=== PATIENT | female | born 1935 | race Caucasian/White ===

== ENCOUNTER 2023-08-01 11:14 | Inpatient (IN) | payer MEDICARE, SELFPAY ==
[2023-07-31] VITALS (11 sets, daily range): BP systolic 124–164; BP diastolic 71–91; PULSE 72; O2SAT 95; BMI 21.6
--- NOTE | 2023-07-31 08:24 | ED.GENMED ---
History of Present Illness
General
Chief Complaint: Change in Mental Status
Source: ambulance crew
Time Seen by Provider: 07/31/23 08:10
Travel History
Have you had any contact with someone who has COVID-19?: No
Do you have any symptoms of coronavirus? Fever > 100 degrees, chills, cough, shortness of breath, sore throat, loss of taste or smell, muscle aches, or headache?: No
History of Present Illness
History of Present Illness:
87-year-old female with past medical history of hypertension hyperlipidemia presenting to the emergency department from home where she lives with her daughter for evaluation of change in mental status and increased confusion over the last 5 days.
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 Patient is unable to provide any history and
states 'her daughter is full of shit' and does not know why she is here in the emergency department. Patient is denying any pain presently, focal weakness or numbness, headaches, chest pain or shortness of breath, fevers or any other concerns.
Past History
Past History
ED Past Medical History: HTN and Hypercholesterolemia
ED Past Surgical History: Gynecological
Social History
Tobacco: Non-smoker
Alcohol: Occasional
Drug: None
Personal:
Living: with family
Review of Systems
Review of Systems
All Other Systems: ROS reviewed and negative except as documented in HPI and ROS
Phy Exam
Physical Exam
Physical Exam:
GENERAL: Alert , in no apparent distress, pleasant
Head: Normocephalic atraumatic
EYE: conjunctiva clear
NECK: Supple
ENT: o/p clr, mmm.
CARDIAC: Regular rate and rhythm
LUNGS: Clear breath sounds bilaterally, no acute respiratory distress, no wheezes/rales/rhonchi
NEUROLOGICAL: Alert and oriented to self only, unaware of place and stated the year was 193
SKIN: Warm and dry, skin intact.
MUSCULOSKELETAL: well perfused.
PSYCH: Normal and appropriate interaction.
Scores
Heart Failure Risk
Heart Failure Risk Score: Not Applicable
Heart Score for Chest Pain Patients
STEMI patient?: Not applicable
Withdrawal Assessment of Alcohol
Withdrawal Assessment Completed?: Not applicable
Course
Orders/Labs/Results
Orders:
Orders
07/31/23 08:23
CT Head W/o Iv Contrast Urgent
Comment:
Reason For Exam: delirium, change in mental status
Urinalysis Reflex To Culture Urgent
Date Specimen was Collected: 07/31/23
Time Specimen was Collected: 08:34
CR Chest - 2 Views Urgent
Comment:
Reason For Exam: change in mental status
07/31/23 08:54
Complete Blood Count/With Diff Urgent
Comprehensive Metabolic Panel Urgent
Lactic Acid Q4H
Comment: CANCEL 2nd LACTIC ACID IF 1st LACTIC ACID IS LESS THAN 2
Blood Culture Q30M
SHARONDA Source: Blood/Venous
Specimen Description:
Blood Culture Q30M
SHARONDA Source: Blood/Venous
Specimen Description:
07/31/23 10:03
0.9% Sodium Chloride 1000 ml [Nss] 1,000 ml IV BOLUS
07/31/23 13:08
ECG [Electrocardiogram (*1)] Urgent
Reason for Study: QTc Monitoring
07/31/23 13:09
Admit/Transfer Patient As Directed
Co-Sign Provider:
Level of Care: Observation services
Assign to:: Medical/Surgical
Physician / Group: Sheu
Diagnosis: Acute Delirium
07/31/23 13:11
Code Status As Directed
Resuscitation Status: Full Code
07/31/23 13:35
CT Abd/pel W Iv And Oral Contr Routine
Comment:
Reason For Exam: abdominal pain
Iohexol [Omnipaque] See Protocol PO NOW STA
07/31/23 13:37
Lorazepam [Ativan] 0.25 mg IV Q8HPRN PRN
Abnormal Lab Results
07/31/23
08:54
MCHC 31.9 L g/dL
(33.0-37.0)
Chloride 109 H mmol/L
(98-107)
BUN 25 H mg/dl
(7-17)
Total Protein 6.2 L g/dl
(6.3-8.2)
Albumin 3.4 L g/dl
(3.5-5.0)
07/31/23 08:54
07/31/23 08:54
Vital Signs
Initial and Last Documented VS:
Initial Vital Signs
Pulse Resp BP
68 19 124/74
07/31/23 07:53 07/31/23 07:53 07/31/23 07:53
Last Documented Vital Signs
Temp Pulse Resp BP Pulse Ox
98.3 F 72 17 134/74 97
07/31/23 08:17 07/31/23 13:30 07/31/23 13:30 07/31/23 12:00 07/31/23 08:17
MDM/Problems Addressed
Differential Diagnosis Includes:
Delirium, UTI, less likely pneumonia given lack of respiratory symptoms, CVA, TGA, dementia
MDM/Problems Addressed:
87-year-old female presenting the emergency department for reported increased confusion over the last 5 days. Family reporting malodorous urine during this time. Patient only oriented to self. No signs of hemodynamic instability. Patient does
follow commands appropriately. She is in no acute distress. Will obtain labs, urine, CT of the head. Reassessment following.
*Pulse Oximetry
Patient hypoxic: no
*Water Operator Interpretation
Rate: normal
Rhythm: sinus
*Critical Care Note
Total Time (30-74mins, 75-104mins- exclusive of procedures): Not Applicable
Comment
Comment:
10:03 AM: Patient's daughter is now at the bedside. States patient and them were not vacationing in [place] but patient had lived in [place] for 40 years and patient was brought back to [facility] to live with her daughter. Patient has been back in
the [place] for 10 days and over the last 5-6 days has been progessively unwell. Patient had c/o some nausea during this time but no vomiting or bowel changes. Discussed labs and CT with daughter. Urine pending. Plan for admit. Patient remains only
oriented to self
11:30 AM: Still awaiting urinalysis. Patient continues to be oriented to self only. Awaiting urine with anticipated admission
Patient Management
Discussion with other providers: Hospitalist
Escalation/DeEscalation of care consider admission/obs:
Multiple attempts were made to get urine. Patient refusing further catheterization. Given her presentation I do not see how patient would be able to be discharged home safely especially given she currently does not have a primary care provider.
Hospitalist team is aware and accepts for continued evaluation and treatment.
ED Attending Note
-
Portions of this chart may have been created with voice recognition software.� Occasional wrong word or��sound alike� substitutions may have occurred due to the inherent limitations of voice recognition software.
Discharge Plan
Departure
Patient Disposition: Admit
Date of Disposition: 07/31/23
Time of Disposition: 12:20
Presentation/result/management discussed w/ accepting MD/DO: Hospitalist
Discharge Problem:
Acute delirium
Prescriptions:
No Action
Ascriptin (300mg - 80mg - 70mg) tablet
1 tab PO DAILY
acetaminophen [Paracetamol] 500 mg Tablet
1,000 mg PO DAILYPRN PRN (Reason: mild pain)
pantoprazole 40 mg Tablet,Delayed Release (Dr/Ec)
40 mg PO DAILY
furosemide 20 mg Tablet
25 mg PO DAILY
ramipril 2.5 mg Tablet
2.5 mg PO DAILY
Referrals:
NONE,* [Family Provider] -
Interventions
Interventions:
*Risk Screen - Suicide Last Done: 07/31/23 08:17
*General Assessment Last Done: 07/31/23 08:17
*Neglect/Abuse Screening Last Done: 07/31/23 08:26
*ED COVID-19 Vaccine History Last Done: 07/31/23 08:17
ED- Pulmonary Assessment Last Done: 07/31/23 08:26
ED- Neurological Assessment Last Done: 07/31/23 08:26
ED- Cardiac Assessment Last Done: 07/31/23 08:26
ED Swallowing Screen Last Done: 07/31/23 08:26
Discharge Date and Time
Print Language: TURKMEN
[2023-07-31 09:03] LABS: % Basophils 0.9 % (0-2); % Eosinophils 2.6 % (0-6); % Immature Granulocytes 0.3 % (0-0.5); % Lymphocytes 27.6 % (20.5-51.1); % Monocytes 7.9 % (1.7-9.3); % Neutrophils 60.7 % (42.2-75.2); Absolute Basophils 0.1 10^3/uL (0-0.2); Absolute Eosinophils 0.2 10^3/uL (0-0.7); Absolute Lymphocytes 1.8 10^3/uL (1.2-3.4); Absolute Monocytes 0.5 10^3/uL (0.1-0.6); Hematocrit 40.7 % (37.0-47.0); Mean Corp Hgb Conc. 31.9 g/dL (33.0-37.0); Mean Corpuscular Hgb 28.6 pg (27.0-31.0); Mean Corpuscular Volume 89.5 fL (81.0-99.0); Nucleated Red Blood Cells % 0 %; Platelet Count 390 10^3/uL (130-400); Red Blood Cell Count 4.55 10^6/uL (4.20-5.40); Red Cell Dist. Width 13.9 % (11.5-14.5); White Blood Cell Count 6.6 10^3/uL (4.8-10.8)
[2023-07-31 09:16] LABS: ALT (SGPT) 11 U/L (0-35); AST (SGOT) 18 U/L (14-36); Albumin 3.4 g/dl (3.5-5.0); Alkaline Phosphatase 79 U/L (38-126); Blood Urea Nitrogen 25 mg/dl (7-17); Calcium 10.1 mg/dl (8.4-10.2); Carbon Dioxide 30 mmol/L (22-30); Chloride 109 mmol/L (98-107); Estimated Creatinine Clearance 38 ml/min; Glucose 82 mg/dl (70-99); Potassium 4.8 mmol/L (3.5-5.1); Sodium 144 mmol/L (135-145); Total Bilirubin 0.5 mg/dl (0.2-1.3); Total Protein 6.2 g/dl (6.3-8.2); eGFR 54.87
[2023-07-31 09:19] LABS: Lactic Acid 1.3 mmol/L (0.7-2.0)
[2023-07-31] MEDS: NSS 1000 IV ×2 (10:23→16:20)
--- NOTE | 2023-07-31 13:31 | HPS.HSE ---
Addendum entered and electronically signed by Toya Shen MD 07/31/23 15:02:
I saw and examined the patient.
The WEBSPH[employer] COMMERCE DEVELOPER or PA's note was reviewed and I agree with the note with additions/exceptions as follows.
Comment:
87F HTN HLD hx TIA's brought in by family/Daughter Deana due to concerns progressive confusion agitation over past 10 days since bringing patient from [place].� [place] Portuguese speaker, patient has lived in [place] for past 40 years.� Last year, per
daughter at bedside, patient was found unresponsive at home for indeterminate period of time prompting hospitalization and subsequent rehab.� Unclear what her diagnosis was then.� Patient reportedly was briefly on on antipsychotics since
discontinued.� [place]ought [place] to be closer to family.� Daughter reports progressive confusion fluctuating mental status throughout the day with associate incontinence urine intermittent coughing abd discomfort.� Patient herself AOx2 disoriented to
time, poor/unreliable historian, denies any issues, exhibits some signs paranoid ideation.� Vital signs otherwise stable on room air, labs unremarkable, straight cath in ED yielded foul smelling urine with urinalysis suggestive of UTI.
Physical Exam
General: Comfortable and Conversant
HEENT: Anicteric and Moist mucous membranes
Respiratory: Clear and Non Labored Respirations
Cardiac: S1/S2 and Regular Rhythm; No Murmur
GI: Soft and Non Tender
Musculoskeletal: No Clubbing, No Cyanosis and No Edema
Skin: Warm and Dry
Neuro: AOx2 disoriented to time
Psych: Calm but labile mood some paranoid ideation noted
#Acute Delirium possibly d/t UTI vs suspected Vascular Dementia
#Urinary Incontinence
#Hx TIA�s
# Intermittent coughing
CT head appreciated no acute abn�s, checking Brain MRI
CXR appreciated no acute abn�s
Follow urine blood cultures, start empiric Ceftriaxone
Check CT abd/pelvis
Bladder scan prn
ST/PT/OT eval
EKG appreciated QTc wnl
Start low dose Risperdal BID 0.25 mg with BIDPRN 0.25 mg for agitation, IV Ativan prn jf not accepting oral medications
Cont home Ascription Patient�s own med
Original Note:
Family Physician
-
Family Physician: * NONE
Chief Complaint
-
Confusion
History of Present Illness
This is an 87 year old female with past medical history of hypertension, hyperlipidemia and TIA/Stroke who presents to the emergency department for altered mental status. Patient resides in [place] but was brought to the [place] by her daughter
after her mother fell and was hospitalized in [place]. Patient reports her daughter noticed the patient was confused, promoting the daughter to bring the patient to the emergency department. Patient is oriented to person only. Patient denies dysuria,
polyuria, nocturia, fevers, chills, sweats, and bowel incontinence. ED staff notes very foul smelling urine. Daughter notes patient complained of some abdominal discomfort over the past few days.
Medical History
Past Medical History
Past Medical History: Reports Other
Additional Past Medical History:
Essential Hypertension
Hyperlipidemia
TIA/Stroke
GERD
Colon Cancer
Past Surgical History: Reports Other
Additional Past Surgical History:
Uterine Fibroid Removal
Colon Resection
Social History
Unable to obtain full social history at this time due to: Dementia
Family History
Family History: Unable to Obtain
Allergies / Home Medications
Allergies reflects when Allergies were last updated in [facility].
Home Medications with original date entered in [facility]
Allergy/Medication List:
Allergies
Allergy/AdvReac Type Severity Reaction Status Date / Time
No Known Drug Allergies Allergy Unknown Verified 07/31/23 08:17
Home Medications
Ascriptin (300mg - 80mg - 70mg) 1 tab PO DAILY 07/31/23
acetaminophen 500 mg tablet 1,000 mg PO DAILYPRN PRN mild pain 07/31/23
furosemide 20 mg tablet 25 mg PO DAILY 07/31/23
pantoprazole 40 mg tablet,delayed release 40 mg PO DAILY 07/31/23
ramipril 2.5 mg tablet 2.5 mg PO DAILY 07/31/23
Review of Systems
-
Unable to obtain full review of systems at this time due to: Dementia
Physical Exam
Vital Signs
Vital Signs
Temp Pulse Resp BP Pulse Ox
98.3 F 83 13 164/91 97
07/31/23 08:17 07/31/23 10:15 07/31/23 10:15 07/31/23 10:15 07/31/23 08:17
Physical Exam
General: Comfortable and Conversant
HEENT: Anicteric and Moist mucous membranes
Respiratory: Clear and Non Labored Respirations
Cardiac: S1/S2 and Regular Rhythm; No Murmur
GI: Soft and Non Tender
Rectal: Deferred by Provider
Musculoskeletal: No Clubbing, No Cyanosis and No Edema
Skin: Warm and Dry
Neuro: Awake, Alert and Oriented (Person only; States year is 1936)
Psych: Apparent Dementia
Laboratory Results
-
07/31/23 08:54
07/31/23 08:54
Laboratory Results
Lactic Acid Cancelled 07/31/23 12:30
Total Bilirubin 0.5 mg/dl (0.2-1.3) 07/31/23 08:54
AST 18 U/L (14-36) 07/31/23 08:54
ALT 11 U/L (0-35) 07/31/23 08:54
Alkaline Phosphatase 79 U/L (38-126) 07/31/23 08:54
Data Reviewed
-
CT Scan: Report Reviewed by me
Lab Data: Labs Reviewed by me
Impression/Plan
-
Acute Delirium, possible TME in setting of UTI vs Underlying Dementia
-Attempt to obtain urine sample - Start antibiotics
-Check Abd/Pelvis CT Scan
-Check ECG - If QTC is not prolonged start Risperdal
-Add Ativan prn
Hx TIA/CVA
-Continue Aspirin
Essential Hypertension
-Continue Ramipril
DVT proph: SCDs
Code Status: Full Code
[2023-07-31] MEDS: ATIVAN 0.25 MG IV (13:55)
[2023-07-31] MEDS: OMNIPAQUE 50 ML PO (13:55)
[2023-07-31 14:28] LABS: Urine Albumin Negative (Neg - Trace); Urine Bilirubin Negative (Negative); Urine Character Slightly Cloudy (Clear); Urine Color Straw; Urine Glucose Negative (Negative); Urine Ketone Negative (Negative); Urine Leukocyte 2+ (Negative); Urine Nitrite Positive (Negative); Urine Occult Blood Trace (Negative); Urine Urobilinogen Negative (Neg - 1+)
[2023-07-31 15:00] LABS: Urine Bacteria Many (Negative); Urine Squamous Cell 0-2 /LPF (Few)
[2023-07-31 15:02] LABS: Urine Red Blood Cell 0-2 /HPF (0-2)
[2023-07-31] MEDS: STERILE WATER FOR INJECTION 10 ML IV (16:20)
[2023-07-31] MEDS: ROCEPHIN 1000 MG IV (16:20)
[2023-08-01 06:00] VITALS: BMI 21.3
[2023-08-01 07:00] VITALS: BP 136/86
[2023-08-01 07:35] LABS: Hemoglobin 12.1 g/dL (12.0-16.0); Mean Corpuscular Hgb 28.2 pg (27.0-31.0); Mean Corpuscular Volume 90.9 fL (81.0-99.0); Mean Platelet Volume 9.3 fL (7.4-10.4); Platelet Count 364 10^3/uL (130-400); Red Blood Cell Count 4.29 10^6/uL (4.20-5.40); White Blood Cell Count 7.1 10^3/uL (4.8-10.8)
[2023-08-01 07:46] LABS: Blood Urea Nitrogen 17 mg/dl (7-17); Calcium 9.3 mg/dl (8.4-10.2); Carbon Dioxide 28 mmol/L (22-30); Chloride 110 mmol/L (98-107); Estimated Creatinine Clearance 47 ml/min; Glucose 67 mg/dl (70-99); Magnesium 1.7 mg/dl (1.6-2.3); Potassium 4.5 mmol/L (3.5-5.1); Sodium 140 mmol/L (135-145); eGFR > 60.00
--- NOTE | 2023-08-01 07:53 | W.PN.HOSP.TC ---
Today's Communication/Plan
-
cont abx
bowel regimen
PT/OT
discharge planning SNF rehab
Assessment / Plan
Assessment / Plan
Physical Exam
General: Comfortable and Conversant
HEENT: Anicteric and Moist mucous membranes
Respiratory: Clear and Non Labored Respirations
Cardiac: S1/S2 and Regular Rhythm; No Murmur
GI: Soft and Non Tender
Musculoskeletal: No Clubbing, No Cyanosis and No Edema
Skin: Warm and Dry
Neuro: AOx2 disoriented to time
Psych: Calm Cooperative
HPI: 87F HTN HLD hx TIA's brought in by family/Daughter Deana due to concerns progressive confusion agitation over past 10 days since bringing patient from [place].� [place] Persian speaker, patient has lived in [place] for past 40 years.� Last year,
per daughter at bedside, patient was found unresponsive at home for indeterminate period of time prompting hospitalization and subsequent rehab.� Unclear what her diagnosis was then.� Patient reportedly was briefly on on antipsychotics since
discontinued.� [place]ought [place] to be closer to family.� Daughter reports progressive confusion fluctuating mental status throughout the day with associate incontinence urine intermittent coughing abd discomfort.� Patient herself AOx2 disoriented to
time, poor/unreliable historian, denies any issues, exhibits some signs paranoid ideation.� Vital signs otherwise stable on room air, labs unremarkable, straight cath in ED yielded foul smelling urine with urinalysis suggestive of UTI
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
Constipation possible fecal impaction
-Urinalysis appreciated suggestive UTI
-Urine Cx pos for E. coli follow sensitivities, cont ceftriaxone
-Blood Cx NGTD
Abd/Pelvis CT Scan appreciated
1. Stool distention of the rectum raising concern for a fecal impaction.
2. Irregularity of the anterior bladder wall partially extending into a small midline anterior pelvic wall hernia.
3. Colonic diverticulosis.
EKG QTc wnl
cont prn risperdal, prn ativan
CT Head appreciated no acute abn's, moderate diffuse cortical atrophy with mild nonspecific white matter changes
MRI Head appreciated no acute abn's, chronic small vessel ischemic changes noted
Constipation possible fecal impaction
cont bowel regimen, once suppository administered
Hx TIA/CVA
-Continue Aspirin
Essential Hypertension
-Continue Ramipril
ST appreciated reg diet thin liquids
PT/OT appreciated SNF rehab
DVT proph: SCDs
Code Status: Full Code
Discussed with patient and patient's daughter Deana at bedside.
I spent a total of 50 minutes with the patient or on the floor. More than 50% of this time involved counseling and coordination of care.
Anticipated Discharge: 24 - 48 hours
Subjective/Interval History
-
Date of Service: August 01, 2023
Mood significantly improved since admission antibiotics. More calm cooperative cheerful. Reports feeling well. Daughter Deana present during evaluation. Remains constipated, no bowel movement since admission. Some nausea anxiousness noted during
the day. prn risperdal ativan given.
Objective Data
-
Labs:
Laboratory Results
08/01/23
06:01
WBC 7.1
Hgb 12.1
Hct 39.0
Plt Count 364
Sodium 140
Potassium 4.5
Chloride 110 H
Carbon Dioxide 28
BUN 17
Creatinine 0.8
Glucose 67 L
Calcium 9.3
Vital Signs:
Vital Signs
Temp Pulse Resp BP Pulse Ox
98.7 F 64 18 129/72 96
07/31/23 23:02 07/31/23 23:02 07/31/23 23:02 07/31/23 23:02 07/31/23 23:02
I&O
07/31/23 08/01/23 08/02/23
06:59 06:59 06:59
Intake Total 540 / 540
Balance 540 / 540
[2023-08-01 08:33] LABS: Vitamin B12 238 pg/ml (239-931)
[2023-08-01] MEDS: RISPERDAL 0.25 MG PO (08:47)
[2023-08-01] MEDS: [UNRECOGNIZED DRUG - OTHER] 325 MG PO (08:47)
[2023-08-01] MEDS: ALTACE 2.5 MG PO (08:47)
[2023-08-01] MEDS: MIRALAX 17 GRAMS PO (08:47)
[2023-08-01] MEDS: PROTONIX 40 MG PO (08:47)
[2023-08-01] MEDS: SENOKOT-S 1 TABLET PO (08:47)
--- NOTE | 2023-08-01 08:54 | PTOTSP ---
Dysphagia Evaluation
Patient presents with signs concerning for possible mild oral/pharyngeal dysphagia and coughing with thin liquids via straw concerning for possible aspiration. Patient does not have signs concerning for aspiration complications at this time (i.e.,
CXR without PNA, afebrile, WBC WNL).
Cognitive evaluation held given concern for UTI as contributing to changes to mentation. If symptoms persist after medical management, consider further assessment. Dysfluency of speech noted (i.e., word repetitions) which did not impact ability to
communicate.
Recommend:
1. Regular, Thin Liquids via CUP
2. Strategies: supervision (given admission with AMS), no straws, single sips/bites, slow rate
3. Medications - whole in puree
4. Dysphagia tx at the acute care level. Will f/u to determine if/when further objective assessment of pharyngeal stage of swallowing may be warranted.
--- NOTE | 2023-08-01 12:11 | CM ---
Patient seen bedside.
IA completed with assist from daughter Deana.
patient lives with daughter in a 3 story home (including basement)
2 steps in from the garage.
1st floor set up with powder room on 1st floor.
patient ambulates with a RW, cane and has a WC.
Patient does not drive.
Patient does not have a PCP.
Preferred pharmacy: [facility]
Await PT/OT evaluations
Per daughter PT comes to the house 2x/week- private pay.
Plan: provide PCP resource list, watch for d/c needs.
[2023-08-01 12:20] LABS: TSH Reflex To Free T4 1.38 uIU/ml (0.47-4.68)
[2023-08-01] MEDS: VITAMIN B-12 1000 MCG PO (12:44)
[2023-08-01] MEDS: ATIVAN 0.25 MG IV (13:00)
[2023-08-01] MEDS: NSS (PRESERVATIVE FREE) 0.125 ML IV (13:01)
[2023-08-01] MEDS: DULCOLAX 10 MG RECTAL (14:20)
[2023-08-01 15:00] VITALS: BP 138/81
[2023-08-01] MEDS: STERILE WATER FOR INJECTION 10 ML IV (17:30)
[2023-08-01] MEDS: ROCEPHIN 1000 MG IV (17:30)
[2023-08-01] MEDS: SENOKOT-S PO (20:52)
[2023-08-01 23:42] VITALS: BP 129/88
[2023-08-02 05:56] VITALS: BMI 19.8
[2023-08-02 07:00] VITALS: BP 120/74
[2023-08-02 07:25] LABS: Hematocrit 38.3 % (37.0-47.0); Hemoglobin 12.1 g/dL (12.0-16.0); Mean Corp Hgb Conc. 31.6 g/dL (33.0-37.0); Mean Corpuscular Hgb 28.5 pg (27.0-31.0); Mean Corpuscular Volume 90.3 fL (81.0-99.0); Mean Platelet Volume 9.2 fL (7.4-10.4); Platelet Count 370 10^3/uL (130-400); Red Blood Cell Count 4.24 10^6/uL (4.20-5.40); Red Cell Dist. Width 13.8 % (11.5-14.5)
[2023-08-02 07:39] LABS: Blood Urea Nitrogen 20 mg/dl (7-17); Calcium 10.1 mg/dl (8.4-10.2); Carbon Dioxide 25 mmol/L (22-30); Chloride 107 mmol/L (98-107); Estimated Creatinine Clearance 39 ml/min; Glucose 78 mg/dl (70-99); Magnesium 1.8 mg/dl (1.6-2.3); Phosphorus 3.5 mg/dl (2.5-4.5); Potassium 4.6 mmol/L (3.5-5.1); Sodium 138 mmol/L (135-145); eGFR > 60.00
--- NOTE | 2023-08-02 08:55 | W.PN.HOSP.TC ---
Today's Communication/Plan
-
IV abx transitioned to oral
bowel regimen with holding parameters
PT/OT
discharge planning SNF rehab
Trazodone HSPRN sleep/agitation
Assessment / Plan
Assessment / Plan
Physical Exam
General: Comfortable and Conversant
HEENT: Anicteric and Moist mucous membranes
Respiratory: Clear and Non Labored Respirations
Cardiac: S1/S2 and Regular Rhythm; No Murmur
GI: Soft and Non Tender
Musculoskeletal: No Clubbing, No Cyanosis and No Edema
Skin: Warm and Dry
Neuro: AOx2 disoriented to time
Psych: Calm Cooperative
HPI: 87F HTN HLD hx TIA's brought in by family/Daughter Deana due to concerns progressive confusion agitation over past 10 days since bringing [place] from [place].� [place] Taj[place] speaker, patient has lived in [place] for past 40 years.� Last year,
per daughter at bedside, patient was found unresponsive at home for indeterminate period of time prompting hospitalization and subsequent rehab.� Unclear what her diagnosis was then.� Patient reportedly was briefly on on antipsychotics since
discontinued.� [place]ought [place] to be closer to family.� Daughter reports progressive confusion fluctuating mental status throughout the day with associate incontinence urine intermittent coughing abd discomfort.� Patient herself AOx2 disoriented to
time, poor/unreliable historian, denies any issues, exhibits some signs paranoid ideation.� Vital signs otherwise stable on room air, labs unremarkable, straight cath in ED yielded foul smelling urine with urinalysis suggestive of UTI
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
Constipation possible fecal impaction
-Urinalysis appreciated suggestive UTI
-Urine Cx pos for E. coli pansensitive, ceftriaxone transitioned to Keflex 5 days.
-Blood Cx NGTD
Abd/Pelvis CT Scan appreciated
1. Stool distention of the rectum raising concern for a fecal impaction.
2. Irregularity of the anterior bladder wall partially extending into a small midline anterior pelvic wall hernia. (discussed with Urology outpatient follow up recommended)
3. Colonic diverticulosis.
EKG QTc wnl
cont prn risperdal, prn ativan
Trazodone HSPRN sleep/agitation
CT Head appreciated no acute abn's, moderate diffuse cortical atrophy with mild nonspecific white matter changes
MRI Head appreciated no acute abn's, chronic small vessel ischemic changes noted
Constipation possible fecal impaction
cont bowel regimen, once suppository administered
resolving
Hx TIA/CVA
-Continue Aspirin
Essential Hypertension
-Continue Ramipril
ST appreciated reg diet thin liquids via cup no straw, medications whole in puree
PT/OT appreciated SNF rehab
DVT proph: SCDs
Code Status: Full Code
Discussed with patient and patient's daughter Deana at bedside.
I spent a total of 50 minutes with the patient or on the floor. More than 50% of this time involved counseling and coordination of care.
Anticipated Discharge: 24 - 48 hours
Subjective/Interval History
-
Date of Service: August 02, 2023
Seen and examined at bedside in no acute distress sitting up comfortably in chair. Denies any new acute issues at this time. Reports feeling well constipation resolved sleeping well. Daughter Deana present during evaluation.
Noted patient refusing morning meds earlier, agreed to take later with daughter present. nurse also noted that patient reportedly didn't sleep well due to resolution of constipation.
Objective Data
-
Labs:
Laboratory Results
08/02/23
07:13
WBC 9.0
Hgb 12.1
Hct 38.3
Plt Count 370
Sodium 138
Potassium 4.6
Chloride 107
Carbon Dioxide 25
BUN 20 H
Creatinine 0.9
Glucose 78
Calcium 10.1
Vital Signs:
Vital Signs
Temp Pulse Resp BP Pulse Ox
97.4 F 76 16 120/74 100
08/02/23 07:00 08/02/23 07:00 08/02/23 07:00 08/02/23 07:00 08/02/23 07:00
I&O
08/01/23 08/02/23 08/03/23
06:59 06:59 06:59
Intake Total 540 / 540 1080 / 1080
Balance 540 / 540 1080 / 1080
[2023-08-02] MEDS: MIRALAX PO (10:22)
[2023-08-02] MEDS: SENOKOT-S PO ×2 (10:22→20:49)
[2023-08-02] MEDS: VITAMIN B-12 PO (10:23)
[2023-08-02] MEDS: ALTACE PO ×2 (10:24→11:50)
[2023-08-02] MEDS: PROTONIX PO (10:24)
[2023-08-02] MEDS: [UNRECOGNIZED DRUG - OTHER] PO (10:24)
[2023-08-02 11:31] VITALS: BP 110/74; PULSE 85; O2SAT 97
[2023-08-02] MEDS: PROTONIX 40 MG PO (11:53)
[2023-08-02] MEDS: [UNRECOGNIZED DRUG - OTHER] 325 MG PO (11:53)
[2023-08-02] MEDS: VITAMIN B-12 1000 MCG PO (11:53)
[2023-08-02] MEDS: KEFLEX 250 MG/5 ML 500 MG PO ×2 (12:58→20:53)
[2023-08-02] MEDS: TYLENOL 650 MG PO (14:47)
[2023-08-02 15:00] VITALS: BP 113/68
--- NOTE | 2023-08-02 15:18 | CM ---
Spoke with patient's daughter, Deana, via phone. Daughter reported that mother does have Medicare and spoke with [employer] about applying for Medicaid
Explained to daughter that PT/OT evaluated her mother and recommended short term skilled facility for rehab
Also explained that I left a list of facilities on the bulletin board in her mother's room with instructions to identify 3 site preferences
Daughter is agreeable with plan; will review list and identify preferences for Case Management
Plan: Discharge to SNF when medically stable; CM will follow up with patient's daughter tomorrow; obtain site preferences and submit referrals
[2023-08-02 15:51] VITALS: BP 113/68
[2023-08-02 23:21] VITALS: BP 101/56
[2023-08-03 06:00] VITALS: BMI 20.4
[2023-08-03 07:05] VITALS: BP 108/67
--- NOTE | 2023-08-03 07:18 | W.PN.HOSP.TC ---
Today's Communication/Plan
-
discontinue IV access
cont PT/OT
laxative converted prn
cont abx
check Abd X-ray
Assessment / Plan
Assessment / Plan
Physical Exam
General: Comfortable and Conversant
HEENT: Anicteric and Moist mucous membranes
Respiratory: Clear and Non Labored Respirations
Cardiac: S1/S2 and Regular Rhythm; No Murmur
GI: Soft and Non Tender
Musculoskeletal: No Clubbing, No Cyanosis and No Edema
Skin: Warm and Dry
Neuro: AOx2 disoriented to time
Psych: Calm Cooperative
HPI: 87F HTN HLD hx TIA's brought in by family/Daughter Deana due to concerns progressive confusion agitation over past 10 days since bringing [place].� [place] speaker, patient has lived in [place] for past 40 years.� Last year,
per daughter at bedside, patient was found unresponsive at home for indeterminate period of time prompting hospitalization and subsequent rehab.� Unclear what her diagnosis was then.� Patient reportedly was briefly on on antipsychotics since
discontinued.� [place].� Daughter reports progressive confusion fluctuating mental status throughout the day with associate incontinence urine intermittent coughing abd discomfort.� Patient herself AOx2 disoriented to
time, poor/unreliable historian, denies any issues, exhibits some signs paranoid ideation.� Vital signs otherwise stable on room air, labs unremarkable, straight cath in ED yielded foul smelling urine with urinalysis suggestive of UTI
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
Constipation possible fecal impaction
-Urinalysis appreciated suggestive UTI
-Urine Cx pos for E. coli pansensitive, ceftriaxone transitioned to Keflex 5 days.
-Blood Cx NGTD
Abd/Pelvis CT Scan appreciated
1. Stool distention of the rectum raising concern for a fecal impaction.
2. Irregularity of the anterior bladder wall partially extending into a small midline anterior pelvic wall hernia. (discussed with Urology outpatient follow up recommended for potential cystoscopy)
3. Colonic diverticulosis.
EKG QTc wnl
cont prn risperdal, prn ativan
Trazodone HSPRN sleep/agitation
CT Head appreciated no acute abn's, moderate diffuse cortical atrophy with mild nonspecific white matter changes
MRI Head appreciated no acute abn's, chronic small vessel ischemic changes noted
Intermittent nausea
Constipation possible fecal impaction
cont bowel regimen, once suppository administered
appears to be resolving, senna/colace switched to prn
prn PO zofran
checking abd X-ray
Hx TIA/CVA
-Continue Aspirin
Essential Hypertension
-Continue Ramipril with holding parameters
ST appreciated reg diet thin liquids via cup no straw, medications whole in puree
PT/OT appreciated SNF rehab
DVT proph: SCDs
Code Status: Full Code
Discussed with patient at bedside and patient's daughter Deana over phone.
I spent a total of 50 minutes with the patient or on the floor. More than 50% of this time involved counseling and coordination of care.
Anticipated Discharge: 24 - 48 hours
Subjective/Interval History
-
Date of Service: August 03, 2023
No acute distress. Appears comfortable at this time. Constipation seems resolved having bowel movement. Though some intermittent nausea noted, manageable with prn zofran po.
Objective Data
-
Labs:
Laboratory Results
08/03/23
06:00
WBC Pending
Hgb Pending
Hct Pending
Plt Count Pending
Sodium Pending
Potassium Pending
Chloride Pending
Carbon Dioxide Pending
BUN Pending
Creatinine Pending
Glucose Pending
Calcium Pending
Vital Signs:
Vital Signs
Temp Pulse Resp BP Pulse Ox
98.3 F 74 16 101/56 94
08/02/23 23:21 08/02/23 23:21 08/02/23 23:21 08/02/23 23:21 08/02/23 23:21
I&O
08/02/23 08/03/23 08/04/23
06:59 06:59 06:59
Intake Total 1080 / 1080 410 / 410
Balance 1080 / 1080 410 / 410
[2023-08-03 07:42] LABS: Hematocrit 35.8 % (37.0-47.0); Hemoglobin 11.8 g/dL (12.0-16.0); Mean Corpuscular Hgb 29.1 pg (27.0-31.0); Mean Corpuscular Volume 88.2 fL (81.0-99.0); Mean Platelet Volume 9.3 fL (7.4-10.4); Platelet Count 349 10^3/uL (130-400); Red Blood Cell Count 4.06 10^6/uL (4.20-5.40); Red Cell Dist. Width 14.2 % (11.5-14.5); White Blood Cell Count 5.9 10^3/uL (4.8-10.8)
[2023-08-03] MEDS: ALTACE PO (08:28)
[2023-08-03] MEDS: PROTONIX 40 MG PO (09:06)
[2023-08-03] MEDS: [UNRECOGNIZED DRUG - OTHER] 325 MG PO (11:18)
[2023-08-03] MEDS: KEFLEX 250 MG/5 ML 500 MG PO ×2 (11:18→22:05)
[2023-08-03] MEDS: VITAMIN B-12 1000 MCG PO (11:18)
--- NOTE | 2023-08-03 11:21 | CM ---
Addendum entered by Rose López 08/03/23 15:28:
Patient accepted to [facility] and patient daughter aware, pending bed availability. IMM form in room for patient daughter to review and patient will need ambulance for transportation due to confusion.
Original Note:
Patient daughter called to request referrals to [facility] and [facility]. CM sent referral via all scirpt and await response. All questions answered with daughter. CM will continue to follow for discharge planning needs.
Plan; snf
[2023-08-03 11:31] LABS: Blood Urea Nitrogen 23 mg/dl (7-17); Carbon Dioxide 26 mmol/L (22-30); Chloride 108 mmol/L (98-107); Estimated Creatinine Clearance 37 ml/min; Glucose 92 mg/dl (70-99); Magnesium 1.9 mg/dl (1.6-2.3); Phosphorus 3.1 mg/dl (2.5-4.5); Potassium 4.4 mmol/L (3.5-5.1); Sodium 138 mmol/L (135-145); eGFR 54.87
[2023-08-03] MEDS: MIRALAX PO (11:36)
[2023-08-03] MEDS: SENOKOT-S PO ×2 (11:36→22:05)
[2023-08-03 14:20] VITALS: BP 115/80; PULSE 94
--- NOTE | 2023-08-03 14:23 | PTOTSP ---
Dysphagia therapy
Patient able to drink from straw without signs of aspiration this date.
Recommend:
1. Regular, Thin Liquids via cup or straw
2. Strategies: supervision (given admission with AMS),single sips/bites, slow rate
3. Medications - whole in puree
4. No further dysphagia therapy warranted.
5. Cognitive evaluation is not appropriate while patient with an acute UTI. If confusion persists after medical treatment, please reconsult as appropriate.
[2023-08-03 15:00] VITALS: BP 108/67
[2023-08-03] MEDS: ZOFRAN ODT (ORALLY DISINTEGRATING) 4 MG PO (16:16)
[2023-08-03] MEDS: DESYREL 25 MG PO (22:05)
[2023-08-03 23:20] VITALS: BP 106/66
[2023-08-04 06:00] VITALS: BMI 20.7
[2023-08-04 06:05] VITALS: BP 107/70
[2023-08-04 06:18] LABS: Hematocrit 38.2 % (37.0-47.0); Hemoglobin 11.9 g/dL (12.0-16.0); Mean Corp Hgb Conc. 31.2 g/dL (33.0-37.0); Mean Corpuscular Hgb 28.4 pg (27.0-31.0); Mean Corpuscular Volume 91.2 fL (81.0-99.0); Mean Platelet Volume 9.8 fL (7.4-10.4); Platelet Count 325 10^3/uL (130-400); Red Blood Cell Count 4.19 10^6/uL (4.20-5.40); Red Cell Dist. Width 14.1 % (11.5-14.5); White Blood Cell Count 5.5 10^3/uL (4.8-10.8)
[2023-08-04 06:33] LABS: Blood Urea Nitrogen 28 mg/dl (7-17); Carbon Dioxide 23 mmol/L (22-30); Chloride 109 mmol/L (98-107); Estimated Creatinine Clearance 41 ml/min; Glucose 78 mg/dl (70-99); Phosphorus 3.8 mg/dl (2.5-4.5); Potassium 4.6 mmol/L (3.5-5.1); Sodium 139 mmol/L (135-145); eGFR > 60.00
--- NOTE | 2023-08-04 07:00 | W.PN.HOSP.TC ---
Today's Communication/Plan
-
cont abx
bowel regimen
fecal disimpaction attempted
once fleet enema
GI eval requested
Assessment / Plan
Assessment / Plan
Physical Exam
General: Comfortable and Conversant
HEENT: Anicteric and Moist mucous membranes
Respiratory: Clear and Non Labored Respirations
Cardiac: S1/S2 and Regular Rhythm; No Murmur
GI: Soft and Non Tender
Musculoskeletal: No Clubbing, No Cyanosis and No Edema
Skin: Warm and Dry
Neuro: AOx2 disoriented to time
Psych: Calm Cooperative
HPI: 87F HTN HLD hx TIA's brought in by family/Daughter Deana due to concerns progressive confusion agitation over past 10 days since bringing [place].� [place]ian speaker, patient has lived in [place] for past 40 years.� Last year,
per daughter at bedside, patient was found unresponsive at home for indeterminate period of time prompting hospitalization and subsequent rehab.� Unclear what her diagnosis was then.� Patient reportedly was briefly on on antipsychotics since
discontinued.� [place].� Daughter reports progressive confusion fluctuating mental status throughout the day with associate incontinence urine intermittent coughing abd discomfort.� Patient herself AOx2 disoriented to
time, poor/unreliable historian, denies any issues, exhibits some signs paranoid ideation.� Vital signs otherwise stable on room air, labs unremarkable, straight cath in ED yielded foul smelling urine with urinalysis suggestive of UTI
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
Constipation possible fecal impaction
-Urinalysis appreciated suggestive UTI
-Urine Cx pos for E. coli pansensitive, ceftriaxone transitioned to Keflex 5 days.
-Blood Cx NGTD
Abd/Pelvis CT Scan appreciated
1. Stool distention of the rectum raising concern for a fecal impaction.
2. Irregularity of the anterior bladder wall partially extending into a small midline anterior pelvic wall hernia. (discussed with Urology outpatient follow up recommended for potential cystoscopy)
3. Colonic diverticulosis.
EKG QTc wnl
cont prn risperdal, prn ativan
Trazodone HSPRN sleep/agitation
CT Head appreciated no acute abn's, moderate diffuse cortical atrophy with mild nonspecific white matter changes
MRI Head appreciated no acute abn's, chronic small vessel ischemic changes noted
Intermittent nausea
Constipation possible fecal impaction
prn PO zofran
treated with bowel regimen miralax senna/colace, once suppository
appeared to be resolving however, appetite remained poor, intermittent nausea, most likely bowel movements were due to overflow incontinence
Confirmed on follow up Abd X-ray patient remains severely constipated with fecal impaction. No obstruction noted
08/03 Fecal Disimpaction and Fleet enema were attempted without much success noted. Gi eval requested
Hx TIA/CVA
-Continue Aspirin
Essential Hypertension
-Continue Ramipril with holding parameters
ST appreciated reg diet thin liquids via cup no straw, medications whole in puree
PT/OT appreciated SNF rehab
DVT proph: SCDs
Code Status: Full Code
Discussed with patient, patient's daughter Deana, and patient's son-in-law River
I spent a total of 50 minutes with the patient or on the floor. More than 50% of this time involved counseling and coordination of care.
Anticipated Discharge: 24 - 48 hours
Subjective/Interval History
-
Date of Service: August 04, 2023
Seen and examined at bedside sitting up comfortably in chair. Continues with poor appetite intermittent nausea. Daughter Deana and Son-in-law River present during evaluation.
Objective Data
-
Labs:
Laboratory Results
08/04/23
04:54
WBC 5.5
Hgb 11.9 L
Hct 38.2
Plt Count 325
Sodium 139
Potassium 4.6
Chloride 109 H
Carbon Dioxide 23
BUN 28 H
Creatinine 0.9
Glucose 78
Calcium 10.0
Vital Signs:
Vital Signs
Temp Pulse Resp BP Pulse Ox
97.7 F 78 16 106/66 95
08/03/23 23:20 08/03/23 23:20 08/03/23 23:20 08/03/23 23:20 08/03/23 23:20
I&O
08/03/23 08/04/23 08/05/23
06:59 06:59 06:59
Intake Total 410 / 410 240 / 240
Balance 410 / 410 240 / 240
[2023-08-04 07:05] VITALS: BP 107/70
[2023-08-04] MEDS: KEFLEX 250 MG/5 ML 500 MG PO ×2 (08:57→20:16)
[2023-08-04] MEDS: VITAMIN B-12 1000 MCG PO (08:59)
[2023-08-04] MEDS: ALTACE 2.5 MG PO (08:59)
[2023-08-04] MEDS: PROTONIX 40 MG PO (08:59)
[2023-08-04] MEDS: SENOKOT-S 1 TABLET PO ×2 (08:59→20:17)
[2023-08-04] MEDS: [UNRECOGNIZED DRUG - OTHER] 325 MG PO (08:59)
[2023-08-04] MEDS: MIRALAX 17 GRAMS PO (08:59)
[2023-08-04] MEDS: ZOFRAN ODT (ORALLY DISINTEGRATING) 4 MG PO ×2 (09:25→17:13)
[2023-08-04] MEDS: FLEET MINERAL OIL ENEMA 133 ML RECTAL (10:32)
--- NOTE | 2023-08-04 12:16 | CM ---
Chart reviewed. Bed available at [facility] if patient is medically stable for discharge. Daughter updated and in agreement with plan if cleared. S transport required. Forms completed and provided to floor.
Report: [phone] ex. [id number]

PLAN: Plan for SNF today if discharged.
[2023-08-04 15:46] VITALS: BP 111/65
[2023-08-04] MEDS: RISPERDAL 0.25 MG PO (20:17)
[2023-08-04 23:22] VITALS: BP 113/59
[2023-08-05 05:38] VITALS: BMI 20.7
[2023-08-05 06:31] LABS: Hematocrit 34.8 % (37.0-47.0); Hemoglobin 11.3 g/dL (12.0-16.0); Mean Corp Hgb Conc. 32.5 g/dL (33.0-37.0); Mean Corpuscular Volume 89.2 fL (81.0-99.0); Mean Platelet Volume 9.4 fL (7.4-10.4); Platelet Count 339 10^3/uL (130-400); Red Cell Dist. Width 14.3 % (11.5-14.5); White Blood Cell Count 5.2 10^3/uL (4.8-10.8)
--- NOTE | 2023-08-05 06:59 | W.PN.HOSP.TC ---
Today's Communication/Plan
-
Bowel regimen as per GI
Follow up AM Abd XR for evaluation progress severe constipation
Last day abx for UTI
Melatonin HS as per psych
discharge planning snf rehab
Assessment / Plan
Assessment / Plan
Physical Exam
General: Comfortable and Conversant
HEENT: Anicteric and Moist mucous membranes
Respiratory: Clear and Non Labored Respirations
Cardiac: S1/S2 and Regular Rhythm; No Murmur
GI: Soft and Non Tender
Musculoskeletal: No Clubbing, No Cyanosis and No Edema
Skin: Warm and Dry
Neuro: AOx2 disoriented to time
Psych: Calm Cooperative
HPI: 87F HTN HLD hx TIA's brought in by family/Daughter Deana due to concerns progressive confusion agitation over past 10 days since bringing [place].� [place] speaker, patient has lived in [place] for past 40 years.� Last year,
per daughter at bedside, patient was found unresponsive at home for indeterminate period of time prompting hospitalization and subsequent rehab.� Unclear what her diagnosis was then.� Patient reportedly was briefly on on antipsychotics since
discontinued.� [place].� Daughter reports progressive confusion fluctuating mental status throughout the day with associate incontinence urine intermittent coughing abd discomfort.� Patient herself AOx2 disoriented to
time, poor/unreliable historian, denies any issues, exhibits some signs paranoid ideation.� Vital signs otherwise stable on room air, labs unremarkable, straight cath in ED yielded foul smelling urine with urinalysis suggestive of UTI
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
Constipation fecal impaction
-Urinalysis appreciated suggestive UTI
-Urine Cx pos for E. coli pansensitive, ceftriaxone transitioned to Keflex. Completed total 5 days of antibiotic therapy.
-Blood Cx's noted no growth
Abd/Pelvis CT Scan appreciated
1. Stool distention of the rectum raising concern for a fecal impaction.
2. Irregularity of the anterior bladder wall partially extending into a small midline anterior pelvic wall hernia. (discussed with Urology outpatient follow up recommended for potential cystoscopy)
3. Colonic diverticulosis.
EKG QTc wnl
cont prn risperdal, prn ativan
Trazodone HSPRN sleep/agitation
Psych eval appreciated Melatonin started
CT Head appreciated no acute abn's, moderate diffuse cortical atrophy with mild nonspecific white matter changes
MRI Head appreciated no acute abn's, chronic small vessel ischemic changes noted
Intermittent nausea
Constipation fecal impaction
prn PO zofran
treated with bowel regimen miralax senna/colace, once suppository
appeared to be resolving however, appetite remained poor, intermittent nausea, most likely bowel movements were due to overflow incontinence
Confirmed on follow up Abd X-ray patient remains severely constipated with fecal impaction. No obstruction noted
08/03 Fecal Disimpaction and Fleet enema were attempted without much success noted.
08/04 GI eval appreciated, showed good response to milk and molasses enema,bowel regimen increased to Miralax and Colace BID
Repeat Abd X-ray in AM 08/05 to evaluate progress
Hx TIA/CVA
-Continue Aspirin
Hx Hypertension
-Blood pressure notably well controlled without home ramipril since placed on hold, consider discontinuing on discharge.
B12 deficiency
started on B12 supplementation, repeat B12 lvl in 1 month recommended.
ST appreciated reg diet thin liquids via cup no straw, medications whole in puree
PT/OT appreciated SNF rehab
DVT proph: SCDs
Code Status: Full Code
Discussed with patient and patient's daughter Deana
I spent a total of 50 minutes with the patient or on the floor. More than 50% of this time involved counseling and coordination of care.
Anticipated Discharge: 24 - 48 hours
Subjective/Interval History
-
Date of Service: August 05, 2023
Seen and examined at bedside in no acute distress sitting up comfortably in chair. Patient recently received milk and molasses enema with good response as noted by staff. Exhibits memory issues/confusion discussed discharge planning for [facility] rehab. Patient however reported that she did not want to 'go back there.' Confirmed with daughter patient had never been there (has been in [place] for the last 40 yr, recently brought to [place] less a [place] ago). Conversations notably sometimes go
in a circular fashion, suspect delayed memory recall.
Objective Data
-
Labs:
Laboratory Results
08/05/23
05:44
WBC 5.2
Hgb 11.3 L
Hct 34.8 L
Plt Count 339
Sodium Pending
Potassium Pending
Chloride Pending
Carbon Dioxide Pending
BUN Pending
Creatinine Pending
Glucose Pending
Calcium Pending
Vital Signs:
Vital Signs
Temp Pulse Resp BP Pulse Ox
97.6 F 72 18 113/59 95
08/04/23 23:22 08/04/23 23:22 08/04/23 23:22 08/04/23 23:22 08/04/23 23:22
I&O
08/03/23 08/04/23 08/05/23
06:59 06:59 06:59
Intake Total 410 / 410 240 / 240 1190 / 1190
Balance 410 / 410 240 / 240 1190 / 1190
[2023-08-05 07:08] LABS: Blood Urea Nitrogen 24 mg/dl (7-17); Calcium 9.9 mg/dl (8.4-10.2); Carbon Dioxide 28 mmol/L (22-30); Chloride 108 mmol/L (98-107); Estimated Creatinine Clearance 37 ml/min; Glucose 78 mg/dl (70-99); Magnesium 1.9 mg/dl (1.6-2.3); Phosphorus 3.7 mg/dl (2.5-4.5); Potassium 4.7 mmol/L (3.5-5.1); Sodium 141 mmol/L (135-145); eGFR 54.87
[2023-08-05] MEDS: DULCOLAX 10 MG RECTAL (07:22)
[2023-08-05] MEDS: MIRALAX 17 GRAMS PO ×2 (07:33→19:24)
[2023-08-05] MEDS: KEFLEX 250 MG/5 ML 500 MG PO ×2 (07:34→19:24)
[2023-08-05] MEDS: VITAMIN B-12 1000 MCG PO (07:35)
[2023-08-05] MEDS: PROTONIX 40 MG PO (07:35)
[2023-08-05] MEDS: [UNRECOGNIZED DRUG - OTHER] 325 MG PO (07:35)
[2023-08-05] MEDS: SENOKOT-S 1 TABLET PO ×2 (07:35→19:23)
[2023-08-05 07:46] VITALS: BP 129/75
--- NOTE | 2023-08-05 10:58 | CON.GI ---
Consultation
-
Date/Time Consultation Requested: 08/05/2023
Date/Time Consultation Performed: 08/04/2023
Requesting Provider: Hospitalist
Performing Provider: Saulo HOBSON
Reason for Consultation: constipation/ fecal imapction
Medical History
Chief Complaint / HPI
Chief Complaint: confusion
History of Present Illness:
87-year-old female with history of hypertension, dyslipidemia, TIA/stroke admitted with altered mental status on 07/31/2023. Patient is a poor historian and most information gathered from H&P/medical charts. Patient is [place] speaker and
lived in [place] for the past 40 years. Recently [place] to be closer to the family. Brought in to the hospital by the daughter for progressive confusion/fluctuating mental status. Treated for UTI and her mental status got better. CT abdomen/pelvis
done at that time showing stool distention of the rectum raising concern for fecal impaction. Failed digital disimpaction by medical team. Fleet enema was not effective..
Today patient denies any abdominal pain/nausea/vomiting.
Unable to recall last colonoscopy
Past Medical History
Past Medical History: Other (Essential Hypertension Hyperlipidemia TIA/Stroke GERD Colon Cancer)
Past Surgical History: Other (Uterine Fibroid Removal Colon Resection)
Allergies / Home Medications
Allergy/AdvReac Type Severity Reaction Status Date / Time
No Known Drug Allergies Allergy Unknown Verified 07/31/23 08:17
�Medication �Instructions �Recorded
Ascriptin (300mg - 80mg - 70mg) 1 tab PO DAILY Pain 07/31/23
acetaminophen 500 mg tablet 1,000 mg PO DAILYPRN PRN mild pain 07/31/23
furosemide 20 mg tablet 25 mg PO DAILY Fluid 07/31/23
Retention/Swelling
pantoprazole 40 mg tablet,delayed 40 mg PO DAILY Gastrointestinal 07/31/23
release Issue
ramipril 2.5 mg tablet 2.5 mg PO DAILY Blood Pressure 07/31/23
Review of Systems
-
Unable to obtain full review of systems at this time due to: Dementia
Vital Signs
Temp Pulse Resp BP Pulse Ox
97.3 F 75 16 129/75 95
08/05/23 07:46 08/05/23 07:46 08/05/23 07:46 08/05/23 07:46 08/05/23 07:46
Physical Exam
Exam
General: Well Developed and No Apparent Distress
Respiratory: Clear
Cardiac: S1/S2
GI: Soft, Non Tender, Non Distended and Normal Bowel Sounds
Results
WBC 5.2 10^3/uL (4.8-10.8) 08/05/23 05:44
Hgb 11.3 g/dL (12.0-16.0) L 08/05/23 05:44
Hct 34.8 % (37.0-47.0) L 08/05/23 05:44
MCV 89.2 fL (81.0-99.0) 08/05/23 05:44
Plt Count 339 10^3/uL (130-400) 08/05/23 05:44
Absolute Neuts (auto) 4.0 10^3/uL (1.4-6.5) 07/31/23 08:54
Sodium 141 mmol/L (135-145) 08/05/23 05:44
Potassium 4.7 mmol/L (3.5-5.1) 08/05/23 05:44
Chloride 108 mmol/L (98-107) H 08/05/23 05:44
Carbon Dioxide 28 mmol/L (22-30) 08/05/23 05:44
BUN 24 mg/dl (7-17) H 08/05/23 05:44
Creatinine 1.0 mg/dL (0.6-1.0) 08/05/23 05:44
Calcium 9.9 mg/dl (8.4-10.2) 08/05/23 05:44
Total Bilirubin 0.5 mg/dl (0.2-1.3) 07/31/23 08:54
AST 18 U/L (14-36) 07/31/23 08:54
ALT 11 U/L (0-35) 07/31/23 08:54
Alkaline Phosphatase 79 U/L (38-126) 07/31/23 08:54
Diagnostic Image Results:
CT abd/ pel with Iv and oral cont 07/31/2023
IMPRESSION:
1. Stool distention of the rectum raising concern for a fecal impaction.
2. Irregularity of the anterior bladder wall partially extending into a small midline anterior pelvic wall hernia.
3. Colonic diverticulosis.
4. Additional chronic findings, as above.
abd x ray 07/30
IMPRESSION:
1. Stool distention of the rectum raising concern for a fecal impaction.
2. Irregularity of the anterior bladder wall partially extending into a small midline anterior pelvic wall hernia.
3. Colonic diverticulosis.
4. Additional chronic findings, as above.
Prior GI Procedures:
EGD: unable to recall
Colonoscopy: unable to recall
Assessment / Plan
-
87-year-old female with history of dementia, hypertension, TIA/stroke admitted with acute delirium possibly secondary to UTI. Noted to have large stool burden on imaging. No obstructive symptoms clinically. Abdominal examination was grossly
unremarkable today
--Constipation/fecal impaction-without obstruction
--hx of colon cancer - reported bowel resection . unable to obtain more information . CT imaging not showing any suspicious findings related to colon cancer other than stool burden
-- dementia/ delirium
plan
Will recommend milk and molasses enema today
Daily bowel regimen-MiraLAX twice daily/Metamucil/Colace
Check TSH
will get in touch with family to get more info regarding hx of colon cancer
Total Time Spent with Patient (in minutes): 55
-
-
Thank you for consultation and allowing me to participate in the patient's care. Please call the contact and service clerks supervisor GI physician during the after hours with any questions or concerns.
--- NOTE | 2023-08-05 14:00 | PTCARENOTE ---
Patient received milk of molasses enema this am with good result- large amount of soft bm in bedside commode. Patient is forgetful, needs frequent redirection . Out of bed in view of staff at present .
[2023-08-05] MEDS: ZOFRAN ODT (ORALLY DISINTEGRATING) 4 MG PO (14:20)
[2023-08-05 15:30] VITALS: BP 126/77
--- NOTE | 2023-08-05 16:12 | CON.MD ---
Consultation - Medical
-
87 y/o woman who lived in [place] for 40 years but has [place] the [place] to live near her daughter. Information is limited as pt. has dementia. I was asked to consult regarding capacity for medical decision making and for management if
paranoid. Spoke to nurse, reviewed chart. Pt. has made substantial progress with treatment of UTI. Found to have severe fecal impaction with displacement of bladder. She responded to milk and molasses enema today following GI consult. Per
nurse, will have imaging tomorrow and be discharged to [facility].
Pt. has a history fo colon cancer. She says it was 1 1/2 years ago, which is likely inaccurate. She denies any other medical problems.
She denies having any history of depression, anxiety or other psychiatric problems. She does not see herself having memory or cognitive problems.
She is managed in the daytime by bringing her to nurses station to socialize with the staff. At night she is needy of attention, does not sleep well and tries ot get out of bed, etc. Was given PRN risperidal last night at 20:17. Trazodone has
not been used which is also ordered. Is on no psychiatric medications. No medical medications she takes would be expected to have psychiatric adverse effects.
Was in [place] for 40 years. 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 Said she has 3 children. She was born in [place], attended [employer]. Unclear why she moved to [place].
MSE: Elderly woman in a reclined chair in nursing station, chatting with staff. Is very pleasant. Says she lived in [place] for 150 years and that she is 89 years old. Knew her year, but thought the year now is 1900. Believes she is in
[place] it seems. Speech is fluent in [place]. Insight limited and resents the idea that she may have cognitive problems. Mildly disinhibited. She is disoriented to place.
Diagnosis:
Dementia with exacerbation with UTI and fecal impaction.
I am prescribing melatonin 3 mg. HS to see if sleep improves without using trazodone or Risperdal which can have adverse effects, but will not discontinue them as PRN's.
Contact Psychiatry if follow-up is needed.
[2023-08-05] MEDS: COLACE 100 MG PO (19:23)
[2023-08-05] MEDS: MELATONIN 3 MG PO (21:23)
[2023-08-05] MEDS: DESYREL 25 MG PO (21:23)
[2023-08-05 23:37] VITALS: BP 115/66
[2023-08-06 05:15] VITALS: BMI 20.7
[2023-08-06 06:56] LABS: Hematocrit 36.5 % (37.0-47.0); Hemoglobin 11.5 g/dL (12.0-16.0); Mean Corp Hgb Conc. 31.5 g/dL (33.0-37.0); Mean Corpuscular Hgb 28.6 pg (27.0-31.0); Mean Corpuscular Volume 90.8 fL (81.0-99.0); Mean Platelet Volume 9.1 fL (7.4-10.4); Platelet Count 332 10^3/uL (130-400); Red Blood Cell Count 4.02 10^6/uL (4.20-5.40); Red Cell Dist. Width 14.2 % (11.5-14.5)
[2023-08-06 07:26] LABS: Blood Urea Nitrogen 22 mg/dl (7-17); Calcium 10.1 mg/dl (8.4-10.2); Carbon Dioxide 29 mmol/L (22-30); Chloride 107 mmol/L (98-107); Estimated Creatinine Clearance 37 ml/min; Glucose 75 mg/dl (70-99); Magnesium 1.9 mg/dl (1.6-2.3); Phosphorus 3.5 mg/dl (2.5-4.5); Potassium 4.6 mmol/L (3.5-5.1); Sodium 140 mmol/L (135-145); eGFR 54.87
[2023-08-06] MEDS: [UNRECOGNIZED DRUG - OTHER] 325 MG PO (07:50)
[2023-08-06] MEDS: ZOFRAN ODT (ORALLY DISINTEGRATING) 4 MG PO ×2 (07:50→16:54)
[2023-08-06] MEDS: PROTONIX 40 MG PO (07:51)
[2023-08-06] MEDS: MIRALAX 17 GRAMS PO ×2 (07:51→21:49)
[2023-08-06] MEDS: SENOKOT-S 1 TABLET PO ×2 (07:51→21:49)
[2023-08-06] MEDS: COLACE 100 MG PO ×2 (07:51→21:49)
[2023-08-06] MEDS: VITAMIN B-12 1000 MCG PO (07:51)
[2023-08-06 08:00] VITALS: BP 132/80
[2023-08-06 09:02] LABS: TSH Reflex To Free T4 1.34 uIU/ml (0.47-4.68)
--- NOTE | 2023-08-06 10:48 | CM ---
Chart reviewed and plan is for skilled placement, case sealer reached out to admissions at [facility], patient is currently on med sitter. Admissions at facility made aware.
Plan; Skilled placement at [facility] when stable. No Auth required.
[facility]
Report: [phone] ex. 114
--- NOTE | 2023-08-06 12:03 | W.PN.HOSP.TC ---
Today's Communication/Plan
-
monitor vitals
see plan
would need SNF
cw laxatives
Assessment / Plan
Assessment / Plan
Physical Exam
General: Comfortable and Conversant
HEENT: Anicteric and Moist mucous membranes
Respiratory: Clear and Non Labored Respirations
Cardiac: S1/S2 and Regular Rhythm; No Murmur
GI: Soft and Non Tender
Musculoskeletal: No Clubbing, No Cyanosis and No Edema
Skin: Warm and Dry
Neuro: AOx2 disoriented to time
Psych: Calm Cooperative
HPI: 87F HTN HLD hx TIA's brought in by family/Daughter Deana due to concerns progressive confusion agitation over past 10 days since bringing patient from [place].� [place] speaker, patient has lived in [place] for past 40 years.� Last year,
per daughter at bedside, patient was found unresponsive at home for indeterminate period of time prompting hospitalization and subsequent rehab.� Unclear what her diagnosis was then.� Patient reportedly was briefly on on antipsychotics since
discontinued.� [place] be closer to family.� Daughter reports progressive confusion fluctuating mental status throughout the day with associate incontinence urine intermittent coughing abd discomfort.� Patient herself AOx2 disoriented to
time, poor/unreliable historian, denies any issues, exhibits some signs paranoid ideation.� Vital signs otherwise stable on room air, labs unremarkable, straight cath in ED yielded foul smelling urine with urinalysis suggestive of UTI
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
Constipation fecal impaction
-Urinalysis appreciated suggestive UTI
-Urine Cx pos for E. coli pansensitive, ceftriaxone transitioned to Keflex. Completed total 5 days of antibiotic therapy.
-Blood Cx's noted no growth
Abd/Pelvis CT Scan appreciated
1. Stool distention of the rectum raising concern for a fecal impaction.
2. Irregularity of the anterior bladder wall partially extending into a small midline anterior pelvic wall hernia. (discussed with Urology outpatient follow up recommended for potential cystoscopy)
3. Colonic diverticulosis.
EKG QTc wnl
cont prn risperdal, prn ativan
Trazodone HSPRN sleep/agitation
Psych eval appreciated Melatonin started. no acute meds to be started per psych
CT Head appreciated no acute abn's, moderate diffuse cortical atrophy with mild nonspecific white matter changes
MRI Head appreciated no acute abn's, chronic small vessel ischemic changes noted
Intermittent nausea
Constipation fecal impaction
prn PO zofran
treated with bowel regimen miralax senna/colace, once suppository
appeared to be resolving however, appetite remained poor, intermittent nausea, most likely bowel movements were due to overflow incontinence
Confirmed on follow up Abd X-ray patient remains severely constipated with fecal impaction. No obstruction noted
08/03 Fecal Disimpaction and Fleet enema were attempted without much success noted.
08/04 GI eval appreciated, showed good response to milk and molasses enema,bowel regimen increased to Miralax and Colace BID
Repeat Abd X-ray in AM 08/05 looks better
Hx TIA/CVA
-Continue Aspirin
Hx Hypertension
-Blood pressure notably well controlled without home ramipril since placed on hold, consider discontinuing on discharge.
B12 deficiency
started on B12 supplementation, repeat B12 lvl in 1 month recommended.
ST appreciated reg diet thin liquids via cup no straw, medications whole in puree
PT/OT appreciated SNF rehab
DVT proph: SCDs
Code Status: Full Code
Anticipated Discharge: Within 24 hours
Subjective/Interval History
-
Date of Service: August 06, 2023
denies pain
Objective Data
-
Labs:
Laboratory Results
08/06/23
06:15
WBC 5.0
Hgb 11.5 L
Hct 36.5 L
Plt Count 332
Sodium 140
Potassium 4.6
Chloride 107
Carbon Dioxide 29
BUN 22 H
Creatinine 1.0
Glucose 75
Calcium 10.1
Vital Signs:
Vital Signs
Temp Pulse Resp BP Pulse Ox
98.3 F 79 20 132/80 96
08/06/23 08:00 08/06/23 08:00 08/06/23 08:00 08/06/23 08:00 08/06/23 08:00
I&O
08/05/23 08/06/23 08/07/23
06:59 06:59 06:59
Intake Total 1190 / 1190 600 / 600
Balance 1190 / 1190 600 / 600
[2023-08-06] MEDS: RISPERDAL 0.25 MG PO (14:04)
[2023-08-06 16:00] VITALS: BP 117/69
--- NOTE | 2023-08-06 16:32 | W.PN.GI.CBS2 ---
Today's Communication / Plan
-
continue bowel regimen
Assessment / Plan
-
87-year-old female with history of dementia, hypertension, TIA/stroke admitted with acute delirium possibly secondary to UTI. Noted to have large stool burden on imaging. No obstructive symptoms clinically. Abdominal examination was grossly
unremarkable today
--Constipation/fecal impaction-without obstruction
--hx of colon cancer 10-15 yrs back. - reported bowel resection . unable to obtain more information . CT imaging not showing any suspicious findings related to colon cancer other than stool burden
-- dementia/ delirium
plan
Had a large BM after MOM yesterday. Repeat x-ray this a.m. significant improvement in stool burden
Continue Daily bowel regimen-MiraLAX twice daily/Metamucil/Colace
TSH- normal
Discussed with patient daughter in detail. Patient' was living in [place] for a long time. She does not know much about her medical history. She thinks she had a colon cancer 10-15 years back and was resected. Claims her mom did not discuss about
colon cancer with her. Discussed about benefits and risk of colonoscopy.Patient's daughter did not want her mom to have future colonoscopy since her mom did not want to have one or want any treatment if recurrence of colon cancer.
GI will sign off. Please call us back if any question
Total Time Spent with Patient (in minutes): 35
Subjective
Subjective
Date of Service: August 06, 2023
Had a large bowel movement after MOM. denies any GI symptoms
Objective
Data Reviewed
Laboratory Data:
Laboratory Results
08/06/23 06:15
08/06/23 06:15
Laboratory Results
Phosphorus 3.5 mg/dl (2.5-4.5) 08/06/23 06:15
Magnesium 1.9 mg/dl (1.6-2.3) 08/06/23 06:15
Total Bilirubin 0.5 mg/dl (0.2-1.3) 07/31/23 08:54
AST 18 U/L (14-36) 07/31/23 08:54
ALT 11 U/L (0-35) 07/31/23 08:54
Alkaline Phosphatase 79 U/L (38-126) 07/31/23 08:54
Vital Signs and I&O:
Vital Signs
Temp Pulse Resp BP Pulse Ox
98.4 F 82 16 117/69 95
08/06/23 16:00 08/06/23 16:00 08/06/23 16:00 08/06/23 16:00 08/06/23 16:00
I&O
08/05/23 08/06/23 08/07/23
06:59 06:59 06:59
Intake Total 1190 / 1190 600 / 600
Balance 1190 / 1190 600 / 600
Physical Exam
Physical Exam
GI: Soft, Non Distended and Non Tender
[2023-08-06] MEDS: DESYREL 25 MG PO (21:49)
[2023-08-06] MEDS: MELATONIN 3 MG PO (21:49)
[2023-08-06 23:00] VITALS: BP 99/60
[2023-08-07 05:20] VITALS: BMI 20.4
[2023-08-07] MEDS: MIRALAX 17 GRAMS PO (07:28)
[2023-08-07] MEDS: [UNRECOGNIZED DRUG - OTHER] 325 MG PO (07:28)
[2023-08-07] MEDS: COLACE 100 MG PO (07:28)
[2023-08-07] MEDS: SENOKOT-S 1 TABLET PO (07:28)
[2023-08-07] MEDS: VITAMIN B-12 1000 MCG PO (07:28)
[2023-08-07] MEDS: PROTONIX 40 MG PO (07:28)
[2023-08-07 07:37] VITALS: BP 136/58
[2023-08-07 08:23] LABS: Hematocrit 37.1 % (37.0-47.0); Hemoglobin 11.8 g/dL (12.0-16.0); Mean Corp Hgb Conc. 31.8 g/dL (33.0-37.0); Mean Corpuscular Hgb 28.3 pg (27.0-31.0); Mean Platelet Volume 9.3 fL (7.4-10.4); Platelet Count 356 10^3/uL (130-400); Red Blood Cell Count 4.17 10^6/uL (4.20-5.40); Red Cell Dist. Width 14.3 % (11.5-14.5); White Blood Cell Count 5.5 10^3/uL (4.8-10.8)
[2023-08-07 09:10] LABS: Blood Urea Nitrogen 23 mg/dl (7-17); Calcium 10.5 mg/dl (8.4-10.2); Carbon Dioxide 29 mmol/L (22-30); Chloride 107 mmol/L (98-107); Estimated Creatinine Clearance 37 ml/min; Glucose 80 mg/dl (70-99); Phosphorus 3.7 mg/dl (2.5-4.5); Potassium 4.5 mmol/L (3.5-5.1); Sodium 140 mmol/L (135-145); eGFR 54.87
[2023-08-07 09:15] VITALS: BP 137/77; BP 138/77; PULSE 77; O2SAT 96
[2023-08-07] MEDS: TYLENOL 650 MG PO (09:15)
--- NOTE | 2023-08-07 09:56 | CM ---
Addendum entered by Roxy Reid 08/07/23 15:29:
manager pacu spoke with patient and she is aware of IMM but stated that she could not sign as she did not have her glasses, patient is aware of a 5:30pm picker and sorter load and unload, and patient's daughter is also aware of picker and sorter load and unload time, and states she will be at
[facility] this evening to be with patient. Patient's physician also reached out to patient's daughter and provided update on plan.
Plan; Patient to transfer to [facility] today at 5;30pm by ambulance.
Addendum entered by Roxy Reid 08/07/23 11:42:
Updated clinical faxed to [facility] waiting on final confirmation of available bed for patient.
Original Note:
Chart reviewed and plan is for skilled placement at [facility] when stable.
[facility]
Report: [phone] ex. [id number]

Plan; [facility] skilled patient will need ambulance transport.
[2023-08-07] MEDS: ZOFRAN ODT (ORALLY DISINTEGRATING) 4 MG PO (12:22)
[2023-08-07] MEDS: RISPERDAL 0.25 MG PO (12:22)
--- NOTE | 2023-08-07 12:34 | W.PN.HOSP.TC ---
Addendum entered and electronically signed by Brian Dao MD 08/07/23 15:01:
Spoke with therapeutic case manager and patient is aware on getting discharge. Called daughter, left voicemail. Patient is medically stable for discharge at this time.
Time of discharge 37 minutes
Original Note:
Today's Communication/Plan
-
Monitor vital signs
see plan
Awaiting dispo
Continue with laxatives
Assessment / Plan
Assessment / Plan
Physical Exam
General: Comfortable and Conversant
HEENT: Anicteric and Moist mucous membranes
Respiratory: Clear and Non Labored Respirations
Cardiac: S1/S2 and Regular Rhythm; No Murmur
GI: Soft and Non Tender
Musculoskeletal: No Clubbing, No Cyanosis and No Edema
Neuro: AOx2-3
Psych: Calm Cooperative
HPI: 87F HTN HLD hx TIA's brought in by family/Daughter Deana due to concerns progressive confusion agitation over past 10 days since bringing [place].� [place] speaker, patient has lived in [place] for past 40 years.� Last year,
per daughter at bedside, patient was found unresponsive at home for indeterminate period of time prompting hospitalization and subsequent rehab.� Unclear what her diagnosis was then.� Patient reportedly was briefly on on antipsychotics since
discontinued.� [place] closer to [place].� Daughter reports progressive confusion fluctuating mental status throughout the day with associate incontinence urine intermittent coughing abd discomfort.� Patient herself AOx2 disoriented to
time, poor/unreliable historian, denies any issues, exhibits some signs paranoid ideation.� Vital signs otherwise stable on room air, labs unremarkable, straight cath in ED yielded foul smelling urine with urinalysis suggestive of UTI
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
Constipation fecal impaction
-Urinalysis appreciated suggestive UTI
-Urine Cx pos for E. coli pansensitive, ceftriaxone transitioned to Keflex. Completed total 5 days of antibiotic therapy.
-Blood Cx's noted no growth
Abd/Pelvis CT Scan appreciated
1. Stool distention of the rectum raising concern for a fecal impaction.
2. Irregularity of the anterior bladder wall partially extending into a small midline anterior pelvic wall hernia. (discussed with Urology outpatient follow up recommended for potential cystoscopy)
3. Colonic diverticulosis.
EKG QTc wnl
cont prn risperdal, prn ativan
Trazodone HSPRN sleep/agitation
Psych eval appreciated Melatonin started. no acute meds to be started per psych
CT Head appreciated no acute abn's, moderate diffuse cortical atrophy with mild nonspecific white matter changes
MRI Head appreciated no acute abn's, chronic small vessel ischemic changes noted
Intermittent nausea
Constipation fecal impaction
prn PO zofran
treated with bowel regimen miralax senna/colace, once suppository
appeared to be resolving however, appetite remained poor, intermittent nausea, most likely bowel movements were due to overflow incontinence
Confirmed on follow up Abd X-ray patient remains severely constipated with fecal impaction. No obstruction noted
08/03 Fecal Disimpaction and Fleet enema were attempted without much success noted.
08/04 GI eval appreciated, showed good response to milk and molasses enema,bowel regimen increased to Miralax and Colace BID
Repeat Abd X-ray in AM 08/05 looks better
cw laxatives
Hx TIA/CVA
-Continue Aspirin
Hx Hypertension
-Blood pressure notably well controlled without home ramipril since placed on hold, consider discontinuing on discharge.
B12 deficiency
started on B12 supplementation, repeat B12 lvl in 1 month recommended.
ST appreciated reg diet thin liquids via cup no straw, medications whole in puree
PT/OT appreciated SNF rehab
DVT proph: SCDs
Code Status: Full Code
PT/OT rec SNF; however now patient refusing. Daughter doesnt think she can take her home. CM involved. working on dispo
Spoke with daughter 08/05. Patient used to live in [place] and now is living with her daughter. Per daughter she has no formal diagnosis of dementia however all her care was in [place]. She currently is trying to get him a primary care. I advised her to
be been by neurology outpatient.
Anticipated Discharge: Today
Subjective/Interval History
-
Date of Service: August 07, 2023
denies pain
Objective Data
-
Labs:
Laboratory Results
08/07/23
07:34
WBC 5.5
Hgb 11.8 L
Hct 37.1
Plt Count 356
Sodium 140
Potassium 4.5
Chloride 107
Carbon Dioxide 29
BUN 23 H
Creatinine 1.0
Glucose 80
Calcium 10.5 H
Vital Signs:
Vital Signs
Temp Pulse Resp BP Pulse Ox
97.7 F 82 18 136/58 95
08/07/23 07:37 08/07/23 07:37 08/07/23 07:37 08/07/23 07:37 08/07/23 07:37
I&O
08/06/23 08/07/23 08/08/23
06:59 06:59 06:59
Intake Total 600 / 600 420 / 420
Balance 600 / 600 420 / 420
--- NOTE | 2023-08-07 14:59 | W.DCSUMMARY ---
Discharge Summary
Discharge Data
Date of Admission: 08/01/23
Date of Discharge: 08/07/23
-
Pending Results: No
Hospital Course
87-year-old female past medical history of hypertension, hyperlipidemia, history of TIA came to the hospital with progressive confusion/agitation. Patient symptoms were likely thought was secondary to urinary tract infection. There was also
suspicion of patient having underlying dementia. Upon imaging it did show some cortical atrophy. Patient was instructed to follow-up with neurology outpatient. Patient mental status continue to improve with UTI treatment. On this hospitalization
patient also had fecal impaction along with severe constipation which over time improved with laxatives. Patient was seen by GI throughout hospitalization. Her abdominal x-ray continue to improve prior to discharge. Patient was also seen by
psychiatry for agitation however psychiatry did not recommend starting any standing medications and rather wanted to continue with as needed risperidone and trazodone. Upon imaging patient also had irregularity of the anterior bladder wall
partially extending into small midline anterior pelvic wall hernia. This was discussed with urology who recommended patient to follow-up with them outpatient for potential cystoscopy. Patient was also evaluated by physical therapy who recommended
SNF. Once patient symptoms continue to improve, she was then discharged with instructions to follow-up with all her physicians outpatient.
Discharge Plan
-
Patient Disposition: Skilled Nursing/SNF
Discharge Diagnosis/Procedures: Possible toxic metabolic encephalopathy secondary to urinary tract infection
Suspected underlying dementia
Fecal impaction with severe constipation
Vitamin B12 deficiency
Irregularity of the anterior bladder wall partially extending into a small midline anterior pelvic wall hernia
Diet: As tolerated
Activity: As tolerated
Driving Restrictions: As prior to admission
Bathing Restrictions: None
Activity Restrictions/Additional Instructions:
Follow up with primary care provider in 1 week of discharge. In 2-4 weeks of discharge, follow up with Neurology, Neuropsychiatry, and Urology.
repeat B12 lvl in 1 month recommended
Referrals:
Tomasz Raygoza PSY [Specified Professional Personl] - in two to four weeks
Stephon Molina MD [Active] - in two to four weeks
NONE,* [Family Provider] - in less than 1 week
Greg Fletcher Jr., MD [Active] - in two to four weeks
Prescriptions:
New
acetaminophen 325 mg Tablet
650 mg PO Q4HPRN PRN (Reason: mild pain/ fever>100.5F) Qty: 0 0RF
trazodone 50 mg Tablet
25 mg PO HSPRN PRN (Reason: sleep/agitation) Qty: 0 0RF
polyethylene glycol 3350 [HealthyLax] 17 gram Powder In Packet
17 g PO BID Qty: 0 0RF
sennosides-docusate sodium [Stool Softener-Stimulant Laxat] 8.6-50 mg Tablet
1 tab PO BID Qty: 0 0RF
cyanocobalamin (vitamin B-12) 1,000 mcg Tablet
1,000 mcg PO DAILY Qty: 0 0RF
risperidone 0.25 mg Tablet
0.25 mg PO [id number] PRN (Reason: agitation) Qty: 0 0RF
melatonin 3 mg Tablet
3 mg PO HS Qty: 0 0RF
docusate sodium 100 mg Capsule
100 mg PO BID Qty: 0 0RF
ondansetron 4 mg Tablet,Disintegrating
4 mg PO Q8HPRN PRN (Reason: nausea) Qty: 0 0RF
Continued
Ascriptin (300mg - 80mg - 70mg) tablet
1 tab PO DAILY
acetaminophen 500 mg Tablet
1,000 mg PO DAILYPRN PRN (Reason: mild pain)
pantoprazole 40 mg Tablet,Delayed Release (Dr/Ec)
40 mg PO DAILY
Discontinued
furosemide 20 mg Tablet
25 mg PO DAILY
ramipril 2.5 mg Tablet
2.5 mg PO DAILY
Discharge Orders:
Discharge Patient (As Directed); Ordered 08/07/23
Ordered By: Brian Dao
Discharge Date and Time
Discharge Date/Time: 08/07/23 17:15
Print Language: M[place]ENEGR[place]
[2023-08-07 15:35] VITALS: BP 118/64
== END 2023-08-07 17:15 | DRG 884 ==
LOC: 4 WEST ACU 11:14
PROVIDERS: Physician Assistant Medical; ADMITTING PHYSICIAN Internal Medicine; ATTENDING PHYSICIAN Internal Medicine; CONSULT PHYSICIAN Internal Medicine Gastroenterology; EMERGENCY PHYSICIAN Emergency Medicine; OTHER PHYSICIAN Psychiatry & Neurology Psychiatry
DX: F03.911 Unspecified dementia, unspecified severity, with agitation (principal); G92.8 Other toxic encephalopathy; N39.0 Urinary tract infection, site not specified; F05 Delirium due to known physiological condition; F03.92 Unspecified dementia, unspecified severity, with psychotic disturbance; I10 Essential (primary) hypertension; E78.00 Pure hypercholesterolemia, unspecified; K57.30 Diverticulosis of large intestine without perforation or abscess without bleeding; E53.8 Deficiency of other specified B group vitamins; K56.41 Fecal impaction; B96.20 Unspecified Escherichia coli [E. coli] as the cause of diseases classified elsewhere; K21.9 Gastro-esophageal reflux disease without esophagitis; Z85.038 Personal history of other malignant neoplasm of large intestine; Z86.73 Personal history of transient ischemic attack (TIA), and cerebral infarction without residual deficits
CPT/HCPCS: 70450; 70551; 71046; 74019; 74177; 80048; 80053; 81003; 81015; 82607; 83605; 83735; 84100; 84443; 85025; 85027; 87040; 87077; 87086; 87186; 92526; 92610; 93005; 96360; 97116; 97129; 97162; 97530; 97535; 99285; Q9967

== ENCOUNTER 2023-08-24 11:53 | Inpatient (IN) | payer MEDICARE, SELFPAY ==
[2023-08-23] VITALS (10 sets, daily range): BP systolic 90–131; BP diastolic 48–78; BMI 20.6
[2023-08-23] MEDS: NSS 1000 IV ×2 (09:52→16:27)
[2023-08-23] MEDS: ZOFRAN 4 MG IV ×2 (09:53→19:39)
[2023-08-23 09:56] LABS: % Basophils 0.5 % (0-2); % Eosinophils 1.8 % (0-6); % Immature Granulocytes 0.2 % (0-0.5); % Lymphocytes 19.4 % (20.5-51.1); % Monocytes 7.6 % (1.7-9.3); % Neutrophils 70.5 % (42.2-75.2); Absolute Eosinophils 0.2 10^3/uL (0-0.7); Absolute Lymphocytes 1.6 10^3/uL (1.2-3.4); Absolute Monocytes 0.6 10^3/uL (0.1-0.6); Hematocrit 38.4 % (37.0-47.0); Hemoglobin 12.3 g/dL (12.0-16.0); Mean Corpuscular Hgb 28.4 pg (27.0-31.0); Mean Corpuscular Volume 88.7 fL (81.0-99.0); Mean Platelet Volume 8.8 fL (7.4-10.4); Nucleated Red Blood Cells % 0 %; Platelet Count 438 10^3/uL (130-400); Red Blood Cell Count 4.33 10^6/uL (4.20-5.40); Red Cell Dist. Width 13.8 % (11.5-14.5); White Blood Cell Count 8.5 10^3/uL (4.8-10.8)
--- NOTE | 2023-08-23 09:57 | ED.GENMED ---
History of Present Illness
General
Chief Complaint: Abdominal Symptoms
Time Seen by Provider: 08/23/23 09:27
History of Present Illness
History of Present Illness:
87-year-old female with history of hypertension, hyperlipidemia, prior history of colon cancer, baseline confusion presenting from home for nausea and decreased p.o. intake. Patient lives with her daughter, reports that she has been feeling well
since this morning, has not been eating. Notes nausea without any associated vomiting. She denies any abdominal pain. She denies any issues urinating. She denies any changes in her stool. She denies chest pain or difficulty breathing. She
denies fever or sick contacts. She is unsure who called the medics or how she got here. Call placed to daughter Deana, power of quality improvement engineer who notes that patient is confused at baseline, recently came to [facility] from [place] where she had been
living for 40 years. She has been dealing with chronic nausea, recently admitted to the hospital on 07/30 for increased confusion and urinary tract infection. Daughter is concerned that she may have another UTI. Daughter is having issues with
getting patient health insurance and plug into the medical system, and notes that patient has been deteriorating, not eating and not improving at home.
Past History
Past History
ED Past Medical History: HTN and Hypercholesterolemia
ED Past Surgical History: Gynecological
Social History
Tobacco: Non-smoker
Alcohol: Occasional
Drug: None
Personal:
Living: with family
Phy Exam
Physical Exam
Physical Exam:
GENERAL: Alert , in no apparent distress
EYE: pupils equal and reactive
NECK: Supple, no significant adenopathy.
ENT: o/p clr, mmm.
CARDIAC: Regular rate and rhythm .
LUNGS: Clear breath sounds bilaterally, no acute respiratory distress, no wheezes/rales/rhonchi
ABDOMEN: Soft, without focal tenderness, no r/g, no cvat
NEUROLOGICAL: AO x 2, disoriented to time
SKIN: Warm and dry, skin intact.
MUSCULOSKELETAL: No edema, well perfused.
PSYCH: Normal and appropriate interaction.
Course
Orders/Labs/Results
Orders:
Orders
08/23/23 09:44
0.9% Sodium Chloride 1000 ml [Nss] 1,000 ml IV BOLUS
Ondansetron Injectable [Zofran] 4 mg IV NOW STA
08/23/23 09:48
Complete Blood Count/With Diff Urgent
Comprehensive Metabolic Panel Urgent
Lipase Urgent
08/23/23 12:39
Urinalysis Reflex To Culture Urgent
Date Specimen was Collected: 08/23/23
Time Specimen was Collected: 12:38
Urine Microscopic Reflex Cult Urgent
08/23/23 12:57
0.9% Sodium Chloride 500 ml [Nss] 500 ml IV BOLUS
08/23/23 12:59
PT Consult [Pt Eval And Treat] Urgent
Activity Level: As Tolerated
Abnormal Lab Results
08/23/23 08/23/23
09:48 12:39
MCHC 32.0 L g/dL
(33.0-37.0)
Plt Count 438 H 10^3/uL
(130-400)
Lymphocytes % 19.4 L %
(20.5-51.1)
BUN 22 H mg/dl
(7-17)
Total Protein 6.1 L g/dl
(6.3-8.2)
Albumin 3.3 L g/dl
(3.5-5.0)
Leukocyte Esterase Rfl Trace A
(Negative)
08/23/23 09:48
08/23/23 09:48
Vital Signs
Initial and Last Documented VS:
Initial Vital Signs
Temp Pulse Resp BP Pulse Ox
98.2 F 74 18 118/63 96
08/23/23 09:22 08/23/23 09:22 08/23/23 09:22 08/23/23 09:22 08/23/23 09:22
Last Documented Vital Signs
Temp Pulse Resp BP Pulse Ox
98.2 F 64 22 112/50 96
08/23/23 09:22 08/23/23 11:30 08/23/23 10:00 08/23/23 11:00 08/23/23 10:00
MDM/Problems Addressed
MDM/Problems Addressed:
87-year-old female with history of hypertension, hyperlipidemia, chronic effusions presenting for decreased p.o. intake and nausea. Symptoms started this morning. Vital signs on arrival significant for hypotension.
On exam, patient is in no acute distress or discomfort, however is hypotensive with dry mucous membranes. Suspect acute volume depletion and dehydration. Otherwise benign cardiac, pulmonary, abdominal exam. No tenderness to the abdomen without
patient for serious intra-abdominal process or infection. On review of EMR, patient had CT abdominal imaging on 07/30, relatively unremarkable with mention of anterior bladder wall abnormality, otherwise no acute pathology. Do not feel patient
requires repeat advanced imaging at this time. Daughter notes that patient's nausea has been an ongoing issue acute on chronic issues, failure to thrive. Patient is also had UTIs in the past, possible additional etiology. Will obtain laboratory
analysis, urinalysis and treat patient with IV fluids and Zofran.
13:15 - Patient's labs relatively unremarkable. Blood pressure has normalized after IV fluids, consistent with line depletion and dehydration. Patient continues to report nausea. Family at bedside does not feel comfortable the patient home given
persistence of symptoms, failure to thrive, has not been eating. Will consult with physical therapy. Family is interested in a short-term rehabilitation. Plan for admission for continued symptomatic therapy, potential GI consultation, eventual
placement
Acute Exacerbation and/or Progression of Chronic Illness:
,
*Critical Care Note
Total Time (30-74mins, 75-104mins- exclusive of procedures): Not Applicable
ED Attending Note
-
Portions of this chart may have been created with voice recognition software.� Occasional wrong word or��sound alike� substitutions may have occurred due to the inherent limitations of voice recognition software.
Discharge Plan
Departure
Prescriptions:
No Action
Ascriptin (300mg - 80mg - 70mg) tablet
1 tab PO DAILY
acetaminophen 500 mg Tablet
1,000 mg PO DAILYPRN PRN (Reason: mild pain)
pantoprazole 40 mg Tablet,Delayed Release (Dr/Ec)
40 mg PO DAILY
acetaminophen 325 mg Tablet
650 mg PO Q4HPRN PRN (Reason: mild pain/ fever>100.5F) Qty: 0 0RF
trazodone 50 mg Tablet
25 mg PO HSPRN PRN (Reason: sleep/agitation) Qty: 0 0RF
polyethylene glycol 3350 [HealthyLax] 17 gram Powder In Packet
17 g PO BID Qty: 0 0RF
sennosides-docusate sodium [Stool Softener-Stimulant Laxat] 8.6-50 mg Tablet
1 tab PO BID Qty: 0 0RF
cyanocobalamin (vitamin B-12) 1,000 mcg Tablet
1,000 mcg PO DAILY Qty: 0 0RF
risperidone 0.25 mg Tablet
0.25 mg PO [id number] PRN (Reason: agitation) Qty: 0 0RF
melatonin 3 mg Tablet
3 mg PO HS Qty: 0 0RF
docusate sodium 100 mg Capsule
100 mg PO BID Qty: 0 0RF
ondansetron 4 mg Tablet,Disintegrating
4 mg PO Q8HPRN PRN (Reason: nausea) Qty: 0 0RF
Referrals:
UNKNOWN - PT DOES,NOT KNOW [Family Provider] -
Interventions
Interventions:
*Risk Screen - Suicide Last Done: 08/23/23 09:58
*General Assessment Last Done: 08/23/23 10:00
*Neglect/Abuse Screening Last Done: 08/23/23 09:58
ED- Fall Risk Assessment Last Done: 08/23/23 09:58
*ED COVID-19 Vaccine History Last Done: 08/23/23 09:58
VB-Rqglmd-[id number] Assessment Last Done: 08/23/23 09:58
Discharge Date and Time
Print Language: SLOVAK
[2023-08-23 10:19] LABS: ALT (SGPT) < 10 U/L (0-35); AST (SGOT) 15 U/L (14-36); Albumin 3.3 g/dl (3.5-5.0); Alkaline Phosphatase 101 U/L (38-126); Blood Urea Nitrogen 22 mg/dl (7-17); Calcium 9.9 mg/dl (8.4-10.2); Carbon Dioxide 28 mmol/L (22-30); Chloride 107 mmol/L (98-107); Glucose 79 mg/dl (70-99); Lipase 82 U/L (23-300); Potassium 4.8 mmol/L (3.5-5.1); Sodium 139 mmol/L (135-145); Total Bilirubin 0.5 mg/dl (0.2-1.3); Total Protein 6.1 g/dl (6.3-8.2); eGFR 54.87
[2023-08-23 12:53] LABS: Urine Albumin Negative (Neg - Trace); Urine Bilirubin Negative (Negative); Urine Character Slightly Cloudy (Clear); Urine Color Yellow; Urine Glucose Negative (Negative); Urine Ketone Negative (Negative); Urine Leukocyte Trace (Negative); Urine Nitrite Negative (Negative); Urine Occult Blood Negative (Negative); Urine Urobilinogen Negative (Neg - 1+)
[2023-08-23 13:26] LABS: Urine Granular Cast 0-2 /LPF (0); Urine Hyaline Cast 0-2 /LPF (0-2)
[2023-08-23 13:27] LABS: Urine Bacteria Many (Negative); Urine White Cell 50-60 /HPF (0-5)
[2023-08-23] MEDS: NSS 500 IV (13:58)
--- NOTE | 2023-08-23 14:02 | PHANOTE ---
08/23/2023, [employer], spoke to pt.'s daughter to obtain med. history; per daughter, pt. has not been able to fill her Ascriptin (300 mg - 80 mg - 70 mg) so has been taking Aspirin 325 mg daily instead.
--- NOTE | 2023-08-23 14:27 | HPS.HSE ---
Family Physician
-
Family Physician: NOT KNOW UNKNOWN - PT DOES
Chief Complaint
-
pain and nausea
History of Present Illness
87-year-old female presenting from home with family with complaints of decreased appetite, pain and nausea. Patient was discharged from [facility] 10 days ago and since being discharged from the rehab patient had a bowel movement x 1. Also
with severely decreased appetite for the last 24 hours. Per daughter patient has not been eating much. Patient states she just does not have appetite. Has a history of chronic nausea but no vomiting. Daughter states she thinks patient has
difficulty swallowing. Patient denies abdominal pain. Per family who states patient lived in [place] speaks fluent Italian however at times unable to articulate complaints completely. Also of weakness and not able to ambulate much. Patient has
been resting in bed for prolonged period of time. Also dysuria at times. Currently patient is frustrated with being admitted to hospital. Per family patient does not like to be in medical facility. Remains confused per family.
Medical History
Past Medical History
Past Medical History: Reports Other
Additional Past Medical History:
Suspected vascular dementia
Chronic nausea
Colon cancer status post resection
Constipation
History of TIA/CVA
B12 deficiency
Past Surgical History: Reports Other
Additional Past Surgical History:
Colonic cancer status post resection
Social History
Unable to obtain full social history at this time due to: Dementia
Family History
Family History: Not pertinent
Allergies / Home Medications
Allergies reflects when Allergies were last updated in [facility] [facility] [employer] [facility].
Home Medications with original date entered in [facility] [facility]
Allergy/Medication List:
Allergies
Allergy/AdvReac Type Severity Reaction Status Date / Time
No Known Drug Allergies Allergy Unknown Verified 08/23/23 09:26
Home Medications
pantoprazole 40 mg tablet,delayed release 40 mg PO DAILY Gastrointestinal Issue 07/31/23
cyanocobalamin (vitamin B-12) 1,000 mcg tablet 1,000 mcg PO DAILY #0 tabs 08/07/23
trazodone 50 mg tablet 25 mg (1/2 x 50 mg) PO HSPRN PRN sleep/agitation #0 tabs 08/07/23
Dulcolax Chewables 1 gummy PO BID 08/23/23
Otc Eye Drops (Pf) 1 - 2 drp BOTH EYES TIDPRN PRN dry eyes 08/23/23
acetaminophen 325 mg tablet 325 mg PO BIDPRN PRN mild pain 08/23/23
aspirin 325 mg tablet 325 mg PO DAILY 08/23/23
cranberry 1 tab PO QPM 08/23/23
ondansetron 4 mg disintegrating tablet 4 mg PO Q8H PRN nausea/vomiting 08/23/23
Review of Systems
-
History Source: Family
A 12 point ROS was completed and negative except as noted: Yes
Physical Exam
Vital Signs
Vital Signs
Temp Pulse Resp BP Pulse Ox
98.2 F 81 20 123/69 96
08/23/23 09:22 08/23/23 14:15 08/23/23 14:15 08/23/23 14:00 08/23/23 10:00
Physical Exam
General: Comfortable and Conversant
HEENT: Anicteric and Moist mucous membranes
Respiratory: Clear and Non Labored Respirations
Cardiac: S1/S2 and Regular Rhythm; No Murmur
GI: Soft, Non Tender, Non Distended and Normal Bowel Sounds
Rectal: Deferred by Provider
Musculoskeletal: No Clubbing, No Cyanosis and No Edema
Skin: Warm and Dry
Neuro: Awake and Nonfocal/grossly intact
Psych: Apparent Dementia
Laboratory Results
-
08/23/23 09:48
08/23/23 09:48
Laboratory Results
Total Bilirubin 0.5 mg/dl (0.2-1.3) 08/23/23 09:48
AST 15 U/L (14-36) 08/23/23 09:48
ALT < 10 U/L (0-35) 08/23/23 09:48
Alkaline Phosphatase 101 U/L (38-126) 08/23/23 09:48
Lipase 82 U/L (23-300) 08/23/23 09:48
Impression/Plan
-
#Generalized weakness likely multifactorial secondary to decreased appetite and chronic nausea with concern for constipation
#Suspected constipation-history of fecal impaction
Check abdominal imaging
Start patient on IV fluids
May require aggressive bowel regimen
Continue with standing p.o. regimen for now
PT and OT
#Chronic intermittent nausea
#Dysphagia suspected
Will order video swallow in the morning
Speech evaluation
Antinausea meds as needed
Monitor p.o. tolerance
Continue with PPI
Suspected underlying vascular dementia -unknown if with behavioral disturbances
History of TIA
Had recent extensive workup done and will need outpatient neurology evaluation
Continue with aspirin
Continue with trazodone nightly prn
Melatonin 3mg qhs
Vitamin B12 deficiency
Continue with p.o. B12
Dysuria
Abnormal UA. Await for urine cultures
Hold off on antibiotics
Hx of colonic cancer s/p resection
DVT prophylaxis/Lovenox
Full code
Discussed with patient daughter and son-in-law at bedside in details
I spent a total of 78 minutes with the patient or on the floor. More than 50% of this time involved counseling and coordination of care.
--- NOTE | 2023-08-23 16:53 | PTCARENOTE ---
pt presented from ED via stretcher. pt is AAO*2, disoriented to time. pt is confused and forgetful. pt is on bed alarm and medsitter. pt is oriented to the room. call velazco within the reach. plan of care ongoing.
[2023-08-23] MEDS: RISPERDAL 0.25 MG PO (17:14)
[2023-08-23] MEDS: LOVENOX 40 MG SC (17:14)
--- NOTE | 2023-08-23 19:05 | PTCARENOTE ---
pt agitated, confused and anxious. pt yelling and trying to get oob. MD made aware. reported to night RN. night RN made aware to give Trazodone early if needed as per Hospitalist. pt is at the nursing station.
[2023-08-23] MEDS: SENOKOT-S 1 TABLET PO (19:24)
[2023-08-23] MEDS: MELATONIN 3 MG PO (21:46)
[2023-08-23] MEDS: DESYREL 25 MG PO (21:46)
[2023-08-24] VITALS (7 sets, daily range): BP systolic 94–136; BP diastolic 55–80; PULSE 73–74; O2SAT 97; BMI 20.6
[2023-08-24] MEDS: NSS 1000 IV (04:32)
[2023-08-24] MEDS: ZOFRAN 4 MG IV ×3 (08:12→21:55)
[2023-08-24 08:15] LABS: % Basophils 0.6 % (0-2); % Eosinophils 1.5 % (0-6); % Immature Granulocytes 0.4 % (0-0.5); % Lymphocytes 16.4 % (20.5-51.1); % Monocytes 8.3 % (1.7-9.3); % Neutrophils 72.8 % (42.2-75.2); Absolute Basophils 0.1 10^3/uL (0-0.2); Absolute Eosinophils 0.1 10^3/uL (0-0.7); Absolute Lymphocytes 1.3 10^3/uL (1.2-3.4); Absolute Monocytes 0.7 10^3/uL (0.1-0.6); Absolute Neutrophils 5.7 10^3/uL (1.4-6.5); Hematocrit 34.9 % (37.0-47.0); Hemoglobin 10.7 g/dL (12.0-16.0); Mean Corp Hgb Conc. 30.7 g/dL (33.0-37.0); Mean Corpuscular Hgb 27.9 pg (27.0-31.0); Mean Corpuscular Volume 91.1 fL (81.0-99.0); Mean Platelet Volume 9.2 fL (7.4-10.4); Nucleated Red Blood Cells % 0 %; Platelet Count 381 10^3/uL (130-400); Red Blood Cell Count 3.83 10^6/uL (4.20-5.40); Red Cell Dist. Width 13.5 % (11.5-14.5); White Blood Cell Count 7.9 10^3/uL (4.8-10.8)
[2023-08-24 08:26] LABS: Blood Urea Nitrogen 16 mg/dl (7-17); Calcium 9.3 mg/dl (8.4-10.2); Carbon Dioxide 20 mmol/L (22-30); Chloride 111 mmol/L (98-107); Estimated Creatinine Clearance 46 ml/min; Glucose 59 mg/dl (70-99); Potassium 4.4 mmol/L (3.5-5.1); Sodium 139 mmol/L (135-145); eGFR > 60.00
[2023-08-24] MEDS: ASPIRIN 325 MG PO (09:21)
[2023-08-24] MEDS: SENOKOT-S 1 TABLET PO ×2 (09:21→20:02)
[2023-08-24] MEDS: PROTONIX 40 MG PO (09:21)
[2023-08-24] MEDS: MIRALAX 17 GRAMS PO (09:23)
--- NOTE | 2023-08-24 09:45 | PTOTSP ---
SPEECH THERAPY SWALLOW EVALUATION:
Patient exhibits clinical signs of oropharyngeal dysphagia, likely chronic related to dementia. Patient remains at risk for aspiration given cognitive status/confusion. Recommend modified diet of IDDSI Level 4 Puree and thin liquids. Medications
crushed in puree. Aspiration precautions: 100% assistance/supervision with meals; Upright positioning; Small single sips/bites; Slow rate of intake; No talking while eating/drinking; Reduce distractions during meals; Monitor CXR and labs; Oral care
3x/day to reduce risk for nosocomial infection; Feed only when awake/alert; D/c oral diet if any signs or symptoms of aspiration or decline in mental or respiratory status. Videofluoroscopic Swallowing Study order acknowledged. At this point
Videofluoroscopic Swallowing Study does not appear to be indicated, given no signs of aspiration at bedside, no leukocytosis, no respiratory difficulties, no CXR at this time. Defer to MD discretion if indication to proceed with VSE at this time.
Consider nutrition consult given limited oral intake. Speech therapy to follow, assess diet tolerance and modify as appropriate, monitor CXR and labs, determine indication for VSE if warranted, and provide family education regarding aspiration
risks/precautions.
RECOMMEND:
1) IDDSI Level 4 Puree diet, thin liquids
2) Medications crushed in puree
3) Aspiration precautions includin% assistance/supervision with meals; Upright positioning; Small single sips/bites; Slow rate of intake; No talking while eating/drinking; Reduce distractions during meals; Monitor CXR and labs; Oral care
3x/day to reduce risk for nosocomial infection; Feed only when awake/alert; D/c oral diet if any signs or symptoms of aspiration or decline in mental or respiratory status.
4) Speech therapy to follow and determine indication for VSE
[2023-08-24] MEDS: VITAMIN B-12 1000 MCG PO (11:37)
[2023-08-24] MEDS: ROCEPHIN 1000 MG IV (11:37)
[2023-08-24] MEDS: STERILE WATER FOR INJECTION 10 ML IV (11:38)
--- NOTE | 2023-08-24 12:03 | W.PN.HOSP.TC ---
Today's Communication/Plan
-
IV antibiotics
GI input
PT OT
Case management
Assessment / Plan
Assessment / Plan
General: Comfortable and Conversant
HEENT: Anicteric and Moist mucous membranes
Respiratory: Clear and Non Labored Respirations
Cardiac: S1/S2 and Regular Rhythm; No Murmur
GI: Soft, Non Tender, Non Distended and Normal Bowel Sounds
Rectal: Deferred by Provider
Musculoskeletal: No Clubbing, No Cyanosis and No Edema
Skin: Warm and Dry
Neuro: Awake and Nonfocal/grossly intact
Psych: Apparent Dementia
#Generalized weakness likely multifactorial secondary to decreased appetite and chronic nausea with concern for constipation
#Suspected constipation-history of fecal impaction
AXR without severe fecal burden
Start patient on IV fluids
Continue with standing p.o. regimen for now
#Chronic intermittent nausea
#Dysphagia
Speech evaluation-IDDS4 started.
Antinausea meds as needed
Monitor p.o. tolerance-per family leading to severe decrease appetite at home.
Continue with PPI
Will ask GI for input
Toxic metabolic encephalopathy likely secondary to E. coli UTI versus worsening of underlying dementia
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
History of TIA
Had recent extensive workup done and will need outpatient neurology evaluation
Continue with aspirin
Continue with trazodone nightly prn
Melatonin 3mg qhs
Start patient on ceftriaxone
Vitamin B12 deficiency
Continue with p.o. B12
Hx of colonic cancer s/p resection
DVT prophylaxis/Lovenox
Full code
Discussed with patient son-in-law over the phone in details
PT/OT-SNF. CM aware to d/w with daughter
Anticipated Discharge: > 48 hours
Subjective/Interval History
-
Date of Service: August 24, 2023
sitting in chair
states not feeling good unable to further elaborate
Denies chest pain or shortness of breath abdominal pain
Gets frustrated/angry upon further questioning
Objective Data
-
Labs:
Laboratory Results
08/24/23
07:40
WBC 7.9
Hgb 10.7 L
Hct 34.9 L
Plt Count 381
Sodium 139
Potassium 4.4
Chloride 111 H
Carbon Dioxide 20 L
BUN 16
Creatinine 0.8
Glucose 59 L
Calcium 9.3
Vital Signs:
Vital Signs
Temp Pulse Resp BP Pulse Ox
98.6 F 67 18 110/61 98
08/24/23 07:30 08/24/23 07:30 08/24/23 07:30 08/24/23 07:30 08/24/23 07:30
I&O
08/23/23 08/24/23 08/25/23
06:59 06:59 06:59
Intake Total 980 / 980
Balance 980 / 980
Data Reviewed
-
Total Time Spent with Patient (in minutes): 56
--- NOTE | 2023-08-24 12:30 | CON.GI ---
Addendum entered and electronically signed by Angela Ferrell MD 08/24/23 18:03:
The patient was seen and examined by me independently in collaboration with the resident.
Past medical history/social history/medications/allergies/family history reviewed.
Lab data and imaging data reviewed.
Please see addendum to the history and also assessment and plan.
Original Note:
Documented by User: Mayela Arzate MD, Resident 08/24/23 15:54
Consultation
-
Date/Time Consultation Performed: 08/24/23
Reason for Consultation: nausea, decreased appetite
Medical History
Chief Complaint / HPI
Chief Complaint: nausea
History of Present Illness:
87 year old female with history of hypertension, CVA TIA and suspected vascular dementia, hyperlipidemia, colon cancer s/p resection who presented to the ER 08/23/23 for nausea and decreased PO intake. History was obtained from patient and her
daughters at bedside. Carolyn reports feeling 'not well,' though given her dementia she has difficulty explaining specific symptoms. Of note, she speaks fluent [place] and [place], and her family expressed concerns about language barriers.
Translation services were offered assist with conversation, and the patient and her family declined. Her family reports that Carolyn has been having intermittent episodes of nausea lasting 10-20 minutes and occurring about 5-10 times per day.
These episodes come on suddenly with no known trigger or prodrome, and she feels like she is going to throw up though she denies vomiting. During these episodes, she also coughs a few times, her eyes tear up, and she usually develops a headache. Her
family notes possible gastric reflux during these episodes, which the patient denies. These episodes typically pass on their own, and nothing makes it better or worse. Her family began noticing these episodes in June when they visited her in [place]
prior to helping her move to [place]. Since then, the family reports decreased PO intake, but the patient feels that she eats a typical amount. She has had 1 bowel movement in past 10 days, and denies bloody or black stool. She denies abdominal pain,
vomiting, difficulty swallowing, weight loss/weight gain, fevers/chills. She was hospitalized in July for a UTI and similar GI symptoms. Her family notes changes in her medications since discharge, including stopping hypertension medication and
adding high dose aspirin daily. She denies use of NSAIDs.
The patient has not established care in the [place] outside of the hospital due to issues with insurance coverage. Her family states her medical records prior to her move are in [place] and they are unable to translate them.
Past Medical History
Past Medical History: Cancer (colon cancer s/p resection (~2008)), CVA (CVA, TIA, suspected vascular dementia), HTN and Other (dementia, hyperlipidemia)
Past Surgical History: Bowel Resection (resection of colon cancer (~2008)) and Cholecystectomy
Social History
Tobacco: Non-Smoker
Alcohol: Other (no alcohol use since moving to ; previously consumed wine occasionally)
Living: With Family (moved from [place] to about 5 weeks ago)
Family History
Family History: Cancer (Colon cancer (uncle))
Allergies / Home Medications
Allergy/AdvReac Type Severity Reaction Status Date / Time
No Known Drug Allergies Allergy Unknown Verified 08/23/23 09:26
�Medication �Instructions �Recorded
pantoprazole 40 mg tablet,delayed 40 mg PO DAILY Gastrointestinal 07/31/23
release Issue
cyanocobalamin (vitamin B-12) 1,000 mcg PO DAILY #0 tabs 08/07/23
1,000 mcg tablet
trazodone 50 mg tablet 25 mg (1/2 x 50 mg) PO HSPRN PRN 08/07/23
sleep/agitation #0 tabs
Dulcolax Chewables 1 gummy PO BID Constipation 08/23/23
Otc Eye Drops (Pf) 1 - 2 drp BOTH EYES TIDPRN PRN dry 08/23/23
eyes
acetaminophen 325 mg tablet 325 mg PO BIDPRN PRN mild pain 08/23/23
aspirin 325 mg tablet 325 mg PO DAILY Blood Clot 08/23/23
Prevention/Tx
cranberry 1 tab PO QPM Supplement 08/23/23
ondansetron 4 mg disintegrating 4 mg PO Q8H PRN nausea/vomiting 08/23/23
tablet
Review of Systems
-
All other systems: A 12 pt ROS was Negative except as stated above in HPI
Vital Signs
Temp Pulse Resp BP Pulse Ox
98.6 F 67 18 110/61 98
08/24/23 07:30 08/24/23 07:30 08/24/23 07:30 08/24/23 07:30 08/24/23 07:30
Physical Exam
Exam
General: Sitting up in chair, resting comfortably, no acute distress. Well-appearing elderly patient. Able to converse casually, though she has difficulty with recall and explaining symptoms.
Heart: Regular rate and rhythm. No murmurs appreciated.
Lungs: Non-labored breathing. Clear and equal to auscultation bilaterally.
GI: Normal bowel sounds present. Abdomen soft, nontender, nondistended. No rebound, rigidity, or guarding.
Results
WBC 7.9 10^3/uL (4.8-10.8) 08/24/23 07:40
Hgb 10.7 g/dL (12.0-16.0) L 08/24/23 07:40
Hct 34.9 % (37.0-47.0) L 08/24/23 07:40
MCV 91.1 fL (81.0-99.0) 08/24/23 07:40
Plt Count 381 10^3/uL (130-400) 08/24/23 07:40
Absolute Neuts (auto) 5.7 10^3/uL (1.4-6.5) 08/24/23 07:40
Sodium 139 mmol/L (135-145) 08/24/23 07:40
Potassium 4.4 mmol/L (3.5-5.1) 08/24/23 07:40
Chloride 111 mmol/L (98-107) H 07/05/24 07:40
Carbon Dioxide 20 mmol/L (22-30) L 08/24/23 07:40
BUN 16 mg/dl (7-17) 08/24/23 07:40
Creatinine 0.8 mg/dL (0.6-1.0) 08/24/23 07:40
Calcium 9.3 mg/dl (8.4-10.2) 08/24/23 07:40
Total Bilirubin 0.5 mg/dl (0.2-1.3) 08/23/23 09:48
AST 15 U/L (14-36) 08/23/23 09:48
ALT < 10 U/L (0-35) 08/23/23 09:48
Alkaline Phosphatase 101 U/L (38-126) 08/23/23 09:48
Lipase 82 U/L (23-300) 08/23/23 09:48
Hgb 11.8 (08/07/23) -> 12.3 (08/23/23) -> 10.7 (08/24/23)
08/23/23 Urine culture positive for E Coli (preliminary result)
Diagnostic Image Results:
Abdominal x-ray 08/23/23:
FINDINGS:
No disproportionally dilated loops of small bowel or air-fluid levels. Only a mild colonic stool burden. No appreciable intraperitoneal free air. Vascular calcifications. Surgical clips project over the right hemiabdomen.
Chronic degenerative changes of the spine, sacroiliac joints, and hips. Mild to moderate lumbar levoscoliosis.
IMPRESSION:
Nonobstructive bowel gas pattern.
Abdomen/pelvis CT w IV and oral contrast 07/31/23:
IMPRESSION:
1. Stool distention of the rectum raising concern for a fecal impaction.
2. Irregularity of the anterior bladder wall partially extending into a small midline anterior pelvic wall hernia.
3. Colonic diverticulosis.
4. Additional chronic findings, as above.
Prior GI Procedures:
EGD:
Unknown if patient had prior EGD
Colonoscopy:
Unknown if patient had colonoscopy in past 15 years
Assessment / Plan
-
87 year old female with history of hypertension, CVA TIA and suspected vascular dementia, hyperlipidemia, colon cancer s/p resection who presented to hospital for nausea and decreased appetite, and found to have a UTI. Of note, she was recently
hospitalized in July for UTI/confusion and had similar GI complaints.
Impression: Nausea of unknown etiology. Differential diagnosis includes esophagitis, hiatal hernia, obstruction. Hiatal hernia and obstruction less likely given recent imaging which did not show either, and demonstrated improved stool burden from
previous impaction.
Plan:
- Will plan for EGD to evaluate for esophagitis, ulcerations, H Pylori.
- Continue pantoprazole daily. Continue zofran as needed for symptom management.
- PO diet per Speech Therapy. Monitor PO intake. If concern for dysphagia or aspiration develop, can consider additional swallow studies.
Constipation: Recent history of fecal impaction, which has resolved on most recent imaging. Continue PO senna/docusate and miralax.
Anemia: Hgb 11.8 (08/07/23) -> 12.3 (08/23/23) -> 08/24/23). Taking vitamin b12 daily for deficiency. Will order iron studies and celiac panel.
History of colon cancer s/p resection: No signs or symptoms of active disease. Unknown when last colonoscopy was performed. Recommend colonoscopy, which can be performed outpatient.
-
-
Thank you for consultation and allowing me to participate in the patient's care. Please call the director of application development GI physician during the after hours with any questions or concerns.

Documented by User: Angela Ferrell MD 08/24/23 18:00
Consultation
-
Date/Time Consultation Requested: 08/24/23
Requesting Provider:
Performing Provider:
Medical History
Chief Complaint / HPI
History of Present Illness:
87 year old female with history of hypertension, CVA TIA and suspected vascular dementia, hyperlipidemia, colon cancer s/p resection who presented to the ER 08/23/23 for nausea and decreased PO intake. History was obtained from patient and her
daughters at bedside. Carolyn reports feeling 'not well,' though given her dementia she has difficulty explaining specific symptoms. Of note, she speaks fluent [place] and [place], and her family expressed concerns about language barriers.
Translation services were offered assist with conversation, and the patient and her family declined. Her family reports that Carolyn has been having intermittent episodes of nausea lasting 10-20 minutes and occurring about 5-10 times per day.
These episodes come on suddenly with no known trigger or prodrome, and she feels like she is going to throw up though she denies vomiting. During these episodes, she also coughs a few times, her eyes tear up, and she usually develops a headache. Her
family notes possible gastric reflux during these episodes, which the patient denies. These episodes typically pass on their own, and nothing makes it better or worse. Her family began noticing these episodes in June when they visited her in [place]
prior to helping her move to [place]. Since then, the family reports decreased PO intake, but the patient feels that she eats a typical amount. She has had 1 bowel movement in past 10 days, and denies bloody or black stool. She denies abdominal pain,
vomiting, difficulty swallowing, weight loss/weight gain, fevers/chills. She was hospitalized in July for a UTI and similar GI symptoms. Her family notes changes in her medications since discharge, including stopping hypertension medication and
adding high dose aspirin daily. She denies use of NSAIDs.
The patient has not established care in the [place] outside of the hospital due to issues with insurance coverage. Her family states her medical records prior to her move are in [place] and they are unable to translate them.
Addendum-patient has some memory issues and possibly underlying dementia. Patient denies any abdominal pain, nausea on a regular basis without vomiting. Denies heartburn on PPI, regurgitation, sour taste, sore throat, choking, she does report
coughing on and off. No trouble swallowing solids, liquids or pills. Reports constipation, has been taking Dulcolax tablets at home with some improvement in symptoms. No blood in the stool or black stool. Appetite is poor, unclear if she lost
weight but she did lose about 3 kg since july 30 hospital visit.
History of colon cancer 15 to 20 years ago when she was in [place], left-sided resection as per patient, no chemo or radiation. Unclear if patient had any surveillance colonoscopy since. Uncle with colon cancer.
History of anemia which led to the initial colonoscopy. Reports no further history of anemia or iron supplementation.
Assessment / Plan
-
87 year old female with history of hypertension, CVA TIA and suspected vascular dementia, hyperlipidemia, colon cancer s/p resection who presented to hospital for nausea and decreased appetite, and found to have a UTI. Of note, she was recently
hospitalized in July for UTI/confusion and had similar GI complaints.
Impression: Nausea of unknown etiology. Differential diagnosis includes esophagitis, hiatal hernia, gastritis, ulcer disease imaging demonstrated improved stool burden from previous impaction.
Plan:
- Will plan for EGD to evaluate for esophagitis, ulcerations, H Pylori.
- Continue pantoprazole daily. Continue zofran as needed for symptom management.
- PO diet per Speech Therapy. Monitor PO intake. If concern for dysphagia or aspiration develop, can consider additional swallow studies.
Constipation: Recent history of fecal impaction, which has resolved on most recent imaging. Continue PO senna/docusate and miralax.
Anemia: Hgb 11.8 (08/07/23) -> 12.3 (08/23/23) -> 08/24/23). Taking vitamin b12 daily for deficiency. Will order iron studies and celiac panel.
History of colon cancer s/p resection: No signs or symptoms of active disease. Unknown when last colonoscopy was performed.
Addendum-patient initially refused endoscopy and wanted to talk to son-in-law who is a physician regarding his suggestions. Received message that patient would want to go ahead, consent will be obtained from her patient and the daughter.
N.p.o. past midnight
--- NOTE | 2023-08-24 13:05 | CM ---
Addendum entered by Mayela Reynolds 08/24/23 17:44:
Additional referrals sent to [facility], [facility], and [facility].
Addendum entered by Mayela Reynolds 08/24/23 13:12:
SNF referrals sent to [facility], [facility], and [facility]
Original Note:
CM met with Carolyn, her daughter and daughter's spouse to complete IA.
Carolyn was discharged from [facility] 10 days ago, however did not have great improvement in her functional abilities; per daughter, Carolyn only received a half hour of PT and a half hour of OT during the stay and seemed to decline
while she was there.
We discussed the possibility of discharge to a different SNF; family also asked if they would be allowed to hire private therapists to provide additional services to augment the SNF services. CM will look into this option.
Plan: Discharge to SNF; recent SNF stay and within 30 day window to return without 3 day stay.
PCP: unknown at this time
Pharmacy: [facility] in [place]
[2023-08-24] MEDS: TYLENOL 650 MG PO (14:28)
[2023-08-24] MEDS: RISPERDAL 0.25 MG PO (17:22)
[2023-08-24] MEDS: LOVENOX 40 MG SC (17:22)
--- NOTE | 2023-08-24 18:34 | PTCARENOTE ---
Received paitent this am AAOx2, Pt forgetful Pt complained of nausea. Medicated with Zofran IV with relief. Pt OOB to chair and tolerated well. Tolerated diet, patient has to be encouraged to eat. Pt started on IV rocephin for UTI. Pt's daughters
an son In law at bedside today. Made patient comfortable. Cont to assess patient status.
[2023-08-24] MEDS: MELATONIN 3 MG PO (20:03)
[2023-08-24] MEDS: DESYREL 25 MG PO (21:55)
[2023-08-25] VITALS (7 sets, daily range): BP systolic 114–146; BP diastolic 62–82
[2023-08-25] MEDS: SENOKOT-S PO ×2 (08:00→20:57)
[2023-08-25 08:29] LABS: Iron 31 ug/dl (37-170)
[2023-08-25 08:38] LABS: Percent Saturation 12 % (20-50); Total Iron Binding Capacity 249 ug/dl (265-497)
[2023-08-25] MEDS: ROCEPHIN 1000 MG IV (10:00)
[2023-08-25] MEDS: FLUSH (NSS) 1 FLUSH IV ×2 (10:01→17:35)
[2023-08-25] MEDS: STERILE WATER FOR INJECTION 10 ML IV (10:01)
--- NOTE | 2023-08-25 10:32 | W.PN.HOSP.TC ---
Today's Communication/Plan
-
EGD today
Anemia and celiac panel pending
IV abx
GI recs
Assessment / Plan
Assessment / Plan
General: Comfortable and Conversant
HEENT: Anicteric and Moist mucous membranes
Respiratory: Clear and Non Labored Respirations
Cardiac: S1/S2 and Regular Rhythm; No Murmur
GI: Soft, Non Tender, Non Distended and Normal Bowel Sounds
Rectal: Deferred by Provider
Musculoskeletal: No Clubbing, No Cyanosis and No Edema
Skin: Warm and Dry
Neuro: Awake and Nonfocal/grossly intact
Psych: Apparent Dementia
#Generalized weakness likely multifactorial secondary to decreased appetite and chronic nausea with concern for constipation
#Suspected constipation-history of fecal impaction
AXR without severe fecal burden
s/p IVF
Continue with standing p.o. regimen for now
#Chronic intermittent nausea
#Dysphagia
Speech evaluation-IDDS4 started.
Antinausea meds as needed
Monitor p.o. tolerance-per family leading to severe decrease appetite at home.
Continue with PPI
Celiac ordered and pending
Plan for EGD today
GI recs
#Normocytic anemia
Anemia panel pending
Toxic metabolic encephalopathy likely secondary to E. coli UTI versus worsening of underlying dementia
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
History of TIA
Had recent extensive workup done and will need outpatient neurology evaluation
Continue with aspirin
Continue with trazodone nightly prn
Melatonin 3mg qhs
Start patient on ceftriaxone
Vitamin B12 deficiency
Continue with p.o. B12
Hx of colonic cancer s/p resection
DVT prophylaxis/Lovenox
Full code
PT/OT-SNF. CM aware to d/w with daughter
Anticipated Discharge: > 48 hours
Subjective/Interval History
-
Date of Service: August 25, 2023
states of anxiety due to procedure
Objective Data
-
Vital Signs:
Vital Signs
Temp Pulse Resp BP Pulse Ox
97.2 F 70 16 135/81 96
08/25/23 07:34 08/25/23 07:34 08/25/23 07:34 08/25/23 07:34 08/25/23 09:22
I&O
08/24/23 08/25/23 08/26/23
06:59 06:59 06:59
Intake Total 980 / 980 880 / 880
Balance 980 / 980 880 / 880
[2023-08-25 11:59] LABS: Ferritin 64.5 ng/ml (11.1-264.0)
[2023-08-25 12:30] LABS: Folate 5.3 ng/ml (2.76-20); Vitamin B12 342 pg/ml (239-931)
[2023-08-25] MEDS: ASPIRIN 325 MG PO (13:11)
[2023-08-25] MEDS: PROTONIX 40 MG PO (13:11)
[2023-08-25] MEDS: MIRALAX 17 GRAMS PO (13:11)
[2023-08-25] MEDS: VITAMIN B-12 1000 MCG PO (13:11)
--- NOTE | 2023-08-25 13:18 | PTCARENOTE ---
Pt returned from GI lab via stretcher, accompanied by GI lab staff x2. Pt awake and alert, oriented to self/place/birthdate. Transferred to bed with assist x2/walker. VSS. On room air-pulse ox 99%, no SOB noted. Abd soft, rounded, BS (+),
loud; to start low residue diet. Incont large amts urine. Resting in bed at present, no c/o. Will continue to monitor.
--- NOTE | 2023-08-25 15:35 | PTCARENOTE ---
Pt incont large amts urine; does not notify staff of need to void. Sacral area with increasing redness/MASD; silicone foam dsg applied; Calazyme ointment to surrounding skin. Purewick catheter re-applied. Will continue to monitor.
--- NOTE | 2023-08-25 16:44 | PTCARENOTE ---
Pt resting comfortably since return from GI lab. VSS. CAMACHO well; can position self in bed; ambulates with assist x2/walker; unsteady w/OOB activity. Fall prec maintained. Zi low residue diet; denies dysphagia; aspiration prec maintained. Incont
urine; Purewick catheter in place. Sacral foam dsg currently D/I. No c/o at present. Will continue to monitor.
[2023-08-25] MEDS: ZOFRAN 4 MG IV (17:35)
[2023-08-25] MEDS: LOVENOX 40 MG SC (17:36)
[2023-08-25] MEDS: MELATONIN PO (20:57)
--- NOTE | 2023-08-26 03:07 | PTCARENOTE ---
Attempted to administer senokot- S to patient multiple times throughout shift- educated pt on POC, pt continues to refuse.
[2023-08-26 03:45] VITALS: BP 134/79
[2023-08-26 07:55] VITALS: BP 124/75
[2023-08-26] MEDS: PROTONIX 40 MG PO (09:21)
[2023-08-26] MEDS: VITAMIN B-12 1000 MCG PO (09:22)
[2023-08-26] MEDS: ASPIRIN 325 MG PO (09:22)
[2023-08-26] MEDS: MIRALAX 17 GRAMS PO (09:22)
[2023-08-26] MEDS: SENOKOT-S 1 TABLET PO ×2 (09:22→20:47)
[2023-08-26] MEDS: ROCEPHIN 1000 MG IV (10:55)
[2023-08-26] MEDS: STERILE WATER FOR INJECTION 10 ML IV ×3 (10:56→20:46)
--- NOTE | 2023-08-26 12:05 | W.PN.HOSP.TC ---
Today's Communication/Plan
-
Switched to meropenem
Monitor for diet tolerance
Ongoing disposition
Assessment / Plan
Assessment / Plan
General: Comfortable and Conversant
HEENT: Anicteric and Moist mucous membranes
Respiratory: Clear and Non Labored Respirations
Cardiac: S1/S2 and Regular Rhythm; No Murmur
GI: Soft, Non Tender, Non Distended and Normal Bowel Sounds
Rectal: Deferred by Provider
Musculoskeletal: No Clubbing, No Cyanosis and No Edema
Skin: Warm and Dry
Neuro: Awake and Nonfocal/grossly intact
Psych: Apparent Dementia
#Generalized weakness likely multifactorial secondary to decreased appetite and chronic nausea with concern for constipation
#Suspected constipation-history of fecal impaction
AXR without severe fecal burden
s/p IVF
Continue with standing p.o. regimen for now
#Chronic intermittent nausea
#Dysphagia
Speech evaluation-IDDS4 started.
Antinausea meds as needed
Monitor p.o. tolerance-per family leading to severe decrease appetite at home.
Continue with PPI
Celiac ordered and pending
EGD with no gross lesion in the entire esophagus.. No hiatal hernia. Z-line variable. Biopsied. Erosive gastropathy with no stigmata of recent bleeding. Biopsied. Normal examined duodenum.
Outpatient capsule endoscopy.
Continue with PPI
Monitor for diet tolerance
GI recs
# ESBL UTI
DC ceftriaxone
start meropenem
precautions
#Normocytic anemia
Anemia panel pending
Toxic metabolic encephalopathy likely secondary to UTI versus worsening of underlying dementia
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
History of TIA
Had recent extensive workup done and will need outpatient neurology evaluation
Continue with aspirin
Continue with trazodone nightly prn
Melatonin 3mg qhs
Vitamin B12 deficiency
Continue with p.o. B12
Hx of colonic cancer s/p resection
DVT prophylaxis/Lovenox
Full code
PT/OT-SNF. CM aware to d/w with daughter
update daughter over the phone in details
Anticipated Discharge: > 48 hours
Subjective/Interval History
-
Date of Service: August 26, 2023
eating breakfast this am
states feeling better
Objective Data
-
Vital Signs:
Vital Signs
Temp Pulse Resp BP Pulse Ox
97.6 F 71 16 124/75 95
08/26/23 07:55 08/26/23 07:55 08/26/23 07:55 08/26/23 07:55 08/26/23 09:15
I&O
08/25/23 08/26/23 08/27/23
06:59 06:59 06:59
Intake Total 880 / 880 510 / 510
Balance 880 / 880 510 / 510
Data Reviewed
-
Total Time Spent with Patient (in minutes): 55
[2023-08-26 12:30] VITALS: BP 127/81
--- NOTE | 2023-08-26 12:41 | PTCARENOTE ---
1145 Received patient this am AAOx2. Pt confused. 1:1 Maintained. Pt tolerated diet, appetite fair. Pt Urine Culture was Positive for Ecoli an now also positive for ESBL. Pt offered no complaints. Cont to assess patient status. Report given to 2
Win RN an patient transferred .
--- NOTE | 2023-08-26 14:15 | PTOTSP ---
Speech Language Pathology
Pt seen for dysphagia tx. Daughter present at bedside. Pt was upgraded to regular solids/thin liquids (low residue) by GI post endoscopy completed 08/24. She denied any difficulty with P.O. intake. Daughter brought her a sushi roll this date,
which she ate without difficulty per pt/daughter report. Seen with P.O. trials of regular solids and thin liquids. Adequate mastication, bolus formation, and A-P transit noted with no oral residue. No overt signs of aspiration. No chest imaging
completed this admission, and WBC WNL.
Recommend:
(1) Continue regular solids/thin liquids
(2) General aspiration precautions
(3) Meds as tolerated
(4) BREAKER MACHINE OPERATOR to sign off. Please reconsult as indicated.
[2023-08-26] MEDS: MERREM 500 MG IV ×2 (14:28→22:54)
[2023-08-26 15:56] VITALS: BP 113/68
[2023-08-26] MEDS: LOVENOX 40 MG SC (17:26)
[2023-08-26] MEDS: MELATONIN 3 MG PO (20:47)
[2023-08-26] MEDS: TYLENOL 650 MG PO (20:47)
[2023-08-26 23:04] LABS: Endomysial IgA Antibody Titer <1:10 (<1:10)
[2023-08-27 00:11] LABS: IgA 84 mg/dl (70-400)
[2023-08-27 01:10] VITALS: BP 112/69
[2023-08-27] MEDS: MERREM 500 MG IV ×3 (05:40→21:20)
[2023-08-27] MEDS: STERILE WATER FOR INJECTION 10 ML IV ×3 (05:44→21:20)
[2023-08-27 07:07] VITALS: BP 116/69
[2023-08-27 08:28] LABS: % Basophils 0.6 % (0-2); % Eosinophils 3.1 % (0-6); % Immature Granulocytes 0.3 % (0-0.5); % Lymphocytes 23.4 % (20.5-51.1); % Monocytes 10.7 % (1.7-9.3); % Neutrophils 61.9 % (42.2-75.2); Absolute Eosinophils 0.2 10^3/uL (0-0.7); Absolute Lymphocytes 1.7 10^3/uL (1.2-3.4); Absolute Monocytes 0.8 10^3/uL (0.1-0.6); Absolute Neutrophils 4.5 10^3/uL (1.4-6.5); Hematocrit 34.9 % (37.0-47.0); Mean Corp Hgb Conc. 31.5 g/dL (33.0-37.0); Mean Corpuscular Volume 88.8 fL (81.0-99.0); Nucleated Red Blood Cells % 0 %; Platelet Count 419 10^3/uL (130-400); Red Blood Cell Count 3.93 10^6/uL (4.20-5.40); Red Cell Dist. Width 13.6 % (11.5-14.5); White Blood Cell Count 7.2 10^3/uL (4.8-10.8)
[2023-08-27 08:47] LABS: Blood Urea Nitrogen 18 mg/dl (7-17); Calcium 9.6 mg/dl (8.4-10.2); Carbon Dioxide 26 mmol/L (22-30); Chloride 110 mmol/L (98-107); Estimated Creatinine Clearance 46 ml/min; Glucose 77 mg/dl (70-99); Potassium 4.5 mmol/L (3.5-5.1); Sodium 141 mmol/L (135-145); eGFR > 60.00
[2023-08-27] MEDS: MIRALAX 17 GRAMS PO (08:55)
[2023-08-27] MEDS: PROTONIX 40 MG PO (08:55)
[2023-08-27] MEDS: ASPIRIN 325 MG PO (08:55)
[2023-08-27] MEDS: VITAMIN B-12 1000 MCG PO (08:55)
[2023-08-27] MEDS: SENOKOT-S 1 TABLET PO ×2 (08:55→21:03)
[2023-08-27] MEDS: ZOFRAN 4 MG IV (09:12)
--- NOTE | 2023-08-27 10:01 | W.PN.HOSP.TC ---
Addendum entered and electronically signed by Cade Roe MD 08/27/23 11:40:
Updated patient daughter over the phone. Per patient daughter patient has most likely underlying depression and severe anxiety and agitation. Patient patient has never been more happy person. Daughter states patient was alone by herself in [place]
during COVID and there is a high likelihood patient with depression which initiated during that time. Discussed with patient daughter can start low-dose Ativan for acute episode of severe anxiety. Also could consider SSRIs if no interaction with
medications. Will further evaluate.
Original Note:
Today's Communication/Plan
-
IV abx
anti-nausea meds
cm for dispo
pt/ot
Assessment / Plan
Assessment / Plan
General: Comfortable and Conversant
HEENT: Anicteric and Moist mucous membranes
Respiratory: Clear and Non Labored Respirations
Cardiac: S1/S2 and Regular Rhythm; No Murmur
GI: Soft, Non Tender, Non Distended and Normal Bowel Sounds
Rectal: Deferred by Provider
Musculoskeletal: No Clubbing, No Cyanosis and No Edema
Skin: Warm and Dry
Neuro: Awake and Nonfocal/grossly intact
Psych: Apparent Dementia
#Generalized weakness likely multifactorial secondary to decreased appetite and chronic nausea with concern for constipation
#Suspected constipation-history of fecal impaction
AXR without severe fecal burden
s/p IVF
Continue with standing p.o. regimen for now
#Chronic intermittent nausea
#Dysphagia
Speech evaluation-IDDS4 started.
Antinausea meds as needed
Monitor p.o. tolerance-per family leading to severe decrease appetite at home.
Continue with PPI
Celiac ordered -Endomysial titer neg <1:10. TTG pending
EGD with no gross lesion in the entire esophagus.. No hiatal hernia. Z-line variable. Biopsied. Erosive gastropathy with no stigmata of recent bleeding. Biopsied. Normal examined duodenum.
Outpatient capsule endoscopy.
Continue with PPI
Monitor for diet tolerance
GI recs
# ESBL UTI
DC ceftriaxone
start meropenem
precautions
#Normocytic anemia
Transfuse <7
Toxic metabolic encephalopathy likely secondary to UTI versus worsening of underlying dementia
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
History of TIA
Had recent extensive workup done and will need outpatient neurology evaluation
Continue with aspirin
Continue with trazodone nightly prn
Melatonin 3mg qhs
Vitamin B12 deficiency
Continue with p.o. B12
Hx of colonic cancer s/p resection
DVT prophylaxis/Lovenox
Full code
PT/OT-SNF. CM aware to d/w with daughter
update daughter over the phone in details on 08/25
Anticipated Discharge: 24 - 48 hours
Subjective/Interval History
-
Date of Service: August 27, 2023
States of feeling mildly nauseous
Objective Data
-
Labs:
Laboratory Results
08/27/23
07:58
WBC 7.2
Hgb 11.0 L
Hct 34.9 L
Plt Count 419 H
Sodium 141
Potassium 4.5
Chloride 110 H
Carbon Dioxide 26
BUN 18 H
Creatinine 0.8
Glucose 77
Calcium 9.6
Vital Signs:
Vital Signs
Temp Pulse Resp BP Pulse Ox
98.5 F 65 17 116/69 95
08/27/23 07:07 08/27/23 07:07 08/27/23 07:07 08/27/23 07:07 08/27/23 07:07
I&O
08/26/23 08/27/23 08/28/23
06:59 06:59 06:59
Intake Total 510 / 510 900 / 900
Balance 510 / 510 900 / 900
--- NOTE | 2023-08-27 10:13 | PTCARENOTE ---
Spoke with pts daughter jean-claude . Was able to give a little update. Will reach out to Dr. Roe to make sure he calls daughter. Will give prn dose of resperdol for aggitation.
--- NOTE | 2023-08-27 10:25 | PTCARENOTE ---
Dr. Roe notified of pts daughter jean-claude wanting to speak with him for update
--- NOTE | 2023-08-27 10:59 | PTCARENOTE ---
pt refused resperdone
--- NOTE | 2023-08-27 12:57 | W.PN.GI.CBS2 ---
Today's Communication / Plan
-
- Will check abdominal ultrasound. Unclear etiology for nausea, patient denies having cholecystectomy done CT scan identifiable better.
-If abdominal ultrasound is unremarkable and nausea and poor appetite continue, could repeat abdominal imaging,? MRI abdomen-pancreatic atrophy and liver cyst noted on previous CT scan.
- If no bowel movement today, Dulcolax suppository
Assessment / Plan
-
87 year old female with history of hypertension, CVA TIA and suspected vascular dementia, hyperlipidemia, colon cancer s/p resection presenting to hospital for nausea and decreased appetite, and admitted for treatment of UTI. Of note, she was
recently hospitalized in July for UTI/confusion and had similar GI complaints.
Nausea:
Unclear etiology for the nausea, abnormal LFTs. Normal CT scan of the abdomen pelvis with IV and oral contrast 07/2023.
On the CT scan, gallbladder was not visualized but as per patient, she still has her gallbladder. Will get abdominal ultrasound to evaluate.
Patient does not want to try and take anti-nausea medicine.
Currently on low residue diet.
- EGD 08/25/23 demonstrated no gross lesions in entire esophagus, presence of 4cm hiatal hernia, Z-line variable 36cm from incisors, erosive gastropathy with no stigmata of recent bleeding, normal examined duodenum.
- Await pathology results from EGD 08/25/23. Telephone GI clinic for pathology results in 2 weeks and follow up outpatient. If biopsies are negative, may consider additional testing outpatient.
- Endomysial IgA Ab titer normal (<1:10) , tissue transglutamin IgA and IgG are still pending.
- Continue pantoprazole 40mg PO daily and antireflux regimen. Continue zofran as needed for symptom management.
- No ibuprofen, naproxen, or other NSAIDs.
Decreased appetite:
- Continue to monitor PO intake. Several documented meals where patient eats 5-15% of diet as well as 75-100% of diet, though it is unclear what quantity of food patient has been ordering.
- Consider supplementing diet with Ensure or other nutritionally-dense supplements.
Anemia:
- Most recent hgb 11.0 today. Stable from 08/24/23, no concern for acute blood loss.
- EGD did not reveal upper GI bleed. Low suspicion for anemia secondary to GI blood loss given absence of hematochezia/melena.
- Has been taking vitamin b12 for known deficiency. Vitamin b12 lab within normal limits.
- Labs consistent with iron deficiency anemia. Recommend supplementing with IV Fe. Can consider PO Fe, though it may contribute to GI complaints and not be as well-absorbed in patients on PPIs.
Constipation:
- Recent history of fecal impaction, which has resolved on most recent imaging.
- Continue PO senna/docusate and miralax.
-If no bowel movement today, could try Dulcolax suppository .
History of colon cancer s/p resection:
- No signs or symptoms of active disease. Unknown when last colonoscopy was performed.
- Can discuss outpatient colonoscopy with patient and family, and discuss if additional screening will cell changer or goals of care given age and comorbidities.
Subjective
Subjective
Date of Service: August 27, 2023
Patient reports having nausea this morning and not able to finish her meal. No abdominal pain. No vomiting, heartburn. No bowel movement yet.
Objective
Data Reviewed
Laboratory Data:
Laboratory Results
08/27/23 07:58
08/27/23 07:58
Laboratory Results
Total Bilirubin 0.5 mg/dl (0.2-1.3) 08/23/23 09:48
AST 15 U/L (14-36) 08/23/23 09:48
ALT < 10 U/L (0-35) 08/23/23 09:48
Alkaline Phosphatase 101 U/L (38-126) 08/23/23 09:48
Lipase 82 U/L (23-300) 08/23/23 09:48
Vital Signs and I&O:
Vital Signs
Temp Pulse Resp BP Pulse Ox
98.5 F 65 17 116/69 95
08/27/23 07:07 08/27/23 07:07 08/27/23 07:07 08/27/23 07:07 08/27/23 07:07
I&O
08/26/23 08/27/23 08/28/23
06:59 06:59 06:59
Intake Total 510 / 510 900 / 900
Balance 510 / 510 900 / 900
Physical Exam
Physical Exam
GI: Soft, Non Distended and Non Tender
--- NOTE | 2023-08-27 13:12 | PTCARENOTE ---
EKG obtained Sinus Rhytm with PAC's . Forwarded to Dr. Roe via tiger text. Placed in chart
[2023-08-27 15:15] VITALS: BP 129/70
--- NOTE | 2023-08-27 16:07 | CM ---
Therapy recommendation for SNF. Referrals previously forwarded. Interested facilities however must be off 1:1 and behaviors need to be better managed. Patient has been refusing any medication with sedating effect. Daughter aware.
[2023-08-27] MEDS: LOVENOX 40 MG SC (17:42)
[2023-08-27] MEDS: ATIVAN 0.5 MG PO (21:19)
[2023-08-27] MEDS: MELATONIN 3 MG PO (21:20)
[2023-08-27] MEDS: LEXAPRO 5 MG PO (21:20)
[2023-08-28] MEDS: MERREM 500 MG IV ×3 (05:40→22:05)
[2023-08-28] MEDS: STERILE WATER FOR INJECTION 10 ML IV ×3 (05:40→22:05)
[2023-08-28 07:00] VITALS: BP 127/74
[2023-08-28] MEDS: PROTONIX 40 MG PO (09:43)
[2023-08-28] MEDS: MIRALAX 17 GRAMS PO (09:43)
[2023-08-28] MEDS: VITAMIN B-12 1000 MCG PO (09:43)
[2023-08-28] MEDS: ASPIRIN 325 MG PO (09:43)
[2023-08-28] MEDS: SENOKOT-S 1 TABLET PO ×2 (09:43→22:08)
--- NOTE | 2023-08-28 10:45 | W.PN.HOSP.TC ---
Addendum entered and electronically signed by Cade Roe MD 08/28/23 14:28:
Stage 1 sacrum pressure injury, POA
Original Note:
Today's Communication/Plan
-
IV abx
monitor diet tolerance
Abd Us
Gi recs
Assessment / Plan
Assessment / Plan
General: Comfortable and Conversant
HEENT: Anicteric and Moist mucous membranes
Respiratory: Clear and Non Labored Respirations
Cardiac: S1/S2 and Regular Rhythm; No Murmur
GI: Soft, Non Tender, Non Distended and Normal Bowel Sounds
Rectal: Deferred by Provider
Musculoskeletal: No Clubbing, No Cyanosis and No Edema
Skin: Warm and Dry
Neuro: Awake and Nonfocal/grossly intact
Psych: Apparent Dementia
#Generalized weakness likely multifactorial secondary to decreased appetite and chronic nausea with concern for constipation
#Suspected constipation-history of fecal impaction
AXR without severe fecal burden
s/p IVF
Continue with standing p.o. regimen for now
#Chronic intermittent nausea
#Dysphagia
Speech evaluation-IDDS4 started.
Antinausea meds as needed
Monitor p.o. tolerance-per family leading to severe decrease appetite at home.
Continue with PPI
Celiac ordered -Endomysial titer neg <1:10. TTG pending
EGD with no gross lesion in the entire esophagus.. No hiatal hernia. Z-line variable. Biopsied. Erosive gastropathy with no stigmata of recent bleeding. Biopsied. Normal examined duodenum.
Outpatient capsule endoscopy.
Continue with PPI
Monitor for diet tolerance
ABD us pending. remains with poor appetite at times
GI recs
# ESBL UTI
DC ceftriaxone
start meropenem
precautions
#Normocytic anemia
Transfuse <7
Toxic metabolic encephalopathy likely secondary to UTI versus worsening of underlying dementia
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
History of TIA
Had recent extensive workup done and will need outpatient neurology evaluation
Continue with aspirin
Continue with trazodone nightly prn
Melatonin 3mg qhs
Suspected depression
d/w with daughter-agreed for lexapro 5mg started
Qtc wnl.
ativan prn for severe anxiety
Vitamin B12 deficiency
Continue with p.o. B12
Hx of colonic cancer s/p resection
DVT prophylaxis/Lovenox
Full code
PT/OT-SNF. CM aware to d/w with daughter
update daughter over the phone in details on 08/26
Anticipated Discharge: 24 - 48 hours
Subjective/Interval History
-
Date of Service: August 28, 2023
denies nausea
awaiting to eat breakfast
Objective Data
-
Vital Signs:
Vital Signs
Temp Pulse Resp BP Pulse Ox
98.7 F 68 18 127/74 96
08/28/23 07:00 08/28/23 07:00 08/28/23 07:00 08/28/23 07:00 08/28/23 07:00
I&O
08/27/23 08/28/23 08/29/23
06:59 06:59 06:59
Intake Total 900 / 900 390 / 390
Balance 900 / 900 390 / 390
--- NOTE | 2023-08-28 11:55 | W.PN.GI.CBS2 ---
Addendum entered and electronically signed by Michelle Hooper DO 08/28/23 17:57:
Patient seen and examined independently of resident. I agree with her note with my additions below
Carolyn is an 87-year-old female with mild dementia, CVA, previously resected colon cancer who was brought to the hospital by her daughters for nausea, decreased appetite and anorexia as well as treatment for UTI.
She underwent a significant workup for this nausea including MRI of the brain which was negative in July, CT abdomen and pelvis in July showing concern for fecal impaction, endoscopy showing no significant pathology, review of medications, abdominal
ultrasound shows suspected cholecystectomy with no evidence of ductal dilatation, abdominal x-ray from the fourth shows mild constipation patient has not had a significant bowel movement since admission.
Patient has not vomited. And denies any association with eating although she has decreased appetite. She has no signs of mechanical obstruction.
--Would consider non-GI causes of nausea as she states it is worse when she moves her head around. Consider Labyrinthine disorders and other causes of vertigo
--In patients especially older patients with nausea and decreased appetite often a small dose of mirtazapine can be very helpful starting at 7.5 mg. She already has issues with sleep, anorexia, anxiety depression and this medication may be very
beneficial. Can titrate up as she tolerates
--Careful with Zofran. This will make her constipation worse; will give a suppository to help her move
Original Note:
Today's Communication / Plan
-
- Dulcolax suppository for constipation.
- Recommend mirtazapine 7.5mg nightly for nausea/appetite.
- Consider IV Fe for anemia.
- Please see impression/plan.
Assessment / Plan
-
87 year old female with history of hypertension, CVA TIA and suspected vascular dementia, hyperlipidemia, colon cancer s/p resection presenting to hospital for nausea and decreased appetite, and admitted for treatment of UTI. Of note, she was
recently hospitalized in July for UTI/confusion and had similar GI complaints.
Impression/Plan:
Nausea:
- Unclear etiology for the nausea. Currently on low residue diet, and tolerating PO diet.
- Normal CT scan of the abdomen pelvis with IV and oral contrast 07/2023. On the CT scan, gallbladder was not visualized but as per patient, she still has her gallbladder. Abdominal ultrasound 08/28/2023 also reports status post cholecystectomy.
- EGD 08/25/23 demonstrated no gross lesions in entire esophagus, presence of 4cm hiatal hernia, Z-line variable 36cm from incisors, erosive gastropathy with no stigmata of recent bleeding, normal examined duodenum.
- Await pathology results from EGD 08/25/23. Telephone GI clinic for pathology results in 2 weeks and follow up outpatient. If biopsies are negative, may consider additional testing outpatient.
- Endomysial IgA Ab titer normal (<1:10) , tissue transglutamin IgA and IgG are still pending.
- Continue pantoprazole 40mg PO daily and antireflux regimen. Continue zofran as needed for symptom management.
- No ibuprofen, naproxen, or other NSAIDs.
- Recommend starting mirtazapine 7.5 mg nightly.
- May be beneficial to consider non-GI etiologies and/or palliative consult for symptom management while we continue our GI evaluation.
Decreased appetite:
- Continue to monitor PO intake. Several documented meals where patient eats 5-15% of diet as well as 75-100% of diet, though it is unclear what quantity of food patient has been ordering.
- Consider supplementing diet with Ensure or other nutritionally-dense supplements as needed.
- Noted plan to begin treatment with lexapro for suspected depression, which may be contributing to poor appetite.
Anemia:
- Most recent hgb 11.0 on 08/27/23. Stable from 08/24/23, no concern for acute blood loss.
- EGD did not reveal upper GI bleed. Low suspicion for anemia secondary to GI blood loss given absence of hematochezia/melena. Can discuss outpatient colonoscopy (see below).
- Has been taking vitamin b12 for known deficiency. Vitamin b12 lab within normal limits.
- Labs consistent with iron deficiency anemia. Recommend supplementing with IV Fe. Can consider PO Fe, though it may contribute to GI complaints and not be as well-absorbed in patients on PPIs.
Constipation:
- Recent history of fecal impaction, which has resolved on most recent imaging.
- Continue PO senna/docusate and miralax.
- Will order Dulcolax suppository as patient has only had 1 bowel movement in past 2 weeks.
History of colon cancer s/p resection:
- No signs or symptoms of active disease. Unknown when last colonoscopy was performed.
- Can discuss outpatient colonoscopy with patient and family, and discuss if additional screening will private [employer]r or goals of care given age and comorbidities.
Subjective
Subjective
Date of Service: August 28, 2023
At the time of evaluation, she reports her nausea has subsided; however her daughter states 20 minutes prior she said she feels sick. She ate a full lunch, and she says it did not make her feel any better or worse. Per her 1:1, she ate all of her
soup, crackers, and chocolate pudding with whipped cream. Per nursing, she has not had a bowel movement.
Objective
Data Reviewed
Laboratory Data:
Laboratory Results
08/27/23 07:58
08/27/23 07:58
Laboratory Results
Total Bilirubin 0.5 mg/dl (0.2-1.3) 08/23/23 09:48
AST 15 U/L (14-36) 08/23/23 09:48
ALT < 10 U/L (0-35) 08/23/23 09:48
Alkaline Phosphatase 101 U/L (38-126) 08/23/23 09:48
Lipase 82 U/L (23-300) 08/23/23 09:48
Abdominal ultrasound 08/28/2023:
IMPRESSION:
Status post cholecystectomy with no evidence for biliary ductal dilation.
Slightly limited visualization of the liver because of poor acoustic windows. 1.1 cm cyst within the anterior liver.
Bilateral renal cysts. No evidence for pelvicalyceal dilation.
Vital Signs and I&O:
Vital Signs
Temp Pulse Resp BP Pulse Ox
98.7 F 68 18 127/74 96
08/28/23 07:00 08/28/23 07:00 08/28/23 07:00 08/28/23 07:00 08/28/23 07:00
I&O
08/27/23 08/28/23 08/29/23
06:59 06:59 06:59
Intake Total 900 / 900 390 / 390
Balance 900 / 900 390 / 390
Physical Exam
Physical Exam
General: Sitting comfortably in chair, no acute distress. Daughter and 1:1 present in room.
Heart: Regular rate and rhythm.
Lungs: Nonlabored breathing. Clear and equal to auscultation bilaterally.
GI: Normal bowel sounds present. Abdomen soft, nondistended, nontender. No rebound, rigidity, or guarding.
--- NOTE | 2023-08-28 14:13 | PN.CDI ---
CDI
- -
CDI:
Physician Documentation Request
Admit Date: 08/24/23 11:53
Dear Doctor Jyothi,
Please review the following and provide your response in the progress notes.
Clinical Indicators:
- 08/22 RN skin assessment indicates Stage 1 sacrum pressure injury, POA
Physician documentation of the type and location of wounds is required for compliant documentation. Based on the above clinical findings and your assessment, please provide the following in your progress note:
1. Location of the ulcer/wound, including laterality.
2. Type (etiology) of ulcer/wound:
- Diabetic ulcer
- Arterial (ischemic) ulcer
- Traumatic wound
- Venous stasis ulcer
- Pressure (decubitus) ulcer
- Non-healing surgical wound
- Other
- Unable to determine
Use of terms such as suspected, likely, concern for, or probable (associated with a specific diagnosis that is being evaluated, monitored, or treated as if it exists) are acceptable and can be coded in the inpatient setting, when documented at the
time of discharge.
Thank you,
En Maradiaga RN
CDI Specialist
Please use your independent medical judgment in providing your response.
*Source: National Pressure Ulcer Advisory Panel (NPUAP)
[2023-08-28] MEDS: TYLENOL 650 MG PO (14:52)
[2023-08-28 15:05] VITALS: BP 111/68
[2023-08-28] MEDS: ZOFRAN 4 MG IV (15:19)
[2023-08-28] MEDS: ATIVAN 0.5 MG PO (15:19)
--- NOTE | 2023-08-28 15:22 | PTCARENOTE ---
Patient taken off 1 to 1 observation and transferred from room 2128 to 2122, with medsitter. Bed alarm on and daughter in room.
--- NOTE | 2023-08-28 15:30 | PTCARENOTE ---
Pt. transferred from 2128 to 2122 to be closer to the nurses station. Report received from prior RN. Patient c/o of nausea and is agitated. PRN IV zofran and PO ativan administered. Medsitter in place. 1 to 1 d/c. Daughter at the bedside. Call [employer]
within reach.
--- NOTE | 2023-08-28 16:18 | CM ---
IV/AB, monitor tolerance of diet. Discharge Plan of Care: SNF. Referrals previously forwarded. Must be off 1:1 for 24 hours.
[2023-08-28] MEDS: RISPERDAL 0.25 MG PO (16:46)
--- NOTE | 2023-08-28 17:15 | PTCARENOTE ---
Patient was resting comfortably in bed while daughter at the bedside. Immediately when daughter left for the night, patient started c/o of consistent nausea and getting increasingly more restless/ attempting to get OOB. Medsitter not able to
redirect patient. PRN risperidone administered to patient. Patient now resting comfortably.
[2023-08-28] MEDS: LOVENOX 40 MG SC (17:24)
[2023-08-28] MEDS: DULCOLAX 10 MG RECTAL (18:02)
[2023-08-28] MEDS: ATIVAN 0.5 MG IV (19:30)
[2023-08-28] MEDS: NSS (PRESERVATIVE FREE) 0.25 ML IV (19:30)
--- NOTE | 2023-08-28 19:36 | PTCARENOTE ---
Pt. increased agitation and restlessness. made aware. One time order of ativan IV given.
[2023-08-28] MEDS: MELATONIN 3 MG PO (22:05)
[2023-08-28] MEDS: LEXAPRO 5 MG PO (22:05)
[2023-08-28] MEDS: REMERON 7.5 MG PO (22:05)
[2023-08-28] MEDS: DESYREL 25 MG PO (22:08)
[2023-08-28 22:45] VITALS: BP 98/55
[2023-08-29] MEDS: ATIVAN 0.5 MG PO ×2 (01:43→15:21)
[2023-08-29] MEDS: MERREM 500 MG IV (05:46)
[2023-08-29] MEDS: STERILE WATER FOR INJECTION 10 ML IV (05:46)
[2023-08-29 07:10] VITALS: BP 123/61
[2023-08-29 07:52] LABS: % Basophils 0.7 % (0-2); % Eosinophils 3.5 % (0-6); % Immature Granulocytes 0.4 % (0-0.5); % Lymphocytes 27.8 % (20.5-51.1); % Monocytes 9.1 % (1.7-9.3); % Neutrophils 58.5 % (42.2-75.2); Absolute Basophils 0.1 10^3/uL (0-0.2); Absolute Eosinophils 0.3 10^3/uL (0-0.7); Absolute Lymphocytes 2.3 10^3/uL (1.2-3.4); Absolute Monocytes 0.7 10^3/uL (0.1-0.6); Absolute Neutrophils 4.7 10^3/uL (1.4-6.5); Hemoglobin 11.9 g/dL (12.0-16.0); Mean Corp Hgb Conc. 32.2 g/dL (33.0-37.0); Mean Corpuscular Hgb 28.3 pg (27.0-31.0); Mean Corpuscular Volume 87.9 fL (81.0-99.0); Mean Platelet Volume 9.3 fL (7.4-10.4); Nucleated Red Blood Cells % 0 %; Platelet Count 412 10^3/uL (130-400); Red Blood Cell Count 4.21 10^6/uL (4.20-5.40); Red Cell Dist. Width 13.6 % (11.5-14.5); White Blood Cell Count 8.1 10^3/uL (4.8-10.8)
[2023-08-29] MEDS: MIRALAX PO (09:30)
[2023-08-29] MEDS: ASPIRIN 325 MG PO (09:31)
[2023-08-29] MEDS: PROTONIX 40 MG PO (09:31)
[2023-08-29] MEDS: SENOKOT-S 1 TABLET PO ×2 (09:31→20:38)
[2023-08-29] MEDS: VITAMIN B-12 1000 MCG PO (09:31)
[2023-08-29 09:33] LABS: Blood Urea Nitrogen 24 mg/dl (7-17); Calcium 10.2 mg/dl (8.4-10.2); Carbon Dioxide 23 mmol/L (22-30); Chloride 107 mmol/L (98-107); Estimated Creatinine Clearance 46 ml/min; Glucose 80 mg/dl (70-99); Potassium 5.1 mmol/L (3.5-5.1); Sodium 138 mmol/L (135-145); eGFR > 60.00
[2023-08-29] MEDS: ZOFRAN 4 MG IV (12:08)
[2023-08-29] MEDS: RISPERDAL 0.25 MG PO ×2 (12:08→20:38)
--- NOTE | 2023-08-29 12:36 | W.PN.HOSP.TC ---
Today's Communication/Plan
-
dc
Assessment / Plan
Assessment / Plan
Physical exam:
General: Comfortable and Conversant
HEENT: Anicteric and Moist mucous membranes
Respiratory: Clear and Non Labored Respirations
Cardiac: S1/S2 and Regular Rhythm; No Murmur
GI: Soft, Non Tender, Non Distended and Normal Bowel Sounds
Musculoskeletal: No Clubbing, No Cyanosis and No Edema
Skin: Warm and Dry
Neuro: Awake , answered questions, followed commands.
Psych: Apparent Dementia
#Generalized weakness likely multifactorial secondary to decreased appetite and chronic nausea with concern for constipation
#Suspected constipation-history of fecal impaction
AXR without severe fecal burden
s/p IVF
Continue with standing p.o. regimen for now
#Chronic intermittent nausea
#Dysphagia
Speech evaluation-IDDS4 started.
Antinausea meds as needed
Monitor p.o. tolerance-per family leading to severe decrease appetite at home.
Continue with PPI
Celiac ordered -Endomysial titer neg <1:10. TTG pending
EGD with no gross lesion in the entire esophagus.. No hiatal hernia. Z-line variable. Biopsied. Erosive gastropathy with no stigmata of recent bleeding. Biopsied. Normal examined duodenum.
Outpatient capsule endoscopy.
Continue with PPI
Monitor for diet tolerance
ABD us pending. remains with poor appetite at times
GI recs
# ESBL UTI
No efevrs
No flank pain
NO leukocytosis
DC ceftriaxone
Finished meropenem
precautions
#Normocytic anemia
Transfuse <7
Toxic metabolic encephalopathy likely secondary to UTI versus worsening of underlying dementia
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
History of TIA
Had recent extensive workup done and will need outpatient neurology evaluation
Continue with aspirin
Continue with trazodone nightly prn
Melatonin 3mg qhs
Suspected depression
d/w with daughter-agreed for Lexapro 5mg started
Qtc wnl.
Ativan prn for severe anxiety
Vitamin B12 deficiency
Continue with p.o. B12
Hx of colonic cancer s/p resection
DVT prophylaxis/Lovenox
Full code
PT/OT-SNF. CM aware to d/w with daughter
Total time spent to see the patient, examine the patient, review data and lab results, and discuss the treatment plan with patient, nurse around 55 minutes
Anticipated Discharge: Today
Subjective/Interval History
-
Date of Service: August 29, 2023
No pain issues
No fevers
Objective Data
-
Labs:
Laboratory Results
08/29/23
07:24
WBC 8.1
Hgb 11.9 L
Hct 37.0
Plt Count 412 H
Sodium 138
Potassium 5.1
Chloride 107
Carbon Dioxide 23
BUN 24 H
Creatinine 0.8
Glucose 80
Calcium 10.2
Vital Signs:
Vital Signs
Temp Pulse Resp BP Pulse Ox
97.7 F 60 16 123/61 97
08/29/23 07:10 08/29/23 07:10 08/29/23 07:10 08/29/23 07:10 08/29/23 07:10
I&O
08/28/23 08/29/23 08/30/23
06:59 06:59 06:59
Intake Total 390 / 390 300 / 300
Balance 390 / 390 300 / 300
--- NOTE | 2023-08-29 15:04 | W.PN.GI.CBS2 ---
Today's Communication / Plan
-
GI will sign off. Patient to call office to arrange follow up.
Assessment / Plan
-
87 year old female with history of hypertension, CVA TIA and suspected vascular dementia, hyperlipidemia, colon cancer s/p resection presenting to hospital for nausea and decreased appetite, and admitted for treatment of UTI. Of note, she was
recently hospitalized in July for UTI/confusion and had similar GI complaints.
Impression/Plan:
Nausea:
- Unclear etiology for the nausea. She underwent a significant workup for this nausea including MRI of the brain which was negative in July, CT abdomen and pelvis in July showing concern for fecal impaction, endoscopy showing no significant
pathology, review of medications, abdominal ultrasound shows suspected cholecystectomy with no evidence of ductal dilatation, abdominal x-ray from the fourth shows mild constipation, no signs of mechanical observation.
- EGD 08/25/23 demonstrated no gross lesions in entire esophagus, presence of 4cm hiatal hernia, Z-line variable 36cm from incisors, erosive gastropathy with no stigmata of recent bleeding, normal examined duodenum. Biopsy results are benign, with
mild chronic gastritis and no H pylori.
- Endomysial IgA Ab titer normal (<1:10) , tissue transglutamin IgA and IgG negative.
- Can follow up with GI outpatient office as needed for nausea.
- Continue pantoprazole 40mg PO daily and antireflux regimen.
- No ibuprofen, naproxen, or other NSAIDs.
- Continue mirtazapine 7.5 mg nightly and consider titrating up as tolerated.
- Given that inpatient GI workup of nausea has been exhausted and the frequency of nausea episodes has improved, GI will sign off and remain available for consultation if needed. Recommend further evaluation of non-GI causes of nausea, including
labyrinthine disorders. As her description of nausea is vague, may also consider cardiac cause of possible epigastric pressure if appropriate.
Decreased appetite:
- Currently on low residue diet, and tolerating PO diet. She has not vomited.
-Continue encouraging PO intake and dietary supplementation as needed.
Anemia:
- Most recent hgb 11.0 on 08/27/23. Stable from 08/24/23, no concern for acute blood loss. Labs consistent with iron deficiency anemia.
- EGD did not reveal upper GI bleed. Low suspicion for anemia secondary to GI blood loss given absence of hematochezia/melena. Can discuss outpatient colonoscopy (see below).
- Has been taking vitamin b12 for known deficiency. Vitamin b12 lab within normal limits.
Constipation:
- Recent history of fecal impaction, which has resolved.
- Continue PO senna/docusate and miralax.
- Suppositories PRN to produce bowel movement.
History of colon cancer s/p resection:
- No signs or symptoms of active disease. Unknown when last colonoscopy was performed.
- Can discuss outpatient colonoscopy with patient and family, and discuss if additional screening will change agent or goals of care given age and comorbidities.
Subjective
Subjective
Date of Service: August 29, 2023
At the time of evaluation, she reports no current nausea. She had one episode of nausea this morning, which is greatly improved compared to the frequency of nausea she was experiencing at home prior to admission. She continues to tolerate regular
diet, and has no vomiting. Per nursing, she had a large bowel movement this morning.
Objective
Data Reviewed
Laboratory Data:
Laboratory Results
08/29/23 07:24
08/29/23 07:24
Laboratory Results
Total Bilirubin 0.5 mg/dl (0.2-1.3) 08/23/23 09:48
AST 15 U/L (14-36) 08/23/23 09:48
ALT < 10 U/L (0-35) 08/23/23 09:48
Alkaline Phosphatase 101 U/L (38-126) 08/23/23 09:48
Lipase 82 U/L (23-300) 08/23/23 09:48
Vital Signs and I&O:
Vital Signs
Temp Pulse Resp BP Pulse Ox
97.7 F 60 16 123/61 97
08/29/23 07:10 08/29/23 07:10 08/29/23 07:10 08/29/23 07:10 08/29/23 07:10
I&O
08/28/23 08/29/23 08/30/23
06:59 06:59 06:59
Intake Total 390 / 390 300 / 300
Balance 390 / 390 300 / 300
Physical Exam
Physical Exam
General: Sitting comfortably in bed, no acute distress. Daughter present in room.
Heart: Regular rate and rhythm.
Lungs: Nonlabored breathing. Clear and equal to auscultation bilaterally.
GI: Normal bowel sounds present. Abdomen soft, nondistended, nontender. No rebound, rigidity, or guarding.
[2023-08-29 15:10] VITALS: BP 110/60
--- NOTE | 2023-08-29 15:43 | CM ---
Discharge Plan of Care: Therapy recommendation for SNF. Referrals previously forwarded. Is now off 1:1. Does have medsitter in place. Facilities have expressed interest in accepting patient. Will need to call on day of discharge for bed
availability and to determine if they will accept patient on medsitter or does she have to be off for at least 24 hours.
[2023-08-29 16:09] LABS: tTG IgA Antibody 2.7 EU/ml (0-19); tTG IgG Antibody 10.4 EU/ml (0-19)
[2023-08-29] MEDS: LOVENOX 40 MG SC (19:29)
[2023-08-29] MEDS: DESYREL 25 MG PO (20:37)
[2023-08-29] MEDS: LEXAPRO 5 MG PO (20:38)
[2023-08-29] MEDS: REMERON 7.5 MG PO (20:38)
[2023-08-29] MEDS: MELATONIN 3 MG PO (20:38)
[2023-08-29 23:33] VITALS: BP 95/52
[2023-08-30] MEDS: RISPERDAL 0.25 MG PO ×2 (06:35→18:44)
[2023-08-30] MEDS: ATIVAN 0.5 MG PO ×2 (06:35→19:35)
[2023-08-30 07:10] VITALS: BP 132/71
--- NOTE | 2023-08-30 08:48 | W.PN.HOSP.TC ---
Today's Communication/Plan
-
Await dc planning
Assessment / Plan
Assessment / Plan
Physical exam:
General: Comfortable and Conversant
HEENT: Anicteric and Moist mucous membranes
Respiratory: Clear and Non Labored Respirations
Cardiac: S1/S2 and Regular Rhythm; No Murmur
GI: Soft, Non Tender, Non Distended and Normal Bowel Sounds
Musculoskeletal: No Clubbing, No Cyanosis and No Edema
Skin: Warm and Dry
Neuro: Awake , answered questions, followed commands.
Psych: Apparent Dementia
#Generalized weakness likely multifactorial secondary to decreased appetite and chronic nausea with concern for constipation
#Suspected constipation-history of fecal impaction
AXR without severe fecal burden
s/p IVF
Continue with standing p.o. regimen for now
#Chronic intermittent nausea
#Dysphagia
Speech evaluation-IDDS4 started.
Antinausea meds as needed
Monitor p.o. tolerance-per family leading to severe decrease appetite at home.
Continue with PPI
Celiac ordered -Endomysial titer neg <1:10. TTG pending
EGD with no gross lesion in the entire esophagus.. No hiatal hernia. Z-line variable. Biopsied. Erosive gastropathy with no stigmata of recent bleeding. Biopsied. Normal examined duodenum.
Outpatient capsule endoscopy.
Continue with PPI
Monitor for diet tolerance
ABD us pending. remains with poor appetite at times
Will hold aspirin temporarily, she is on high dose, she probably should be on low dose anyway
GI recs
# ESBL UTI
No efevrs
No flank pain
NO leukocytosis
DC ceftriaxone
Finished meropenem
precautions
#Normocytic anemia
Transfuse <7
Toxic metabolic encephalopathy likely secondary to UTI versus worsening of underlying dementia
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
History of TIA
Had recent extensive workup done and will need outpatient neurology evaluation
Continue with aspirin
Continue with trazodone nightly prn
Melatonin 3mg qhs
Suspected depression
d/w with daughter-agreed for Lexapro 5mg started
Qtc wnl.
Ativan prn for severe anxiety
Vitamin B12 deficiency
Continue with p.o. B12
Hx of colonic cancer s/p resection
DVT prophylaxis/Lovenox
Full code
PT/OT-SNF. CM aware to d/w with daughter
Total time spent to see the patient, examine the patient, review data and lab results, and discuss the treatment plan with patient, nurse around 55 minutes
Anticipated Discharge: Within 24 hours
Subjective/Interval History
-
Date of Service: August 30, 2023
Objective Data
-
Vital Signs:
Vital Signs
Temp Pulse Resp BP Pulse Ox
97.4 F 75 16 95/52 98
08/29/23 23:33 08/29/23 23:33 08/29/23 23:33 08/29/23 23:33 08/29/23 23:33
I&O
08/29/23 08/30/23 08/31/23
06:59 06:59 06:59
Intake Total 300 / 300 180 / 180
Balance 300 / 300 180 / 180
[2023-08-30] MEDS: VITAMIN B-12 1000 MCG PO (08:59)
[2023-08-30] MEDS: PROTONIX 40 MG PO (08:59)
[2023-08-30] MEDS: ASPIRIN PO (09:06)
[2023-08-30] MEDS: MIRALAX PO (09:06)
[2023-08-30] MEDS: SENOKOT-S PO (09:07)
[2023-08-30 09:29] VITALS: BP 132/71
[2023-08-30 11:47] VITALS: BP 111/62; PULSE 82
--- NOTE | 2023-08-30 12:57 | CM ---
Addendum entered by Ernie Meeks 08/30/23 13:15:
Daughter is visiting patient. We discussed discharge plan of care. Daughter wants patient to go to acute rehab. We discussed that therapy recommendation is for SNF. She expressed understanding but prefers referrals be sent to acute rehabs. [facility] is preference. Will request attending order PM&R consult. Daughter willing to be present for consult. Referral forwarded.
Original Note:
Patient with medsitter. RN will d/c. This CM left message for daughter, Deana, to discuss discharge plan of care. Explained that facilities would not accept patient when she was on 1:1 and some will not accept with medsitter also. Now off 1:1.
Medication adjustments made and patient is responding positively. Behaviors better managed. Patient recommended for SNF. Referrals previously forwarded. Need to know from daughter which facility she prefers. Await return call.
[2023-08-30 15:05] VITALS: BP 116/60
[2023-08-30] MEDS: ZOFRAN 4 MG IV (15:33)
[2023-08-30] MEDS: LOVENOX 40 MG SC (18:44)
[2023-08-30] MEDS: SENOKOT-S 1 TABLET PO (19:36)
[2023-08-30] MEDS: REMERON 7.5 MG PO (20:17)
[2023-08-30] MEDS: LEXAPRO 5 MG PO (20:17)
[2023-08-30] MEDS: MELATONIN 3 MG PO (20:17)
[2023-08-30] MEDS: DESYREL 25 MG PO (20:18)
[2023-08-30 23:35] VITALS: BP 99/59
[2023-08-31 07:10] VITALS: BP 111/64
[2023-08-31] MEDS: SENOKOT-S 1 TABLET PO ×2 (08:27→21:37)
[2023-08-31] MEDS: PROTONIX 40 MG PO (08:28)
[2023-08-31] MEDS: VITAMIN B-12 1000 MCG PO (08:28)
[2023-08-31] MEDS: MIRALAX PO (08:28)
--- NOTE | 2023-08-31 09:16 | W.PN.HOSP.TC ---
Today's Communication/Plan
-
.
Assessment / Plan
Assessment / Plan
Physical exam:
General: Comfortable and Conversant
HEENT: Anicteric and Moist mucous membranes
Respiratory: Clear and Non Labored Respirations
Cardiac: S1/S2 and Regular Rhythm; No Murmur
GI: Soft, Non Tender, Non Distended and Normal Bowel Sounds
Musculoskeletal: No Clubbing, No Cyanosis and No Edema
Skin: Warm and Dry
Neuro: Awake , answered questions, followed commands.
Psych: Apparent Dementia
#Generalized weakness likely multifactorial secondary to decreased appetite and chronic nausea with concern for constipation
#Suspected constipation-history of fecal impaction
AXR without severe fecal burden
s/p IVF
Continue with standing p.o. regimen for now
#Chronic intermittent nausea
#Dysphagia
Speech evaluation-IDDS4 started.
Antinausea meds as needed
Monitor p.o. tolerance-per family leading to severe decrease appetite at home.
Continue with PPI
Celiac ordered -Endomysial titer neg <1:10. TTG pending
EGD with no gross lesion in the entire esophagus.. No hiatal hernia. Z-line variable. Biopsied. Erosive gastropathy with no stigmata of recent bleeding. Biopsied. Normal examined duodenum.
Outpatient capsule endoscopy.
Continue with PPI
Monitor for diet tolerance
ABD us pending. remains with poor appetite at times
Will hold aspirin temporarily, she is on high dose, she probably should be on low dose anyway
GI recs
# ESBL UTI
No fevers
No flank pain
NO leukocytosis
DC ceftriaxone
Finished meropenem
precautions
#Normocytic anemia
Transfuse <7
Toxic metabolic encephalopathy likely secondary to UTI versus possible worsening of underlying senile/Alzheimer dementia?
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
History of TIA
Had recent extensive workup done and will need outpatient neurology evaluation
Continue with aspirin
Continue with trazodone nightly prn
Melatonin 3mg qhs
Pt will need to f/w neurology as OP.
Suspected depression
d/w with daughter-agreed for Lexapro 5mg started
Qtc wnl.
Ativan prn for severe anxiety
Vitamin B12 deficiency
Continue with p.o. B12
Hx of colonic cancer s/p resection
DVT prophylaxis/Lovenox
Full code
PT/OT-SNF. CM aware to d/w with daughter
Total time spent to see the patient, examine the patient, review data and lab results, and discuss the treatment plan with patient, daughters , nurse around 55 minutes
Anticipated Discharge: Within 24 hours
Subjective/Interval History
-
Date of Service: August 31, 2023
No chest pain or sob
No headache
Objective Data
-
Vital Signs:
Vital Signs
Temp Pulse Resp BP Pulse Ox
97.5 F 66 16 111/64 96
08/31/23 07:10 08/31/23 07:10 08/31/23 07:10 08/31/23 07:10 08/31/23 07:10
I&O
08/30/23 08/31/23 09/01/23
06:59 06:59 06:59
Intake Total 180 / 180 90 / 90
Balance 180 / 180 90 / 90
--- NOTE | 2023-08-31 09:47 | CON.MD ---
Documented by User: Mikki Galloway MD, Resident 08/31/23 18:13
Consultation - Medical
-
Referring Provider: Nasim Ordonez
Chief Complaint: Generalized weakness and chronic nausea
History of Present Illness:
87-year-old female with history of hypertension, hyperlipidemia, prior history of colon cancer, baseline confusion presented to ED on 08/23/23 complaining from nausea and decreased PO intake. Noted nausea without any associated vomiting. The
patient reports feeling 'sick ' though given her dementia she has difficulty explaining specific symptom. Per patient`s chart, patient`s daughter reported that the patient might have difficulty with swallowing and articulating. Also the patient
was not able to ambulate too much and has been resting in her bed for a prolonged period of time.
Past Medical History:
Suspected vascular dementia
Chronic nausea
Colon cancer status post resection(~2008)
Constipation
History of TIA/CVA
B12 deficiency
HTN
HL
Procedure History:
Colonic cancer status post resection (2008) and Cholecystectomy
Functional Level Premorbidity:Patient had a wheel chair and was ambulating with roller walker. [Bed Mobility] -If Bed Mobility not assessed, reason: IN RECLINER [Transfer] -Sit to stand- Minimal assistance -Stand to sit- Minimal assistance
-Stand/pivot/sit- Not tested -Comment ASSIST NEEDED
FOR LIFT-OFF FROM RECLINER CUES NEEDED FOR HAND PLACEMENT AND SAFE TECHNIQUE
[Ambulation/Weight Bearing/Gait]
-Ambulation 8 FEET X 2 (TO AND FROM BATHROOM) WITH ROLLING WALKER AND MIN ASSIST, THERAPIST MANAGING IV POLE
Functional Level Currently:
[Bed Mobility] -Supine to sit- Moderate assistance -Sit to supine- Minimal assistance [Transfer] -Sit to stand- Maximum. Ambulation was not able to asssess recently due safety concerns. Per PT note from 08/31/23: Comment Two attempts to stand from
EOB . Pt easily distracted and quits. Unable to get pt to stand at walker to have pad placed under her. Pt very fearful of falling and pushes backward
Social History:
Unable to obtain full social history at this time due to: Dementia
Family History
Family History: Not pertinent
Tobacco:Non-Smoker
Alcohol: No alcohol use since moving to [place]; previously consumed wine occasionally)
Drug:None
Family History: Cancer (Colon cancer (uncle))
Lives with: Daughter (moved from [place] to about 5 weeks ago),
24 hours assistance available:
Driving:No
Occupation:No
Allergies
Allergy/AdvReac Type Severity Reaction Status Date / Time
No Known Drug Allergies Allergy Unknown Verified 08/23/23 09:26
Review of Systems:
General: Comfortable, minimal converse
HEENT: Anicteric and Moist mucous membranes
Respiratory: Clear and Non Labored Respirations
Cardiac: S1/S2 and Regular Rhythm; No Murmur
GI: Soft, Non Tender, Non Distended and Normal Bowel Sounds. concern for constipation (history of fecal impaction), Chronic intermittent nausea
Rectal: Deferred by Provider
Musculoskeletal: No Clubbing, No Cyanosis and No Edema. Generalized weakness likely multifactorial secondary to decreased appetite and chronic nausea
Skin: Warm and Dry
Neuro: Awake and Nonfocal/grossly intact
Psych: Apparent Dementia
Home Medications
pantoprazole 40 mg tablet,delayed release 40 mg PO DAILY Gastrointestinal Issue 07/31/23
cyanocobalamin (vitamin B-12) 1,000 mcg tablet 1,000 mcg PO DAILY #0 tabs 08/07/23
trazodone 50 mg tablet 25 mg (1/2 x 50 mg) PO HSPRN PRN sleep/agitation #0 tabs 08/07/23
Dulcolax Chewables 1 gummy PO BID Constipation 08/23/23
Otc Eye Drops (Pf) 1 - 2 drp BOTH EYES TIDPRN PRN dry eyes 08/23/23
acetaminophen 325 mg tablet 325 mg PO BIDPRN PRN mild pain 08/23/23
aspirin 325 mg tablet 325 mg PO DAILY Blood Clot Prevention/Tx 08/23/23
cranberry 1 tab PO QPM Supplement 08/23/23
ondansetron 4 mg disintegrating tablet 4 mg PO Q8H PRN nausea/vomiting 08/23/23
Physical Exam:
General appearance/observation: lying in her bed, resting comfortably, no acute distress. Well-appearing elderly patient. minimally able to converse due dementia, she has difficulty with recall and explaining symptoms, replies with very short
sentences including likely 2-3 words. Not oriented to time, place and person.
Pain/Comfort Assessment: Denies
Mood/ Affect: Appropriate
Heart: Regular rate and rhythm. No murmurs appreciated.
Lungs: Non-labored breathing. Clear and equal to auscultation bilaterally.
GI: Normal bowel sounds present. Abdomen soft, nontender, nondistended. No rebound, rigidity, or guarding.
Genitourinary: No Swain.
Extremities:Edema:None Cyanosis: None
Trophic Changes: None
Neurology Exam:
Orientation: Not Alerted to person, time and place
Memory: Short and long memory is not intact
Higher Cortical function: Was not able to be assessed due her dementia
Muscle Strengths:
Bilateral Upper Proximal Muscle Strength: 3/5
Bilateral Upper Distal Muscle Strength:4/5
Bilateral Lower Proximal Muscle Strength: 3/5
Bilateral Lower Distal Muscle Strength: 4/5
Vitals:
Temp Pulse Resp BP Pulse Ox
98.3 F 77 16 111/65 97
08/31/23 15:10 08/31/23 15:10 08/31/23 15:10 08/31/23 15:10 08/31/23 15:10
Assessment: The patient is a 87-year-old female with history of hypertension, hyperlipidemia, prior history of colon cancer, baseline confusion presented to ED on 08/23/23 complaining from nausea and decreased PO intake. The patient was seen by me
and Dr Madera in her bed. The patient reported that she has been feeling 'sick ' though given her dementia she has difficulty explaining specific symptom. During the examination she had difficulty to follow the 2 words commands and has difficulty
with keep following the conversation. Generalized body weakness was found at the examination. No pathologic reflects was observed( Babinski and Feng Reflexes was negative).
PT/OT to improve balance, coordination, endurance, strength, mobility, community reintegration, decreased burden of care on others and family education.
Generalized weakness likely multifactorial secondary to decreased appetite and chronic nausea with concern for constipation: Suspected constipation-history of fecal impaction : Continue with standing p.o. regimen for now. Monitor p.o. tolerance-per
family leading to severe decrease appetite at home.
Dysphagia :Speech evaluation-IDDS4 started. Oral care protocol, aspiration precautions
GI prophylaxis: Continue with PPI
ESBL UTI: No fevers, No flank pain, NO leukocytosis , DC ceftriaxone, Finished meropenem, precautions
History of TIA: Had recent extensive workup done and will need outpatient neurology evaluation. Continue with aspirin
Psych: Suspected depression : d/w with daughter-agreed for Lexapro 5mg had been started by primary team. Ativan prn was ordered for severe anxiety by primary care team
Vitamin B12 deficiency: Continue with p.o. B12
DVT prophylaxis:Continue Lovenox
Discharge Destination: SNF
Summary Recommendation: Patient with cognition impairment and at current functional level would benefit from therapy at SNF

Documented by User: Pipe Madera MD 08/31/23 18:58
Consultation - Medical
-
Referring Provider: Nasim Ordonez
Chief Complaint: Generalized weakness and chronic nausea
History of Present Illness:
87-year-old female with history of hypertension, hyperlipidemia, prior history of colon cancer, baseline confusion presented to ED on 08/23/23 complaining from nausea and decreased PO intake. Noted nausea without any associated vomiting. The
patient reports feeling 'sick ' though given her dementia she has difficulty explaining specific symptom. Per patient`s chart, patient`s daughter reported that the patient might have difficulty with swallowing and articulating. Also the patient
was not able to ambulate too much and has been resting in her bed for a prolonged period of time.
Past Medical History:
Suspected vascular dementia
Chronic nausea
Colon cancer status post resection(~2008)
Constipation
History of TIA/CVA
B12 deficiency
HTN
HL
Procedure History:
Colonic cancer status post resection (2008) and Cholecystectomy
Functional Level Premorbidity:Patient had a wheel chair and was ambulating with roller walker. [Bed Mobility] -If Bed Mobility not assessed, reason: IN RECLINER [Transfer] -Sit to stand- Minimal assistance -Stand to sit- Minimal assistance
-Stand/pivot/sit- Not tested -Comment ASSIST NEEDED
FOR LIFT-OFF FROM RECLINER CUES NEEDED FOR HAND PLACEMENT AND SAFE TECHNIQUE
[Ambulation/Weight Bearing/Gait]
-Ambulation 8 FEET X 2 (TO AND FROM BATHROOM) WITH ROLLING WALKER AND MIN ASSIST, THERAPIST MANAGING IV POLE
Functional Level Currently:
[Bed Mobility] -Supine to sit- Moderate assistance -Sit to supine- Minimal assistance [Transfer] -Sit to stand- Maximum. Ambulation was not able to asssess recently due safety concerns. Per PT note from 08/31/23: Comment Two attempts to stand from
EOB . Pt easily distracted and quits. Unable to get pt to stand at walker to have pad placed under her. Pt very fearful of falling and pushes backward
Social History:
Unable to obtain full social history at this time due to: Dementia
Family History
Family History: Not pertinent
Tobacco:Non-Smoker
Alcohol: No alcohol use since moving to ; previously consumed wine occasionally)
Drug:None
Family History: Cancer (Colon cancer (uncle))
Lives with: Daughter (moved from [place] to about 5 weeks ago),
24 hours assistance available: Unable to determine with cognition
Driving:No
Occupation:No
Allergies
Allergy/AdvReac Type Severity Reaction Status Date / Time
No Known Drug Allergies Allergy Unknown Verified 08/23/23 09:26
Review of Systems:
General: Comfortable, minimal converse
HEENT: Anicteric and Moist mucous membranes
Respiratory: Clear and Non Labored Respirations
Cardiac: S1/S2 and Regular Rhythm; No Murmur
GI: Soft, Non Tender, Non Distended and Normal Bowel Sounds. concern for constipation (history of fecal impaction), Chronic intermittent nausea
Rectal: Deferred by Provider
Musculoskeletal: No Clubbing, No Cyanosis and No Edema. Generalized weakness likely multifactorial secondary to decreased appetite and chronic nausea
Skin: Warm and Dry
Neuro: Awake and Nonfocal/grossly intact
Psych: Apparent Dementia
Home Medications
pantoprazole 40 mg tablet,delayed release 40 mg PO DAILY Gastrointestinal Issue 07/31/23
cyanocobalamin (vitamin B-12) 1,000 mcg tablet 1,000 mcg PO DAILY #0 tabs 08/07/23
trazodone 50 mg tablet 25 mg (1/2 x 50 mg) PO HSPRN PRN sleep/agitation #0 tabs 08/07/23
Dulcolax Chewables 1 gummy PO BID Constipation 08/23/23
Otc Eye Drops (Pf) 1 - 2 drp BOTH EYES TIDPRN PRN dry eyes 08/23/23
acetaminophen 325 mg tablet 325 mg PO BIDPRN PRN mild pain 08/23/23
aspirin 325 mg tablet 325 mg PO DAILY Blood Clot Prevention/Tx 08/23/23
cranberry 1 tab PO QPM Supplement 08/23/23
ondansetron 4 mg disintegrating tablet 4 mg PO Q8H PRN nausea/vomiting 08/23/23
Vitals:
Temp Pulse Resp BP Pulse Ox
98.3 F 77 16 111/65 97
08/31/23 15:10 08/31/23 15:10 08/31/23 15:10 08/31/23 15:10 08/31/23 15:10
Physical Exam:
General appearance/observation: lying in her bed, resting comfortably, no acute distress. Well-appearing elderly patient. minimally able to converse due dementia, she has difficulty with recall and explaining symptoms, replies with very short
sentences including likely 2-3 words. Not oriented to time, place and person.
Pain/Comfort Assessment: Denies
Mood/ Affect: Appropriate
Integumentary/Operative Site: No lesions noted during course of exam
Eyes: Conjunctiva/Lids: normal ��� Pupils: pupils equal round and reactive to light and Accommodation
Ears/Nose/Throat: oral mucosa moist,� throat clear.������������ Lips/Teeth/Gums: normal
Heart: Regular rate and rhythm. No murmurs appreciated.
Pulses: dorsalis pedis 1+ bilaterally
Lungs: Non-labored breathing. Clear and equal to auscultation bilaterally.
GI: Normal bowel sounds present. Abdomen soft, nontender, nondistended. No rebound, rigidity, or guarding.
Genitourinary: No Swain.
Extremities:Edema:None Cyanosis: None Trophic Changes: None
Neurology Exam:
Orientation: Not Alerted to person, time and place
Memory: Short and long memory is not intact
Higher Cortical function: Was not able to be assessed due her dementia
Cranial Nerves:
�� CNII: Pupillary light reflex: Intact���
�� CN III, IV, : Extraocular muscles: Intact
�� CN V: Facial Sensation at Forehead: Intact, Maxilla: Intact, Mandible: Intact
�� CN VII: Facial movement: Symmetric
�� CN VIII: Hearing: Normal
�� CN IX/X: Speech & swallow: Normal, Position of Uvula: Midline
�� CN XI: Shoulder shrug: Symmetric
�� CN XII: Tongue protrusion: Midline
Sensory:
�� Light touch: Intact in bilateral upper and lower extremities, no extinction to double simultaneous stimulation
Reflexes:
�� Biceps: 2+ bilaterally
�� Brachioradialis: 2+ bilaterally
�� Triceps: 2+ bilaterally
�� Patellar: 0 bilaterally
�� Achilles: 0 bilaterally
�� Babinski: Down going bilaterally
�� Clonus: None
�� Mary Beth: Negative bilaterally
Cerebellar: Dysmetria/Ataxia: None
Muscle Strength:
Bilateral Upper Proximal Muscle Strength: 3/5
Bilateral Upper Distal Muscle Strength:4/5
Bilateral Lower Proximal Muscle Strength: 3/5
Bilateral Lower Distal Muscle Strength: 4/5
Tone: Normal in all extremities
Laboratory Data
08/29/23 07:24
08/29/23 07:24
Total Bilirubin 0.5 mg/dl (0.2-1.3) 08/23/23 09:48
AST 15 U/L (14-36) 08/23/23:48
ALT < 10 U/L (0-35) 08/23/23:48
Alkaline Phosphatase 101 U/L (38-126) 08/23/23:48
Total Protein 6.1 g/dl (6.3-8.2) L 08/23/23 09:48
Albumin 3.3 g/dl (3.5-5.0) L 08/23/23 09:48
Assessment: The patient is a 87-year-old female with history of hypertension, hyperlipidemia, prior history of colon cancer, baseline confusion presented to ED on 08/23/23 complaining from nausea and decreased PO intake. The patient was seen by me
and Dr Madera in her bed. The patient reported that she has been feeling 'sick ' though given her dementia she has difficulty explaining specific symptom. During the examination she had difficulty to follow the 2 words commands and has difficulty
with keep following the conversation. Generalized body weakness was found at the examination. No pathologic reflects was observed. She continues to have ADL and amatory dysfunction.
PM&R: PT/OT to improve balance, coordination, endurance, strength, mobility, community reintegration, decreased burden of care on others and family education.
Generalized debility likely multifactorial secondary to decreased appetite, UTI, and chronic nausea with concern for constipation: Suspected constipation-history of fecal impaction : Continue with standing p.o. regimen for now. Monitor p.o.
tolerance-per family leading to severe decrease appetite at home.
Dysphagia :Speech evaluation-IDDS4 started. Oral care protocol, aspiration precautions
GI prophylaxis: Continue with PPI
ESBL UTI: No fevers, No flank pain, NO leukocytosis , DC ceftriaxone, Finished meropenem, precautions
History of TIA: Had recent extensive workup done and will need outpatient neurology evaluation. Continue with aspirin
Psych: Suspected depression : Remeron 7.5 mg, started on Lexapro 5 mg by primary team. Ativan prn was ordered for severe anxiety by primary care team, suggest use of trazodone instead Ativan to limit sedation.
Vitamin B12 deficiency: Continue with p.o. B12
Bladder: Time void, PVRs, PRN straight cath.
DVT prophylaxis: Mechanical and Lovenox
Safety: Continue to reinforce assistance with all transfers.
Code Status:� Full code
Discharge Destination: SNF
Attending Statement:
I saw and examined the patient today with resident. Reviewed care plan with resident. I agree with the above subjective and physical exam, and plan as documented with adjustments made as necessary. In summary 87-year-old female presented to
[facility] with ESBL UTI. Started on antibiotics. Found on exam to have generalized weakness and dementia. Started on medications to help with suspected depression by primary care team. Also with B12 deficiency and on supplementation.
Given current functional status and inability to tolerate 3 hours of therapy suggest that she goes to a snf facility for a rehabilitation program.
A total of 60 minutes were spent with the patient preparing for the evaluation, obtaining history, performing examination and evaluation, counseling, data review, case management, care coordination, stock order lister, and EMR documentation.
Thank you for allowing us to care for your patient. Please contact me with any questions or concerns.
[2023-08-31] MEDS: ZOFRAN 4 MG IV ×2 (10:23→16:59)
--- NOTE | 2023-08-31 10:45 | PTCARENOTE ---
Pt. more cooperative and resting comfortably in bed. Medsitter discontinued. Patients room close to nurses station, bed alarm in place and call velazco within reach.
[2023-08-31 14:28] VITALS: BP 113/67; PULSE 77
[2023-08-31 15:10] VITALS: BP 111/65
--- NOTE | 2023-08-31 15:12 | CM ---
Addendum entered by Maria A Snow 08/31/23 15:29:
WILLIAN received a call from [facility]; randal no beds available at facility
Original Note:
Referral to [facility] for [facility] was not accepted
CM sent updated clinicals to SNF referral sites requesting short term skilled bed and bed availability
CM was unable to connect with patient's daughter via phone; left a voice mail explaining above; and to contact CM office @ [phone] over the weekend if she needed to speak with assigned adult protective caseworker
Plan: discharge to SNF when stable for discharge and bed is available
[2023-08-31] MEDS: ATIVAN 0.5 MG PO (16:58)
[2023-08-31] MEDS: LOVENOX 40 MG SC (16:59)
[2023-08-31] MEDS: REMERON 7.5 MG PO (21:37)
[2023-08-31] MEDS: LEXAPRO 5 MG PO (21:37)
[2023-08-31] MEDS: MELATONIN 3 MG PO (21:37)
[2023-08-31 23:42] VITALS: BP 104/56
[2023-09-01 06:00] VITALS: BMI 20.7
[2023-09-01 07:10] VITALS: BP 145/70
[2023-09-01] MEDS: MIRALAX PO (08:27)
[2023-09-01] MEDS: PROTONIX 40 MG PO (08:27)
[2023-09-01] MEDS: SENOKOT-S 1 TABLET PO ×2 (08:28→20:14)
[2023-09-01] MEDS: VITAMIN B-12 1000 MCG PO (08:28)
[2023-09-01] MEDS: ZOFRAN 4 MG IV ×2 (09:37→20:15)
[2023-09-01] MEDS: ATIVAN 0.5 MG PO ×2 (09:37→20:14)
--- NOTE | 2023-09-01 14:37 | W.PN.HOSP.TC ---
Today's Communication/Plan
-
.
Assessment / Plan
Assessment / Plan
Physical exam:
General: Comfortable and Conversant
HEENT: Anicteric and Moist mucous membranes
Respiratory: Clear and Non Labored Respirations
Cardiac: S1/S2 and Regular Rhythm; No Murmur
GI: Soft, Non Tender, Non Distended and Normal Bowel Sounds
Musculoskeletal: No Clubbing, No Cyanosis and No Edema
Skin: Warm and Dry
Neuro: Awake , answered questions, followed commands.
Psych: Apparent Dementia
#Generalized weakness likely multifactorial secondary to decreased appetite and chronic nausea with concern for constipation
#Suspected constipation-history of fecal impaction
AXR without severe fecal burden
s/p IVF
Continue with standing p.o. regimen for now
#Chronic intermittent nausea
#Dysphagia
Speech evaluation-IDDS4 started.
Antinausea meds as needed
Monitor p.o. tolerance-per family leading to severe decrease appetite at home.
Continue with PPI
Celiac ordered -Endomysial titer neg <1:10. TTG pending
EGD with no gross lesion in the entire esophagus.. No hiatal hernia. Z-line variable. Biopsied. Erosive gastropathy with no stigmata of recent bleeding. Biopsied. Normal examined duodenum.
Outpatient capsule endoscopy.
Continue with PPI
Monitor for diet tolerance
ABD us pending. remains with poor appetite at times
Will hold aspirin temporarily, she is on high dose, she probably should be on low dose anyway
GI recs
# ESBL UTI
No fevers
No flank pain
NO leukocytosis
DC ceftriaxone
Finished meropenem
precautions
#Normocytic anemia
Transfuse <7
Toxic metabolic encephalopathy likely secondary to UTI versus possible worsening of underlying senile/Alzheimer dementia?
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
History of TIA
Had recent extensive workup done and will need outpatient neurology evaluation
Continue with aspirin
Continue with trazodone nightly prn
Melatonin 3mg qhs
Pt will need to f/w neurology as OP.
Suspected depression
d/w with daughter-agreed for Lexapro 5mg started
Qtc wnl.
Ativan prn for severe anxiety
Vitamin B12 deficiency
Continue with p.o. B12
Hx of colonic cancer s/p resection
DVT prophylaxis/Lovenox
Full code
PT/OT-SNF. CM aware to d/w with daughter
Total time spent to see the patient, examine the patient, review data and lab results, and discuss the treatment plan with patient, daughters , nurse around 55 minutes
Anticipated Discharge: Within 24 hours
Subjective/Interval History
-
Date of Service: September 01, 2023
No complaints
Objective Data
-
Vital Signs:
Vital Signs
Temp Pulse Resp BP Pulse Ox
98.1 F 69 18 145/70 96
09/01/23 07:10 09/01/23 07:10 09/01/23 07:10 09/01/23 07:10 09/01/23 07:10
I&O
08/31/23 09/01/23 09/02/23
06:59 06:59 06:59
Intake Total 90 / 90 960 / 960
Balance 90 / 90 960 / 960
[2023-09-01 15:15] VITALS: BP 110/63
[2023-09-01] MEDS: LOVENOX 40 MG SC (17:55)
[2023-09-01] MEDS: TYLENOL 650 MG PO (17:56)
[2023-09-01] MEDS: RISPERDAL 0.25 MG PO (20:15)
[2023-09-01] MEDS: MELATONIN 3 MG PO (21:29)
[2023-09-01] MEDS: REMERON 7.5 MG PO (21:29)
[2023-09-01] MEDS: LEXAPRO 5 MG PO (21:29)
[2023-09-01 23:11] VITALS: BP 101/52
[2023-09-02 05:55] VITALS: BMI 20.9
[2023-09-02 06:00] VITALS: BMI 20.9
[2023-09-02 07:39] VITALS: BP 152/77
[2023-09-02] MEDS: PROTONIX 40 MG PO (09:16)
[2023-09-02] MEDS: MIRALAX 17 GRAMS PO (09:17)
[2023-09-02] MEDS: SENOKOT-S 1 TABLET PO ×2 (09:17→19:44)
[2023-09-02] MEDS: VITAMIN B-12 1000 MCG PO (09:17)
[2023-09-02] MEDS: ZOFRAN 4 MG IV ×2 (09:54→17:07)
--- NOTE | 2023-09-02 09:59 | W.PN.HOSP.TC ---
Today's Communication/Plan
-
await dc planning
Assessment / Plan
Assessment / Plan
Physical exam:
General: Comfortable and Conversant
HEENT: Anicteric and Moist mucous membranes
Respiratory: Clear and Non Labored Respirations
Cardiac: S1/S2 and Regular Rhythm; No Murmur
GI: Soft, Non Tender, Non Distended and Normal Bowel Sounds
Musculoskeletal: No Clubbing, No Cyanosis and No Edema
Skin: Warm and Dry
Neuro: Awake , answered questions, followed commands.
Psych: Apparent Dementia
#Generalized weakness likely multifactorial secondary to decreased appetite and chronic nausea with concern for constipation
#Suspected constipation-history of fecal impaction
AXR without severe fecal burden
s/p IVF
Continue with standing p.o. regimen for now
#Chronic intermittent nausea
#Dysphagia
Speech evaluation-IDDS4 started.
Antinausea meds as needed
Monitor p.o. tolerance-per family leading to severe decrease appetite at home.
Continue with PPI
Celiac ordered -Endomysial titer neg <1:10. TTG pending
EGD with no gross lesion in the entire esophagus.. No hiatal hernia. Z-line variable. Biopsied. Erosive gastropathy with no stigmata of recent bleeding. Biopsied. Normal examined duodenum.
Outpatient capsule endoscopy.
Continue with PPI
Monitor for diet tolerance
ABD us pending. remains with poor appetite at times
Will hold aspirin temporarily, she is on high dose, she probably should be on low dose anyway
GI recs
# ESBL UTI
No fevers
No flank pain
NO leukocytosis
DC ceftriaxone
Finished meropenem
precautions
#Normocytic anemia
Transfuse <7
Toxic metabolic encephalopathy likely secondary to UTI versus possible worsening of underlying senile/Alzheimer dementia?
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
History of TIA
Had recent extensive workup done and will need outpatient neurology evaluation
Continue with aspirin
Continue with trazodone nightly prn
Melatonin 3mg qhs
Pt will need to f/w neurology as OP.
Suspected depression
d/w with daughter-agreed for Lexapro 5mg started
Qtc wnl.
Ativan prn for severe anxiety
Vitamin B12 deficiency
Continue with p.o. B12
Hx of colonic cancer s/p resection
DVT prophylaxis/Lovenox
Full code
PT/OT-SNF. CM aware to d/w with daughter
Total time spent to see the patient, examine the patient, review data and lab results, and discuss the treatment plan with patient, daughters , nurse around 45 minutes
Anticipated Discharge: Today
Subjective/Interval History
-
Date of Service: September 02, 2023
No chest pain
No sob
Objective Data
-
Vital Signs:
Vital Signs
Temp Pulse Resp BP Pulse Ox
98.1 F 73 18 152/77 98
09/02/23 07:39 09/02/23 07:39 09/02/23 07:39 09/02/23 07:39 09/02/23 07:39
I&O
09/01/23 09/02/23 09/03/23
06:59 06:59 06:59
Intake Total 960 / 960 1500 / 1500
Balance 960 / 960 1500 / 1500
[2023-09-02] MEDS: ATIVAN 0.5 MG PO ×2 (10:55→19:44)
[2023-09-02 16:36] VITALS: BP 130/70
[2023-09-02] MEDS: LOVENOX 40 MG SC (17:07)
--- NOTE | 2023-09-02 18:28 | PTCARENOTE ---
Patient AAOx2 throughout shift, cooperative with care, confused and restless at times, occasionally yelling out 'help me' in bed and attempting to swing legs over bed rail but able to be redirected/reoriented. Patient c/o nausea throughout shift and
medicated with PRN zofran with positive effect - see APR.
[2023-09-02] MEDS: DESYREL 25 MG PO (19:44)
[2023-09-02] MEDS: RISPERDAL 0.25 MG PO (19:44)
[2023-09-02] MEDS: REMERON 7.5 MG PO (22:42)
[2023-09-02] MEDS: LEXAPRO 5 MG PO (22:42)
[2023-09-02] MEDS: MELATONIN 3 MG PO (22:42)
[2023-09-02 23:11] VITALS: BP 112/53
[2023-09-03 05:31] VITALS: BMI 20.7
[2023-09-03 07:10] VITALS: BP 112/66
[2023-09-03] MEDS: SENOKOT-S 1 TABLET PO ×2 (08:24→21:53)
[2023-09-03] MEDS: PROTONIX 40 MG PO (08:24)
[2023-09-03] MEDS: MIRALAX 17 GRAMS PO (08:24)
[2023-09-03] MEDS: VITAMIN B-12 1000 MCG PO (08:24)
[2023-09-03 10:13] VITALS: BP 112/70; PULSE 75; O2SAT 95
[2023-09-03 10:51] VITALS: BP 112/70; PULSE 74; O2SAT 96
--- NOTE | 2023-09-03 11:33 | W.PN.HOSP.TC ---
Today's Communication/Plan
-
monitor po intake
await placement
Assessment / Plan
Assessment / Plan
Physical exam:
General: Comfortable and Conversant
HEENT: Anicteric and Moist mucous membranes
Respiratory: Clear and Non Labored Respirations
Cardiac: S1/S2 and Regular Rhythm; No Murmur
GI: Soft, Non Tender, Non Distended and Normal Bowel Sounds
Musculoskeletal: No Clubbing, No Cyanosis and No Edema
Skin: Warm and Dry
Neuro: Awake , answered questions, followed commands.
Psych: Apparent Dementia
#Generalized weakness likely multifactorial secondary to decreased appetite and chronic nausea with concern for constipation
#Suspected constipation-history of fecal impaction
AXR without severe fecal burden
s/p IVF
Continue with standing p.o. regimen for now
#Chronic intermittent nausea
#Dysphagia
Speech evaluation-IDDS4 started.
Antinausea meds as needed
Monitor p.o. tolerance-per family leading to severe decrease appetite at home.
Continue with PPI
Celiac ordered -Endomysial titer neg <1:10. TTG negative
EGD with no gross lesion in the entire esophagus.. No hiatal hernia. Z-line variable. Biopsied. Erosive gastropathy with no stigmata of recent bleeding. Biopsied. Normal examined duodenum.
Outpatient capsule endoscopy.
Continue with PPI
Monitor for diet tolerance
ABD us status post cholecystectomy with no evidence for biliary ductal dilation.Slightly limited visualization of the liver because of poor acoustic windows. 1.1 cm cyst within the anterior liver.
DC high dose asa-unclear why on such high dose. Restart low dose 81 mg
GI recs
# ESBL UTI
No fevers
No flank pain
NO leukocytosis
DC ceftriaxone
Finished meropenem
precautions
#Normocytic anemia
Transfuse <7
Toxic metabolic encephalopathy likely secondary to UTI versus possible worsening of underlying senile/Alzheimer dementia?
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
History of TIA
Had recent extensive workup done and will need outpatient neurology evaluation
Continue with aspirin and restart at lower dose
Continue with trazodone nightly prn
Melatonin 3mg qhs
Pt will need to f/w neurology as OP.
Suspected depression
d/w with daughter-agreed for Lexapro 5mg started
Qtc wnl.
Ativan prn for severe anxiety
Vitamin B12 deficiency
Continue with p.o. B12
Hx of colonic cancer s/p resection
DVT prophylaxis/Lovenox
Full code
PT/OT-SNF. CM aware. Await placement. Medically stable
Anticipated Discharge: Today
Subjective/Interval History
-
Date of Service: September 03, 2023
sitting in chair
Objective Data
-
Vital Signs:
Vital Signs
Temp Pulse Resp BP Pulse Ox
97.3 F 63 18 112/66 97
09/03/23 07:10 09/03/23 07:10 09/03/23 07:10 09/03/23 07:10 09/03/23 11:29
I&O
09/02/23 09/03/23 09/04/23
06:59 06:59 06:59
Intake Total 1500 / 1500 720 / 720
Balance 1500 / 1500 720 / 720
[2023-09-03 15:10] VITALS: BP 137/80
--- NOTE | 2023-09-03 16:24 | CM ---
Discharge Plan of Care: SNF for STR. Spoke with daughter who added 2 additional preferences: [facility] and [facility]. Daughter also considering home with HH and personal companions. Referrals forwarded.
[2023-09-03] MEDS: LOVENOX 40 MG SC (17:51)
[2023-09-03] MEDS: ZOFRAN 4 MG IV (17:52)
--- NOTE | 2023-09-03 18:30 | PTCARENOTE ---
L FA IV hard to push while administering PRN IV zofran; IV team called to floor, IV removed per IV team, patient refusing new placement of IV per IV nurse. Patient frequently yelling out 'help me' stating increasing nausea; PRN PO ativan given - see
MAR. Patient changed and repositioned in bed.
[2023-09-03] MEDS: ATIVAN 0.5 MG PO (18:40)
[2023-09-03] MEDS: REMERON 7.5 MG PO (21:53)
[2023-09-03] MEDS: LEXAPRO 5 MG PO (21:53)
[2023-09-03] MEDS: MELATONIN 3 MG PO (21:53)
[2023-09-03 23:28] VITALS: BP 102/54
[2023-09-04 06:00] VITALS: BMI 20.2
[2023-09-04 07:10] VITALS: BP 107/66
[2023-09-04] MEDS: ASPIR LOW (ENTERIC COATED) 81 MG PO (08:07)
[2023-09-04] MEDS: PROTONIX 40 MG PO (08:07)
[2023-09-04] MEDS: VITAMIN B-12 1000 MCG PO (08:07)
[2023-09-04] MEDS: SENOKOT-S 1 TABLET PO ×2 (08:07→21:09)
[2023-09-04] MEDS: MIRALAX 17 GRAMS PO (08:07)
--- NOTE | 2023-09-04 08:19 | PTCARENOTE ---
pt oob to chair with one assist this morning with RW. pt reports no dizziness with standing or ambulation
--- NOTE | 2023-09-04 11:45 | W.PN.HOSP.TC ---
Today's Communication/Plan
-
Await placement
CM aware
monitor po intake
Assessment / Plan
Assessment / Plan
Physical exam:
General: Comfortable and Conversant
HEENT: Anicteric and Moist mucous membranes
Respiratory: Clear and Non Labored Respirations
Cardiac: S1/S2 and Regular Rhythm; No Murmur
GI: Soft, Non Tender, Non Distended and Normal Bowel Sounds
Musculoskeletal: No Clubbing, No Cyanosis and No Edema
Skin: Warm and Dry
Neuro: Awake , answered questions, followed commands.
Psych: Apparent Dementia
#Generalized weakness likely multifactorial secondary to decreased appetite and chronic nausea with concern for constipation
#Suspected constipation-history of fecal impaction
AXR without severe fecal burden
s/p IVF
Continue with standing p.o. regimen for now
#Chronic intermittent nausea
#Dysphagia
Speech evaluation-IDDS4 started.
Antinausea meds as needed
Monitor p.o. tolerance-per family leading to severe decrease appetite at home.
Continue with PPI
Celiac ordered -Endomysial titer neg <1:10. TTG negative
EGD with no gross lesion in the entire esophagus.. No hiatal hernia. Z-line variable. Biopsied. Erosive gastropathy with no stigmata of recent bleeding. Biopsied. Normal examined duodenum.
Outpatient capsule endoscopy.
Continue with PPI
Monitor for diet tolerance
ABD us status post cholecystectomy with no evidence for biliary ductal dilation.Slightly limited visualization of the liver because of poor acoustic windows. 1.1 cm cyst within the anterior liver.
DC high dose asa-unclear why on such high dose. Restart low dose 81 mg
GI recs
# ESBL UTI
No fevers
No flank pain
NO leukocytosis
DC ceftriaxone
Finished meropenem
precautions
#Normocytic anemia
Transfuse <7
Toxic metabolic encephalopathy likely secondary to UTI versus possible worsening of underlying senile/Alzheimer dementia?
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
History of TIA
Had recent extensive workup done and will need outpatient neurology evaluation
Continue with aspirin and restart at lower dose
Continue with trazodone nightly prn
Melatonin 3mg qhs
Pt will need to f/w neurology as OP.
Suspected depression
d/w with daughter-agreed for Lexapro 5mg started
Qtc wnl.
Ativan prn for severe anxiety
Vitamin B12 deficiency
Continue with p.o. B12
Hx of colonic cancer s/p resection
DVT prophylaxis/Lovenox
Full code
PT/OT-SNF. CM aware. Await placement. Medically stable
Anticipated Discharge: Today
Subjective/Interval History
-
Date of Service: September 04, 2023
eating breakfast
in good spirits
Objective Data
-
Vital Signs:
Vital Signs
Temp Pulse Resp BP Pulse Ox
98.3 F 71 16 107/66 91
09/04/23 07:10 09/04/23 07:10 09/04/23 07:10 09/04/23 07:10 09/04/23 11:08
I&O
09/03/23 09/04/23 09/05/23
06:59 06:59 06:59
Intake Total 720 / 720 860 / 860
Balance 720 / 720 860 / 860
--- NOTE | 2023-09-04 14:57 | CM ---
Attempting to find available bed for SNF. [facility] only accepts their patients; [facility] does not have any beds and does not anticipate available bed in the near future; [facility] with no beds. Sent updated referrals to [facility]. Also left messages. Daughter, Deana, notified.
[2023-09-04 15:10] VITALS: BP 112/65
[2023-09-04] MEDS: LOVENOX 40 MG SC (17:39)
[2023-09-04] MEDS: REMERON 7.5 MG PO (21:09)
[2023-09-04] MEDS: MELATONIN 3 MG PO (21:09)
[2023-09-04] MEDS: LEXAPRO 5 MG PO (21:09)
[2023-09-04 23:13] VITALS: BP 103/55
--- NOTE | 2023-09-05 03:05 | DOWNTIME ---
There was a [employer] Downtime on 09/05/2023 from 0100 to 09/05/2023 at 0255. Downtime documentation of patient's care, including medication administrations, has been reconciled in the electronic record per guidelines. Refer to the
patient's paper chart under the miscellaneous tab to see printed paper medication records and downtime forms.
[2023-09-05 06:00] VITALS: BMI 20.5
[2023-09-05 07:10] VITALS: BP 136/73
[2023-09-05 07:16] LABS: Blood Urea Nitrogen 28 mg/dl (7-17); Calcium 9.7 mg/dl (8.4-10.2); Carbon Dioxide 26 mmol/L (22-30); Chloride 108 mmol/L (98-107); Estimated Creatinine Clearance 41 ml/min; Glucose 79 mg/dl (70-99); Potassium 4.4 mmol/L (3.5-5.1); Sodium 139 mmol/L (135-145); eGFR > 60.00
[2023-09-05] MEDS: SENOKOT-S 1 TABLET PO (09:22)
[2023-09-05] MEDS: VITAMIN B-12 1000 MCG PO (09:22)
[2023-09-05] MEDS: ASPIR LOW (ENTERIC COATED) 81 MG PO (09:22)
[2023-09-05] MEDS: MIRALAX 17 GRAMS PO (09:22)
[2023-09-05] MEDS: PROTONIX 40 MG PO (09:22)
[2023-09-05] MEDS: TYLENOL 650 MG PO (10:45)
--- NOTE | 2023-09-05 11:27 | W.PN.HOSP.TC ---
Today's Communication/Plan
-
Discharge to SNF
Assessment / Plan
Assessment / Plan
Physical exam:
General: Comfortable and Conversant
HEENT: Anicteric and Moist mucous membranes
Respiratory: Clear and Non Labored Respirations
Cardiac: S1/S2 and Regular Rhythm; No Murmur
GI: Soft, Non Tender, Non Distended and Normal Bowel Sounds
Musculoskeletal: No Clubbing, No Cyanosis and No Edema
Skin: Warm and Dry
Neuro: Awake , answered questions, followed commands.
Psych: Apparent Dementia
#Generalized weakness likely multifactorial secondary to decreased appetite and chronic nausea with concern for constipation
#Suspected constipation-history of fecal impaction
AXR without severe fecal burden
s/p IVF
Continue with standing p.o. regimen for now
#Chronic intermittent nausea
#Dysphagia
Speech evaluation-IDDS4 started.
Antinausea meds as needed
Monitor p.o. tolerance-per family leading to severe decrease appetite at home.
Continue with PPI
Celiac ordered -Endomysial titer neg <1:10. TTG negative
EGD with no gross lesion in the entire esophagus.. No hiatal hernia. Z-line variable. Biopsied. Erosive gastropathy with no stigmata of recent bleeding. Biopsied. Normal examined duodenum.
Outpatient capsule endoscopy.
Continue with PPI
Monitor for diet tolerance
ABD us status post cholecystectomy with no evidence for biliary ductal dilation.Slightly limited visualization of the liver because of poor acoustic windows. 1.1 cm cyst within the anterior liver.
DC high dose asa-unclear why on such high dose. Restart low dose 81 mg
GI recs
# ESBL UTI
No fevers
No flank pain
NO leukocytosis
DC ceftriaxone
Finished meropenem
precautions
#Normocytic anemia
Transfuse <7
Toxic metabolic encephalopathy likely secondary to UTI versus possible worsening of underlying senile/Alzheimer dementia?
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
History of TIA
Had recent extensive workup done and will need outpatient neurology evaluation
Continue with aspirin and restart at lower dose
Continue with trazodone nightly prn
Melatonin 3mg qhs
Pt will need to f/w neurology as OP.
Suspected depression
d/w with daughter-agreed for Lexapro 5mg started
Qtc wnl.
Ativan prn for severe anxiety
Vitamin B12 deficiency
Continue with p.o. B12
Hx of colonic cancer s/p resection
DVT prophylaxis/Lovenox
Full code
PT/OT-SNF. CM aware. Await placement. Medically stable
Anticipated Discharge: Today
Subjective/Interval History
-
Date of Service: September 05, 2023
Patient seen and examined at bedside, denies any chest pain or shortness of breath, no abdominal pain, no nausea, no vomiting, no diarrhea or constipation.
Objective Data
-
Labs:
Laboratory Results
09/05/23
05:39
Sodium 139
Potassium 4.4
Chloride 108 H
Carbon Dioxide 26
BUN 28 H
Creatinine 0.9
Glucose 79
Calcium 9.7
Vital Signs:
Vital Signs
Temp Pulse Resp BP Pulse Ox
97.8 F 68 16 136/73 98
09/05/23 07:10 09/05/23 07:10 09/05/23 07:10 09/05/23 07:10 09/05/23 11:17
I&O
09/04/23 09/05/23 09/06/23
06:59 06:59 06:59
Intake Total 860 / 860 1370 / 1370
Output Total 300 / 300
Balance 860 / 860 1070 / 1070
Physical Exam
-
General: Well Developed and No Apparent Distress
HEENT: Normocephalic, Atraumatic and Moist Mucous Membranes
Respiratory: Clear to Auscultation
Cardiac: Regular Rhythm and S1/S2; Negative Murmur, Rub or Gallop
GI: Soft, Nontender, Nondistended and Normal Bowel Sounds; Negative Organomegaly
Rectal: Deferred by Provider
Musculoskeletal: No Clubbing, No Cyanosis and No Edema
Skin: Negative Rash
Neuro: Nonfocal/Grossly Intact
--- NOTE | 2023-09-05 11:29 | W.DCSUMMARY ---
Discharge Summary
Discharge Data
Date of Admission: 08/24/23
Date of Discharge: 09/05/23
-
Pending Results: No
Hospital Course
#Generalized weakness likely multifactorial secondary to decreased appetite and chronic nausea with concern for constipation
#Suspected constipation-history of fecal impaction
AXR without severe fecal burden
s/p IVF
Continue with standing p.o. regimen for now
#Chronic intermittent nausea
#Dysphagia
Speech evaluation-IDDS4 started.
Antinausea meds as needed
Monitor p.o. tolerance-per family leading to severe decrease appetite at home.
Continue with PPI
Celiac ordered -Endomysial titer neg <1:10. TTG negative
EGD with no gross lesion in the entire esophagus.. No hiatal hernia. Z-line variable. Biopsied. Erosive gastropathy with no stigmata of recent bleeding. Biopsied. Normal examined duodenum.
Outpatient capsule endoscopy.
Continue with PPI
Monitor for diet tolerance
ABD us status post cholecystectomy with no evidence for biliary ductal dilation.Slightly limited visualization of the liver because of poor acoustic windows. 1.1 cm cyst within the anterior liver.
DC high dose asa-unclear why on such high dose. Restart low dose 81 mg
GI recs
# ESBL UTI
No fevers
No flank pain
NO leukocytosis
DC ceftriaxone
Finished meropenem
precautions
#Normocytic anemia
Transfuse <7
Toxic metabolic encephalopathy likely secondary to UTI versus possible worsening of underlying senile/Alzheimer dementia?
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
History of TIA
Had recent extensive workup done and will need outpatient neurology evaluation
Continue with aspirin and restart at lower dose
Continue with trazodone nightly prn
Melatonin 3mg qhs
Pt will need to f/w neurology as OP.
Suspected depression
d/w with daughter-agreed for Lexapro 5mg started
Qtc wnl.
Ativan prn for severe anxiety
Vitamin B12 deficiency
Continue with p.o. B12
Hx of colonic cancer s/p resection
DVT prophylaxis/Lovenox
Full code
PT/OT-SNF. CM aware. Await placement. Medically stable
Anticipated Discharge: Today
Discharge Plan
-
Patient Disposition: [facility]/SNF
Discharge Diagnosis/Procedures: Generalized weakness
ESBL UTI
Normocytic anemia
Diet: No restrictions
Activity: No restrictions
Driving Restrictions: As prior to admission
Bathing Restrictions: None
Referrals:
Angela Ferrell MD [Active] - (Call to arrange follow up with GI for nausea)
UNKNOWN - PT DOES,NOT KNOW [Family Provider] -
Prescriptions:
New
polyethylene glycol 3350 [HealthyLax] 17 gram Powder In Packet
17 g PO DAILY Qty: 0 0RF
sennosides-docusate sodium [Stool Softener-Laxative] 8.6-50 mg Tablet
1 tab PO BID Qty: 0 0RF
melatonin 3 mg Tablet
3 mg PO HS Qty: 0 0RF
aspirin 81 mg Tablet,Delayed Release (Dr/Ec)
81 mg PO DAILY Qty: 0 0RF
bismuth subsalicylate [Gilby Bismuth] 262 mg Tablet,Chewable
1 tab PO DAILYPRN PRN (Reason: bloating/abd pain) Qty: 0 0RF
escitalopram oxalate 5 mg Tablet
5 mg PO HS Qty: 0 0RF
mirtazapine 7.5 mg Tablet
7.5 mg PO HS Qty: 0 0RF
Continued
pantoprazole 40 mg Tablet,Delayed Release (Dr/Ec)
40 mg PO DAILY
trazodone 50 mg Tablet
25 mg PO HSPRN PRN (Reason: sleep/agitation) Qty: 0 0RF
cyanocobalamin (vitamin B-12) 1,000 mcg Tablet
1,000 mcg PO DAILY Qty: 0 0RF
Dulcolax Chewables
1 gummy PO BID
Otc Eye Drops (Pf)
1 - 2 drp BOTH EYES TIDPRN PRN (Reason: dry eyes)
cranberry
1 tab PO QPM
Patient Comments:
08/23/2023, just started taking last night per daughter.
acetaminophen 325 mg tablet
325 mg PO BIDPRN PRN (Reason: mild pain)
ondansetron 4 mg Tablet,Disintegrating
4 mg PO Q8H PRN (Reason: nausea/vomiting)
Discontinued
aspirin 325 mg Tablet
325 mg PO DAILY
Patient Comments:
08/23/2023, has not been able to fill Ascriptin (300 mg - 80 mg - 70 mg) so has been taking this med. instead.
Discharge Orders:
Discharge Patient (As Directed); Ordered 09/05/23
Ordered By: Mckenna Barger
Discharge Date and Time
Print Language: CENTRAL AFRICAN
--- NOTE | 2023-09-05 11:39 | CM ---
Addendum entered by Alexis Briscoe 09/05/23 13:13:
Per Acute care ambulance coordinator, pt cannot be transferred by w/c due to safety issue and it must be a stretcher. Pt's daughter is aware and she stated she will pay the bill.
to arrange ambulance BLS with acute care ambulance. PMNC completed and left with .
[facility] nursing report: [phone]
Please fax Discharge instructions with COVID test result to: [phone].
D/C plan: [facility].
Original Note:
CM following re: discharge planning.
Reviewed pt's chart, met with pt and has a long conversation with pt's daughter Deana.
Discharge order noted. Both pt and her daughter Deana are aware, expressed their agreement. IMM reviewed, placed on chart, pt has a copy.
CM spoke to [facility] director state pharmacy Kelle and she confirmed that pt is accepted for admission today. Requested copy of pt's insurance card obtained from pt's daughter and forwarded to [facility] director state pharmacy. Covid test
requested. MD is aware.
Both pt and her daughter are aware that [facility] accepted the pt for a short term rehab and they expressed their agreement. Pt's daughter is aware that pt will have $204.00 co-pay on day 21 of skilled services including skilled time pt used
at [facility].
Pt's daughter is aware that pt has Medicare part A only and pt has no ambulance benefits that covers by Medicare part B and daughter is requested w/c van to transport pt to [facility] and she will pay the cost.
Pt's daughter stated that pt will have caregiver Anya at [facility] for a smooth transition to a SNF environment and to increase pt's well being.
to arrange w/c transport with Acute care ambulance.
[facility] nursing report: [phone]
Please fax Discharge instructions with COVID test result to: [phone].
D/C plan: [facility].
[2023-09-05 12:26] LABS: COVID-19 Antigen Negative (Negative)
[2023-09-05 15:17] VITALS: BP 102/66
== END 2023-09-05 16:10 | DRG 391 ==
LOC: 2 NORTH 11:53
PROVIDERS: ADMITTING PHYSICIAN Hospitalist; ATTENDING PHYSICIAN General Practice; CONSULT PHYSICIAN Internal Medicine Gastroenterology; CONSULT PHYSICIAN Physical Medicine & Rehabilitation; EMERGENCY PHYSICIAN Student in an Organized Health Care Education/Training Program
DX: K59.09 Other constipation (principal); G92.8 Other toxic encephalopathy; N39.0 Urinary tract infection, site not specified; Z16.12 Extended spectrum beta lactamase (ESBL) resistance; R13.10 Dysphagia, unspecified; B96.29 Other Escherichia coli [E. coli] as the cause of diseases classified elsewhere; G30.9 Alzheimer's disease, unspecified; F02.80 Dementia in other diseases classified elsewhere, unspecified severity, without behavioral disturbance, psychotic disturbance, mood disturbance, and anxiety; Z86.73 Personal history of transient ischemic attack (TIA), and cerebral infarction without residual deficits; Z85.038 Personal history of other malignant neoplasm of large intestine
CPT/HCPCS: 88305; 74019; 76700; 80048; 80053; 81003; 81015; 82607; 82728; 82746; 82784; 83516; 83540; 83550; 83690; 85025; 86231; 87086; 87088; 87186; 87811; 88342; 92610; 93005; 96361; 96374; 97163; 97167; 97530; 97535; 99285

== ENCOUNTER 2023-11-26 16:20 | Inpatient (IN) | payer MEDICARE, SELFPAY ==
[2023-11-26] VITALS (8 sets, daily range): BP systolic 124–150; BP diastolic 74–99; BMI 22.6
[2023-11-26 10:13] LABS: % Eosinophils 4.9 % (0-6); % Immature Granulocytes 0.3 % (0-0.5); % Lymphocytes 30.9 % (20.5-51.1); % Monocytes 8.9 % (1.7-9.3); Absolute Basophils 0.1 10^3/uL (0-0.2); Absolute Eosinophils 0.3 10^3/uL (0-0.7); Absolute Lymphocytes 1.9 10^3/uL (1.2-3.4); Absolute Monocytes 0.6 10^3/uL (0.1-0.6); Absolute Neutrophils 3.3 10^3/uL (1.4-6.5); Hematocrit 37.5 % (37.0-47.0); Hemoglobin 11.9 g/dL (12.0-16.0); Mean Corp Hgb Conc. 31.7 g/dL (33.0-37.0); Mean Corpuscular Hgb 27.4 pg (27.0-31.0); Mean Corpuscular Volume 86.2 fL (81.0-99.0); Mean Platelet Volume 9.1 fL (7.4-10.4); Nucleated Red Blood Cells % 0 %; Platelet Count 325 10^3/uL (130-400); Red Blood Cell Count 4.35 10^6/uL (4.20-5.40); White Blood Cell Count 6.2 10^3/uL (4.8-10.8)
[2023-11-26] MEDS: NSS 500 IV ×2 (10:42→14:24)
--- NOTE | 2023-11-26 10:56 | ED.GENMED ---
History of Present Illness
General
Chief Complaint: Weakness
Source: patient
Exam Limitations: none
Time Seen by Provider: 11/26/23 09:19
Nursing documentation reviewed up to this point in time: agreed with
History of Present Illness
History of Present Illness:
Patient discharged from [facility] 1 week ago after being evaluated for syncopal episodes, during which time seizure disorder was identified and started on Keppra, presents to ED secondary to increased generalized weakness upon discharge,
along with confusion noted by her daughter. Denies headache. Denies coughing. Denies nausea, vomiting, or diarrhea. Denies blurred vision. Denies dizziness. Denies loss of sensation. Denies fever or chills. Denies loss of appetite. However,
patient does admit to not drinking any water at home, as she has hard time swallowing liquid. Per daughter, patient has been diagnosed with potential early Alzheimer's disease, and as such, does experience intermittent confusion at baseline.
Past History
Past History
ED Past Medical History: HTN and Hypercholesterolemia
ED Past Surgical History: Gynecological
Social History
Tobacco: Non-smoker
Alcohol: Occasional
Drug: None
Personal:
Living: with family
Review of Systems
Review of Systems
Allergies reviewed?: Yes
All Other Systems: ROS reviewed and negative except as documented in HPI and ROS
Constitutional: Reports no symptoms; Denies fever
EENT: Reports no symptoms
Respiratory: Reports no symptoms; Denies trouble breathing
Cardiac: Reports no symptoms; Denies chest pain
ABD/GI: Reports no symptoms
Musculoskeletal: Reports no symptoms
Skin: Reports no symptoms
Neurological: Reports weakness; Denies dizzy or headache
Phy Exam
Physical Exam
Physical Exam:
Physical Exam
General: no apparent distress, not acutely ill. afebrile
Head: nc/at. eomi
Neck: supple. no meningeal signs.
Heart: s1/s2 regular rate and rhythm, no murmur. equal radial pulses.
Lungs: no acute respiratory distress. clear bilaterally
Abdomen: normal bowel sounds. not tender.
Neuro: alert and oriented. LE motor weakness, 4/5, noted b/l. sensation intact.
Skin: no rash. dry oral mucosa noted. resolving periorbital ecchymosis noted.
Psychiatric: well kept. interactive and cooperative
Extremities: no edema. no calf tenderness.
Course
Orders/Labs/Results
Orders:
Orders
11/26/23 09:18
EKG [Electrocardiogram (*1)] Urgent
Reason for Study: Chest Pain
EKG- Treatment ONCE
11/26/23 09:30
EKG [Electrocardiogram (*1)] Urgent
Reason for Study: Chest Pain
EKG- Treatment ONCE
11/26/23 Lunch
NPO
Allow oral meds: Yes
Allow clear liquids: No
Comment: keep NPO pending Speech eval.
11/26/23 10:05
CBC/With Diff [Complete Blood Count/With Diff] Urgent
11/26/23 10:16
Straight cath- Treatment ONCE
11/26/23 10:19
CT Head W/o Iv Contrast Urgent
Comment:
Reason For Exam: LLL weakness with confusion
11/26/23 10:20
0.9% Sodium Chloride 500 ml [Nss] 500 ml IV BOLUS
11/26/23 10:30
Comprehensive Metabolic Panel Urgent
Ferritin Urgent
Comment: ADD ON
Folate Urgent
Comment: ADD ON
Iron Urgent
Comment: ADD ON
TSH Urgent
Comment: ADD ON
Total Iron Binding Urgent
Comment: ADD ON
Troponin I Urgent
Vitamin B12 Urgent
Comment: ADD ON
11/26/23 12:02
Urinalysis Reflex To Culture Urgent
Date Specimen was Collected: 11/26/23
Time Specimen was Collected: 12:00
11/26/23 14:00
0.9% Sodium Chloride 500 ml [Nss] 500 ml IV 100 mls/hr
11/26/23 14:56
Admit/Transfer Patient As Directed
Co-Sign Provider:
Level of Care: Inpatient admission
Assign to:: Telemetry
Physician / Group: Carmencita Kwong
Diagnosis: Bilateral Lower extremity weakness
Reason for Telemetry: Other
Other Reason for Telemetry: New T wave abnormality
Date to Stop Telemetry: 11/28/23
Time to Stop Telemetry: 11:00
Reason for Hospitalization: as above
Expected length of stay greater than two midnights?: Yes
ELOS- Estimated Length of Stay in days: 3
I certify the patient meets the requirements for IP care: Yes
PRN Pain Medication Management As Directed
May give lesser potent ordered pain med per pt: Yes
preference::
Protocol:: Medication orders for pain may be administered in a
manner that supports deferring to patient preference
when the pt is:
- Requesting an ordered lesser potent pain medication.
Least to most potent pain medications are defined
as: acetaminophen < NSAID < tramadol < opioids
(morphine, oxycodone, hydromorphone).
- Requesting a lesser dose of the same medication IF
ORDERED.
- Requesting a less intrusive route of administration
if both routes are prescribed by the provider (PO <
IV).
11/26/23 14:59
Code Status As Directed
Resuscitation Status: Do not resuscitate
Reached after discussion with pt or family/Healthcare POA: Yes
11/26/23 15:32
DNR Bracelet Application ONCE
11/26/23 15:38
CR Knee - Right 1 Or 2 Views Routine
Comment:
Reason For Exam: right knee bruise s/p fall
11/26/23 17:12
Add On- LAB Routine
Tests Added?: tsh, vit B12, folate, iron, tibc, feritin, iron saturation
11/26/23 17:14
Speech Therapy Eval & Treat Routine
11/26/23 18:31
Acetaminophen [Tylenol] 650 mg PO BIDPRN PRN
Acetaminophen [Tylenol] 650 mg PO Q4HPRN PRN
Bisacodyl [Dulcolax] 10 mg RECTAL [id number] PRN
Docusate W/Senna [Senokot-S] 1 tablet PO BIDPRN PRN
Docusate W/Senna [Senokot-S] 1 tablet PO BIDPRN PRN
Polyethylene Glycol Powder [Miralax] 17 grams PO DAILYPRN PRN
11/26/23 18:31
NEUROLOGY CONSULT Routine
Consulting Provider: Daria Bowles
Was physician already notified: Yes
Activity As Directed
Activity Level: As Tolerated
Obtain Records As Directed
Dates of Information to be Released: 11/16/2023 - 11/20/2023
Type of Information Requested: Other
Obtain Records from: [facility]
Comment: Obtain hospital records from recent admission incl EEG, EKG, CT scan
Vital Signs As Directed
Frequency: Per unit guidelines
Ot Eval And Treat Routine
Pt Eval And Treat Routine
Activity Level: Ambulate
DX Deep Vein Thrombosis Video Routine
11/26/23 19:00
Artificial Tears (Pf) [Refresh Eye Drops (Pf)] 1 drops BOTH EYES BIDPRN PRN
Atorvastatin [Lipitor] 40 mg PO QPM
11/26/23 20:00
Enoxaparin Sodium [Lovenox] 40 mg SC QPM
Levetiracetam [Keppra] 500 mg PO BID
11/26/23 21:08
Troponin I Q6H
11/26/23 22:00
Mirtazapine [Remeron] 7.5 mg PO HS
11/27/23 08:00
Aspirin Low Dose EC [Aspir Low (Enteric Coated)] 81 mg PO DAILY
Cyanocobalamin [Vitamin B-12] 1,000 mcg PO DAILY
Escitalopram Oxalate [Lexapro] 5 mg PO DAILY
Metoprolol Xl [Toprol Xl] 25 mg PO DAILY
Ondansetron Orally Disint [Zofran Odt (Orally Disintegrating)] 4 mg PO DAILY
Pantoprazole [Protonix] 40 mg PO DAILY
Polyethylene Glycol Powder [Miralax] 17 grams PO DAILY
cranberry extract 250 mg PO DAILY
magnesium hydroxide 1,200 mg PO DAILY
11/27/23 08:45
Basic Metabolic Panel IN AM
Complete Blood Count/No Diff IN AM
Troponin I Q6H
11/27/23 11:12
Troponin I Q6H
11/27/23 17:12
Troponin I Q6H
11/28/23 11:00
DC Protocol for Telemetry ONCE
Abnormal Lab Results
11/26/23 11/26/23 11/26/23
10:05 10:30 12:02
Hgb 11.9 L g/dL
(12.0-16.0)
MCHC 31.7 L g/dL
(33.0-37.0)
RDW 15.0 H %
(11.5-14.5)
Chloride 111 H mmol/L
(98-107)
BUN 27 H mg/dl
(7-17)
Total Protein 5.7 L g/dl
(6.3-8.2)
Albumin 2.2 L g/dl
(3.5-5.0)
Vitamin B12 > 1000 H pg/ml
(709-931)
Folate > 20.0 H ng/ml
(2.76-20)
Urine Bilirubin 1+ A
(Negative)
11/26/23 10:05
11/26/23 10:30
Vital Signs
Initial and Last Documented VS:
Initial Vital Signs
Temp Pulse Resp BP Pulse Ox
98.6 F 65 20 141/78 96
11/26/23 09:19 11/26/23 09:19 11/26/23 09:19 11/26/23 09:19 11/26/23 09:19
Last Documented Vital Signs
Temp Pulse Resp BP Pulse Ox
97.8 F 97 18 165/72 95
11/27/23 07:00 11/27/23 07:00 11/27/23 07:00 11/27/23 07:00 11/27/23 07:00
MDM/Problems Addressed
MDM/Problems Addressed:
Despite patient denying any chest pain at time of presentation, abnormal EKG noted along with minimally elevated troponin. As such, with nonspecific generalized weakness, although lower extremity weakness appears to be more profound, patient will
be admitted for further eval and treatment. Patient may benefit from PT OT evaluation, as well as neurology evaluation. After inpatient evaluation, patient will likely benefit from short-term rehab due to deconditioning.
*EKG
Interpreted by ED Provider?: Yes
EKG Intrepretation Date: 11/26/23
Heart Rate: 66
Rate: normal
Rhythm: sinus
Galvin: normal axis
Interval: normal interval
Ischemia: T-wave inversion
*Critical Care Note
Total Time (30-74mins, 75-104mins- exclusive of procedures): Not Applicable
ED Attending Note
-
Portions of this chart may have been created with voice recognition software.� Occasional wrong word or��sound alike� substitutions may have occurred due to the inherent limitations of voice recognition software.
Discharge Plan
Departure
Patient Disposition: Admit
Date of Disposition: 11/26/23
Time of Disposition: 13:07
Admit to: Telemetry
Presentation/result/management discussed w/ accepting MD/DO: Hospitalist
Discharge Problem:
Weakness, Abnormal EKG
Interventions
Interventions:
*Risk Screen - Suicide Last Done: 11/26/23 09:19
*General Assessment Last Done: 11/26/23 09:19
*Neglect/Abuse Screening Last Done: 11/26/23 09:19
*ED COVID-19 Vaccine History Last Done: 11/26/23 09:57
*Nursing Disposition Last Done: 11/26/23 18:33
ED- Cardiac Assessment Last Done: 11/26/23 09:57
ED- Neurological Assessment Last Done: 11/26/23 09:57
ED- Pulmonary Assessment Last Done: 11/26/23 09:57
Discharge Date and Time
Discharge Date/Time: 11/26/23 18:34
[2023-11-26 10:59] LABS: ALT (SGPT) 19 U/L (0-35); AST (SGOT) 25 U/L (14-36); Albumin 2.2 g/dl (3.5-5.0); Alkaline Phosphatase 92 U/L (38-126); Blood Urea Nitrogen 27 mg/dl (7-17); Calcium 9.6 mg/dl (8.4-10.2); Carbon Dioxide 25 mmol/L (22-30); Chloride 111 mmol/L (98-107); Glucose 74 mg/dl (70-99); Potassium 4.5 mmol/L (3.5-5.1); Sodium 145 mmol/L (135-145); Total Bilirubin 0.3 mg/dl (0.2-1.3); Total Protein 5.7 g/dl (6.3-8.2); eGFR 54.53
[2023-11-26 11:09] LABS: Troponin I 0.028 ng/ml
[2023-11-26 12:12] LABS: Urine Albumin Negative (Neg - Trace); Urine Bilirubin 1+ (Negative); Urine Character Clear (Clear); Urine Color Yellow; Urine Glucose Negative (Negative); Urine Ketone Negative (Negative); Urine Leukocyte Negative (Negative); Urine Nitrite Negative (Negative); Urine Occult Blood Negative (Negative); Urine Specific Gravity 1.015 (<1.030); Urine Urobilinogen Negative (Neg - 1+)
--- NOTE | 2023-11-26 15:46 | CON.NEURO ---
Consultation
Order
Date of Consultation: 11/26/23
Requesting Provider: Kenny Oliver M.D.
Reason for Consult: worsening of ambulatory dysfunction
CC: none
HPI: This is a 88-year-old woman who presented to [facility] on November 26, 2023 with worsening of baseline ambulatory dysfunction. According to the patient
she had a fall with head trauma two weeks ago. She does not recall the events leading up to the fall and reports waking up in [facility]. She has been experiencing difficulties with walking since the fall. She also reports feeling dizzy
after being discharged from the hospital, with a sensation of being on the verge of passing out.
She lives with her daughter, who helps her with medication administration and is described as being 'obsessed with accuracy.' She reports occasional urinary incontinence, requiring the use of pads. Miss Deras has assistance with dressing and
showering, provided by a rotating team of caregivers. She has no known family history of dementia.
ER VS: 141/78, 55, afebrile
PDMP: none
Labs: Glucose 74, normal WBCs, hemoglobin, creatinine, sodium; Albumin�2.2; ua-positive for bili
CT head-no acute intracranial abnormality.
I have contacted patient's daughter and my call was disconnected twice.
PMH: dementia, history of a stroke 50 years ago, history of colon cancer, dysphagia, GERD, MDD, DLP, ambulatory dysfunction, BPPV, Diaphragmatic hernia, vitamin B12 deficiency
PSH: partial colectomy
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
FH: Not contributory to current presentation.
All: NKDA
ROS:Constitutional: Negative. Negative for chills, fever and unexpected weight change.
HENT: Positive for dizziness
Eyes: Negative. Negative for photophobia, pain and visual disturbance.
Respiratory: Negative for cough, choking and shortness of breath.
Cardiovascular: Negative for chest pain, palpitations and leg swelling.
Gastrointestinal: Negative for abdominal pain and vomiting.
Endocrine: Negative. Negative for cold intolerance.
Genitourinary: Negative for dysuria, flank pain and urgency.
Musculoskeletal: Negative for back pain, gait problem, neck pain and neck stiffness.
Skin: Positive for intermittent chemo-induced
Allergic/Immunologic: Negative. Negative for immunocompromised state.
Neurological: positive for forgetfulness
Psychiatric/Behavioral: Negative for behavioral problems, confusion and hallucinations.
General: Well developed. In no acute distress.
Skin: extenssive periorbital in the right frontal ecchymoses
Cardio: Regular rate and rhythm without murmur. Extremities are without cyanosis or edema.
Neuro:
Mental Status: Alert, oriented to self, ' October', '', ' 'winter'. Poor attention and recall. Good fund of knowledge. Follows simple requests. Comprehension is preserved.
Cranial Nerves: Pupils are equally round and reactive to light. EOMs full. Visual verduzco full to confrontation. No ptosis. No nystagmus. V1-V3 intact to light touch and pinprick bilaterally, symmetric. Face symmetric. Normal hearing AU. The
palate elevated well. SCMs and traps 5/5. Tongue midline. No dysarthria.
Motor: Normal bulk and tone. No pronator or arm drift. Strength 5/5 throughout. No clonus.
Reflexes: positive for grasp BL
Sensory: limited due to poor attention
Coordination: No dysmetria or tremor.
Gait: deferred
Assessment and Plan:
I.Postconcussion syndrome
II. Ambulatory dysfunction
III. Chronic encephalopathy
-Fall precautions
-Please obtain medical records from [facility]
-PT
-Start thiamine 100 mg once a day
-Meclizine 25 mg every 8 hours as needed
-Routine EEG
-Will follow
I personally reviewed all radiology and labs along with past medical records pertinent to current medical problems. Total time spent in patient care is 55 minutes.
Thank you for allowing us to participate in the care of this patient. We will continue to follow. Please do not hesitate to contact us with any questions or concerns.
Subjective/Objective
Subjective Data
Date of Service: November 26, 2023
Objective Data
Vital Signs
Temp Pulse Resp BP Pulse Ox
37.0 C 74 14 150/95 96
11/26/23 09:19 11/26/23 15:00 11/26/23 15:00 11/26/23 15:00 11/26/23 09:19
Lab Results
11/26/23 10:05
11/26/23 10:30
Sodium 145 mmol/L (135-145) 11/26/23 10:30
Potassium 4.5 mmol/L (3.5-5.1) 11/26/23 10:30
BUN 27 mg/dl (7-17) H 11/26/23 10:30
Glucose 74 mg/dl (70-99) 11/26/23 10:30
Calcium 9.6 mg/dl (8.4-10.2) 11/26/23 10:30
Patient Allergies
No Known Drug Allergies Allergy (Verified 11/26/23 09:15)
Unknown
Medications
-
Active Medications
Generic Name Dose Route Start Last Admin
Trade Name Freq PRN Reason Stop Dose Admin
Sodium Chloride 500 mls @ 100 mls/hr 11/26/23 14:00 11/26/23 14:24
Nss IV 500 mls
.Q5H AVA Administration
Home Medications
�Medication �Instructions �Recorded
pantoprazole 40 mg tablet,delayed 40 mg PO DAILY Gastrointestinal 07/31/23
release Issue
cyanocobalamin (vitamin B-12) 1,000 mcg PO DAILY #0 tabs 08/07/23
1,000 mcg tablet
acetaminophen 325 mg tablet 650 mg PO BIDPRN PRN mild pain 08/23/23
carboxymethylcellulose 0.5 1 drp BOTH EYES BIDPRN PRN dryness 08/23/23
%-glycerin 0.9 % eye drops ##0
(Refresh Optive)
cranberry extract 250 mg tablet 250 mg PO DAILY Supplement ##0 08/23/23
ondansetron 4 mg disintegrating 4 mg PO DAILY 08/23/23
tablet
aspirin 81 mg tablet,delayed 81 mg PO DAILY #0 tabs 09/05/23
release
mirtazapine 7.5 mg tablet 7.5 mg PO HS #0 tabs 09/05/23
polyethylene glycol 3350 17 gram 17 g PO DAILY #0 ea 09/05/23
oral powder packet (HealthyLax)
atorvastatin 40 mg tablet (Lipitor) 40 mg PO QPM 11/26/23
escitalopram oxalate 5 mg tablet 5 mg PO DAILY 11/26/23
levetiracetam 500 mg tablet 500 mg PO BID 11/26/23
(Keppra)
magnesium hydroxide 1,200 mg 1,200 mg PO DAILY 11/26/23
chewable tablet
metoprolol succinate 25 mg 25 mg PO DAILY 11/26/23
tablet,extended release 24 hr
(Toprol XL)
sennosides 8.6 mg-docusate sodium 1 tab PO BIDPRN PRN constipation 11/26/23
50 mg tablet (Stool
Softener-Laxative)
Vital Signs and Labs
-
Vital Signs and Labs:
Vital Signs
Temp Pulse Resp BP Pulse Ox
37.0 C 74 14 150/95 96
11/26/23 09:19 11/26/23 15:00 11/26/23 15:00 11/26/23 15:00 11/26/23 09:19
Lab Results
11/26/23 10:05
11/26/23 10:30
Sodium 145 mmol/L (135-145) 11/26/23 10:30
Potassium 4.5 mmol/L (3.5-5.1) 11/26/23 10:30
BUN 27 mg/dl (7-17) H 11/26/23 10:30
Glucose 74 mg/dl (70-99) 11/26/23 10:30
Calcium 9.6 mg/dl (8.4-10.2) 11/26/23 10:30
Medications
-
Medications:
Generic Name Dose Route Start Last Admin
Trade Name Freq PRN Reason Stop Dose Admin
Sodium Chloride 500 mls @ 100 mls/hr 11/26/23 14:00 11/26/23 14:24
Nss IV 500 mls
.Q5H AVA Administration
Home Medications
-
Home Medications
pantoprazole 40 mg tablet,delayed release 40 mg PO DAILY Gastrointestinal Issue 07/31/23
cyanocobalamin (vitamin B-12) 1,000 mcg tablet 1,000 mcg PO DAILY #0 tabs 08/07/23
acetaminophen 325 mg tablet 650 mg PO BIDPRN PRN mild pain 08/23/23
carboxymethylcellulose 0.5 %-glycerin 0.9 % eye drops (Refresh Optive) 1 drp BOTH EYES BIDPRN PRN dryness ##0 08/23/23
cranberry extract 250 mg tablet 250 mg PO DAILY Supplement ##0 08/23/23
ondansetron 4 mg disintegrating tablet 4 mg PO DAILY 08/23/23
aspirin 81 mg tablet,delayed release 81 mg PO DAILY #0 tabs 09/05/23
mirtazapine 7.5 mg tablet 7.5 mg PO HS #0 tabs 09/05/23
polyethylene glycol 3350 17 gram oral powder packet (HealthyLax) 17 g PO DAILY #0 ea 09/05/23
atorvastatin 40 mg tablet (Lipitor) 40 mg PO QPM 11/26/23
escitalopram oxalate 5 mg tablet 5 mg PO DAILY 11/26/23
levetiracetam 500 mg tablet (Keppra) 500 mg PO BID 11/26/23
magnesium hydroxide 1,200 mg chewable tablet 1,200 mg PO DAILY 11/26/23
metoprolol succinate 25 mg tablet,extended release 24 hr (Toprol XL) 25 mg PO DAILY 11/26/23
sennosides 8.6 mg-docusate sodium 50 mg tablet (Stool Softener-Laxative) 1 tab PO BIDPRN PRN constipation 11/26/23
--- NOTE | 2023-11-26 15:59 | HPS.HSE ---
Addendum entered and electronically signed by Carmencita Kwong MD 11/26/23 18:06:
I personally performed a history and physical exam of the patient and discussed management with the resident. I reviewed the resident's note and agree with the documented findings and plan of care HPI/CC.
GENERAL: well developed, well nourished, female in no apparent distress
HEENT: NC--bruising (ecchymosis) with varying shades of color (healing) on right forehead, eye, face
HEART: regular rate and rhythm, +S1, +S2
LUNGS : clear to auscultation bilaterally
ABDOM: soft, nontender, nondistended, + bowel sounds
EXT: no cyanosis, clubbing, or edema--bruising on right knee cap
NEUROLOGIC: grossly intact--able to lift both legs off the stretcher independently--perhaps mild cognitive issues
global weakness with possible failure to thrive--daughter noticed after pt started on new medication (Keppra) from [place]--does not seem depressed, no recent vaccinations, no signs of infection, no signs of stroke (head CT neg), could be from
Keppra--consult PT/OT/speech--check TSH, iron studies, B12, folate--consult neuro--need records from [place]--cont IVF
fall at home--unclear if syncope, seizure, cardiac etc--was worked up at [place] --daughter reports ECHO, no cath--troponins trended down--was started on Keppra for presumed seizures but don't know if something was found on EEG...obtain records
Recent NSTEMI?--New T wave inversion in anterior leads on EKG compared to last one here BUT did have workup at [place] (EKG, ECHO)--obtain records--trend troponin--hold on cardiology eval at this time
Anemia of chronic disease--HGB baseline (11)-- No concern for acute blood loss--Check iron, TIBC, ferritin, B12, folate level
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
Depression--Continue escitalopram, mirtazapine at bedtime--pt denies being depressed
Chronic nausea--Continue pantoprazole--Continue ondansetron as needed
Hx of colonic cancer s/p resection
DVT prophylaxis; Lovenox
CODE STATUS--DNR
Original Note:
Family Physician
-
Family Physician: COREY Avila
Chief Complaint
-
Failure to thrive
History of Present Illness
This is an 88-year-old female presenting to ER with her daughter for complaints of generalized weakness and confusion as noted by her daughter. Much of the history was gotten from her daughter at bedside. Per daughter, patient recently had a
fall on November 15 and went to [facility] for evaluation. At [facility] it was noted that she had elevated troponin, and new diagnosis of pneumonia. Per daughter, ECG, EEG, CT scan of head were done, and she was diagnosed with a
new onset seizure disorder started on Keppra 500 mg. She was also initiated on antibiotics with completion of abx treatment last Sunday. Per daughter, troponin down trended and no cardiology intervention was done. Today patient presents to
ER with generalized weakness and failure to thrive. Per patient's daughter, baseline is ambulating with a walker, with little help with home activities. Of note, patient has had loss of appetite and increased intermittent confusion which daughter
thinks might be early onset Alzheimer's disease. Patient also reports intermittent chest pain that waxes and wanes, ongoing for the past 3 weeks, reproducible on palpitation.
At bedside today, patient denies ongoing acute chest pain. Denies headache, denies nausea, denies vomiting, denies diarrhea, denies constipation. She denies blurred vision, denies dizziness. Reports mild cough after swallowing liquids especially
water.
On presentation to the ER, patient was afebrile with vital signs stable. Evaluation with a head CT scan showed no acute intracranial abnormalities. EKG showed sinus rhythm with premature supraventricular complexes and a new T wave inversion
evident in anterior leads. Troponin on presentation was 0.028.
Medical History
Past Medical History
Past Medical History: Reports Other (Chronic nausea, colon cancer s/p resection 2008, constipation, history of TIA/CVA, new diagnosis seizure disorder, )
Past Surgical History: Reports Cholecystectomy and Other (Colon cancer s/p resection 2008)
Social History
Tobacco: Non-smoker
Alcohol: None
Drug: None
Living: With Family
Family History
Family History: Not pertinent
Allergies / Home Medications
Allergies reflects when Allergies were last updated in [employer].
Home Medications with original date entered in [employer]
Allergy/Medication List:
Allergies
Allergy/AdvReac Type Severity Reaction Status Date / Time
No Known Drug Allergies Allergy Unknown Verified 11/26/23 09:15
Home Medications
pantoprazole 40 mg tablet,delayed release 40 mg PO DAILY Gastrointestinal Issue 07/31/23
cyanocobalamin (vitamin B-12) 1,000 mcg tablet 1,000 mcg PO DAILY #0 tabs 08/07/23
acetaminophen 325 mg tablet 650 mg PO BIDPRN PRN mild pain 08/23/23
carboxymethylcellulose 0.5 %-glycerin 0.9 % eye drops (Refresh Optive) 1 drp BOTH EYES BIDPRN PRN dryness ##0 08/23/23
cranberry extract 250 mg tablet 250 mg PO DAILY Supplement ##0 08/23/23
ondansetron 4 mg disintegrating tablet 4 mg PO DAILY 08/23/23
aspirin 81 mg tablet,delayed release 81 mg PO DAILY #0 tabs 09/05/23
mirtazapine 7.5 mg tablet 7.5 mg PO HS #0 tabs 09/05/23
polyethylene glycol 3350 17 gram oral powder packet (HealthyLax) 17 g PO DAILY #0 ea 09/05/23
atorvastatin 40 mg tablet (Lipitor) 40 mg PO QPM 11/26/23
escitalopram oxalate 5 mg tablet 5 mg PO DAILY 11/26/23
levetiracetam 500 mg tablet (Keppra) 500 mg PO BID 11/26/23
magnesium hydroxide 1,200 mg chewable tablet 1,200 mg PO DAILY 11/26/23
metoprolol succinate 25 mg tablet,extended release 24 hr (Toprol XL) 25 mg PO DAILY 11/26/23
sennosides 8.6 mg-docusate sodium 50 mg tablet (Stool Softener-Laxative) 1 tab PO BIDPRN PRN constipation 11/26/23
Review of Systems
-
A 12 point ROS was completed and negative except as noted: Yes
Respiratory: Reports Cough (Mild cough)
Cardiac: Denies Chest Pain, Diaphoresis or Palpitations
Abdomen/GI: Denies Abdominal Pain, Nausea, Vomiting, Diarrhea or Constipated
: Denies Dysuria, Frequency or Incontinence
Musculoskeletal: Reports Joint Pain (Right lower extremity)
Physical Exam
Vital Signs
Vital Signs
Temp Pulse Resp BP Pulse Ox
98.6 F 74 14 150/95 96
11/26/23 09:19 11/26/23 15:00 11/26/23 15:00 11/26/23 15:00 11/26/23 09:19
Physical Exam
General: No Apparent Distress and Comfortable
HEENT: Moist mucous membranes
Respiratory: Clear; No Rales, Rhonchi or Crackles
Cardiac: S1/S2 and Regular Rhythm
GI: Soft, Non Tender, Non Distended and Normal Bowel Sounds
Musculoskeletal: Other
Skin: Other (petechia on face more prominent on right side, right lower extremity knee bruising)
Neuro: Awake, Alert, Oriented and AO x 3
Psych: Calm
Laboratory Results
-
11/26/23 10:05
11/26/23 10:30
Laboratory Results
Total Bilirubin 0.3 mg/dl (0.2-1.3) 11/26/23 10:30
AST 25 U/L (14-36) 11/26/23 10:30
ALT 19 U/L (0-35) 11/26/23 10:30
Alkaline Phosphatase 92 U/L (38-126) 11/26/23 10:30
Troponin I 0.028 ng/ml 11/26/23 10:30
Data Reviewed
-
Lab Data: Labs Reviewed by me and Discussed with Physician
Impression/Plan
-
IMPRESSION/PLAN
#New T wave inversion in anterior leads on EKG
#Troponin 0.028 on presentation
-Recently admitted at [facility] for fall and chest pain
-Workup including EKG, echo done at [facility]
-Trend troponin
-Will request medical records from [facility]
-Would hold off on cardiology consult at this time, pending records request, in addition patient denies chest pain at bedside.
#failure to thrive
#Global weakness
-S/p fall 11/15. Workup at [facility] including EEG indicative of new onset seizure
-Started on Keppra 500 mg at [facility], MIGHT possibly be contributing to weakness, fatigue
-CT scan head 11/26/2023 withOUT acute intracranial abnormalities
-IV fluids
-Consult neurology
-Speech eval
-PT/OT
-Bruising and pain on right knee s/p fall 11/15, evaluate with x-ray of right knee today
-Check TSH, iron panel, B12, folate as they MAY be contributing??
-Request recent admission records from [facility]
# Anemia
-Hgb 11.9, baseline in this range. No concern for acute blood loss
-Check iron, TIBC, ferritin, B12, folate level
# History of TIA/CVA
-Continue aspirin, statin
# Depression
-Continue escitalopram, mirtazapine at bedtime
# Chronic nausea
-Continue pantoprazole
-Continue ondansetron as needed
#Hx of colonic cancer s/p resection
DVT prophylaxis; Lovenox
CODE STATUS; DNR
[2023-11-26 17:43] LABS: Iron 60 ug/dl (37-170)
[2023-11-26 17:52] LABS: Percent Saturation 20 % (20-50); Total Iron Binding Capacity 289 ug/dl (265-497)
[2023-11-26 18:26] LABS: Ferritin 24.2 ng/ml (11.1-264.0)
[2023-11-26 18:58] LABS: Folate > 20.0 ng/ml (2.76-20); Vitamin B12 > 1000 pg/ml (239-931)
[2023-11-26 21:43] LABS: Troponin I 0.038 ng/ml
[2023-11-26] MEDS: LIPITOR 40 MG PO (22:27)
[2023-11-26] MEDS: KEPPRA 500 MG PO (22:27)
[2023-11-26] MEDS: REMERON 7.5 MG PO (22:27)
[2023-11-26] MEDS: LOVENOX 40 MG SC (22:27)
[2023-11-26] MEDS: NSS IV (23:48)
[2023-11-27] VITALS (8 sets, daily range): BP systolic 109–165; BP diastolic 65–104; PULSE 68–82; O2SAT 97
[2023-11-27] MEDS: NSS 1000 IV ×3 (01:14→23:09)
--- NOTE | 2023-11-27 07:43 | CM ---
Late note; Patient seen in ED with physician and resident afternoon of 11/26/23. Patient daughter Anya was present. Patient lives with sweta and her in a 3 story home. [place] in [place] after being found down by family.
Patient has had [facility] in the recent past but it was recently ended. Patient has a walker at home. Patient does not have PCP at this time. Patient uses the [facility] in [place] for pharmacy needs. Patient plan is for return to home with
family support and possible VN from [facility]. CM will continue to follow for discharge planning needs.
Plan; home with family; referral to [facility] if needed.
--- NOTE | 2023-11-27 08:20 | PTOTSP ---
Speech Language Pathology
Pt seen for cognitive-linguistic evaluation. Pt reported increased confusion since recent fall, and neurology suspecting postconcussive syndrome. Evaluated via the Short Blessed Test (SBT). Pt with a score of 18, indicative of moderate
impairment.
Pt also seen for clinical bedside swallow evaluation. P.O. trials of puree, regular solids, and thin liquids provided. Adequate mastication, bolus formation, and A-P transit noted with no oral residue. No overt signs of aspiration.
Recommend:
(1) Regular solids/thin liquids
(2) General aspiration precautions
(3) Meds as tolerated
(4) [facility] to follow for cognitive-linguistic tx. Further dysphagia services not indicated.
--- NOTE | 2023-11-27 08:30 | W.PN.HOSP.TC ---
Addendum entered and electronically signed by Carmencita Kwong MD 11/27/23 17:03:
I saw and evaluated the patient independently. I reviewed the resident�s note and agree with findings and plan as documented by Dr. Oliver.
GENERAL: well developed, well nourished, female in no apparent distress
HEENT: NC--bruising (ecchymosis) with varying shades of color (healing) on right forehead, eye, face
HEART: regular rate and rhythm, +S1, +S2
LUNGS : clear to auscultation bilaterally
ABDOM: soft, nontender, nondistended, + bowel sounds
EXT: no cyanosis, clubbing, or edema--bruising on right knee cap
NEUROLOGIC: grossly intact--able to lift both legs off the stretcher independently--perhaps mild cognitive issues
global weakness with possible failure to thrive--daughter noticed after pt started on new medication (Keppra) from [place]--does not seem depressed, no recent vaccinations, no signs of infection, no signs of stroke (head CT neg), could be from
Keppra?--apprec PT/OT/speech, recommending SNF--TSH, iron studies, B12, folate all WNL--apprec neuro, EEG pending--need records from [place]--stop IVF
fall at home--unclear if syncope, seizure, cardiac etc--was worked up at [facility] --daughter reports ECHO, no cath?--troponins trended down, now trending up, consult cards--was started on Keppra for presumed seizures but don't know if something
was found on EEG...obtain records
Recent NSTEMI?--New T wave inversion in anterior leads on EKG compared to last one here BUT did have workup at [place] (EKG, ECHO)--obtain records--trend troponin--cards consult
Anemia of chronic disease--HGB baseline (11)-- No concern for acute blood loss-- iron, TIBC, ferritin, B12, folate level all WNL
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
Depression--Continue escitalopram, mirtazapine at bedtime--pt denies being depressed
Chronic nausea--Continue pantoprazole--Continue ondansetron as needed
Hx of colonic cancer s/p resection
DVT prophylaxis; Lovenox
CODE STATUS--DNR
Original Note:
Today's Communication/Plan
-
Regular diet
Records requested, pending
Assessment / Plan
Assessment / Plan
#New T wave inversion in anterior leads on EKG
#Troponin 0.028 on presentation
-Recently admitted at [facility] for fall and chest pain
-Workup including EKG, echo done at [facility]
-Trend troponin 0.028>>0.038>>0.035
-Medical records requested from [facility]
-Would hold off on cardiology consult at this time, pending records request, in addition patient denies chest pain at bedside.
#failure to thrive
#Global weakness
-S/p fall 11/15. Workup at [facility] including EEG indicative of new onset seizure
-Started on Keppra 500 mg at [facility], MIGHT possibly be contributing to weakness, fatigue
-CT scan head 11/26/2023 withOUT acute intracranial abnormalities
-IV fluids
-Neurology consulted, input appreciated.Will need routine EEG
-Speech evaluated. Regular solids/thin liquids recommended. General aspiration precautions
-PT evaluated-will require short-term rehab on DC
-Bruising and pain on right knee s/p fall 11/15, evaluate with x-ray of right knee 11/26/2023 with no evidence of fracture or dislocation
-admission records requested from [facility]
# Anemia
-Hgb 11.9, baseline in this range. No concern for acute blood loss
-Normal iron, TIBC, ferritin levels
-On B12 supplementation
# History of TIA/CVA while she lived [place]
-Continue aspirin, statin
# Depression
-Continue escitalopram, mirtazapine at bedtime
# Chronic nausea
-Continue pantoprazole
-Continue ondansetron as needed
#Hx of colonic cancer s/p resection
DVT prophylaxis; Lovenox
CODE STATUS; DNR
Anticipated Discharge: 24 - 48 hours
Subjective/Interval History
-
Patient seen and examined at bedside. Patient without acute complaints. She denies chest pain, denies shortness of breath, denies palpitation
Objective Data
-
Labs:
Laboratory Results
11/27/23
06:00
WBC Pending
Hgb Pending
Hct Pending
Plt Count Pending
Sodium Pending
Potassium Pending
Chloride Pending
Carbon Dioxide Pending
BUN Pending
Creatinine Pending
Glucose Pending
Calcium Pending
Vital Signs:
Vital Signs
Temp Pulse Resp BP Pulse Ox
97.8 F 69 18 109/75 95
11/27/23 03:00 11/27/23 03:00 11/27/23 03:00 11/27/23 03:00 11/27/23 03:00
I&O
11/26/23 11/27/23 11/28/23
06:59 06:59 06:59
Intake Total 1000 / 1000
Balance 1000 / 1000
Review of Systems
-
All other systems: Reviewed and negative (Except as documented)
Physical Exam
-
General: No Apparent Distress
Respiratory: Clear to Auscultation
Cardiac: S1/S2
GI: Soft, Nontender, Nondistended and Normal Bowel Sounds
Musculoskeletal: No Edema
Neuro: Awake, Alert, Oriented and AO x 3
Psych: Calm
[2023-11-27] MEDS: TOPROL XL 25 MG PO (08:43)
[2023-11-27] MEDS: VITAMIN B-12 1000 MCG PO (08:43)
[2023-11-27] MEDS: LEXAPRO 5 MG PO (08:43)
[2023-11-27] MEDS: ZOFRAN ODT (ORALLY DISINTEGRATING) 4 MG PO (08:44)
[2023-11-27] MEDS: ASPIR LOW (ENTERIC COATED) 81 MG PO (08:44)
[2023-11-27] MEDS: KEPPRA 500 MG PO ×2 (08:44→20:04)
[2023-11-27] MEDS: PROTONIX 40 MG PO (08:44)
[2023-11-27] MEDS: MIRALAX 17 GRAMS PO (08:44)
[2023-11-27 09:08] LABS: Hematocrit 39.1 % (37.0-47.0); Hemoglobin 12.5 g/dL (12.0-16.0); Mean Corpuscular Hgb 28.6 pg (27.0-31.0); Mean Corpuscular Volume 89.5 fL (81.0-99.0); Mean Platelet Volume 9.3 fL (7.4-10.4); Platelet Count 297 10^3/uL (130-400); Red Blood Cell Count 4.37 10^6/uL (4.20-5.40); Red Cell Dist. Width 14.6 % (11.5-14.5); White Blood Cell Count 7.9 10^3/uL (4.8-10.8)
[2023-11-27 09:33] LABS: Troponin I 0.036 ng/ml
--- NOTE | 2023-11-27 09:51 | W.PN.NEURO.1 ---
Today's Communication / Plan
-
.
Subjective/Objective
Subjective Data
Date of Service: November 27, 2023
24 h events: hypertensive to 165/75 in AM, afebrile. Ms. Barragan reports no complaints.
PMH: dementia, history of a stroke 50 years ago, history of colon cancer, dysphagia, GERD, MDD, DLP, ambulatory dysfunction, BPPV, Diaphragmatic hernia, vitamin B12 deficiency
PSH: partial colectomy
All: NKDA
ROS:Constitutional: Negative. Negative for chills, fever and unexpected weight change.
HENT: Positive for dizziness
Eyes: Negative. Negative for photophobia, pain and visual disturbance.
Respiratory: Negative for cough, choking and shortness of breath.
Cardiovascular: Negative for chest pain, palpitations and leg swelling.
Gastrointestinal: Negative for abdominal pain and vomiting.
Endocrine: Negative. Negative for cold intolerance.
Genitourinary: Negative for dysuria, flank pain and urgency.
Musculoskeletal: Negative for back pain, gait problem, neck pain and neck stiffness.
Skin: Positive for intermittent chemo-induced
Allergic/Immunologic: Negative. Negative for immunocompromised state.
Neurological: positive for forgetfulness
Psychiatric/Behavioral: Negative for behavioral problems, confusion and hallucinations.
General: Well developed. In no acute distress.
Skin: extenssive periorbital in the right frontal ecchymoses
Cardio: Regular rate and rhythm without murmur. Extremities are without cyanosis or edema.
Neuro:
Mental Status: Alert, oriented to self, '[place]' Follows simple requests. Comprehension is preserved.
Cranial Nerves: Pupils are equally round and reactive to light. EOMs full. Visual verduzco full to confrontation. No ptosis. No nystagmus. V1-V3 intact to light touch and pinprick bilaterally, symmetric. Face symmetric. Normal hearing AU. The
palate elevated well. SCMs and traps 5/5. Tongue midline. No dysarthria.
Motor: Normal bulk and tone. No pronator or arm drift. Strength 5/5 throughout. No clonus.
Coordination: No dysmetria or tremor.
Gait: deferred
Assessment and Plan:
I.Postconcussion syndrome
II. Ambulatory dysfunction
III. Chronic encephalopathy
-Fall precautions
-Please obtain medical records from [facility]
-PT
-Continue thiamine 100 mg once a day
-Meclizine 25 mg every 8 hours as needed
-Routine EEG
-Will follow
I personally reviewed all radiology and labs along with past medical records pertinent to current medical problems. Total time spent in patient care is 36 minutes.
Thank you for allowing us to participate in the care of this patient. We will continue to follow. Please do not hesitate to contact us with any questions or concerns.
Objective Data
Vital Signs
Temp Pulse Resp BP Pulse Ox
36.6 C 97 18 165/72 95
11/27/23 07:00 11/27/23 07:00 11/27/23 07:00 11/27/23 07:00 11/27/23 07:00
Lab Results
11/27/23 08:45
Sodium 145 mmol/L (135-145) 11/26/23 10:30
Potassium 4.5 mmol/L (3.5-5.1) 11/26/23 10:30
BUN 27 mg/dl (7-17) H 11/26/23 10:30
Glucose 74 mg/dl (70-99) 11/26/23 10:30
Calcium 9.6 mg/dl (8.4-10.2) 11/26/23 10:30
Vitamin B12 > 1000 pg/ml (239-931) H 11/26/23 10:30
Patient Allergies
No Known Drug Allergies Allergy (Verified 11/26/23 09:15)
Unknown
Vital Signs and Labs
-
Vital Signs and Labs:
Vital Signs
Temp Pulse Resp BP Pulse Ox
36.6 C 97 18 165/72 95
11/27/23 07:00 11/27/23 07:00 11/27/23 07:00 11/27/23 07:00 11/27/23 07:00
Lab Results
11/27/23 08:45
Sodium 145 mmol/L (135-145) 11/26/23 10:30
Potassium 4.5 mmol/L (3.5-5.1) 11/26/23 10:30
BUN 27 mg/dl (7-17) H 11/26/23 10:30
Glucose 74 mg/dl (70-99) 11/26/23 10:30
Calcium 9.6 mg/dl (8.4-10.2) 11/26/23 10:30
Vitamin B12 > 1000 pg/ml (239-931) H 11/26/23 10:30
Medications
-
Medications:
Generic Name Dose Route Start Last Admin
Trade Name Freq PRN Reason Stop Dose Admin
Acetaminophen 650 mg 11/26/23 18:31
Acetaminophen 325 Mg Tablet PO 12/24/23 18:30
Q4HPRN PRN
mild pain/COLE/temp> 100.4F
Artificial Tears 1 drops 11/26/23 19:00
Artificial Tears Pf (Refresh) 10 Drop [place] BOTH EYES 12/24/23 18:59
BIDPRN PRN
dryness
Aspirin 81 mg 11/27/23 08:00 11/27/23 08:44
Aspirin 81 Mg (Enteric Coated) Tablet PO 12/25/23 07:59 81 mg
DAILY AVA Administration
Atorvastatin Calcium 40 mg 11/26/23 19:00 11/26/23 22:27
Atorvastatin (Lipitor) 40 Mg Tablet PO 12/24/23 18:59 40 mg
QPM AVA Administration
Bisacodyl 10 mg 11/26/23 18:31
Bisacodyl 10 Mg Rectal Suppository RECTAL 12/24/23 18:30
[id number] PRN
constipation
Cyanocobalamin 1,000 mcg 11/27/23 08:00 11/27/23 08:43
Cyanocobalamin 1,000 Mcg Tablet PO 12/25/23 07:59 1,000 mcg
DAILY AVA Administration
Enoxaparin Sodium 40 mg 11/26/23 20:00 11/26/23 22:27
Enoxaparin Sodium 40 Mg/0.4 Ml Syringe SC 12/24/23 19:59 40 mg
QPM AVA Administration
Escitalopram Oxalate 5 mg 11/27/23 08:00 11/27/23 08:43
Escitalopram 5 Mg Tablet PO 12/25/23 07:59 5 mg
DAILY AVA Administration
Sodium Chloride 1,000 mls @ 100 mls/hr 11/26/23 23:45 11/27/23 08:46
Nss IV 1,000 mls
.Q10H AVA Administration
Levetiracetam 500 mg 11/26/23 20:00 11/27/23 08:44
Levetiracetam 500 Mg Regular Release Tablet PO 12/24/23 19:59 500 mg
BID AVA Administration
Metoprolol Succinate 25 mg 11/27/23 08:00 11/27/23 08:43
Metoprolol 25 Mg Extended Release Tablet PO 12/25/23 07:59 25 mg
DAILY AVA Administration
Mirtazapine 7.5 mg 11/26/23 22:00 11/26/23 22:27
Mirtazapine 7.5 Mg Regular Release Tablet PO 12/24/23 21:59 7.5 mg
HS AVA Administration
Magnesium Hydroxide 1,200 mg 11/27/23 08:00
1,200 Mg Tablet, PO 12/25/23 07:59
Chewable DAILY AVA
Ondansetron HCl 4 mg 11/27/23 08:00 11/27/23 08:44
Ondansetron 4 Mg (Orally-Disintegrating) Tablet PO 12/25/23 07:59 4 mg
DAILY AVA Administration
Pantoprazole Sodium 40 mg 11/27/23 08:00 11/27/23 08:44
Pantoprazole 40 Mg Delayed Release Tablet PO 12/25/23 07:59 40 mg
DAILY AVA Administration
Polyethylene Glycol 17 grams 11/27/23 08:00 11/27/23 08:44
Polyethylene Glycol Powder 17 Grams Packet PO 12/25/23 07:59 17 grams
DAILY AVA Administration
Senna/Docusate Sodium 1 tablet 11/26/23 18:31
Docusate W/Senna (Paulina-Colace) Tablet PO 12/24/23 18:30
BIDPRN PRN
constipation
Home Medications
-
Home Medications
pantoprazole 40 mg tablet,delayed release 40 mg PO DAILY Gastrointestinal Issue 07/31/23
cyanocobalamin (vitamin B-12) 1,000 mcg tablet 1,000 mcg PO DAILY #0 tabs 08/07/23
acetaminophen 325 mg tablet 650 mg PO BIDPRN PRN mild pain 08/23/23
carboxymethylcellulose 0.5 %-glycerin 0.9 % eye drops (Refresh Optive) 1 drp BOTH EYES BIDPRN PRN dryness ##0 08/23/23
cranberry extract 250 mg tablet 250 mg PO DAILY Supplement ##0 08/23/23
ondansetron 4 mg disintegrating tablet 4 mg PO DAILY 08/23/23
aspirin 81 mg tablet,delayed release 81 mg PO DAILY #0 tabs 09/05/23
mirtazapine 7.5 mg tablet 7.5 mg PO HS #0 tabs 09/05/23
polyethylene glycol 3350 17 gram oral powder packet (HealthyLax) 17 g PO DAILY #0 ea 09/05/23
atorvastatin 40 mg tablet (Lipitor) 40 mg PO QPM 11/26/23
escitalopram oxalate 5 mg tablet 5 mg PO DAILY 11/26/23
levetiracetam 500 mg tablet (Keppra) 500 mg PO BID 11/26/23
magnesium hydroxide 1,200 mg chewable tablet 1,200 mg PO DAILY 11/26/23
metoprolol succinate 25 mg tablet,extended release 24 hr (Toprol XL) 25 mg PO DAILY 11/26/23
sennosides 8.6 mg-docusate sodium 50 mg tablet (Stool Softener-Laxative) 1 tab PO BIDPRN PRN constipation 11/26/23
[2023-11-27 10:34] LABS: Blood Urea Nitrogen 21 mg/dl (7-17); Calcium 9.1 mg/dl (8.4-10.2); Carbon Dioxide 18 mmol/L (22-30); Chloride 111 mmol/L (98-107); Estimated Creatinine Clearance 41 ml/min; Glucose 53 mg/dl (70-99); Potassium 4.3 mmol/L (3.5-5.1); Sodium 144 mmol/L (135-145); eGFR > 60.00
[2023-11-27 10:40] LABS: Glucose - Point of Care 64 mg/dl (70-99)
[2023-11-27 11:56] LABS: Troponin I 0.047 ng/ml
[2023-11-27 12:42] LABS: Glucose - Point of Care 131 mg/dl (70-99)
--- NOTE | 2023-11-27 13:39 | CM ---
Patient seen at bedside with physician, resident and patient daughter. Plan is for medical records to be requested from [facility] and PT/OT assessment. Patient asked for [facility] for home care, Liaison made aware of request. CM will continue to follow
for discharge planning needs.
Plan; home with family and [facility] pending assessment
--- NOTE | 2023-11-27 14:05 | VNURNOTE ---
Called daughter Deana to explain VN services. Daughter stated she cannot take care of pt at home and plans on her being DC'ed to a rehab. Daughter had to end phone call abruptly d/t work. WILLIAN Rose notified.
[2023-11-27] MEDS: LOVENOX 40 MG SC (16:32)
[2023-11-27] MEDS: LIPITOR 40 MG PO (16:33)
[2023-11-27 22:05] LABS: Troponin I 0.044 ng/ml
[2023-11-27] MEDS: REMERON PO (22:18)
[2023-11-28 00:30] VITALS: BP 140/84
[2023-11-28 03:40] LABS: Troponin I 0.039 ng/ml
[2023-11-28 07:35] VITALS: BP 140/80
--- NOTE | 2023-11-28 08:28 | W.PN.HOSP.TC ---
Addendum entered and electronically signed by Carmencita Kwong MD 11/28/23 20:22:
I saw and evaluated the patient independently. I reviewed the resident�s note and agree with findings and plan as documented by Dr. Oliver.
GENERAL: well developed, well nourished, female in no apparent distress
HEENT: NC--bruising (ecchymosis) with varying shades of color (healing) on right forehead, eye, face
HEART: regular rate and rhythm, +S1, +S2
LUNGS : clear to auscultation bilaterally
ABDOM: soft, nontender, nondistended, + bowel sounds
EXT: no cyanosis, clubbing, or edema--bruising on right knee cap
NEUROLOGIC: grossly intact--able to lift both legs off the stretcher independently--perhaps mild cognitive issues
global weakness with possible failure to thrive--daughter noticed after pt started on new medication (Keppra) from [facility]--does not seem depressed, no recent vaccinations, no signs of infection, no signs of stroke (head CT neg), could be from
Keppra?--apprec PT/OT/speech, recommending SNF--TSH, iron studies, B12, folate all WNL--apprec neuro, EEG without seizure activity--obtained records from [facility] will review
fall at home--unclear if syncope, seizure, cardiac etc--was worked up at [facility] --daughter reports ECHO, no cath?--troponins trended down, now trending up, apprec cards, ECHO with preserved EF and moderate to severe tricuspid regurg--was started
on Keppra for presumed seizures but don't know if something was found on EEG...will review records
Recent NSTEMI?--New T wave inversion in anterior leads on EKG compared to last one here BUT did have workup at [facility] (EKG, ECHO)--apprec cards, no need for further checks of troponin
Anemia of chronic disease--HGB baseline (11)-- No concern for acute blood loss-- iron, TIBC, ferritin, B12, folate level all WNL
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
Depression--Continue escitalopram, mirtazapine at bedtime--pt denies being depressed
Chronic nausea--Continue pantoprazole--Continue ondansetron as needed
Hx of colonic cancer s/p resection
DVT prophylaxis; Lovenox
CODE STATUS--DNR
Original Note:
Today's Communication/Plan
-
.
Assessment / Plan
Assessment / Plan
#Abnormal Troponin
-Recently admitted at [facility] for fall and chest pain
-Workup including EKG, echo done at [facility].
-Trend troponin 0.028>>0.038>>0.035, peaked at 0.047, now trending down
-Cardiology input appreciated. Will continue on aspirin, statin, beta-blockers
-Echocardiogram 11/28/2023 with LVEF 55 to 60%. Moderate to severe tricuspid regurgitation
On review of medical records, she did have NSTEMI at [facility] 2 weeks ago. Her troponin levels were elevated before they began to trend down. cardiology opted for medical management of NSTEMI
#failure to thrive
#Global weakness
-S/p fall 11/15. Workup at [facility] including EEG indicative of new onset seizure
-Started on Keppra 500 mg at [facility], MIGHT possibly be contributing to weakness, fatigue
-CT scan head 11/26/2023 withOUT acute intracranial abnormalities
-Neurology consulted, input appreciated.continue Keppra
-EEG 11/28/2023 No epileptiform features were demonstrated.
-Speech evaluated. Regular solids/thin liquids recommended. General aspiration precautions
-PT evaluated-will require short-term rehab on DC
-Bruising and pain on right knee s/p fall 11/15, evaluate with x-ray of right knee 11/26/2023 with no evidence of fracture or dislocation
# Anemia
-Hgb 11.9, baseline in this range. No concern for acute blood loss
-Normal iron, TIBC, ferritin levels
-On B12 supplementation
# History of TIA/CVA [place] she lived [place]
-Continue aspirin, statin
# Depression
-Continue escitalopram, mirtazapine at bedtime
# Chronic nausea
-Continue pantoprazole
-Continue ondansetron as needed
#Stage 1 buttock pressure injury, POA.
Continue Barrier ointment
#Hx of colonic cancer s/p resection
DVT prophylaxis; Lovenox
CODE STATUS; DNR
Medical records received from [facility]
Anticipated Discharge: Within 24 hours
Subjective/Interval History
-
Patient seen and examined at bedside. Patient without complaints. She denies shortness of breath, she denies chest pain
Objective Data
-
Labs:
Laboratory Results
11/28/23
06:00
WBC Pending
Hgb Pending
Hct Pending
Plt Count Pending
Sodium Pending
Potassium Pending
Chloride Pending
Carbon Dioxide Pending
BUN Pending
Creatinine Pending
Glucose Pending
Calcium Pending
Vital Signs:
Vital Signs
Temp Pulse Resp BP Pulse Ox
97.7 F 63 14 140/80 95
11/28/23 07:35 11/28/23 07:35 11/28/23 07:35 11/28/23 07:35 11/28/23 07:35
I&O
11/27/23 11/28/23 11/29/23
06:59 06:59 06:59
Intake Total 1000 / 1000 1919
Balance 1000 / 1000 1919
Review of Systems
-
All other systems: Reviewed and negative (Except as documented)
Physical Exam
-
General: No Apparent Distress
Respiratory: Clear to Auscultation
Cardiac: S1/S2
--- NOTE | 2023-11-28 09:13 | PN.CDI ---
CDI
- -
CDI:
Physician Documentation Request
Admit Date: 11/26/23 16:20
Dear Doctor Benito,
Patient admitted with global weakness.
11/26 Nursing skin assessment, 'Stage 1 buttock pressure injury, POA.'
Physician documentation of the type and location of wounds is required for compliant documentation. Based on the above clinical findings and your assessment, please provide the following in your progress note:
Type (etiology) of ulcer/wound:
- Pressure (decubitus) ulcer
- Other
- Unable to determine
For a pressure ulcer, please also include the stage* of the ulcer:
- Stage 1 - Skin intact, non-blanchable redness
- Stage 2 - Partial thickness loss of dermis, includes intact or open blister
- Stage 3 - Full thickness tissue not including bone, tendon or muscle
- Stage 4 - Full thickness tissue loss, including exposed bone, tendon or muscle
- Unstageable - Full thickness loss in which the base of the ulcer is covered by slough (yellow, hurtado, cox, green or brown) and/or eschar (hurtado, brown or black) in the wound bed.
- Unable to determine
Use of terms such as suspected, likely, concern for, or probable (associated with a specific diagnosis that is being evaluated, monitored, or treated as if it exists) are acceptable and can be coded in the inpatient setting, when documented at the
time of discharge.
Thank you,
Kellee STEPHENS,RN,CCDS
CDI Specialist
Available via [place] text
Please use your independent medical judgment in providing your response.
*Source: National Pressure Ulcer Advisory Panel (NPUAP)
--- NOTE | 2023-11-28 09:17 | CM ---
Patient daughter requested referrals to [facility], [facility] and [facility]. Patient first choice is [facility] per daughter Deana. CM will continue to follow for discharge planning needs.
Plan; SNF
--- NOTE | 2023-11-28 09:24 | CON.CAR ---
Addendum entered and electronically signed by Sean Olmos MD (Ellie) 11/28/23 12:37:
I saw and examined the patient.
The CONTRIBUTION SOLICITOR's note was reviewed and I agree with the note.
Comment: 88 y/o female with history of TIA/CVA, hypertension, depression, GERD, dyslipidemia, colon cancer with hx surgery who presented here with global weakness. Cardiology is consulted for abnormal troponin. Patient had a recent hospitalization
at [facility] after being found down in her home. She suffered facial trauma and was found to have a subdural hematoma. During that admission, she was also diagnosed with pneumonia and NSTEMI which was medically managed. Echocardiogram revealed
a moderately reduced ejection fraction (35 to 40%) with hypokinesis of the anterior and anteroseptal baltazar, moderate tricuspid regurgitation, and mild mitral regurgitation. She was discharged home from that hospitalization but continued to feel
unwell so presented to us. She tells me that she does not have any memory of the episode prior to [facility] admission. She has never had an episode like that before. 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 She denies chest pain, shortness of
breath, lightheadedness, dizziness, palpitations, leg swelling, presyncope, or syncope. On exam she is a pleasant woman who appears her stated age. Cardiovascular exam reveals regular rate and rhythm, 3/6 systolic murmur, no lower extremity edema,
and clear lungs. JVP is unable to be visualized due to body habitus. Labs are notable for troponin 0.036 -> 0.047 -> 0.039. ECG from 11/25 shows normal sinus rhythm with PACs and T wave inversions across the precordium. Echocardiogram here shows
normal LV systolic function with mildly thickened baltazar and indeterminate diastolic function, moderate biatrial enlargement, mild to moderate aortic regurgitation, moderate mitral regurgitation, moderate to severe tricuspid regurgitation, and mildly
elevated PASP (43 mmHg).
In summary this is an 88-year-old female with a history of stroke, hypertension, and unclear cardiovascular history (no vending technician) who presents with failure to thrive. The cause of her mildly abnormal troponin is not clear. Her presentation is
not consistent with ACS, heart failure exacerbation, or myocarditis. She does not have an KHAI. She did reportedly have an NSTEMI at [facility] 2 weeks ago, so we may be seeing persistently elevated troponin from that event. Her troponins are
very low level and have been stable on multiple checks, so we can stop trending. Please repeat troponins and ECG if patient develops chest pain or acute shortness of breath. She should be continued on aspirin, statin, and beta-jeni for her
recent NSTEMI and should have an ischemic evaluation as an outpatient. Echocardiogram here is consistent with heart failure with preserved ejection fraction. It is much improved from the reported at [facility] which notes moderately reduced
ejection fraction and wall motion abnormalities. She examines euvolemic so does not need diuresis at this time. We should consider starting an SGLT2 inhibitor on discharge or as an outpatient. Lastly, for her likely syncopal event with facial
trauma prior to admission to [facility], she should have a 2-week monitor on discharge to ensure no arrhythmias and should be monitored on telemetry during hospitalization. We will arrange follow-up for her on discharge.
Original Note:
Consultation
Consultation Request
Date/Time Consultation Requested: 11/27/231843
Date/Time Consultation Performed: 11/28/23919
Requesting Provider: Dr. Olvier
Performing Provider: Chiara NICOLE for Dr. Olmos
Reason for Consultation: abnormal troponin
Medical History
-
Chief Complaint: weakness, confusion
History of Present Illness:
88 y/o female with history of TIA/CVA, hypertension, depression, GERD, dyslipidemia, colon cancer with hx surgery. There are also reports of dementia. She was recently hospitalized at [facility] after she was found down. She had facial trauma. She
was also noted to be hypoxic and was diagnosed with pneumonia, which was treated with antibiotics. MRI showed small subdural hematoma. EEG was positive and she was started on Keppra. During that hospitalization she was seen by cardiology due to
abnormal troponins and echo with reduced EF (details of this are not known and will be requested). On d/c summary from [facility], this was labels as NSTEMI. Medical management was recommended per chart. She has upcoming new patient appointment with
Dr. Franks. She recently relocated from [place]. I have limited records from [facility] as summarized, but will place them in chart. She is here for weakness. We are consulted for abnormal troponin. She denies any CP, but per family and chart she did
report some chest pain, which per hospitalist note was reproducible for past 3 weeks. She denies this. She is oriented, but forgetful. She denies SOB or dizziness. She reportedly has had cough. I see that hypoglycemia was noted on arrival.
Past Medical History
Past Medical History: Cancer, CVA, GERD, HTN, Hypercholesterolemia and Psychiatric (depression)
Social History
Tobacco: Non-Smoker
Living: With Family
Family History
Family History: Reviewed & Not Pertinent
Allergies / Home Medications
Allergy/AdvReac Type Severity Reaction Status Date / Time
No Known Drug Allergies Allergy Unknown Verified 11/26/23 09:15
�Medication �Instructions �Recorded �Confirmed �Type
pantoprazole 40 mg tablet,delayed 40 mg PO DAILY Gastrointestinal 07/31/23 11/26/23 History
release Issue
cyanocobalamin (vitamin B-12) 1,000 mcg PO DAILY #0 tabs 08/07/23 11/26/23 Rx
1,000 mcg tablet
acetaminophen 325 mg tablet 650 mg PO BIDPRN PRN mild pain 08/23/23 11/26/23 History
carboxymethylcellulose 0.5 1 drp BOTH EYES BIDPRN PRN dryness 08/23/23 11/26/23 History
%-glycerin 0.9 % eye drops ##0
(Refresh Optive)
cranberry extract 250 mg tablet 250 mg PO DAILY Supplement ##0 08/23/23 11/26/23 History
ondansetron 4 mg disintegrating 4 mg PO DAILY 08/23/23 11/26/23 History
tablet
aspirin 81 mg tablet,delayed 81 mg PO DAILY #0 tabs 09/05/23 11/26/23 Rx
release
mirtazapine 7.5 mg tablet 7.5 mg PO HS #0 tabs 09/05/23 11/26/23 Rx
polyethylene glycol 3350 17 gram 17 g PO DAILY #0 ea 09/05/23 11/26/23 Rx
oral powder packet (HealthyLax)
atorvastatin 40 mg tablet (Lipitor) 40 mg PO QPM 11/26/23 11/26/23 History
escitalopram oxalate 5 mg tablet 5 mg PO DAILY 11/26/23 11/26/23 History
levetiracetam 500 mg tablet 500 mg PO BID 11/26/23 11/26/23 History
(Keppra)
magnesium hydroxide 1,200 mg 1,200 mg PO DAILY 11/26/23 11/26/23 History
chewable tablet
metoprolol succinate 25 mg 25 mg PO DAILY 11/26/23 11/26/23 History
tablet,extended release 24 hr
(Toprol XL)
sennosides 8.6 mg-docusate sodium 1 tab PO BIDPRN PRN constipation 11/26/23 11/26/23 History
50 mg tablet (Stool
Softener-Laxative)
Review of Systems
-
Unable to obtain full review of systems at this time due to: Dementia
History Source: Patient, Family and Other (and chart)
Constitutional: Other (weakness and confusion)
Respiratory: Cough
Cardiac: Chest Pain (details as noted, but patiet denies)
Physical Exam
Vital Signs
Temp Pulse Resp BP Pulse Ox
97.7 F 63 14 140/80 95
11/28/23 07:35 11/28/23 07:35 11/28/23 07:35 11/28/23 07:35 11/28/23 07:35
Lab Results
Troponin I 0.039 ng/ml H* 11/28/23 02:37
Physical Exam
General: Well Developed, Well Nourished and No Apparent Distress
HEENT: Normocephalic and Anicteric
Respiratory: Clear and Non Labored Respirations
Cardiac: Regular Rhythm
Skin: Other (ecchymosis to face)
Neuro: Awake, Alert and Oriented (but forgertful)
Psych: Calm
Impression / Plan
-
Confusion, weakness:
-concern for failure to thrive per hospitalists. Also on new medications including Keppra.
-PT/OT seeing patient- rehab recommended
-neuro following and reporting post-concussion syndrome. Also some reports of baseline dementia.
-she also recently was hospitalized with multiple issues as noted in detail
-head CT with no acute abnormalities
-on tele in [place]
Abnormal troponin:
-peaked at 0.047
-denies CP
-EKG with anterior T wave abnormalities, but no recent EKG present from [facility] to compare- records requested.
-reasoning for abnormal troponin unknown, but does not appear to be ACS
-of note, the recent minimal records I have from [facility] suggest she had an NSTEMI, which is being medically managed- on ASA, statin, and BB- continue
-echo ordered here and previous requested
HTN:
-stable
-continue metoprolol and monitor
Hx CVA:
-on ASA, statin, and BB
-head CT negative
Data Reviewed
-
EKG: Tracing Personally Visualized and interpreted (SR at 66 BPM, PAC's, anterior T wave abnormality)
CT Scan: Report Reviewed by me (head CT: No acute intracranial abnormality.)
Labs: Labs Reviewed by me
Old Records: Reviewed (d/c summary from [facility] 11/19/23- summarized above)
--- NOTE | 2023-11-28 10:12 | EEG.RPT ---
Electroencephalogram Report
Recording
Date of EE11/28/23
Type of EEG: Routine
Length of EEG recordin minutes
Done with Video Recording: Yes
Patient Status: Inpatient
Recording Conditions: Awake and Drowsy
Hyperventilation Performed: No
Photic Stimulation Performed: Yes
Report
LESS THAN 1 HOUR EEG REPORT
LESS THAN 1 HOUR EEG INTERPRETATION:
Minimally-mildly abnormal study for age based on generalized slowing demonstrated bihemispherically equally
CLINICAL CORRELATION:
Although normative values not been established for a person of this advanced age the patient�s symmetry of the background suggests that this study was suggestive of mild bihemispheric cortical dysfunction. No epileptiform features were demonstrated.
If concerns remain regarding epilepsy, prolonged monitoring may be of assistance.
Clinical correlation is advised.
METHODS:
A 21-channel digital electroencephalogram (EEG) was performed in the [facility]. The 10/20 international system of electrode placement was used with ECG and lateral/vertical eye movements recorded. [employer] system
quantitative analysis was performed.
IMPRESSION(S):
Quality of study
Fair, with muscle artifact frequently
Background
Expected amplitude
Anterior-posterior voltage gradient differentiation: Fair
Alpha frequency maximal background demonstrated, typically theta
Sleep
Drowsiness present
Hyperventilation
Not performed
Photic Stimulation
Failed to activate the record
ECG
Normal rhythm
--- NOTE | 2023-11-28 10:57 | W.PN.NEURO.1 ---
Today's Communication / Plan
-
.
Subjective/Objective
Subjective Data
Date of Service: November 28, 2023.
Neurology Progress Note
Ms. Barragan reports no complaints. Her daughter is at the bed side.
The patient was able to ambulate with PT. Retropulsion was noted.
Routine EEG(11/28/2023)-mild bihemispheric cortical dysfunction. No epileptiform discharges.
PMH: ambulatory dysfunction, dementia, history of a stroke 50 years ago, history of colon cancer, dysphagia, GERD, MDD, DLP, BPPV, Diaphragmatic hernia, vitamin B12 deficiency
PSH: partial colectomy
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
All: NKDA
ROS:Constitutional: Negative. Negative for chills, fever and unexpected weight change.
HENT: Positive for dizziness
Eyes: Negative. Negative for photophobia, pain and visual disturbance.
Respiratory: Negative for cough, choking and shortness of breath.
Cardiovascular: Negative for chest pain, palpitations and leg swelling.
Gastrointestinal: Negative for abdominal pain and vomiting.
Endocrine: Negative. Negative for cold intolerance.
Genitourinary: Negative for dysuria, flank pain and urgency.
Musculoskeletal: Negative for back pain, gait problem, neck pain and neck stiffness.
Skin: Positive for intermittent chemo-induced
Allergic/Immunologic: Negative. Negative for immunocompromised state.
Neurological: positive for forgetfulness, imbalance
Psychiatric/Behavioral: positive for anxiety
General: Well developed. In no acute distress.
Skin: extensive periorbital in the right frontal ecchymoses
Cardio: Regular rate and rhythm without murmur. Extremities are without cyanosis or edema.
Neuro:
Mental Status: Alert, oriented to self, 'Mobile' Follows simple requests. Comprehension is preserved.
Cranial Nerves: Pupils are equally round and reactive to light. EOMs full. Visual verduzco full to confrontation. No ptosis. No nystagmus. V1-V3 intact to light touch and pinprick bilaterally, symmetric. Face symmetric. Normal hearing AU. The
palate elevated well. SCMs and traps 5/5. Tongue midline. No dysarthria.
Motor: Normal bulk and tone. No pronator or arm drift. Strength 5/5 throughout. No clonus.
Coordination: No dysmetria or tremor.
Gait: deferred
Assessment and Plan:
I.Postconcussion syndrome
II. 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
III. Chronic encephalopathy
-Fall precautions
-Please obtain medical records from [facility]
-Continue thiamine 100 mg once a day
-Meclizine 25 mg every 8 hours as needed
-Continue Keppra 500 mg BID
-OP neurology follow up in 2-3 weeks.
I personally reviewed all radiology and labs along with past medical records pertinent to current medical problems. Total time spent in patient care is 36 minutes.
Thank you for allowing us to participate in the care of this patient. Please do not hesitate to contact us with any questions or concerns.
Objective Data
Vital Signs
Temp Pulse Resp BP Pulse Ox
36.5 C 63 14 140/80 95
11/28/23 07:35 11/28/23 07:35 11/28/23 07:35 11/28/23 07:35 11/28/23 07:35
Sodium 144 mmol/L (135-145) 11/27/23 08:45
Potassium 4.3 mmol/L (3.5-5.1) 11/27/23 08:45
BUN 21 mg/dl (7-17) H 11/27/23 08:45
Glucose 53 mg/dl (70-99) L* 11/27/23 08:45
Calcium 9.1 mg/dl (8.4-10.2) 11/27/23 08:45
Vitamin B12 > 1000 pg/ml (239-931) H 11/26/23 10:30
Patient Allergies
No Known Drug Allergies Allergy (Verified 11/26/23 09:15)
Unknown
Vital Signs and Labs
-
Vital Signs and Labs:
Vital Signs
Temp Pulse Resp BP Pulse Ox
36.7 C 74 20 156/91 94
11/28/23 11:41 11/28/23 11:41 11/28/23 11:41 11/28/23 11:41 11/28/23 11:41
Sodium 144 mmol/L (135-145) 11/27/23 08:45
Potassium 4.3 mmol/L (3.5-5.1) 11/27/23 08:45
BUN 21 mg/dl (7-17) H 11/27/23 08:45
Glucose 53 mg/dl (70-99) L* 11/27/23 08:45
Calcium 9.1 mg/dl (8.4-10.2) 11/27/23 08:45
Vitamin B12 > 1000 pg/ml (498-982) H 11/26/23 10:30
Medications
-
Medications:
Generic Name Dose Route Start Last Admin
Trade Name Freq PRN Reason Stop Dose Admin
Acetaminophen 650 mg 11/26/23 18:31
Acetaminophen 325 Mg Tablet PO 12/24/23 18:30
Q4HPRN PRN
mild pain/COLE/temp> 100.4F
Artificial Tears 1 drops 11/26/23 19:00
Artificial Tears Pf (Refresh) 10 Drop Droperette BOTH EYES 12/24/23 18:59
BIDPRN PRN
dryness
Aspirin 81 mg 11/27/23 08:00 11/28/23 11:07
Aspirin 81 Mg (Enteric Coated) Tablet PO 12/25/23 07:59 81 mg
DAILY AVA Administration
Atorvastatin Calcium 40 mg 11/26/23 19:00 11/27/23 16:33
Atorvastatin (Lipitor) 40 Mg Tablet PO 12/24/23 18:59 40 mg
QPM AVA Administration
Bisacodyl 10 mg 11/26/23 18:31
Bisacodyl 10 Mg Rectal Suppository RECTAL 12/24/23 18:30
[id number] PRN
constipation
Cyanocobalamin 1,000 mcg 11/27/23 08:00 11/28/23 11:07
Cyanocobalamin 1,000 Mcg Tablet PO 12/25/23 07:59 1,000 mcg
DAILY AVA Administration
Enoxaparin Sodium 40 mg 11/26/23 20:00 11/27/23 16:32
Enoxaparin Sodium 40 Mg/0.4 Ml Syringe SC 12/24/23 19:59 40 mg
QPM AVA Administration
Escitalopram Oxalate 5 mg 11/27/23 08:00 11/28/23 11:07
Escitalopram 5 Mg Tablet PO 12/25/23 07:59 5 mg
DAILY AVA Administration
Levetiracetam 500 mg 11/26/23 20:00 11/28/23 11:07
Levetiracetam 500 Mg Regular Release Tablet PO 12/24/23 19:59 500 mg
BID AVA Administration
Metoprolol Succinate 25 mg 11/27/23 08:00 11/28/23 11:07
Metoprolol 25 Mg Extended Release Tablet PO 12/25/23 07:59 25 mg
DAILY AVA Administration
Mirtazapine 7.5 mg 11/26/23 22:00 11/27/23 22:18
Mirtazapine 7.5 Mg Regular Release Tablet PO 12/24/23 21:59 Not Given
HS AVA
Magnesium Hydroxide 1,200 mg 11/27/23 08:00
1,200 Mg Tablet, PO 12/25/23 07:59
Chewable DAILY AVA
Ondansetron HCl 4 mg 11/27/23 08:00 11/28/23 11:07
Ondansetron 4 Mg (Orally-Disintegrating) Tablet PO 12/25/23 07:59 4 mg
DAILY AVA Administration
Pantoprazole Sodium 40 mg 11/27/23 08:00 11/28/23 11:07
Pantoprazole 40 Mg Delayed Release Tablet PO 12/25/23 07:59 40 mg
DAILY AVA Administration
Polyethylene Glycol 17 grams 11/27/23 08:00 11/28/23 11:08
Polyethylene Glycol Powder 17 Grams Packet PO 12/25/23 07:59 17 grams
DAILY AVA Administration
Senna/Docusate Sodium 1 tablet 11/26/23 18:31
Docusate W/Senna (Paulina-Colace) Tablet PO 12/24/23 18:30
BIDPRN PRN
constipation
Home Medications
-
Home Medications
pantoprazole 40 mg tablet,delayed release 40 mg PO DAILY Gastrointestinal Issue 07/31/23
cyanocobalamin (vitamin B-12) 1,000 mcg tablet 1,000 mcg PO DAILY #0 tabs 08/07/23
acetaminophen 325 mg tablet 650 mg PO BIDPRN PRN mild pain 08/23/23
carboxymethylcellulose 0.5 %-glycerin 0.9 % eye drops (Refresh Optive) 1 drp BOTH EYES BIDPRN PRN dryness ##0 08/23/23
cranberry extract 250 mg tablet 250 mg PO DAILY Supplement ##0 08/23/23
ondansetron 4 mg disintegrating tablet 4 mg PO DAILY 08/23/23
aspirin 81 mg tablet,delayed release 81 mg PO DAILY #0 tabs 09/05/23
mirtazapine 7.5 mg tablet 7.5 mg PO HS #0 tabs 09/05/23
polyethylene glycol 3350 17 gram oral powder packet (HealthyLax) 17 g PO DAILY #0 ea 09/05/23
atorvastatin 40 mg tablet (Lipitor) 40 mg PO QPM 11/26/23
escitalopram oxalate 5 mg tablet 5 mg PO DAILY 11/26/23
levetiracetam 500 mg tablet (Keppra) 500 mg PO BID 11/26/23
magnesium hydroxide 1,200 mg chewable tablet 1,200 mg PO DAILY 11/26/23
metoprolol succinate 25 mg tablet,extended release 24 hr (Toprol XL) 25 mg PO DAILY 11/26/23
sennosides 8.6 mg-docusate sodium 50 mg tablet (Stool Softener-Laxative) 1 tab PO BIDPRN PRN constipation 11/26/23
[2023-11-28] MEDS: VITAMIN B-12 1000 MCG PO (11:07)
[2023-11-28] MEDS: TOPROL XL 25 MG PO (11:07)
[2023-11-28] MEDS: ZOFRAN ODT (ORALLY DISINTEGRATING) 4 MG PO (11:07)
[2023-11-28] MEDS: KEPPRA 500 MG PO ×2 (11:07→19:57)
[2023-11-28] MEDS: LEXAPRO 5 MG PO (11:07)
[2023-11-28] MEDS: PROTONIX 40 MG PO (11:07)
[2023-11-28] MEDS: ASPIR LOW (ENTERIC COATED) 81 MG PO (11:07)
[2023-11-28] MEDS: MIRALAX 17 GRAMS PO (11:08)
[2023-11-28 11:41] VITALS: BP 156/91
--- NOTE | 2023-11-28 12:58 | CM ---
Addendum entered by Rose López 11/28/23 16:27:
Please call report to [phone]/fax [phone] for call and report number to [facility] for transfer tomorrow via either ambulance or family pending functional status. CM will continue to follow for discharge planning needs.
Plan; transfer to [facility] tomorrow
Addendum entered by Rose López 11/28/23 14:26:
cost of Farxiga is 11.20$ and cost of Jardiance is 1.20$ per [facility] ID number is [id number].
Original Note:
Patient accepted by [facility] for transfer tomorrow pending physician assessment.Family and patient in aggreement. CM will continue to follow for discharge planning needs.
[2023-11-28 15:17] VITALS: BP 126/70
[2023-11-28] MEDS: SENOKOT-S 1 TABLET PO (16:38)
[2023-11-28] MEDS: LIPITOR 40 MG PO (16:38)
[2023-11-28] MEDS: LOVENOX 40 MG SC (16:38)
[2023-11-28] MEDS: NSS 1000 IV (16:40)
[2023-11-28 19:54] VITALS: BP 155/84
[2023-11-28] MEDS: REMERON 7.5 MG PO (19:57)
[2023-11-28 21:39] LABS: Hematocrit 34.9 % (37.0-47.0); Hemoglobin 11.3 g/dL (12.0-16.0); Mean Corp Hgb Conc. 32.4 g/dL (33.0-37.0); Mean Corpuscular Hgb 28.7 pg (27.0-31.0); Mean Corpuscular Volume 88.6 fL (81.0-99.0); Mean Platelet Volume 9.4 fL (7.4-10.4); Platelet Count 257 10^3/uL (130-400); Red Blood Cell Count 3.94 10^6/uL (4.20-5.40); Red Cell Dist. Width 14.7 % (11.5-14.5); White Blood Cell Count 5.9 10^3/uL (4.8-10.8)
[2023-11-28 22:01] LABS: Blood Urea Nitrogen 14 mg/dl (7-17); Calcium 9.1 mg/dl (8.4-10.2); Carbon Dioxide 20 mmol/L (22-30); Chloride 111 mmol/L (98-107); Estimated Creatinine Clearance 46 ml/min; Glucose 113 mg/dl (70-99); Magnesium 1.4 mg/dl (1.6-2.3); Potassium 4.1 mmol/L (3.5-5.1); Sodium 143 mmol/L (135-145); eGFR > 60.00
[2023-11-28 23:06] VITALS: BP 117/59
--- NOTE | 2023-11-29 06:51 | W.DCSUMMARY ---
Addendum entered and electronically signed by Carmencita Kwong MD 11/29/23 18:54:
Read, reviewed, and agree. See same day progress note for additional details. Time spent coordinating care, DC planning, review of DC plan of care with resident, transition of care, review of records in EMR, med rec, consults, notes, d/w
consultants, nursing, family, and CM < 30 minutes
Original Note:
Discharge Summary
Discharge Data
Date of Admission: 11/26/23
Date of Discharge: 11/29/23
-
Pending Results: No
Hospital Course
Principal Discharge diagnosis : Global weakness status post fall at home, recent non-ST elevation myocardial infarction,
Chronic Discharge diagnosis : anemia of chronic disease, history of transient ischemic attack/stroke years ago in [place], depression, chronic nausea, history of colon cancer s/p resection
Brief Hospital Course : This is an 88-year-old female who presented to the ER with her daughter for complaints of generalized weakness and confusion as noted by her daughter. She recently had a fall, and was admitted to [facility] for evaluation. At [facility] he was noted that she had an elevated troponin and diagnosis of NSTEMI per medical records. In addition she was diagnosed with new onset seizure by EEG started on Keppra 500 mg. Since this
event, she has been experiencing global weakness with possible failure to thrive. Evaluation with CT scan showed no acute intracranial abnormalities. On presentation to ER, blood pressure was 141/78, afebrile with O2 sats 96% on room air.
Troponin was elevated at 0.028 and peaked at 0.047 eventually trending down to 0.039. Cardiology was consulted and it was noted that presentation was not consistent with ACS, heart failure exacerbation or myocarditis. On review of medical records
from [facility] she did reportedly have an NSTEMI and was treated with medical therapy aspirin, statin and beta-jeni. She will be continued on this regimen on discharge. Neurology was consulted to evaluate her global weakness. On review of
records it was actually noted that she had a subdural hematoma and a new onset seizure, initiated on Keppra 500 mg twice daily.. It was then decided that she gets an EEG done during this admission at [facility]. EEG 11/28/2023 showing mild
hemispheric cortical dysfunction,without any seizure activity. During course of hospital stay, patient had no new episodes of falls. She was back to baseline. She denied any acute events including chest pain, shortness of breath, palpitations.
She will be discharged home today to continue Keppra 500 mg twice daily, and follow-up with neurology as an outpatient in 2 to 3 weeks. In addition, it is required she follows up with cardiology in 2 weeks for an outpatient potline monitor.
Important imaging findings : Head CT 11/26/2023-no acute intracranial abnormality
Procedure findings : EEG 11/28/2023; Although normative values not been established for a person of this advanced age the patient�s symmetry of the background suggests that this study was suggestive of mild bihemispheric cortical dysfunction. No
epileptiform features were demonstrated.
Discharge Plan
-
Patient Disposition: Correction/SNF
Discharge Diagnosis/Procedures: Global weakness, fall at home, recent non-ST elevation myocardial infarction, anemia of chronic disease, history of transient ischemic attack/stroke years ago in [place], depression, chronic nausea, history of colon
cancer s/p resection
Condition: Good
Diet: As tolerated
Activity: As tolerated
Driving Restrictions: As prior to admission
Bathing Restrictions: None
Others Tests: 2 week heart monitor- cardiology office will call you to arrange
Referrals:
Thien Franks MD [Active] - 01/08/24 1:20 pm
()
Adelaide Garcia CRNP [Family Provider] - in less than 1 week
Prescriptions:
Continued
pantoprazole 40 mg Tablet,Delayed Release (Dr/Ec)
40 mg PO DAILY
cranberry extract 250 mg Tablet
250 mg PO DAILY Qty: 0
Refresh Optive 0.5-0.9 % Drops
1 drp BOTH EYES BIDPRN PRN (Reason: dryness) Qty: 0
acetaminophen 325 mg tablet
650 mg PO BIDPRN PRN (Reason: mild pain)
ondansetron 4 mg Tablet,Disintegrating
4 mg PO DAILY
aspirin 81 mg Tablet,Delayed Release (Dr/Ec)
81 mg PO DAILY Qty: 0 0RF
metoprolol succinate [Toprol XL] 25 mg Tablet Extended Release 24 Hr
25 mg PO DAILY
sennosides-docusate sodium [Stool Softener-Laxative] 8.6-50 mg tablet
1 tab PO BIDPRN PRN (Reason: constipation)
atorvastatin [Lipitor] 40 mg Tablet
40 mg PO QPM Qty: 0 0RF
polyethylene glycol 3350 [HealthyLax] 17 gram Powder In Packet
17 g PO DAILY Qty: 0 0RF
levetiracetam [Keppra] 500 mg Tablet
500 mg PO BID Qty: 0 0RF
cyanocobalamin (vitamin B-12) 1,000 mcg Tablet
1,000 mcg PO DAILY Qty: 0 0RF
mirtazapine 7.5 mg Tablet
7.5 mg PO HS Qty: 0 0RF
magnesium hydroxide 1,200 mg Tablet,Chewable
1,200 mg PO DAILY Qty: 0 0RF
Changed
escitalopram oxalate 5 mg tablet
5 mg PO DAILY Qty: 0 0RF
Discharge Orders:
Discharge Patient (As Directed); Ordered 11/29/23
Ordered By: Kenny Oliver
Discharge Date and Time
Print Language: TURKMEN
[2023-11-29 07:45] VITALS: BP 146/91
[2023-11-29] MEDS: ASPIR LOW (ENTERIC COATED) 81 MG PO (07:55)
[2023-11-29] MEDS: MIRALAX 17 GRAMS PO (07:55)
[2023-11-29] MEDS: LEXAPRO 5 MG PO (07:55)
[2023-11-29] MEDS: MAGNESIUM OXIDE 500 MG PO (07:55)
[2023-11-29] MEDS: KEPPRA 500 MG PO (07:55)
[2023-11-29] MEDS: PROTONIX 40 MG PO (07:55)
[2023-11-29] MEDS: ZOFRAN ODT (ORALLY DISINTEGRATING) 4 MG PO (07:55)
--- NOTE | 2023-11-29 07:56 | W.PN.HOSP.TC ---
Addendum entered and electronically signed by Carmencita Kwong MD 11/29/23 19:01:
additionally: stage 1 buttock pressure injury POA
Addendum entered and electronically signed by Carmencita Kwong MD 11/29/23 18:39:
I saw and evaluated the patient independently. I reviewed the resident�s note and agree with findings and plan as documented by Dr. Oliver.
GENERAL: well developed, well nourished, female in no apparent distress
HEENT: NC--bruising (ecchymosis) with varying shades of color (healing) on right forehead, eye, face improving
HEART: regular rate and rhythm, +S1, +S2
LUNGS : clear to auscultation bilaterally
ABDOM: soft, nontender, nondistended, + bowel sounds
EXT: no cyanosis, clubbing, or edema--bruising on right knee cap
NEUROLOGIC: grossly intact--able to lift both legs off the stretcher independently--perhaps mild cognitive issues
global weakness with possible failure to thrive--daughter noticed after pt started on new medication (Keppra) from [place]--does not seem depressed, no recent vaccinations, no signs of infection, no signs of stroke (head CT neg)--apprec
PT/OT/speech, recommending SNF--TSH, iron studies, B12, folate all WNL--apprec neuro, EEG without seizure activity here-- records from [place] reviewed seizure + by EEG and NSTEMI there--cont Keppra (pt also found to have SDH by reports
fall at home--unclear if syncope, seizure, cardiac etc--was worked up at [place] --daughter reports ECHO, no cath?--troponins trended down, now trending up, apprec cards, ECHO with preserved EF and moderate to severe tricuspid regurg--was started
on Keppra for seizures by EEG--cont Keppra
Recent NSTEMI--New T wave inversion in anterior leads on EKG compared to last one here BUT did have workup at [place] (EKG, ECHO)--apprec cards, no need for further checks of troponin--medical management--f/u with cards as outpt
Anemia of chronic disease--HGB baseline (11)-- No concern for acute blood loss-- iron, TIBC, ferritin, B12, folate level all WNL
History of TIA/CVA while she lived in [place]--Continue aspirin, statin
Depression--Continue escitalopram, mirtazapine at bedtime--pt denies being depressed
Chronic nausea--Continue pantoprazole--Continue ondansetron as needed
Hx of colonic cancer s/p resection
DVT prophylaxis; Lovenox
CODE STATUS--DNR
ok for d/c
Original Note:
Today's Communication/Plan
-
d/c home today
Assessment / Plan
Assessment / Plan
#Abnormal Troponin
# Recent NSTEMI
-Recently admitted at [facility] for fall and chest pain
-Workup including EKG, echo done at [facility].
-Trend troponin 0.028>>0.038>>0.035, peaked at 0.047, now trending down
-Cardiology input appreciated. Will continue on aspirin, statin, beta-blockers
-Echocardiogram 11/28/2023 with LVEF 55 to 60%. Moderate to severe tricuspid regurgitation
#failure to thrive
#Global weakness
-S/p fall 11/15. Workup at [facility] including EEG indicative of new onset seizure
-Started on Keppra 500 mg at [facility], MIGHT possibly be contributing to weakness, fatigue
-CT scan head 11/26/2023 withOUT acute intracranial abnormalities
-Neurology consulted, input appreciated.continue Keppra
-EEG 11/28/2023 No epileptiform features were demonstrated.
-Speech evaluated. Regular solids/thin liquids recommended. General aspiration precautions
-PT evaluated-will require short-term rehab on D/C
-Bruising and pain on right knee s/p fall 11/15, evaluate with x-ray of right knee 11/26/2023 with no evidence of fracture or dislocation
# Anemia
-Hgb 11.9, baseline in this range. No concern for acute blood loss
-Normal iron, TIBC, ferritin levels
-On B12 supplementation
# History of TIA/CVA [place] she lived [place]
-Continue aspirin, statin
# Depression
-Continue escitalopram, mirtazapine at bedtime
# Chronic nausea
-Continue pantoprazole
-Continue ondansetron as needed
#Stage 1 buttock pressure injury, POA.
Continue Barrier ointment
#Hx of colonic cancer s/p resection
DVT prophylaxis; Lovenox
CODE STATUS; DNR
Medical records received from [facility]
On review of medical records, she did have NSTEMI at [facility] 2 weeks ago. Her troponin levels were elevated before they began to trend down. cardiology opted for medical management of NSTEMI. In addition subdural hematoma s/p fall 11/15.
Anticipated Discharge: Today
Subjective/Interval History
-
Date of Service: November 29, 2023
Objective Data
-
Labs:
Laboratory Results
11/28/23 11/29/23
21:32 06:00
WBC 5.9 Pending
Hgb 11.3 L Pending
Hct 34.9 L Pending
Plt Count 257 Pending
Sodium 143 Pending
Potassium 4.1 Pending
Chloride 111 H Pending
Carbon Dioxide 20 L Pending
BUN 14 Pending
Creatinine 0.8 Pending
Glucose 113 H Pending
Calcium 9.1 Pending
Vital Signs:
Vital Signs
Temp Pulse Resp BP Pulse Ox
98.4 F 64 16 117/59 96
11/28/23 23:06 11/28/23 23:06 11/28/23 23:06 11/28/23 23:06 11/28/23 23:06
I&O
11/28/23 11/29/23 11/30/23
06:59 06:59 06:59
Intake Total 1919 780 / 780
Balance 1919 780 / 780
Review of Systems
-
All other systems: Reviewed and negative (Except as documented)
Physical Exam
-
General: No Apparent Distress
Respiratory: Clear to Auscultation
Cardiac: S1/S2
GI: Soft, Nontender and Nondistended
Neuro: AO x 3
[2023-11-29] MEDS: VITAMIN B-12 1000 MCG PO (07:59)
[2023-11-29] MEDS: TOPROL XL 25 MG PO (08:07)
[2023-11-29 08:36] LABS: Hematocrit 40.7 % (37.0-47.0); Hemoglobin 12.6 g/dL (12.0-16.0); Mean Corpuscular Hgb 27.1 pg (27.0-31.0); Mean Corpuscular Volume 87.5 fL (81.0-99.0); Mean Platelet Volume 9.6 fL (7.4-10.4); Platelet Count 307 10^3/uL (130-400); Red Blood Cell Count 4.65 10^6/uL (4.20-5.40); Red Cell Dist. Width 15.1 % (11.5-14.5); White Blood Cell Count 7.1 10^3/uL (4.8-10.8)
--- NOTE | 2023-11-29 08:52 | W.PN.CD ---
Today's Communication / Plan
-
-Minimal records from [place] suggest she had an NSTEMI, which is being medically managed- on ASA, statin, and BB; continue.
-No Plavix secondary to subdural hematoma.
-Patient states that she absolutely does not want to undergo any procedures (cardiac catheterization, etc.); continue conservative cardiac management.
-Echocardiogram yesterday revealed an LVEF of 55-60%, moderate MR, mild /mild to moderate aortic regurgitation, moderate to severe tricuspid regurgitation (PAP 43 mmHg).
-Patient is compensated on examination and denies any dyspnea; diuretic does not appear to be indicated at this time--will monitor as outpatient.
-No further cardiac recommendations at this time; outpatient follow-up with Cardiology as scheduled.
-Conservative cardiac management overall.
Impression / Plan
-
Confusion, weakness:
-concern for failure to thrive per hospitalists. Also on new medications including Keppra.
-PT/OT seeing patient- rehab recommended
-neuro following and reporting post-concussion syndrome. Also some reports of baseline dementia.
-she also recently was hospitalized with multiple issues as noted in detail
-head CT with no acute abnormalities
Abnormal troponin/NSTEMI:
-peaked at 0.047
-denies CP
-EKG with anterior T wave abnormalities, but no recent EKG present from [place] to compare- records requested.
-Minimal records from [place] suggest she had an NSTEMI, which is being medically managed- on ASA, statin, and BB; continue.
-No Plavix secondary to subdural hematoma.
-Patient states that she absolutely does not want to undergo any procedures (cardiac catheterization, etc.); continue conservative cardiac management.
-Echocardiogram yesterday revealed an LVEF of 55-60%, moderate MR, mild /mild to moderate aortic regurgitation, moderate to severe tricuspid regurgitation (PAP 43 mmHg).
-Patient is compensated on examination and denies any dyspnea; diuretic does not appear to be indicated at this time--will monitor as outpatient.
-No further cardiac recommendations at this time; outpatient follow-up with Cardiology as scheduled.
HTN:
-stable on current medication regimen.
Hx CVA:
-on ASA, statin, and BB
-head CT negative
Physical Exam
Vital Signs/Labs
Vital Signs
Temp Pulse Resp BP Pulse Ox
98.6 F 74 17 146/91 92
11/29/23 07:45 11/29/23 07:45 11/29/23 07:45 11/29/23 08:07 11/29/23 07:45
11/29/23 08:14
Magnesium 1.4 mg/dl (1.6-2.3) L 11/28/23 21:32
TSH 0.80 uIU/ml (0.47-4.68) 11/26/23 10:30
LAB Results
11/26/23 11/26/23 11/26/23
10:05 10:30 17:12
Troponin I Cancelled 0.028 Cancelled
11/26/23 11/27/23 11/27/23
21:08 08:45 11:21
Troponin I 0.038 H* 0.036 H* 0.047 H* D
11/27/23 11/27/23 11/28/23
17:12 21:20 02:37
Troponin I Cancelled 0.044 H* 0.039 H*
11/28/23
09:00
Troponin I Cancelled
Physical Exam
Constitutional: No acute distress and Comfortable
EENT: Anicteric
Cardiovascular: Rhythm & rate is regular, Pedal edema is absent, Systolic murmur present (soft 2/6) and S1S2 is normal
Respiratory: Respiratory effort normal and Lungs clear to auscul.
GI: Soft
Neuro/Psych: AO x 3
Other: Skin (Warm, dry, intact)
Data Reviewed
-
Date of Service: November 29, 2023
Echo: Tracing Personally Visualized and interpreted (EF 55-60%, moderate to severe TR, moderate MR, mild , mild to moderate AR)
Labs: Labs Reviewed by me
[2023-11-29 09:03] LABS: Blood Urea Nitrogen 14 mg/dl (7-17); Calcium 9.7 mg/dl (8.4-10.2); Carbon Dioxide 22 mmol/L (22-30); Chloride 114 mmol/L (98-107); Estimated Creatinine Clearance 46 ml/min; Glucose 84 mg/dl (70-99); Magnesium 1.5 mg/dl (1.6-2.3); Potassium 4.4 mmol/L (3.5-5.1); Sodium 145 mmol/L (135-145); eGFR > 60.00
[2023-11-29 11:43] VITALS: BP 144/86; BP 151/82; PULSE 67; PULSE 72
[2023-11-29] MEDS: FLUAD (65 yr+) 2024-2025 FORMULA 0.5 ML IM (12:36)
--- NOTE | 2023-11-29 13:07 | CM ---
Patient seen at bedside with daughters. Patient for discharge today with children transporting patient. Please call report to [phone]/fax [phone] for call and report number to [facility]. CM will continue to follow for discharge planning needs.
Plan; [facility] today
== END 2023-11-29 13:21 | DRG 640 ==
LOC: 4 WEST ACU 16:20
PROVIDERS: Student in an Organized Health Care Education/Training Program; ADMITTING PHYSICIAN Internal Medicine; CONSULT PHYSICIAN Psychiatry & Neurology Neurology; EMERGENCY PHYSICIAN Emergency Medicine; FAMILY PHYSICIAN Nurse Practitioner Family; OTHER PHYSICIAN Student in an Organized Health Care Education/Training Program
PROC: 3E02340 Introduction of Influenza Vaccine into Muscle, Percutaneous Approach (ICD-10-PCS; 2023-11-29)
DX: R62.7 Adult failure to thrive (principal); I21.4 Non-ST elevation (NSTEMI) myocardial infarction; F03.93 Unspecified dementia, unspecified severity, with mood disturbance; G93.40 Encephalopathy, unspecified; I50.32 Chronic diastolic (congestive) heart failure; R56.9 Unspecified convulsions; F07.81 Postconcussional syndrome; R53.1 Weakness; E78.00 Pure hypercholesterolemia, unspecified; I11.0 Hypertensive heart disease with heart failure; S80.01XA Contusion of right knee, initial encounter; D63.8 Anemia in other chronic diseases classified elsewhere; R26.2 Difficulty in walking, not elsewhere classified; S09.90XA Unspecified injury of head, initial encounter; R32 Unspecified urinary incontinence; K21.9 Gastro-esophageal reflux disease without esophagitis; K44.9 Diaphragmatic hernia without obstruction or gangrene; R13.10 Dysphagia, unspecified; E53.8 Deficiency of other specified B group vitamins; R11.0 Nausea; G21.4 Vascular parkinsonism; L89.301 Pressure ulcer of unspecified buttock, stage 1; I77.810 Thoracic aortic ectasia; I08.3 Combined rheumatic disorders of mitral, aortic and tricuspid valves; H81.10 Benign paroxysmal vertigo, unspecified ear; F32.9 Major depressive disorder, single episode, unspecified; Z66 Do not resuscitate; W19.XXXA Unspecified fall, initial encounter; Y93.9 Activity, unspecified; Y92.009 Unspecified place in unspecified non-institutional (private) residence as the place of occurrence of the external cause; Y99.9 Unspecified external cause status; Z87.891 Personal history of nicotine dependence; Z85.038 Personal history of other malignant neoplasm of large intestine; Z90.49 Acquired absence of other specified parts of digestive tract; Z86.73 Personal history of transient ischemic attack (TIA), and cerebral infarction without residual deficits; Z23 Encounter for immunization; Z79.82 Long term (current) use of aspirin
CPT/HCPCS: 51701; 70450; 73560; 80048; 80053; 81003; 82607; 82728; 82746; 82962; 83540; 83550; 83735; 84443; 84484; 85025; 85027; 87070; 90662; 92523; 92610; 93005; 93306; 95816; 97163; 97167; 99285; G0008

== ENCOUNTER → 2023-12-04 11:58 | Outpatient (REF) | payer MEDICARE, SELFPAY ==
[2023-12-04 12:32] LABS: Hematocrit 32.7 % (37.0-47.0); Hemoglobin 10.9 g/dL (12.0-16.0); Mean Corp Hgb Conc. 33.3 g/dL (33.0-37.0); Mean Corpuscular Hgb 29.1 pg (27.0-31.0); Mean Corpuscular Volume 87.4 fL (81.0-99.0); Mean Platelet Volume 12.1 fL (7.4-10.4); Platelet Count 241 10^3/uL (130-400); Red Blood Cell Count 3.74 10^6/uL (4.20-5.40); Red Cell Dist. Width 15.1 % (11.5-14.5)
[2023-12-04 12:48] LABS: Blood Urea Nitrogen 18 mg/dl (7-17); Calcium 9.2 mg/dl (8.4-10.2); Carbon Dioxide 27 mmol/L (22-30); Chloride 108 mmol/L (98-107); Glucose 73 mg/dl (70-99); Potassium 4.7 mmol/L (3.5-5.1); Sodium 142 mmol/L (135-145); eGFR > 60.00
== END ==
LOC: OLABP 11:58
PROVIDERS: ATTENDING PHYSICIAN Family Medicine
DX: M62.59 Muscle wasting and atrophy, not elsewhere classified, multiple sites (principal); M62.81 Muscle weakness (generalized); R55 Syncope and collapse; R62.7 Adult failure to thrive; L89.152 Pressure ulcer of sacral region, stage 2; D64.9 Anemia, unspecified; I10 Essential (primary) hypertension; E78.00 Pure hypercholesterolemia, unspecified; F32.9 Major depressive disorder, single episode, unspecified; R11.0 Nausea; Z86.73 Personal history of transient ischemic attack (TIA), and cerebral infarction without residual deficits; Z85.038 Personal history of other malignant neoplasm of large intestine; R07.81 Pleurodynia
CPT/HCPCS: 36415; 80048; 85027

== ENCOUNTER → 2023-12-05 10:18 | Outpatient (REF) | payer OTHER, MEDICARE, SELFPAY ==
[2023-12-05 11:22] LABS: Urine Albumin Trace (Neg - Trace); Urine Bilirubin Negative (Negative); Urine Character Clear (Clear); Urine Color Yellow; Urine Glucose Negative (Negative); Urine Ketone Negative (Negative); Urine Leukocyte Negative (Negative); Urine Nitrite Negative (Negative); Urine Occult Blood Negative (Negative); Urine Specific Gravity 1.005 (<1.030); Urine Urobilinogen Negative (Neg - 1+)
== END ==
LOC: OLABP 10:18
PROVIDERS: ATTENDING PHYSICIAN Family Medicine
DX: M62.59 Muscle wasting and atrophy, not elsewhere classified, multiple sites (principal); M62.81 Muscle weakness (generalized); R55 Syncope and collapse; R62.7 Adult failure to thrive; D64.9 Anemia, unspecified; Z86.73 Personal history of transient ischemic attack (TIA), and cerebral infarction without residual deficits; I10 Essential (primary) hypertension; Z85.038 Personal history of other malignant neoplasm of large intestine; N39.0 Urinary tract infection, site not specified
CPT/HCPCS: 81003; 87086

== ENCOUNTER 2023-12-22 16:15 | Inpatient (IN) | payer MEDICARE, SELFPAY ==
[2023-12-22 12:22] VITALS: BP 117/83
--- NOTE | 2023-12-22 12:49 | ED.GENMED ---
History of Present Illness
General
Chief Complaint: Change in Mental Status
Source: patient, records and family
Exam Limitations: other (Confused)
Time Seen by Provider: 12/22/23 12:39
Nursing documentation reviewed up to this point in time: agreed with
History of Present Illness
History of Present Illness:
88-year-old female with history as documented presents to the ER accompanied by daughter and son-in-law for evaluation of confusion. Patient has notable recent history�6 weeks ago had a mechanical fall out of bed and unfortunately suffered subdural
hemorrhage had subsequent seizure activity, she was admitted at [facility], started on Keppra. During that hospitalization she also apparently had an NSTEMI, treated medically for this. She returned home and then 3 weeks ago she presented to
[place] ER for generalized weakness and confusion and was admitted. Symptoms were thought potentially to be related to recent initiation of Keppra versus deconditioning apparently she received some treatment for UTI transiently as well. She was
discharged to [facility] for rehab after this hospitalization and stayed there for 2 weeks and just returned home to live with daughter and son-in-law last week. Family reports that her mental status was very good while she was in rehab and then when
she returned home they have noticed gradual decline and she is once again significantly confused, wandering around the house, constantly getting out of bed at night. Brought back to the emergency room for assessment. No falls witnessed in the past
week since returning home. They have not noticed any respiratory issues, coughing, vomiting, diarrhea. Patient is disoriented but alert and answers questions appropriately. She says that she feels well denies any specific complaints on review of
systems.
Past History
Past History
ED Past Medical History: HTN and Hypercholesterolemia
ED Past Surgical History: Gynecological
Social History
Tobacco: Non-smoker
Alcohol: Occasional
Drug: None
Personal:
Living: with family
Review of Systems
Review of Systems
All Other Systems: ROS reviewed and negative except as documented in HPI and ROS
Respiratory: Denies trouble breathing
Cardiac: Denies chest pain
ABD/GI: Denies abdominal pain or nausea
: Denies flank pain
Musculoskeletal: Denies joint pain, neck pain or back pain
Neurological: Denies dizzy or headache
Phy Exam
Physical Exam
Physical Exam:
General: Awake, alert, oriented x2; no acute distress
Head: Normocephalic, atraumatic
Eyes: Conjunctiva normal, pupils equal round and reactive to light bilaterally, extraocular movements intact
Throat: Airway intact, dry mucous membranes
Neck: Trachea midline, supple without meningismus
Lungs: Clear to auscultation bilaterally, no wheezing, rales, rhonchi
Heart: Regular rate and rhythm, systolic murmur
Abd: Soft, non distended, nontender
Neuro: Cranial nerves grossly intact, speech fluid, no gross motor or sensory deficit
Extremities: Trace edema around the ankles, extremities warm and well-perfused with good pulses
Scores
Heart Failure Risk
Heart Failure Risk Score: Not Applicable
Heart Score for Chest Pain Patients
STEMI patient?: Not applicable
Withdrawal Assessment of Alcohol
Withdrawal Assessment Completed?: Not applicable
Course
Orders/Labs/Results
Orders:
Orders
12/22/23 12:40
CT Head W/o Iv Contrast Urgent
Comment:
Reason For Exam: worsening confusion
Urinalysis Reflex To Culture Urgent
Date Specimen was Collected: 12/22/23
Time Specimen was Collected: 13:55
12/22/23 12:41
Electrocardiogram (*1) Urgent
Reason for Study: Fatigue / Weakness
EKG- Treatment ONCE
CR Chest Portable - 1 View Urgent
Comment:
Reason For Exam: weak, confused
Reason Study Needs to be Portable: Unable to Transport
12/22/23 12:55
COVID-19 Antigen Urgent
Source: Nasal Swab
Complete Blood Count/With Diff Urgent
Comprehensive Metabolic Panel Urgent
TSH Reflex To Free T4 Urgent
Influenza A+B Rapid Molecular Urgent
SHARONDA Source: Nasal Swab
Specimen Description:
Abnormal Lab Results
12/22/23
12:55
MCHC 31.9 L g/dL
(33.0-37.0)
Absolute Neuts (auto) 7.3 H 10^3/uL
(1.4-6.5)
Absolute Monos (auto) 0.7 H 10^3/uL
(0.1-0.6)
Neutrophils % 75.4 H %
(42.2-75.2)
Lymphocytes % 16.1 L %
(20.5-51.1)
Potassium 5.3 H mmol/L
(3.5-5.1)
BUN 55 H mg/dl
(7-17)
Creatinine 1.2 H mg/dL
(0.6-1.0)
12/22/23 12:55
12/22/23 12:55
Vital Signs
Initial and Last Documented VS:
Initial Vital Signs
Temp Pulse Resp BP Pulse Ox
36.8 C 70 18 117/83 96
12/22/23 12:22 12/22/23 12:22 12/22/23 12:22 12/22/23 12:22 12/22/23 12:22
Last Documented Vital Signs
Temp Pulse Resp BP Pulse Ox
36.8 C 68 30 128/74 96
12/22/23 12:22 12/22/23 13:36 12/22/23 13:36 12/22/23 13:02 12/22/23 12:22
MDM/Problems Addressed
Differential Diagnosis Includes:
Confusion and generalized weakness: Differential wide and includes but not limited to anemia, electrolyte derangement, polypharmacy, seizures, thyroid dysfunction, infection including UTI or pneumonia, subdural hemorrhage, stroke
MDM/Problems Addressed:
88-year-old female returns to the ER for confusion�admitted for similar a few weeks ago and spent time in rehab and since returning home has become more confused once again. Vitals and exam as above. Will check labs including a CBC and a CMP,
urinalysis, chest x-ray, COVID swab, flu swab. Check EKG. Check CT head. Monitor closely reassess after the above.
Labs reviewed: CBC unremarkable, CMP shows KHAI with a creatinine of 1.2, baseline of 0.[address] head negative for any acute pathology, chest x-ray no acute disease. COVID swab negative. Significant dehydration and renal
insufficiency could contribute to some confusion, will treat with IV fluids. Continue to monitor�urinalysis pending. Family feels that she is unsafe with her current degree of confusion to come home with them. Will plan likely for admission for
fluids, trending of labs and case management consultation to consider placement in rehab/longterm.
Patient agitated and confused on reassessment and continually trying to get out of bed. Will dose with some Haldol for delirium.
*Radiology
Radiology exam reviewed: radiology read reviewed
*Pulse Oximetry
Patient hypoxic: no
*EKG
Interpreted by ED Provider?: Yes
Heart Rate: 67
Rate: normal
Rhythm: sinus
[place]: normal axis
Interval: normal interval
QRS Pattern: normal QRS
Ischemia: no ischemia
*Critical Care Note
Total Time (30-74mins, 75-104mins- exclusive of procedures): Not Applicable
Data Reviewed
Source: patient, records and family
Patient Management
Discussion with other providers: Hospitalist (Discussed with hospitalist)
Escalation/DeEscalation of care consider admission/obs:
Admission indicated
ED Attending Note
-
Portions of this chart may have been created with voice recognition software.� Occasional wrong word or��sound alike� substitutions may have occurred due to the inherent limitations of voice recognition software.
Discharge Plan
Departure
Patient with high blood pressure during this ER visit?: No
Discharge Problem:
Acute dehydration, Encephalopathy
Prescriptions:
No Action
pantoprazole 40 mg Tablet,Delayed Release (Dr/Ec)
40 mg PO DAILY
Refresh Optive 0.5-0.9 % Drops
1 drp BOTH EYES BIDPRN PRN (Reason: dryness) Qty: 0
acetaminophen 325 mg tablet
650 mg PO BIDPRN PRN (Reason: mild pain)
ondansetron 4 mg Tablet,Disintegrating
4 mg PO DAILY
aspirin 81 mg Tablet,Delayed Release (Dr/Ec)
81 mg PO DAILY Qty: 0 0RF
metoprolol succinate [Toprol XL] 25 mg Tablet Extended Release 24 Hr
50 mg PO DAILY
sennosides-docusate sodium [Stool Softener-Laxative] 8.6-50 mg tablet
1 tab PO BIDPRN PRN (Reason: constipation)
atorvastatin [Lipitor] 40 mg Tablet
40 mg PO QPM Qty: 0 0RF
polyethylene glycol 3350 [HealthyLax] 17 gram Powder In Packet
17 g PO DAILY Qty: 0 0RF
cyanocobalamin (vitamin B-12) 1,000 mcg Tablet
1,000 mcg PO DAILY Qty: 0 0RF
mirtazapine 7.5 mg Tablet
7.5 mg PO HS Qty: 0 0RF
magnesium hydroxide 1,200 mg Tablet,Chewable
1,200 mg PO DAILY Qty: 0 0RF
escitalopram oxalate 5 mg tablet
5 mg PO DAILY Qty: 0 0RF
lorazepam 0.5 mg Tablet
0.25 mg PO HS
naproxen sodium [Aleve] 220 mg Tablet
220 mg PO BIDPRN PRN (Reason: mild pain)
furosemide [Lasix] 20 mg Tablet
20 mg PO DAILY
cranberry 450 mg Tablet
450 mg PO DAILY
Referrals:
UNKNOWN - PT DOES,NOT KNOW [Family Provider] -
Interventions
Interventions:
*Risk Screen - Suicide Last Done: 12/22/23 12:22
*General Assessment Last Done: 12/22/23 12:22
*Neglect/Abuse Screening Last Done: 12/22/23 12:22
ED- Fall Risk Assessment Last Done: 12/22/23 13:14
ED- Neurological Assessment Last Done: 12/22/23 13:14
Discharge Date and Time
Print Language: MONTSERRATIAN
[2023-12-22 13:02] VITALS: BP 128/74
[2023-12-22 13:08] LABS: % Basophils 0.2 % (0-2); % Eosinophils 1.2 % (0-6); % Immature Granulocytes 0.4 % (0-0.5); % Lymphocytes 16.1 % (20.5-51.1); % Monocytes 6.7 % (1.7-9.3); % Neutrophils 75.4 % (42.2-75.2); Absolute Eosinophils 0.1 10^3/uL (0-0.7); Absolute Lymphocytes 1.6 10^3/uL (1.2-3.4); Absolute Monocytes 0.7 10^3/uL (0.1-0.6); Absolute Neutrophils 7.3 10^3/uL (1.4-6.5); Hematocrit 37.9 % (37.0-47.0); Hemoglobin 12.1 g/dL (12.0-16.0); Mean Corp Hgb Conc. 31.9 g/dL (33.0-37.0); Mean Corpuscular Hgb 27.9 pg (27.0-31.0); Mean Corpuscular Volume 87.3 fL (81.0-99.0); Mean Platelet Volume 9.4 fL (7.4-10.4); Nucleated Red Blood Cells % 0 %; Platelet Count 339 10^3/uL (130-400); Red Blood Cell Count 4.34 10^6/uL (4.20-5.40); Red Cell Dist. Width 14.2 % (11.5-14.5); White Blood Cell Count 9.6 10^3/uL (4.8-10.8)
[2023-12-22 13:23] LABS: COVID-19 Antigen Negative (Negative)
[2023-12-22 13:24] LABS: ALT (SGPT) 21 U/L (0-35); AST (SGOT) 29 U/L (14-36); Albumin 4.1 g/dl (3.5-5.0); Alkaline Phosphatase 53 U/L (38-126); Blood Urea Nitrogen 55 mg/dl (7-17); Calcium 9.8 mg/dl (8.4-10.2); Carbon Dioxide 25 mmol/L (22-30); Chloride 106 mmol/L (98-107); Glucose 84 mg/dl (70-99); Potassium 5.3 mmol/L (3.5-5.1); Sodium 143 mmol/L (135-145); Total Bilirubin 0.5 mg/dl (0.2-1.3); Total Protein 6.8 g/dl (6.3-8.2); eGFR 43.81
[2023-12-22 13:51] LABS: TSH Reflex To Free T4 0.72 uIU/ml (0.47-4.68)
[2023-12-22] MEDS: HALDOL 2.5 MG IV ×2 (14:04→14:35)
[2023-12-22] MEDS: NSS 1000 IV ×2 (14:05→18:10)
[2023-12-22 14:07] LABS: Urine Albumin Negative (Neg - Trace); Urine Bilirubin Negative (Negative); Urine Character Clear (Clear); Urine Color Yellow; Urine Glucose Negative (Negative); Urine Ketone Negative (Negative); Urine Leukocyte Negative (Negative); Urine Nitrite Negative (Negative); Urine Occult Blood Negative (Negative); Urine Urobilinogen Negative (Neg - 1+)
--- NOTE | 2023-12-22 14:31 | CM ---
CM was consulted to discuss SNF placement. CM spoke with daughter Deana. Deana stated that patient was recently discharged from [facility]. Daughter felt that patient was not ready for discharge, but brought patient home. Patient lives with daughter and
her son in law. Patient's daughter stated that she would prefer not to return to [facility]. Patient's daughter expressed interest in [facility].
CM sent preliminary referral to [facility].
PLAN: SNF
--- NOTE | 2023-12-22 15:00 | HPS.HSE ---
Family Physician
-
Family Physician: NOT KNOW UNKNOWN - PT DOES
Chief Complaint
-
Confusion
History of Present Illness
88-year-old woman comes in for evaluation of confusion. Patient has notable recent history:
6 weeks ago had a mechanical fall out of bed and suffered a subdural hemorrhage with subsequent seizure activity, admitted at [facility], started on Keppra.
A NSTEMI at above hospitalization, treated medically for this.
She Returned home, then 3 weeks ago came to [place] ER for generalized weakness and confusion and was admitted.
She was discharged to [facility] for rehab after this hospitalization and stayed there for 2 weeks and just returned home last week.
Her family reports that her mental status was very good while she was in rehab and after she returned home, they have noticed gradual decline and today she is once again significantly confused, wandering around the house, constantly getting out of
bed at night. Today, she was brought back to the emergency room for assessment. No falls were witnessed, no respiratory issues, coughing, vomiting, diarrhea. Patient is disoriented but alert and answers questions appropriately. She says that she
feels well denies any specific complaints on review of systems. She can remained focused for about 5 minutes, then becomes very confused.
Medical History
Past Medical History
Past Medical History: Reports Other
Additional Past Medical History:
Essential HTN
Hypercholesterolemia
Gynecological surgery
Dementia with mood disturbance, unspecified dementia severity, unspecified dementia type
Heart murmur, systolic
Major depressive disorder, remission status unspecified, unspecified whether recurrent
Gastro-esophageal reflux disease without esophagitis
Dysphagia, oral phase
History of colon cancer
Benign paroxysmal positional vertigo due to bilateral vestibular disorder
Depression, unspecified depression type
Hyperlipidemia, unspecified hyperlipidemia type
Recurrent UTI
History of TIA (transient ischemic attack)
Mixed hyperlipidemia
Intermittent constipation
Anemia of chronic disease
Failure to thrive in adult
NSTEMI (non-ST elevated myocardial infarction)
Past Surgical History: Reports Other
Additional Past Surgical History:
See above
Social History
Tobacco: Non-smoker
Alcohol: None
Drug: None
Living: With Family
Employment: Not Employed
Family History
Family History: Not pertinent
Allergies / Home Medications
Allergies reflects when Allergies were last updated in [facility].
Home Medications with original date entered in [facility]
Allergy/Medication List:
Allergies
Allergy/AdvReac Type Severity Reaction Status Date / Time
No Known Drug Allergies Allergy Unknown Verified 12/22/23 12:22
Home Medications
pantoprazole 40 mg tablet,delayed release 40 mg PO DAILY Gastrointestinal Issue 07/31/23
acetaminophen 325 mg tablet 650 mg PO BIDPRN PRN mild pain 08/23/23
carboxymethylcellulose 0.5 %-glycerin 0.9 % eye drops (Refresh Optive) 1 drp BOTH EYES BIDPRN PRN dryness ##0 08/23/23
ondansetron 4 mg disintegrating tablet 4 mg PO DAILY 08/23/23
aspirin 81 mg tablet,delayed release 81 mg PO DAILY #0 tabs 09/05/23
metoprolol succinate 25 mg tablet,extended release 24 hr (Toprol XL) 50 mg PO DAILY 11/26/23
sennosides 8.6 mg-docusate sodium 50 mg tablet (Stool Softener-Laxative) 1 tab PO BIDPRN PRN constipation 11/26/23
atorvastatin 40 mg tablet (Lipitor) 40 mg PO QPM High cholesterol #0 tabs 11/29/23
cyanocobalamin (vitamin B-12) 1,000 mcg tablet 1,000 mcg PO DAILY Supplement #0 tabs 11/29/23
escitalopram oxalate 5 mg tablet 5 mg PO DAILY Depression #0 tabs 11/29/23
magnesium hydroxide 1,200 mg chewable tablet 1,200 mg PO DAILY Supplement #0 tabs 11/29/23
mirtazapine 7.5 mg tablet 7.5 mg PO HS dementia #0 tabs 11/29/23
polyethylene glycol 3350 17 gram oral powder packet (HealthyLax) 17 g PO DAILY Constipation #0 ea 11/29/23
cranberry fruit 450 mg tablet (cranberry) 450 mg PO DAILY 12/22/23
furosemide 20 mg tablet (Lasix) 20 mg PO DAILY 12/22/23
lorazepam 0.5 mg tablet 0.25 mg PO HS 12/22/23
naproxen sodium 220 mg tablet (Aleve) 220 mg PO BIDPRN PRN mild pain 12/22/23
Review of Systems
-
Unable to obtain full review of systems at this time due to: Acuity
History Source: Patient
A 12 point ROS was completed and negative except as noted: Yes
Physical Exam
Vital Signs
Vital Signs
Temp Pulse Resp BP Pulse Ox
98.3 F 68 30 128/74 96
12/22/23 12:22 12/22/23 13:36 12/22/23 13:36 12/22/23 13:02 12/22/23 12:22
Physical Exam
General: Well Developed, Well Nourished and No Apparent Distress
HEENT: NormoCephalic, Nose Appears Normal and Ears Appear Normal
Respiratory: Clear
Cardiac: S1/S2 and Regular Rhythm
GI: Soft, Non Tender and Non Distended
Musculoskeletal: No Clubbing, No Cyanosis and No Edema
Skin: Warm and Dry; No Rash or Jaundice
Neuro: Awake and Alert
Psych: Calm and Confused
Laboratory Results
-
12/22/23 12:55
12/22/23 12:55
Laboratory Results
Total Bilirubin 0.5 mg/dl (0.2-1.3) 12/22/23 12:55
AST 29 U/L (14-36) 12/22/23 12:55
ALT 21 U/L (0-35) 12/22/23 12:55
Alkaline Phosphatase 53 U/L (38-126) 12/22/23 12:55
Data Reviewed
-
Lab Data: Labs Reviewed by me
Impression/Plan
-
IMPRESSION:
88 woman with confusion. Significant findings:
CXR: No acute osseous abnormality.
Head CT: No acute intracranial abnormality noted. Stable chronic findings as detailed.
ECG: NORMAL SINUS RHYTHM, NORMAL ECG
UA: Normal
K: 5.3
BUN/Creat 55/1.2 (normal ~18/0.8)
PLAN:
1. Confusion, likely from dehydration and probable dementia
IVF
1:1 obs as needed
May need skilled nursing placement
Hold meds that may contribute to confusion such as lorazepam
2. K of 5.3 - likely from renal failure/ARF,
IVF
Recheck in am
Code: DNR (confirmed by family at bedside)
VCD for DVTp
[2023-12-22 17:18] VITALS: BP 130/74
[2023-12-22 17:56] VITALS: BP 129/67
[2023-12-22] MEDS: LIPITOR 40 MG PO (21:05)
[2023-12-22] MEDS: REMERON 7.5 MG PO (21:05)
--- NOTE | 2023-12-22 21:40 | PTCARENOTE ---
Pt received from previous shift in bed w/1:[address] AAOx3, pleasant/forgetful. Admission and assessment completed (refer to worklist). Pt is very poor historian, answers all orientation questions appropriately. R buttocks
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 Incont of bowel and bladder. Pt demonstrating no violence/suicidal behaviors. MAMMOGRAPHY SUPERVISOR covering house contacted, electronic orders received to change 1:1 order to nursing for general safety. Pt cooperative
when providing care. Took meds whole w/water. Call velazco within reach. Bed alarm active for safety.
[2023-12-22 22:17] VITALS: BP 130/68
[2023-12-23] MEDS: NSS 1000 IV ×3 (01:59→18:23)
--- NOTE | 2023-12-23 03:07 | PTCARENOTE ---
Pt remains cooperative and redirectable. SOLE CONDITIONER covering house made aware. Now with Medsitter in place. Bed alarm remains active.
--- NOTE | 2023-12-23 04:15 | PTCARENOTE ---
Pt constantly calling out 'please help me'. Unsure of what she wants when asked. Offers vague c/o of feeling sick or needing to go to the bathroom despite just using bedpan. PVR bladder scan 33 mL. Multiple small BMs t/o the night. Has not been
observed sleeping yet this shift. WAITER/WAITRESS ROOM SERVICE covering house contacted, electronic orders received for 1x dose of risperdal. Awaiting verificatoin from pharmacy.
[2023-12-23] MEDS: RISPERDAL M-TAB (ORALLY DISINTEGRATING) 0.5 MG PO (04:26)
[2023-12-23 07:00] VITALS: BP 117/84
[2023-12-23 07:00] LABS: Hematocrit 37.2 % (37.0-47.0); Mean Corp Hgb Conc. 32.3 g/dL (33.0-37.0); Mean Corpuscular Hgb 27.9 pg (27.0-31.0); Mean Corpuscular Volume 86.5 fL (81.0-99.0); Mean Platelet Volume 9.4 fL (7.4-10.4); Platelet Count 323 10^3/uL (130-400); Red Cell Dist. Width 14.1 % (11.5-14.5); White Blood Cell Count 11.5 10^3/uL (4.8-10.8)
[2023-12-23 07:22] LABS: Blood Urea Nitrogen 32 mg/dl (7-17); Calcium 9.5 mg/dl (8.4-10.2); Carbon Dioxide 20 mmol/L (22-30); Chloride 110 mmol/L (98-107); Glucose 76 mg/dl (70-99); Potassium 4.7 mmol/L (3.5-5.1); Sodium 142 mmol/L (135-145); eGFR 48.63
[2023-12-23] MEDS: TOPROL XL 50 MG PO (08:27)
[2023-12-23] MEDS: ASPIR LOW (ENTERIC COATED) 81 MG PO (08:27)
[2023-12-23] MEDS: PROTONIX 40 MG PO (08:27)
[2023-12-23] MEDS: MILK OF MAGNESIA 15 ML PO (08:28)
[2023-12-23] MEDS: MIRALAX 17 GRAMS PO (08:28)
[2023-12-23] MEDS: LEXAPRO 5 MG PO (08:33)
[2023-12-23] MEDS: VITAMIN B-12 1000 MCG PO (08:35)
[2023-12-23] MEDS: ZOFRAN ODT (ORALLY DISINTEGRATING) 4 MG PO (10:11)
--- NOTE | 2023-12-23 11:00 | W.PN.HOSP.TC ---
Addendum entered and electronically signed by Nestor Alfred DO 12/23/23 12:38:
Extensive discussion with daughter Deana on the phone regarding her mother.
Apparently mother was living in [place] for 40 years and recently moved back to [facility] in June of this year. Has been staying with her daughter.
Daughter states that her cognitive function has progressively declined and she questions the diagnosis of dementia. Not formally diagnosed, however.
She was admitted last night for another bout of worsening confusion. Daughter found her wandering in the middle of the night and going into the garage and sitting in her car. She normally ambulates with a walker.
Daughter feels that it is not safe for her to come home with her on discharge. I suggested looking into a memory care unit. Needs formal assessment as an outpatient for dementia.
Daughter also mentioned that the Keppra was discontinued recently while she was in [place] due to possible side effects although she is not able to give me great detail on this.
I will ask neurology to evaluate, daughter is asking whether or not she needs to maintain antiepileptic therapy with Keppra.
Await PT/OT input.
Original Note:
Today's Communication/Plan
-
Resume Keppra
PT/OT
Assessment / Plan
Assessment / Plan
Gen-awake, alert, NAD
HEENT-NC, AT, anicteric, clear oral mm
Neck-supple
CV-reg, no M, +S1/S2
Lungs-clear B/L
Abd-soft, NT, ND
Ext-no edema
Musculoskeletal-no cyanosis, clubbing
Skin-warm and dry
Neuro-grossly non-focal
Psych-calm, cooperative
Acute TME -unknown trigger. Differential diagnosis includes volume depletion versus medication side effect versus other. Does have underlying chronic cognitive impairment, dementia.
CT head on admission without acute disease. Does show chronic small vessel ischemic disease.
Need to clarify with family home medications. Hold lorazepam for now, not sure when or why this was recently initiated as an outpatient. I do not see lorazepam or any benzodiazepines on her recent discharge medication list from November 28.
Volume depletion -prerenal azotemia, improving with IV fluids. Hold NSAIDs, furosemide.
Hyperkalemia -improved.
Recent NSTEMI -treated at [facility] medically. Continue medical therapy.
Seizure disorder -recent diagnosis at [facility]. Started on Keppra, will resume.
Recent subdural hematoma - in [facility].
Essential hypertension -stable.
Hyperlipidemia -on atorvastatin.
History of stroke
History of colon cancer -s/p resection.
Depression
DNR
PT/OT
I left a voicemail for daughter Deana to call me back.
Anticipated Discharge: Within 24 hours
Subjective/Interval History
-
Date of Service: December 23, 2023
Patient seen and examined. No complaints. Oriented to hospital.
Objective Data
-
Labs:
Laboratory Results
12/23/23
06:14
WBC 11.5 H
Hgb 12.0
Hct 37.2
Plt Count 323
Sodium 142
Potassium 4.7
Chloride 110 H
Carbon Dioxide 20 L
BUN 32 H
Creatinine 1.1 H
Glucose 76
Calcium 9.5
Vital Signs:
Vital Signs
Temp Pulse Resp BP Pulse Ox
98.3 F 72 16 117/84 94
12/23/23 07:00 12/23/23 07:00 12/23/23 07:00 12/23/23 07:00 12/23/23 08:00
I&O
12/22/23 12/23/23 12/24/23
07:59 06:59 06:59
Intake Total
Balance
Review of Systems
-
History Source: Patient
All other systems: Reviewed and negative
[2023-12-23] MEDS: KEPPRA 500 MG PO ×2 (11:13→20:22)
[2023-12-23 15:00] VITALS: BP 132/82
[2023-12-23] MEDS: LIPITOR 40 MG PO (16:48)
--- NOTE | 2023-12-23 18:34 | CON.NEURO ---
Consultation
Order
Date of Consultation: 12/23/23
Requesting Provider: Nestor Alfred DO
Reason for Consult: AED
HPI: This is a 88-year-old woman who presented to [facility] on with wondering.
Neurology consultation was requested to comment on the need of antiepileptic therapy.
The patient reports no complaints. She states that she has fallen before she came to the hospital.
Ms. Barargan has reportedly had witnessed seizure following head trauma in November 2023. She was started on Keppra at [facility]. Keppra was reportedly discontinued in [facility] due to 'side effects '.
Routine EEG(11/28/23)-generalized slowing with no epileptiform abnormalities.
Ms. Barragan has been getting assistance with medications administration well as dressing and showering, provided by a rotating team of caregivers for many months
MAR-reviewed
PMH: dementia, history of a stroke 50 years ago, history of colon cancer, dysphagia, GERD, MDD, DLP, ambulatory dysfunction, BPPV, Diaphragmatic hernia, vitamin B12 deficiency
PSH: partial colectomy
All: NKDA
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
ROS:Constitutional: Negative. Negative for chills, fever and unexpected weight change.
HENT: Positive for intermittent dizziness
Eyes: Negative. Negative for photophobia, pain and visual disturbance.
Respiratory: Negative for cough, choking and shortness of breath.
Cardiovascular: Negative for chest pain, palpitations and leg swelling.
Gastrointestinal: Negative for abdominal pain and vomiting.
Endocrine: Negative. Negative for cold intolerance.
Genitourinary: Negative for dysuria, flank pain and urgency.
Musculoskeletal: Negative for back pain, gait problem, neck pain and neck stiffness.
Allergic/Immunologic: Negative. Negative for immunocompromised state.
Neurological: positive for forgetfulness, wandering episode
Psychiatric/Behavioral: Negative for behavioral problems, confusion and hallucinations.
General: Well developed. In no acute distress.
Cardio: Regular rate and rhythm without murmur. Extremities are without cyanosis or edema.
Neuro:
Mental Status: Alert, oriented to name, not to age, month, year. Follows simple requests. Comprehension is preserved.
Cranial Nerves: Pupils are equally round and reactive to light. EOMs full. Visual verduzco full to confrontation. No ptosis. No nystagmus. V1-V3 intact to light touch and pinprick bilaterally, symmetric. Face symmetric. Normal hearing AU. The
palate elevated well. SCMs and traps 5/5. Tongue midline. Mild dysarthria.
Motor: Normal bulk and tone. No pronator or arm drift. Strength 5/5 throughout. No clonus.
Coordination: No dysmetria or tremor.
Gait: deferred
Assessment and Plan:
I. Mild dysarthria
II. 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
III. 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
IV. History of symptomatic seizure
-Fall and seizure precautions
-Continue Keppra 500 mg twice daily. Please obtain medical records from [facility]
-Please obtain medical records from [facility]
-Continue thiamine 100 mg once a day
-Meclizine 25 mg every 8 hours as needed
-brain MRI without chantale given dysarthria.
I personally reviewed all radiology and labs along with past medical records pertinent to current medical problems. Total time spent in patient care is 55 minutes.
Thank you for allowing us to participate in the care of this patient. Please do not hesitate to contact us with any questions or concerns.
I personally reviewed all radiology and labs along with past medical records pertinent to current medical problems. Total time spent in patient care is 60 minutes.
Thank you for allowing us to participate in the care of this patient. We will continue to follow. Please do not hesitate to contact us with any questions or concerns.
Subjective/Objective
Subjective Data
Date of Service: December 23, 2023
Objective Data
Vital Signs
Temp Pulse Resp BP Pulse Ox
37.1 C 70 14 132/82 97
12/23/23 15:00 12/23/23 15:00 12/23/23 15:00 12/23/23 15:00 12/23/23 15:00
Lab Results
12/23/23 06:14
12/23/23 06:14
Sodium 142 mmol/L (135-145) 12/23/23 06:14
Potassium 4.7 mmol/L (3.5-5.1) 12/23/23 06:14
BUN 32 mg/dl (7-17) H 12/23/23 06:14
Glucose 76 mg/dl (70-99) 12/23/23 06:14
Calcium 9.5 mg/dl (8.4-10.2) 12/23/23 06:14
Patient Allergies
No Known Drug Allergies Allergy (Verified 12/22/23 12:22)
Unknown
Medications
-
Active Medications
Generic Name Dose Route Start Last Admin
Trade Name Freq PRN Reason Stop Dose Admin
Acetaminophen 650 mg 12/22/23 17:26
Acetaminophen 325 Mg Tablet PO 01/19/24 17:25
Q4HPRN PRN
mild pain/COLE/temp> 100.4F
Artificial Tears 1 drops 12/22/23 18:08
Artificial Tears Pf (Refresh) 10 Drop Droperette BOTH EYES 01/19/24 18:07
BIDPRN PRN
DRY EYES
Aspirin 81 mg 12/23/23 08:00 12/23/23 08:27
Aspirin 81 Mg (Enteric Coated) Tablet PO 01/20/24 07:59 81 mg
DAILY AVA Administration
Atorvastatin Calcium 40 mg 12/22/23 18:00 12/23/23 16:48
Atorvastatin (Lipitor) 40 Mg Tablet PO 01/19/24 17:59 40 mg
QPM AVA Administration
Bisacodyl 10 mg 12/22/23 17:26
Bisacodyl 10 Mg Rectal Suppository RECTAL 01/19/24 17:25
[id number] PRN
constipation
Cyanocobalamin 1,000 mcg 12/23/23 08:00 12/23/23 08:35
Cyanocobalamin 1,000 Mcg Tablet PO 01/20/24 07:59 1,000 mcg
DAILY AVA Administration
Escitalopram Oxalate 5 mg 12/23/23 08:00 12/23/23 08:33
Escitalopram 5 Mg Tablet PO 01/20/24 07:59 5 mg
DAILY AVA Administration
Sodium Chloride 1,000 mls @ 125 mls/hr 12/22/23 17:26 12/23/23 10:15
Nss IV 1,000 mls
.Q8H AVA Administration
Levetiracetam 500 mg 12/23/23 20:00
Levetiracetam 500 Mg Regular Release Tablet PO 01/20/24 19:59
BID AVA
Magnesium Hydroxide 15 ml 12/23/23 08:00 12/23/23 08:28
Milk Of Magnesia 30 Ml Cup PO 01/20/24 07:59 15 ml
DAILY AVA Administration
Metoprolol Succinate 50 mg 12/23/23 08:00 12/23/23 08:27
Metoprolol 50 Mg Extended Release Tablet PO 01/20/24 07:59 50 mg
DAILY AVA Administration
Mirtazapine 7.5 mg 12/22/23 22:00 12/22/23 21:05
Mirtazapine 7.5 Mg Regular Release Tablet PO 01/19/24 21:59 7.5 mg
HS AVA Administration
Ondansetron HCl 4 mg 12/23/23 08:00 12/23/23 10:11
Ondansetron 4 Mg (Orally-Disintegrating) Tablet PO 01/20/24 07:59 4 mg
DAILY AVA Administration
Pantoprazole Sodium 40 mg 12/23/23 08:00 12/23/23 08:27
Pantoprazole 40 Mg Delayed Release Tablet PO 01/20/24 07:59 40 mg
DAILY AVA Administration
Polyethylene Glycol 17 grams 12/23/23 08:00 12/23/23 08:28
Polyethylene Glycol Powder 17 Grams Packet PO 01/20/24 07:59 17 grams
DAILY AVA Administration
Polyethylene Glycol 17 grams 12/22/23 17:26
Polyethylene Glycol Powder 17 Grams Packet PO 01/19/24 17:25
DAILYPRN PRN
constipation
Senna/Docusate Sodium 1 tablet 12/22/23 17:26
Docusate W/Senna (Paulina-Colace) Tablet PO 01/19/24 17:25
BIDPRN PRN
constipation
Sodium Chloride 0 flush 12/23/23 12:00
Sodium Chloride 0.9% (Flush) Syringe IV 01/20/24 11:59
PER PROTOCOL AVA
Home Medications
�Medication �Instructions �Recorded
pantoprazole 40 mg tablet,delayed 40 mg PO DAILY Gastrointestinal 07/31/23
release Issue
acetaminophen 325 mg tablet 650 mg PO BIDPRN PRN mild pain 08/23/23
carboxymethylcellulose 0.5 1 drp BOTH EYES BIDPRN PRN dryness 08/23/23
%-glycerin 0.9 % eye drops ##0
(Refresh Optive)
ondansetron 4 mg disintegrating 4 mg PO DAILY NAUSSEA/VOMITING 08/23/23
tablet
aspirin 81 mg tablet,delayed 81 mg PO DAILY #0 tabs 09/05/23
release
metoprolol succinate 25 mg 50 mg PO DAILY Blood Pressure 11/26/23
tablet,extended release 24 hr
(Toprol XL)
sennosides 8.6 mg-docusate sodium 1 tab PO BIDPRN PRN constipation 11/26/23
50 mg tablet (Stool
Softener-Laxative)
atorvastatin 40 mg tablet (Lipitor) 40 mg PO QPM High cholesterol #0 11/29/23
tabs
cyanocobalamin (vitamin B-12) 1,000 mcg PO DAILY Supplement #0 11/29/23
1,000 mcg tablet tabs
escitalopram oxalate 5 mg tablet 5 mg PO DAILY Depression #0 tabs 11/29/23
magnesium hydroxide 1,200 mg 1,200 mg PO DAILY Supplement #0 11/29/23
chewable tablet tabs
mirtazapine 7.5 mg tablet 7.5 mg PO HS dementia #0 tabs 11/29/23
polyethylene glycol 3350 17 gram 17 g PO DAILY Constipation #0 ea 11/29/23
oral powder packet (HealthyLax)
cranberry fruit 450 mg tablet 450 mg PO DAILY Supplement 12/22/23
(cranberry)
furosemide 20 mg tablet (Lasix) 20 mg PO DAILY Fluid 12/22/23
Retention/Swelling
lorazepam 0.5 mg tablet 0.25 mg PO HS Mental Health/Anxiety 12/22/23
naproxen sodium 220 mg tablet 220 mg PO BIDPRN PRN mild pain 12/22/23
(Aleve)
Vital Signs and Labs
-
Vital Signs and Labs:
Vital Signs
Temp Pulse Resp BP Pulse Ox
37.1 C 70 14 132/82 97
12/23/23 15:00 12/23/23 15:00 12/23/23 15:00 12/23/23 15:00 12/23/23 15:00
Lab Results
12/23/23 06:14
12/23/23 06:14
Sodium 142 mmol/L (135-145) 12/23/23 06:14
Potassium 4.7 mmol/L (3.5-5.1) 12/23/23 06:14
BUN 32 mg/dl (7-17) H 12/23/23 06:14
Glucose 76 mg/dl (70-99) 12/23/23 06:14
Calcium 9.5 mg/dl (8.4-10.2) 12/23/23 06:14
Medications
-
Medications:
Generic Name Dose Route Start Last Admin
Trade Name Freq PRN Reason Stop Dose Admin
Acetaminophen 650 mg 12/22/23 17:26
Acetaminophen 325 Mg Tablet PO 01/19/24 17:25
Q4HPRN PRN
mild pain/COLE/temp> 100.4F
Artificial Tears 1 drops 12/22/23 18:08
Artificial Tears Pf (Refresh) 10 Drop Droperette BOTH EYES 01/19/24 18:07
BIDPRN PRN
DRY EYES
Aspirin 81 mg 12/23/23 08:00 12/23/23 08:27
Aspirin 81 Mg (Enteric Coated) Tablet PO 01/20/24 07:59 81 mg
DAILY AVA Administration
Atorvastatin Calcium 40 mg 12/22/23 18:00 12/23/23 16:48
Atorvastatin (Lipitor) 40 Mg Tablet PO 01/19/24 17:59 40 mg
QPM AVA Administration
Bisacodyl 10 mg 12/22/23 17:26
Bisacodyl 10 Mg Rectal Suppository RECTAL 01/19/24 17:25
[id number] PRN
constipation
Cyanocobalamin 1,000 mcg 12/23/23 08:00 12/23/23 08:35
Cyanocobalamin 1,000 Mcg Tablet PO 01/20/24 07:59 1,000 mcg
DAILY AVA Administration
Escitalopram Oxalate 5 mg 12/23/23 08:00 12/23/23 08:33
Escitalopram 5 Mg Tablet PO 01/20/24 07:59 5 mg
DAILY AVA Administration
Sodium Chloride 1,000 mls @ 125 mls/hr 12/22/23 17:26 12/23/23 18:23
Nss IV 1,000 mls
.Q8H AVA Administration
Levetiracetam 500 mg 12/23/23 20:00
Levetiracetam 500 Mg Regular Release Tablet PO 01/20/24 19:59
BID AVA
Magnesium Hydroxide 15 ml 12/23/23 08:00 12/23/23 08:28
Milk Of Magnesia 30 Ml Cup PO 01/20/24 07:59 15 ml
DAILY AVA Administration
Metoprolol Succinate 50 mg 12/23/23 08:00 12/23/23 08:27
Metoprolol 50 Mg Extended Release Tablet PO 01/20/24 07:59 50 mg
DAILY AVA Administration
Mirtazapine 7.5 mg 12/22/23 22:00 12/22/23 21:05
Mirtazapine 7.5 Mg Regular Release Tablet PO 01/19/24 21:59 7.5 mg
HS AVA Administration
Ondansetron HCl 4 mg 12/23/23 08:00 12/23/23 10:11
Ondansetron 4 Mg (Orally-Disintegrating) Tablet PO 01/20/24 07:59 4 mg
DAILY AVA Administration
Pantoprazole Sodium 40 mg 12/23/23 08:00 12/23/23 08:27
Pantoprazole 40 Mg Delayed Release Tablet PO 01/20/24 07:59 40 mg
DAILY AVA Administration
Polyethylene Glycol 17 grams 12/23/23 08:00 12/23/23 08:28
Polyethylene Glycol Powder 17 Grams Packet PO 01/20/24 07:59 17 grams
DAILY AVA Administration
Polyethylene Glycol 17 grams 12/22/23 17:26
Polyethylene Glycol Powder 17 Grams Packet PO 01/19/24 17:25
DAILYPRN PRN
constipation
Senna/Docusate Sodium 1 tablet 12/22/23 17:26
Docusate W/Senna (Paulina-Colace) Tablet PO 01/19/24 17:25
BIDPRN PRN
constipation
Sodium Chloride 0 flush 12/23/23 12:00
Sodium Chloride 0.9% (Flush) Syringe IV 01/20/24 11:59
PER PROTOCOL AVA
Home Medications
-
Home Medications
pantoprazole 40 mg tablet,delayed release 40 mg PO DAILY Gastrointestinal Issue 07/31/23
acetaminophen 325 mg tablet 650 mg PO BIDPRN PRN mild pain 08/23/23
carboxymethylcellulose 0.5 %-glycerin 0.9 % eye drops (Refresh Optive) 1 drp BOTH EYES BIDPRN PRN dryness ##0 08/23/23
ondansetron 4 mg disintegrating tablet 4 mg PO DAILY NAUSSEA/VOMITING 08/23/23
aspirin 81 mg tablet,delayed release 81 mg PO DAILY #0 tabs 09/05/23
metoprolol succinate 25 mg tablet,extended release 24 hr (Toprol XL) 50 mg PO DAILY Blood Pressure 11/26/23
sennosides 8.6 mg-docusate sodium 50 mg tablet (Stool Softener-Laxative) 1 tab PO BIDPRN PRN constipation 11/26/23
atorvastatin 40 mg tablet (Lipitor) 40 mg PO QPM High cholesterol #0 tabs 11/29/23
cyanocobalamin (vitamin B-12) 1,000 mcg tablet 1,000 mcg PO DAILY Supplement #0 tabs 11/29/23
escitalopram oxalate 5 mg tablet 5 mg PO DAILY Depression #0 tabs 11/29/23
magnesium hydroxide 1,200 mg chewable tablet 1,200 mg PO DAILY Supplement #0 tabs 11/29/23
mirtazapine 7.5 mg tablet 7.5 mg PO HS dementia #0 tabs 11/29/23
polyethylene glycol 3350 17 gram oral powder packet (HealthyLax) 17 g PO DAILY Constipation #0 ea 11/29/23
cranberry fruit 450 mg tablet (cranberry) 450 mg PO DAILY Supplement 12/22/23
furosemide 20 mg tablet (Lasix) 20 mg PO DAILY Fluid Retention/Swelling 12/22/23
lorazepam 0.5 mg tablet 0.25 mg PO HS Mental Health/Anxiety 12/22/23
naproxen sodium 220 mg tablet (Aleve) 220 mg PO BIDPRN PRN mild pain 12/22/23
[2023-12-23] MEDS: REMERON 7.5 MG PO (22:25)
[2023-12-23 23:25] VITALS: BP 124/70
--- NOTE | 2023-12-24 07:20 | W.PN.HOSP.TC ---
Addendum entered and electronically signed by Carmencita Kwong MD 12/24/23 13:04:
I saw and evaluated the patient independently. I reviewed the resident�s note and agree with findings and plan as documented by Dr. Oliver. Known to both of us from her last admission.
GENERAL: well developed, well nourished, female in no apparent distress
HEENT: NC/AT
HEART: regular rate and rhythm, +S1, +S2
LUNGS : clear to auscultation bilaterally
ABDOM: soft, nontender, nondistended, + bowel sounds
EXT: no cyanosis, clubbing, or edema
NEUROLOGIC: grossly intact
Change in Mental status likely secondary to medication side effect (although we don't know what it was) vs Volume depletion--no formal dementia diagnosis but likely does have underlying chronic cognitive impairment--perhaps mentation waxes and wanes
from vascular dementia and needs higher BP to perfuse brain-CT head on admission without acute intracranial hemorrhage, large vessel territory infarction or mass. There is mild subcortical, deep, and periventricular white matter low-attenuation,
compatible with changes of chronic small vessel ischemic disease--At the last admission at 11/25, medical records were received from [facility]. It was noted, patient had a new onset Seizure disorder by EEG and Started on Keppra-- She had NSTEMI with
elevated troponin treated with Medical therapy. Records in chart. --neurology restarted Keppra (agree)--check MRI brain--apprec neuro
KHAI --Likely preRenal etiology-- (Baseline Creat 1.0)--Improving with IV fluids.
Recent NSTEMI at [facility]-Continue medical therapy.
Seizure disorder -Continue on Keppra.
Essential hypertension-Continue Metoprolol
Hyperlipidemia-Continue atorvastatin.
History of stroke
History of colon cancer -s/p resection
Depression
DVT Ppx- SCD
code status- DNR
pt told me she wants therapy but not at [place] also that her daughters are not on the same page as her (wouldn't elaborate further)
Original Note:
Today's Communication/Plan
-
.
Assessment / Plan
Assessment / Plan
Assessment/Plan
#Change in Mental status likely secondary to medication side effect vs Volume depletion.
-Patient with underlying chronic cognitive impairment.
-CT head on admission-There is no acute intracranial hemorrhage, large vessel territory infarction or mass.There is mild subcortical, deep, and periventricular white matter low-attenuation, compatible with changes of chronic small vessel ischemic
disease.
-Patient previously on Keppra for seizure disorder diagnosed at [facility]. Stopped at shelter due to 'side effects', but now continued this admission.
-Neurology input appreciated, Continue on Keppra. [facility]
-MRI pending.
#KHAI
-Likely preRenal etiology. Now at Baseline. (Baseline Cre 1.0)
-Improving with IV fluids.
#Recent NSTEMI at [facility]
-Continue medical therapy.
#Seizure disorder
-Continue on Keppra.
#Essential hypertension
-Continue Metoprolol
#Hyperlipidemia
-Continue atorvastatin.
#History of stroke
#History of colon cancer -s/p resection.
#Depression
DVT Ppx- SCD
code status- DNR
At the last admission at 11/25, medical records were received from [facility]. It was noted, patient had a new onset Seizure disorder, Started on Keppra. She had NSTEMI with elevated troponin, Started on Medical therapy. Records in chart.
Anticipated Discharge: 24 - 48 hours
Subjective/Interval History
-
Patient seen and examined at bedside. Patient states she hasn't been eating and drinking the past few days. She reports having episodeS of confusion on returning home from SNF. In addition, she states she 'HAD A FALL' 3 DAYS ago. She denies hitting
her head. Patient denies any acute complaints. She denies chest pain, sob, headache. She denies episode of seizure since one time episode at [facility].
Objective Data
-
Vital Signs:
Vital Signs
Temp Pulse Resp BP Pulse Ox
98.1 F 64 16 124/70 98
12/23/23 23:25 12/23/23 23:25 12/23/23 23:25 12/23/23 23:25 12/24/23 00:55
I&O
12/23/23 12/24/23 12/25/23
06:59 06:59 06:59
Intake Total 3520 / 3520
Balance 3520 / 3520
Review of Systems
-
All other systems: Reviewed and negative (except as documented. )
Physical Exam
-
General: No Apparent Distress
Respiratory: Clear to Auscultation
Cardiac: S1/S2
GI: Soft, Nontender and Nondistended
Musculoskeletal: No Edema
Neuro: Nonfocal/Grossly Intact
Psych: Calm
[2023-12-24 07:35] VITALS: BP 150/80
[2023-12-24] MEDS: KEPPRA 500 MG PO ×2 (08:43→20:37)
[2023-12-24] MEDS: MILK OF MAGNESIA 15 ML PO (08:44)
[2023-12-24] MEDS: ASPIR LOW (ENTERIC COATED) 81 MG PO (08:44)
[2023-12-24] MEDS: PROTONIX 40 MG PO (08:44)
[2023-12-24] MEDS: ZOFRAN ODT (ORALLY DISINTEGRATING) 4 MG PO (08:44)
[2023-12-24] MEDS: MIRALAX 17 GRAMS PO (08:44)
[2023-12-24] MEDS: VITAMIN B-12 1000 MCG PO (08:44)
[2023-12-24] MEDS: TOPROL XL 50 MG PO (08:44)
[2023-12-24] MEDS: LEXAPRO 5 MG PO (08:44)
[2023-12-24 08:58] LABS: Hematocrit 37.1 % (37.0-47.0); Mean Corp Hgb Conc. 32.3 g/dL (33.0-37.0); Mean Corpuscular Hgb 28.5 pg (27.0-31.0); Mean Corpuscular Volume 88.1 fL (81.0-99.0); Red Blood Cell Count 4.21 10^6/uL (4.20-5.40); Red Cell Dist. Width 14.2 % (11.5-14.5); White Blood Cell Count 6.9 10^3/uL (4.8-10.8)
[2023-12-24 09:16] LABS: Mean Platelet Volume 10.2 fL (7.4-10.4); Platelet Count 184 10^3/uL (130-400)
[2023-12-24 10:46] LABS: Blood Urea Nitrogen 24 mg/dl (7-17); Calcium 9.6 mg/dl (8.4-10.2); Carbon Dioxide 22 mmol/L (22-30); Chloride 111 mmol/L (98-107); Glucose 120 mg/dl (70-99); Potassium 4.8 mmol/L (3.5-5.1); Sodium 142 mmol/L (135-145); eGFR 54.53
[2023-12-24] MEDS: NSS 1000 IV (12:57)
--- NOTE | 2023-12-24 13:34 | CM ---
Addendum entered by Rose López 12/24/23 16:59:
[facility] not open for admissions tomorrow. CM spoke with admissions awaiting call back to clarify options.
Original Note:
Patient seen at bedside with physicians. Patient for SNF pending bed availability. CM will send referral at patient request to [facility]. CM will continue to follow for discharge planning needs.
plan; SNF
[2023-12-24 14:50] VITALS: BP 133/68; PULSE 67; O2SAT 97
[2023-12-24 15:38] VITALS: BP 133/88; PULSE 62; O2SAT 97
[2023-12-24 15:40] VITALS: BP 115/65
--- NOTE | 2023-12-24 16:30 | PTCARENOTE ---
Patient getting agitated and restless. Patient OOB in chair. Patient keeps setting off alarm and getting OOB. Patient states she has to use bathroom. Patient assisted to commode 4 times. Patient had no BM. 5th time patient OOB to get on commode
patient had large BM. One time dose of PO Ativan was not given. Patient calm and cooperative sitting in chair. Family at bedside.
[2023-12-24] MEDS: LIPITOR 40 MG PO (17:15)
[2023-12-24] MEDS: REMERON 7.5 MG PO (21:54)
[2023-12-25] MEDS: NSS 1000 IV (00:20)
[2023-12-25 00:45] VITALS: BP 105/57
[2023-12-25 07:30] VITALS: BP 138/76
[2023-12-25] MEDS: ASPIR LOW (ENTERIC COATED) 81 MG PO (07:41)
[2023-12-25] MEDS: TOPROL XL 50 MG PO (07:41)
[2023-12-25] MEDS: MILK OF MAGNESIA PO (07:41)
[2023-12-25] MEDS: LEXAPRO 5 MG PO (07:41)
[2023-12-25] MEDS: ZOFRAN ODT (ORALLY DISINTEGRATING) 4 MG PO (07:41)
[2023-12-25] MEDS: KEPPRA 500 MG PO ×2 (07:41→20:32)
[2023-12-25] MEDS: VITAMIN B-12 1000 MCG PO (07:41)
[2023-12-25] MEDS: PROTONIX 40 MG PO (07:41)
[2023-12-25] MEDS: MIRALAX PO (07:42)
--- NOTE | 2023-12-25 07:55 | W.PN.HOSP.TC ---
Addendum entered and electronically signed by Carmencita Kwong MD 12/25/23 12:15:
I saw and evaluated the patient independently. I reviewed the resident�s note and agree with findings and plan as documented by Dr. Oliver. Known to both of us from her last admission.
GENERAL: well developed, well nourished, female in no apparent distress
HEENT: NC/AT
HEART: regular rate and rhythm, +S1, +S2
LUNGS : clear to auscultation bilaterally
ABDOM: soft, nontender, nondistended, + bowel sounds
EXT: no cyanosis, clubbing, or edema
NEUROLOGIC: grossly intact
Change in Mental status likely secondary to medication side effect (although we don't know what it was) vs Volume depletion--no formal dementia diagnosis but likely does have underlying chronic cognitive impairment--perhaps mentation waxes and wanes
from vascular dementia and needs higher BP to perfuse brain?--CT head on admission without acute intracranial hemorrhage, large vessel territory infarction or mass. There is mild subcortical, deep, and periventricular white matter low-attenuation,
compatible with changes of chronic small vessel ischemic disease--MRI brain without any change and no acute abnormality noted--At the last admission at 11/25, medical records were received from [facility]. It was noted, patient had a new onset Seizure
disorder by EEG and Started on Keppra-- She had NSTEMI with elevated troponin treated with Medical therapy. Records in chart. --neurology restarted Keppra (agree)--apprec neuro
KHAI --Likely preRenal etiology-- (Baseline Creat 1.0)--Improved with IV fluids
metabolic acidosis with hyperkalemia--repeat, Lokelma
Recent NSTEMI at [facility]--Continue medical therapy.
Seizure disorder--Continue on Keppra.
Essential hypertension--Continue Metoprolol
Hyperlipidemia-Continue atorvastatin.
History of stroke
History of colon cancer -s/p resection
Depression
DVT Ppx- SCD
code status- DNR
pt told me she wants therapy but not at [facility] also that her daughters are not on the same page as her (wouldn't elaborate further)
Original Note:
Today's Communication/Plan
-
Psych consult.
Lokelma
Assessment / Plan
Assessment / Plan
Assessment/Plan
#Change in Mental status likely secondary to medication side effect vs Volume depletion.
-Patient with underlying chronic cognitive impairment.
-CT head on admission-There is no acute intracranial hemorrhage, large vessel territory infarction or mass.There is mild subcortical, deep, and periventricular white matter low-attenuation, compatible with changes of chronic small vessel ischemic
disease.
-Patient previously on Keppra for seizure disorder diagnosed at [facility]. Stopped at care home due to 'side effects', but now continued this admission.
-Neurology input appreciated, Continue on Keppra. Request Medical records from [facility] rehab.
-MRI 12/23- No acute intracranial abnormality noted. Moderate parenchymal volume loss with sequelae of mild/moderate small vessel ischemic disease, unchanged from prior.
-Will consult Psych for evaluation.
#Hyperkalemia
- Will give Lokelma.
-Repeat BMP
#KHAI
-Likely preRenal etiology secondary to dehydration. Now at Baseline. (Baseline Cre 1.0)
-Improving with IV fluids.
#Recent NSTEMI at [facility]
-Continue medical therapy.
#Seizure disorder
-Continue on Keppra.
#Essential hypertension
-Continue Metoprolol
#Hyperlipidemia
-Continue atorvastatin.
#History of stroke
#History of colon cancer -s/p resection.
#Depression
DVT Ppx- SCD
code status- DNR
At the last admission at 11/25, medical records were received from [facility]. It was noted, patient had a new onset Seizure disorder, Started on Keppra. She had NSTEMI with elevated troponin, Started on Medical therapy. Records in chart.
Anticipated Discharge: > 48 hours
Subjective/Interval History
-
Patient seen at bedside today. Reports daughter not on the 'same page with her' . She denies any acute complaint. She's [id number].
Objective Data
-
Labs:
Laboratory Results
12/25/23
06:00
WBC Pending
Hgb Pending
Hct Pending
Plt Count Pending
Sodium Pending
Potassium Pending
Chloride Pending
Carbon Dioxide Pending
BUN Pending
Creatinine Pending
Glucose Pending
Calcium Pending
Vital Signs:
Vital Signs
Temp Pulse Resp BP Pulse Ox
98.0 F 57 16 105/57 99
12/25/23 00:45 12/25/23 00:45 12/25/23 00:45 12/25/23 00:45 12/25/23 00:45
I&O
12/24/23 12/25/23 12/26/23
06:59 06:59 06:59
Intake Total 0 / 3520 1879
Balance 3520 / 3520 1879
Review of Systems
-
All other systems: Reviewed and negative (except as documented. )
Physical Exam
-
General: No Apparent Distress and Comfortable
Respiratory: Clear to Auscultation
Cardiac: Regular Rhythm and S1/S2
GI: Soft, Nontender, Nondistended and Normal Bowel Sounds
Musculoskeletal: No Edema
Neuro: Awake, Alert, Oriented and AO x 3
Psych: Calm
[2023-12-25 09:03] LABS: Hematocrit 35.5 % (37.0-47.0); Hemoglobin 11.5 g/dL (12.0-16.0); Mean Corp Hgb Conc. 32.4 g/dL (33.0-37.0); Mean Corpuscular Hgb 28.2 pg (27.0-31.0); Mean Platelet Volume 10.7 fL (7.4-10.4); Platelet Count 187 10^3/uL (130-400); Red Blood Cell Count 4.08 10^6/uL (4.20-5.40); Red Cell Dist. Width 14.5 % (11.5-14.5); White Blood Cell Count 7.4 10^3/uL (4.8-10.8)
[2023-12-25 09:26] LABS: Blood Urea Nitrogen 24 mg/dl (7-17); Calcium 9.2 mg/dl (8.4-10.2); Carbon Dioxide 16 mmol/L (22-30); Chloride 115 mmol/L (98-107); Glucose 63 mg/dl (70-99); Magnesium 2.3 mg/dl (1.6-2.3); Potassium 5.4 mmol/L (3.5-5.1); Sodium 143 mmol/L (135-145); eGFR > 60.00
[2023-12-25] MEDS: LOKELMA 5 GRAM PO (11:16)
--- NOTE | 2023-12-25 12:37 | CON.MD ---
Consultation - Medical
-
patient seen chart reviewed. discussed with dr diamond and with nursing. 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 [facility] she has been hospitalized here at several times since july. during that month she was admitted for confusion and agitation. she was found to hav
ea uti and severe constipation as well as decreased b12. her cat scn revealed cortical atrophy and white matter disease mri no acute changes and small vessel ischemia. risperdal was suggested as a prn not a scheduled dose. she was dc to snf and
went to her 's home subsequently. in august she was back in the ER w c.o pain and nausea. at that time she was again noted to have uti. she was described as 'FTT'. noted in the chart was a hx of tia, dysphagia (no gross abnormalities on egd). in
november of 2023 she was admitted again with worsening ambulation and dizziness. there had been falls. she was thought to have post concussion syndrome. she had been placed on keppra at [facility]. at some point she was also placed on lexapro 5 mg
and remeron 7.5 mg q hs the latter presumably for sleep as prior she had taken melatonin. the patient adamantly denies that she is depressed and was not aware she was taking antidepressants. constipation has also been an issue is these hospital
stays. patient had a stay at [facility] after the november stay and had returned home to her 's home and did not do well hence brought her to w c/o confusion. she was very pleasant when i spoke to her for over 45 minutes. she denied
depression. she denied issues with memory although clearly there is some memory impairment although she was able to engage in conversation that was appropriate. she was able to tell me that she had htn hld 'doesn't everyone' and colon cancer. she
was also able to tell me about her time in [place] and conversed very knowledgeably bout the country which i have some knowledge of as well. sleep is fair. her appetite is plus minus. she enjoys talking to people. she is disappointed to be in [place]
and would rather live out the rest of her days in [place]. dr diamond tells me the patient is agreeable to snf to get stronger physically. it was my impression that she feared family wanted to put her in a nh and that was not okay with her. she
not infrequently referred to her d as a 'pain in the ass' dr diamond tells me patient has had some episodes of sundowning
past psych hx see above patient has been on antidepressants but she denies ever being depressed. it is noted in the record that she was thought by others to be depressed but that was not her impression.
medical hx very mild anemia w hgb11.5 high K 5.4 glucose 63 urine looks ok this go around vital signs okay pulse on the low side at 60 bun 24 at admit today pending ecg read as normal hx of dizziness. there is note re nstemi in the past hx
gerd hx colon ca htn hld uti recurrent tia constipation anemia dysphagia/gerd nl egd patient has been seen by neuro and she has been on and off keppra for abnormalities in eeg and around the time of dx of subdural ? sz
substance abuse none
fh denied
social patient resided in [place] for 40 years recently come back to [facility]. there kids two d in [place] and [place] [facility]. 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
mse alert and oriented to person place and 2023 re month she thought it was march she did know there was an election and would not have voted for trump! thought process generally goal oriented no psychosis affect ok patient did NOT appear
depressed to me. intelligence above average but cognition likely impaired mildly to perhaps low moderate insight and judgment fair
dx mild cognitive impairment vs low moderate impairment
recommendations when she is NOT in hospital formal cognitive testing to assess level of cognitive impairment might be considered. at this point it is my impression and that of dr diamond that patient still has the cognitive capacity to make
medical decisions on her own behalf. i would agree w snf to get her stronger physically and hopefully then a discussion could be had as to disposition. re taj suggest risperdal o.25 mg po up to bid to start prn agitation. would dc remeron
and lexapro. remeron could be predisposing the rto urinary issues and constipation given its anticholinergic properties and lexapro to hyponatremia. she does not seem depressed to me or to dr diamond and she denies depression. psych will look in
on her tomorrow.
[2023-12-25 15:50] VITALS: BP 119/60
[2023-12-25] MEDS: LIPITOR 40 MG PO (17:13)
[2023-12-25] MEDS: RISPERDAL 0.25 MG PO (20:35)
[2023-12-25 23:29] VITALS: BP 111/55
--- NOTE | 2023-12-26 07:10 | W.PN.UPDATE ---
Update Note
Progress Note Update
On 12/25/23, had long conversation (approximately 50 minutes or so) with patient, daughter Deana, and also present Dr. Oliver. Patient tells me that she does not feel heard. She feels that she is not included in any of the decisions regarding
her moving forward. Daughter Deana concerned about patient's confusion in the evenings and feels unable to take care of her mom the way that she feels she should be taking care of. Patient very aggressive and demeaning toward daughter. Both patient
and daughter agreed that the summer was conrad and wonderful but that things changed after the patient fell.
Patient fell out of bed and went to [facility] and was diagnosed with seizures by documented EEG findings as well as subdural hematoma and NSTEMI that was medically managed. Patient then came to our hospital shortly thereafter for
drowsiness, sleepiness, change in mental status. Records from [facility] were reviewed that admission and confirmed the above findings. Patient was continued on Keppra given the documented EEG findings (daughter felt that perhaps her sleepiness
and drowsiness were related to that new medication).
I explained to the patient and her daughter that she likely is still suffering from postconcussive issues stemming from the original fall. In fact, I used a football analogy to try to describe what she is experiencing. Stating that the concussed
football player does not feel that anything is wrong and wants to go back into the game, the motorcoach driver wants him to go back in the game, and a third person neutral observer clears the football player to go back in the game. I explained that while she
likely states that nothing is wrong with her, clearly she has some issues with sundowning and some confusion in the evenings that she likely cannot see happening to her or is in denial.
We spoke about discharge planning. Patient is agreeable to go to rehab but does not wish to go to [facility]. We also talked about the possibility of assisted living, personal care, aides at home, or staying long-term at the intermediate should she
wish to do so but patient is undecided about any of what she wants to do. She does say that she wishes to return to [place]; however, she realizes that that will never happen. She does tell me, in no uncertain terms, that she will not go back to
live with her daughter Deana. Her daughter is interested in a 'community' that has multiple levels of care; so that when she comes out of short term rehab that she has an alternative place to go to possibly maintain her independence.
Psychiatry has seen the patient and states that she does have capacity to make her own medical decisions. I have reiterated that to both the patient and her daughter and explained that regardless of what her family wants, she has the ability to
make her own decisions and I am obligated to listen to her. We spoke about meeting with Chey Russell from '[facility] Perhaps she can offer suggestions as to what might be in the patient's best interest as well as satisfactory for her
family.
Patient states that she does not know the nursing homes/senior living facilities in the area and feels that her daughter Deana is pushing her into the facility of the daughter's choice. I did explain to the patient that unfortunately, she is in the
hospital and cannot tour these facilities on her own and that her daughter is not in the hospital and can tour the facilities; in order to make the best decision for what she believes would be acceptable to her Mom. It does not appear that the
patient is accepting of that explanation. I did offer for our case aide, Rose López, to meet with them on December 26, 2023 to go over possibilities for discharge. Patient and daughter were amenable to that.
We ended the conversation at that time but patient still feels that no one is taking her wishes into consideration and that everyone is siding against her and 'stabbing her in the back'.
[2023-12-26 07:40] VITALS: BP 139/76
--- NOTE | 2023-12-26 07:43 | W.PN.HOSP.TC ---
Addendum entered and electronically signed by Carmencita Kwong MD 12/26/23 13:41:
I saw and evaluated the patient independently. I reviewed the resident�s note and agree with findings and plan as documented by Dr. Oliver. Known to both of us from her last admission.
GENERAL: well developed, well nourished, female in no apparent distress
HEENT: NC/AT
HEART: regular rate and rhythm, +S1, +S2
LUNGS : clear to auscultation bilaterally
ABDOM: soft, nontender, nondistended, + bowel sounds
EXT: no cyanosis, clubbing, or edema
NEUROLOGIC: grossly intact
Change in Mental status likely secondary to medication side effect (daughter relays nastiness and leg pain)) vs Volume depletion--no formal dementia diagnosis but likely does have underlying chronic cognitive impairment--perhaps mentation waxes and
wanes from vascular dementia and needs higher BP to perfuse brain?--CT head on admission without acute intracranial hemorrhage, large vessel territory infarction or mass. There is mild subcortical, deep, and periventricular white matter
low-attenuation, compatible with changes of chronic small vessel ischemic disease--MRI brain without any change and no acute abnormality noted--At the last admission at 11/25, medical records were received from [facility]. It was noted, patient had a
new onset Seizure disorder by EEG and Started on Keppra-- She had NSTEMI with elevated troponin treated with Medical therapy. Records in chart. --neurology restarted Keppra (agree)--apprec neuro
KHAI --Likely preRenal etiology-- (Baseline Creat 1.0)--Improved with IV fluids
metabolic acidosis with hyperkalemia--repeat, kelwv --start 1 L of D5W with bicarb--unclear cause of acidosis
Recent NSTEMI at [facility]--Continue medical therapy.
Seizure disorder--Continue on Keppra.
Essential hypertension--Continue Metoprolol
Hyperlipidemia-Continue atorvastatin.
History of stroke
History of colon cancer -s/p resection
Depression
DVT Ppx- SCD
code status- DNR
dispo--please see my update note in re: to meeting on 12/25/23--going to have another meeting with patient 12/26/23
Original Note:
Today's Communication/Plan
-
.
Assessment / Plan
Assessment / Plan
Assessment/Plan
#Change in Mental status likely secondary to medication side effect vs Volume depletion.
-Patient with underlying chronic cognitive impairment.
-CT head on admission-There is no acute intracranial hemorrhage, large vessel territory infarction or mass.There is mild subcortical, deep, and periventricular white matter low-attenuation, compatible with changes of chronic small vessel ischemic
disease.
-Patient previously on Keppra for seizure disorder diagnosed at [facility]. Stopped at [facility] due to 'side effects', but now continued this admission.
-Neurology input appreciated, Continue on Keppra
-MRI 12/23- No acute intracranial abnormality noted. Moderate parenchymal volume loss with sequelae of mild/moderate small vessel ischemic disease, unchanged from prior.
-Psych consulted. Input appreciated.
-Risperdal 0.25 mg po bid PRN for agitation. Discontinue remeron and lexapro.
#Acidosis
-D5W with Bicarb today
#Hyperkalemia
-Resolved with Lokelma.
#KHAI
-Resolved with IV fluids .
#Recent NSTEMI at [facility]
-Continue medical therapy.
#Seizure disorder
-Continue on Keppra.
#Essential hypertension
-Continue Metoprolol
#Hyperlipidemia
-Continue atorvastatin.
#History of stroke
#History of colon cancer -s/p resection.
#Depression
DVT Ppx- SCD
code status- DNR
See Attending physician Dr Kwong's update note.
Anticipated Discharge: 24 - 48 hours
Subjective/Interval History
-
Date of Service: December 26, 2023
Objective Data
-
Labs:
Laboratory Results
12/26/23
07:07
WBC Pending
Hgb Pending
Hct Pending
Plt Count Pending
Sodium Pending
Potassium Pending
Chloride Pending
Carbon Dioxide Pending
BUN Pending
Creatinine Pending
Glucose Pending
Calcium Pending
Vital Signs:
Vital Signs
Temp Pulse Resp BP Pulse Ox
97.9 F 68 19 111/55 97
12/25/23 23:29 12/25/23 23:29 12/25/23 23:29 12/25/23 23:29 12/25/23 23:29
I&O
12/25/23 12/26/23 12/27/23
06:59 06:59 06:59
Intake Total 1879 1360 / 1360
Balance 1879 1360 / 1360
Review of Systems
-
All other systems: Reviewed and negative (except as documented)
Physical Exam
-
General: No Apparent Distress
Respiratory: Clear to Auscultation; Negative Wheezes
Cardiac: Regular Rhythm and S1/S2
GI: Soft, Nontender, Nondistended and Normal Bowel Sounds
Musculoskeletal: No Edema
Neuro: Awake and Alert
Psych: Calm
[2023-12-26 07:51] LABS: Hematocrit 35.7 % (37.0-47.0); Hemoglobin 11.5 g/dL (12.0-16.0); Mean Corp Hgb Conc. 32.2 g/dL (33.0-37.0); Mean Corpuscular Hgb 28.5 pg (27.0-31.0); Mean Corpuscular Volume 88.4 fL (81.0-99.0); Mean Platelet Volume 9.3 fL (7.4-10.4); Platelet Count 262 10^3/uL (130-400); Red Blood Cell Count 4.04 10^6/uL (4.20-5.40); Red Cell Dist. Width 14.2 % (11.5-14.5); White Blood Cell Count 6.8 10^3/uL (4.8-10.8)
[2023-12-26] MEDS: MIRALAX PO (08:01)
[2023-12-26] MEDS: ASPIR LOW (ENTERIC COATED) 81 MG PO (08:01)
[2023-12-26] MEDS: TOPROL XL 50 MG PO (08:01)
[2023-12-26] MEDS: ZOFRAN ODT (ORALLY DISINTEGRATING) 4 MG PO (08:01)
[2023-12-26] MEDS: VITAMIN B-12 1000 MCG PO (08:01)
[2023-12-26] MEDS: MILK OF MAGNESIA PO (08:01)
[2023-12-26] MEDS: KEPPRA 500 MG PO ×2 (08:01→19:41)
[2023-12-26] MEDS: PROTONIX 40 MG PO (08:01)
[2023-12-26] MEDS: RISPERDAL 0.25 MG PO ×2 (08:56→18:25)
[2023-12-26 09:38] LABS: Blood Urea Nitrogen 21 mg/dl (7-17); Calcium 9.7 mg/dl (8.4-10.2); Carbon Dioxide 18 mmol/L (22-30); Chloride 114 mmol/L (98-107); Glucose 75 mg/dl (70-99); Potassium 4.9 mmol/L (3.5-5.1); Sodium 141 mmol/L (135-145); eGFR > 60.00
[2023-12-26] MEDS: SODIUM BICARBONATE 1150 MEQ IV (11:20)
[2023-12-26 15:15] VITALS: BP 114/61
--- NOTE | 2023-12-26 15:43 | CM ---
extensive family meetings with patient and daughters. Chey from [facility] present and will continue to follow for supports. CM to send referrals to [facility], [facility]. CM will continue to follow for discharge planning needs.
Plan; SNF
[2023-12-26] MEDS: LIPITOR 40 MG PO (16:56)
[2023-12-26] MEDS: TYLENOL 650 MG PO (19:42)
[2023-12-26 23:36] VITALS: BP 109/56
[2023-12-27] MEDS: TYLENOL 650 MG PO ×3 (04:26→18:13)
[2023-12-27] MEDS: RISPERDAL 0.25 MG PO ×2 (04:26→13:17)
[2023-12-27 06:34] LABS: Hematocrit 34.4 % (37.0-47.0); Mean Corpuscular Volume 90.8 fL (81.0-99.0); Mean Platelet Volume 9.4 fL (7.4-10.4); Platelet Count 248 10^3/uL (130-400); Red Blood Cell Count 3.79 10^6/uL (4.20-5.40); Red Cell Dist. Width 14.1 % (11.5-14.5); White Blood Cell Count 6.7 10^3/uL (4.8-10.8)
[2023-12-27 07:06] LABS: Blood Urea Nitrogen 21 mg/dl (7-17); Carbon Dioxide 29 mmol/L (22-30); Chloride 109 mmol/L (98-107); Glucose 78 mg/dl (70-99); Potassium 4.5 mmol/L (3.5-5.1); Sodium 142 mmol/L (135-145); eGFR > 60.00
[2023-12-27 07:35] VITALS: BP 134/82
--- NOTE | 2023-12-27 07:44 | W.PN.HOSP.TC ---
Addendum entered and electronically signed by Carmencita Kwong MD 12/27/23 15:34:
I saw and evaluated the patient independently. I reviewed the resident�s note and agree with findings and plan as documented by Dr. Oliver. Known to both of us from her last admission.
GENERAL: well developed, well nourished, female in no apparent distress
HEENT: NC/AT
HEART: regular rate and rhythm, +S1, +S2
LUNGS : clear to auscultation bilaterally
ABDOM: soft, nontender, nondistended, + bowel sounds
EXT: no cyanosis, clubbing, or edema
NEUROLOGIC: grossly intact
Change in Mental status likely secondary to medication side effect (daughter relays nastiness and leg pain) vs Volume depletion--no formal dementia diagnosis but likely does have underlying chronic cognitive impairment--perhaps mentation waxes and
wanes from vascular dementia--CT head on admission without acute intracranial hemorrhage, large vessel territory infarction or mass. There is mild subcortical, deep, and periventricular white matter low-attenuation, compatible with changes of
chronic small vessel ischemic disease--MRI brain without any change and no acute abnormality noted--At the last admission at 11/25, medical records were received from [facility]. It was noted, patient had a new onset Seizure disorder by EEG and Started
on Keppra-- She had NSTEMI with elevated troponin treated with Medical therapy. Records in chart. --neurology restarted Keppra (agree)--apprec neuro/psych
KHAI --Likely preRenal etiology-- (Baseline Creat 1.0)--Improved with IV fluids
metabolic acidosis with hyperkalemia--repeat, Lokelva --s/p 1 L of D5W with bicarb--unclear cause of acidosis--received
Recent NSTEMI at [facility]--Continue medical therapy.
Seizure disorder--Continue on Keppra.
Essential hypertension--Continue Metoprolol
Hyperlipidemia-Continue atorvastatin.
History of stroke
History of colon cancer -s/p resection
Depression--seen by psych, has capacity to make decisions--stopped lexapro and mirtazapine--started Risperdal instead--pt very tearful this AM--will restart lexapro
DVT Ppx- SCD
code status- DNR
dispo--please see my update note in re: to meeting on 12/25/23--going to have another meeting with patient 12/26/23
Original Note:
Today's Communication/Plan
-
Awaiting SNF placement.
Assessment / Plan
Assessment / Plan
Assessment/Plan
#Change in Mental status likely secondary to medication side effect vs Volume depletion.
-Patient with underlying chronic cognitive impairment.
-CT head on admission-There is no acute intracranial hemorrhage, large vessel territory infarction or mass.There is mild subcortical, deep, and periventricular white matter low-attenuation, compatible with changes of chronic small vessel ischemic
disease.
-Patient previously on Keppra for seizure disorder diagnosed at [facility]. Stopped at [facility] due to 'side effects', but now continued this admission.
-Neurology input appreciated, Continue on Keppra
-MRI 12/23- No acute intracranial abnormality noted. Moderate parenchymal volume loss with sequelae of mild/moderate small vessel ischemic disease, unchanged from prior.
-Psych consulted. Input appreciated.
-Risperdal 0.25 mg po bid PRN for agitation. Will resume Lexapro.
#Acidosis
-resolved with D5W+Bicarb.
#Hyperkalemia
-Resolved with Lokelma.
#KHAI
-Resolved with IV fluids .
#Recent NSTEMI at [facility]
-Continue medical therapy.
#Seizure disorder
-Continue on Keppra.
#Essential hypertension
-Continue Metoprolol
#Hyperlipidemia
-Continue atorvastatin.
#History of stroke
#History of colon cancer -s/p resection.
#Depression
DVT Ppx- SCD
code status- DNR
Anticipated Discharge: Within 24 hours
Subjective/Interval History
-
Date of Service: December 27, 2023
Objective Data
-
Labs:
Laboratory Results
12/27/23
06:11
WBC 6.7
Hgb 11.0 L
Hct 34.4 L
Plt Count 248
Sodium 142
Potassium 4.5
Chloride 109 H
Carbon Dioxide 29
BUN 21 H
Creatinine 0.9
Glucose 78
Calcium 9.0
Vital Signs:
Vital Signs
Temp Pulse Resp BP Pulse Ox
98.0 F 71 17 109/56 96
12/26/23 23:36 12/26/23 23:36 12/26/23 23:36 12/26/23 23:36 12/26/23 23:36
I&O
12/26/23 12/27/23 12/28/23
06:59 06:59 06:59
Intake Total 1360 / 1360 1270 / 1270
Balance 1360 / 1360 1270 / 1270
Review of Systems
-
All other systems: Reviewed and negative (except as documented. )
Physical Exam
-
General: Well Developed and No Apparent Distress
Respiratory: Clear to Auscultation
Cardiac: Regular Rhythm and S1/S2
GI: Soft, Nontender, Nondistended and Normal Bowel Sounds
Musculoskeletal: No Edema
Neuro: Awake, Alert, Oriented and AO x 3
Psych: Calm
[2023-12-27] MEDS: MILK OF MAGNESIA 15 ML PO (08:56)
[2023-12-27] MEDS: MIRALAX 17 GRAMS PO (08:57)
[2023-12-27 08:58] VITALS: BP 134/82
[2023-12-27] MEDS: ASPIR LOW (ENTERIC COATED) 81 MG PO (08:58)
[2023-12-27] MEDS: PROTONIX 40 MG PO (08:58)
[2023-12-27] MEDS: VITAMIN B-12 1000 MCG PO (08:59)
[2023-12-27] MEDS: ZOFRAN ODT (ORALLY DISINTEGRATING) 4 MG PO (08:59)
[2023-12-27] MEDS: TOPROL XL 50 MG PO (08:59)
[2023-12-27] MEDS: KEPPRA 500 MG PO ×2 (08:59→20:17)
[2023-12-27] MEDS: LEXAPRO 5 MG PO (10:51)
[2023-12-27] MEDS: TYLENOL PO (12:33)
--- NOTE | 2023-12-27 14:46 | CM ---
Addendum entered by Rose López 12/27/23 15:39:
[facility] has accepted patient and CM updated patient daughter Deana. Patient daughter asked for physician to call her and review options. CM updated physician. CM will continue to follow for discharge planning needs.
Plan; SNF
Original Note:
family meeting again today with patient and daughter in room with physician. No beds at [facility], [facility], [facility] . Patient continues to refuse [facility] . CM updated daughter Deana and she will continue to review options. CM will continue to
follow for discharge planning needs.
Plan; continue to search for SNF
[2023-12-27 15:35] VITALS: BP 145/78
[2023-12-27] MEDS: LIPITOR 40 MG PO (18:13)
[2023-12-27 23:51] VITALS: BP 93/47
[2023-12-28 07:02] LABS: Blood Urea Nitrogen 21 mg/dl (7-17); Calcium 9.3 mg/dl (8.4-10.2); Carbon Dioxide 26 mmol/L (22-30); Chloride 109 mmol/L (98-107); Glucose 87 mg/dl (70-99); Potassium 4.4 mmol/L (3.5-5.1); Sodium 141 mmol/L (135-145); eGFR 54.53
--- NOTE | 2023-12-28 07:08 | W.PN.HOSP.TC ---
Addendum entered and electronically signed by Carmencita Kwong MD 12/28/23 16:52:
Toxic metabolic encephalopathy was present on admission and is now resolved
Addendum entered and electronically signed by Carmencita Kwong MD 12/28/23 13:05:
I saw and evaluated the patient independently. I reviewed the resident�s note and agree with findings and plan as documented by Dr. Oliver. Known to both of us from her last admission.
GENERAL: well developed, well nourished, female in no apparent distress
HEENT: NC/AT
HEART: regular rate and rhythm, +S1, +S2
LUNGS : clear to auscultation bilaterally
ABDOM: soft, nontender, nondistended, + bowel sounds
EXT: no cyanosis, clubbing, or edema
NEUROLOGIC: grossly intact
Change in Mental status likely secondary to medication side effect (daughter relays nastiness and leg pain) vs Volume depletion--no formal dementia diagnosis but likely does have underlying chronic cognitive impairment--perhaps mentation waxes and
wanes from vascular dementia--CT head on admission without acute intracranial hemorrhage, large vessel territory infarction or mass. There is mild subcortical, deep, and periventricular white matter low-attenuation, compatible with changes of
chronic small vessel ischemic disease--MRI brain without any change and no acute abnormality noted--At the last admission at 11/25, medical records were received from [facility]. It was noted, patient had a new onset Seizure disorder by EEG and Started
on Keppra-- She had NSTEMI with elevated troponin treated with Medical therapy. Records in chart. --neurology restarted Keppra --apprec neuro/psych
KHAI --Likely preRenal etiology-- (Baseline Creat 1.0)--Improved with IV fluids
metabolic acidosis with hyperkalemia--repeat, Lokelma --s/p 1 L of D5W with bicarb--unclear cause of acidosis--resolved
Recent NSTEMI at [facility]--Continue medical therapy.
Seizure disorder--Continue on Keppra--I suspect that patient fell out of bed, sustained subdural hematoma, and had seizure afterwards which prompted visit to [facility] and EEG diagnosis of seizure which required Keppra. Although
neurology has continued to recommend continuing the Keppra, I would not be opposed to stopping the medication and observing as repeat CAT scans of her head and MRI of the brain do not show any residual blood.
Essential hypertension--Continue Metoprolol
Hyperlipidemia-Continue atorvastatin.
History of stroke
History of colon cancer -s/p resection
Depression--seen by psych, has capacity to make decisions--stopped lexapro and mirtazapine--started Risperdal instead--pt very tearful this AM--will restart lexapro
DVT Ppx- SCD
code status- DNR
dispo--please see my update note in re: to meeting on 12/25/23
Original Note:
Today's Communication/Plan
-
.
Assessment / Plan
Assessment / Plan
Assessment/Plan
#Change in Mental status likely secondary to medication side effect vs Volume depletion.
-Patient with underlying chronic cognitive impairment.
-CT head on admission-There is no acute intracranial hemorrhage, large vessel territory infarction or mass.There is mild subcortical, deep, and periventricular white matter low-attenuation, compatible with changes of chronic small vessel ischemic
disease.
-Patient previously on Keppra for seizure disorder diagnosed at [facility]. Stopped at [facility] due to 'side effects', but now continued this admission.
-Neurology input appreciated, Continue on Keppra
-MRI 12/23- No acute intracranial abnormality noted. Moderate parenchymal volume loss with sequelae of mild/moderate small vessel ischemic disease, unchanged from prior.
-Psych consulted. Input appreciated.
-Risperdal 0.25 mg po bid PRN for agitation. Resumed Lexapro yesterday due to tearful episodes.
#Acidosis
-resolved with D5W+Bicarb.
#Hyperkalemia
-Resolved with Lokelma.
#KHAI
-Resolved with IV fluids .
#Recent NSTEMI at [facility]
-Continue medical therapy.
#Seizure disorder
-Continue on Keppra.
#Essential hypertension
-Continue Metoprolol.
#Hyperlipidemia
-Continue atorvastatin.
#History of stroke
#History of colon cancer -s/p resection.
#Depression
DVT Ppx- SCD
code status- DNR
Anticipated Discharge: Within 24 hours
Subjective/Interval History
-
Date of Service: December 28, 2023
Objective Data
-
Labs:
Laboratory Results
12/28/23
05:46
Sodium 141
Potassium 4.4
Chloride 109 H
Carbon Dioxide 26
BUN 21 H
Creatinine 1.0
Glucose 87
Calcium 9.3
Vital Signs:
Vital Signs
Temp Pulse Resp BP Pulse Ox
97.4 F 65 19 93/47 98
12/27/23 23:51 12/27/23 23:51 12/27/23 23:51 12/27/23 23:51 12/27/23 23:51
I&O
12/27/23 12/28/23 12/29/23
06:59 06:59 06:59
Intake Total 1270 / 1270 540 / 540
Balance 1270 / 1270 540 / 540
Review of Systems
-
All other systems: Reviewed and negative (except as documented)
Physical Exam
-
General: Well Developed, Well Nourished and No Apparent Distress
Respiratory: Clear to Auscultation
Cardiac: Regular Rhythm and S1/S2
GI: Soft, Nontender, Nondistended and Normal Bowel Sounds
Musculoskeletal: No Edema
Neuro: Awake and Alert
Psych: Calm
[2023-12-28 07:23] VITALS: BP 135/77
[2023-12-28] MEDS: MILK OF MAGNESIA 15 ML PO (07:56)
[2023-12-28] MEDS: MIRALAX 17 GRAMS PO (07:57)
[2023-12-28] MEDS: LEXAPRO 5 MG PO (07:57)
[2023-12-28] MEDS: TOPROL XL 50 MG PO (07:57)
[2023-12-28] MEDS: VITAMIN B-12 1000 MCG PO (07:58)
[2023-12-28] MEDS: PROTONIX 40 MG PO (07:58)
[2023-12-28] MEDS: KEPPRA 500 MG PO ×2 (07:58→20:51)
[2023-12-28] MEDS: ASPIR LOW (ENTERIC COATED) 81 MG PO (07:58)
[2023-12-28] MEDS: TYLENOL 650 MG PO (07:58)
[2023-12-28] MEDS: ZOFRAN ODT (ORALLY DISINTEGRATING) 4 MG PO (07:58)
[2023-12-28] MEDS: RISPERDAL 0.25 MG PO ×2 (07:59→20:53)
--- NOTE | 2023-12-28 14:22 | PN.CDI ---
CDI
- -
CDI:
Physician Documentation Request
Admit Date: 12/22/23 16:15
Dear Doctor Benito,
Clinical Indicators:
The diagnosis of toxic metabolic encephalopathy was documented on 12/22, but is not consistently noted in subsequent documentation.
12/22 PN, 'Acute TME -unknown trigger... Hold lorazepam for now, not sure when or why this was recently initiated as an outpatient.'
12/27 PN, 'Change in Mental status likely secondary to medication side effect vs Volume depletion...-perhaps mentation waxes and wanes from vascular dementia'
Please clarify the following:
Toxic metabolic encephalopathy was present on admission and is now resolved.
Toxic metabolic encephalopathy was ruled out.
Toxic metabolic encephalopathy is still a likely, suspected, probable diagnosis
Other, please specify
Use of terms such as suspected, likely, concern for, or probable (associated with a specific diagnosis that is being evaluated, monitored, or treated as if it exists) are acceptable and can be coded in the inpatient setting, when documented at the
time of discharge.
Thank you,
Deja Dominguez RN
CDI Specialist
available via tiger text
Please use your independent medical judgment in providing your response.
--- NOTE | 2023-12-28 15:30 | CM ---
Patient accepted at [facility]. Patient daughter to transport. Patient in agreement. IMM completed and signed form placed on chart. Please call report to [phone]/fax [phone]. DON/weekend contract administration manager Brandi
[phone]. CM will continue to follow for discharge planning.
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
[2023-12-28 15:43] VITALS: BP 134/64
[2023-12-28 16:27] VITALS: BP 134/64; PULSE 69; O2SAT 97
--- NOTE | 2023-12-28 16:59 | W.PN.UPDATE ---
Update Note
Progress Note Update
Pt seen & evaluated at bedside, chart reviewed. Is sitting up in chair by bed, daughter present at bedside. Pt is in good spirits and pleasant, notably sharp sense of humor. Hospitalist met with pt during this time as well to discuss dispo - pt is
agreeable to SNF and to looking at assisted living facilities while there. Is able to see the benefits to her from this type of living environment, in particular in regard to socializing with peers as she has been quite isolated living with
daughter.
Lexapro was restarted as pt was tearful earlier in the day and it seems that it may have been helping with managing some anxieties or low feelings on patients end - she and daughter however prefer to keep regimen as is for the time being.
No changes warranted at this time.
[2023-12-28] MEDS: LIPITOR 40 MG PO (18:35)
[2023-12-28 23:05] VITALS: BP 128/65
--- NOTE | 2023-12-29 07:20 | W.PN.HOSP.TC ---
Addendum entered and electronically signed by Carmencita Kwong MD 12/29/23 12:56:
I saw and evaluated the patient independently. I reviewed the resident�s note and agree with findings and plan as documented by Dr. Oliver. Known to both of us from her last admission.
GENERAL: well developed, well nourished, female in no apparent distress
HEENT: NC/AT
HEART: regular rate and rhythm, +S1, +S2
LUNGS : clear to auscultation bilaterally
ABDOM: soft, nontender, nondistended, + bowel sounds
EXT: no cyanosis, clubbing, or edema
NEUROLOGIC: grossly intact
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
admission without acute intracranial hemorrhage, large vessel territory infarction or mass. There is mild subcortical, deep, and periventricular white matter low-attenuation, compatible with changes of chronic small vessel ischemic disease--MRI
brain without any change and no acute abnormality noted--At the last admission at 11/25, medical records were received from [facility]. It was noted, patient had a new onset Seizure disorder by EEG and Started on Keppra-- She had NSTEMI with elevated
troponin treated with Medical therapy. Records in chart. --neurology restarted Keppra --apprec neuro/psych--toxic metabolic encephalopathy was present on admission and now resolved
KHAI --Likely prerenal etiology-- (Baseline Creat 1.0)--Improved with IV fluids
metabolic acidosis with hyperkalemia--repeat, Lokelma --s/p 1 L of D5W with bicarb--unclear cause of acidosis--resolved
Recent NSTEMI at [facility]--Continue medical therapy.
Seizure disorder--Continue on Keppra--I suspect that patient fell out of bed, sustained subdural hematoma, and had seizure afterwards which prompted visit to [facility] and EEG diagnosis of seizure which required Keppra. Although
neurology has continued to recommend continuing the Keppra, I would not be opposed to stopping the medication and observing as repeat CAT scans of her head and MRI of the brain do not show any residual blood.
Essential hypertension--Continue Metoprolol
Hyperlipidemia-Continue atorvastatin.
History of stroke
History of colon cancer -s/p resection
Depression--seen by psych, has capacity to make decisions--stopped lexapro and mirtazapine--started Risperdal instead--pt very tearful this AM--will restart lexapro
DVT Ppx- SCD
code status- DNR
dispo--please see my update note in re: to meeting on 12/25/23
Original Note:
Today's Communication/Plan
-
d/c today
Assessment / Plan
Assessment / Plan
Assessment/Plan
#Change in Mental status likely secondary to medication side effect vs Volume depletion.
#Toxic metabolic encephalopathy was present on admission and is now resolved.
-Patient with underlying chronic cognitive impairment.
-CT head on admission-There is no acute intracranial hemorrhage, large vessel territory infarction or mass.There is mild subcortical, deep, and periventricular white matter low-attenuation, compatible with changes of chronic small vessel ischemic
disease.
-Patient previously on Keppra for seizure disorder diagnosed at [facility]', but now continued this admission.
-Neurology input appreciated, Continue on Keppra
-MRI 12/23- No acute intracranial abnormality noted. Moderate parenchymal volume loss with sequelae of mild/moderate small vessel ischemic disease, unchanged from prior.
-Psych consulted. Input appreciated.
-Risperdal 0.25 mg po bid PRN for agitation. Resumed Lexapro due to tearful episodes.
#Acidosis
-resolved with D5W+Bicarb.
#Hyperkalemia
-Resolved with Lokelma.
#KHAI
-Resolved with IV fluids .
#Recent NSTEMI at [facility]
-Continue medical therapy.
#Seizure disorder
-Continue on Keppra.
#Essential hypertension
-Continue Metoprolol.
#Hyperlipidemia
-Continue atorvastatin.
#History of stroke
#History of colon cancer -s/p resection.
#Depression
DVT Ppx- SCD
code status- DNR
Anticipated Discharge: Today
Subjective/Interval History
-
Date of Service: December 29, 2023
Objective Data
-
Vital Signs:
Vital Signs
Temp Pulse Resp BP Pulse Ox
98.0 F 60 20 128/65 96
12/28/23 23:05 12/28/23 23:05 12/28/23 23:05 12/28/23 23:05 12/28/23 23:05
I&O
12/28/23 12/29/23 12/30/23
06:59 06:59 06:59
Intake Total 1020 / 1020 450 / 450
Balance 1020 / 1020 450 / 450
Review of Systems
-
All other systems: Reviewed and negative (except as documented)
Physical Exam
-
General: Well Developed and No Apparent Distress
Respiratory: Clear to Auscultation
Cardiac: Regular Rhythm and S1/S2
GI: Soft, Nontender and Nondistended
Musculoskeletal: No Edema
Neuro: Awake and Alert
[2023-12-29 07:30] VITALS: BP 140/71
[2023-12-29] MEDS: ZOFRAN ODT (ORALLY DISINTEGRATING) 4 MG PO (09:02)
[2023-12-29] MEDS: PROTONIX 40 MG PO (09:02)
[2023-12-29] MEDS: ASPIR LOW (ENTERIC COATED) 81 MG PO (09:02)
[2023-12-29] MEDS: KEPPRA 500 MG PO (09:02)
[2023-12-29] MEDS: TOPROL XL 50 MG PO (09:02)
[2023-12-29] MEDS: LEXAPRO 5 MG PO (09:02)
[2023-12-29] MEDS: MIRALAX 17 GRAMS PO (09:03)
[2023-12-29] MEDS: MILK OF MAGNESIA 15 ML PO (09:03)
[2023-12-29] MEDS: VITAMIN B-12 1000 MCG PO (09:03)
--- NOTE | 2023-12-29 10:12 | CM ---
Pt for discharge today [facility] to [facility]
Daughter to transport
Confirmed with Brandi [phone]
[phone]/fax [phone]
--- NOTE | 2023-12-29 13:08 | W.DCSUMMARY ---
Addendum entered and electronically signed by Carmencita Kwong MD 12/29/23 14:07:
Read, reviewed, and agree. See same day progress note for additional details. Time spent coordinating care, DC planning, review of DC plan of care with resident, transition of care, review of records in EMR, med rec, consults, notes, d/w
consultants, nursing, family, and CM = 50 minutes
Original Note:
Discharge Summary
Discharge Data
Date of Admission: 12/22/23
Date of Discharge: 12/29/23
-
Pending Results: No
Hospital Course
Discharging physicians; Dr. Kwong, Dr. Oliver.
BRIEF HOSPITAL COURSE: This is an 88-year-old female who presented to ER for evaluation of confusion. She was previously admitted to this hospital about a month ago after mechanical fall and was discharged to rehab. Family reports that mental
status was very good while she was in rehab but after she returned home they have noticed gradual decline, and she was once again significantly confused, wandering around the house, constantly getting out of bed at night, HENCE they decided to bring
her to the ED. On presentation to ER, evaluation with a chest x-ray showed no acute osseous abnormality. Head CT on admission without acute intracranial hemorrhage, large vessel territory infarction or mass. There is mild subcortical, deep, and
periventricular white matter low-attenuation, compatible with changes of chronic small vessel ischemic disease. ECG was normal sinus rhythm, normal ECG. Urinalysis normal. Potassium 5.3, BUN 55, creatinine 1.2. She was admitted to the hospital.
Principal Discharge diagnosis :
Change in Mental status likely secondary to medication side effect vs Volume depletion:
Patient with a history of one-time seizure diagnosed at [facility]. She was started on Keppra. Keppra was discontinued while she was in the rehab facility. Per patient's daughter, she said patient was experiencing side effects of
' nastiness and leg pain', hence Keppra was discontinued. While in the hospital this admission, neurology was consulted to evaluate patient. MRI brain was ordered which showed no changes and no acute abnormality noted. Neurologist recommended
restarting outpatient Keppra dosage. Throughout the course of hospital stay, mentation continued to wax and wane. There was no formal dementia diagnosis but the patient likely did have underlying chronic cognitive impairment. During her stay at
rehab facility and on returning home, patient reported she had not been eating or drinking as much. She was started on IV fluids, started on regular diet, as her change in mental status might likely be due to volume depletion. Psychiatry was
consulted and it was determined that the patient had capacity to make decisions. After multiple discussions with patient and family, patient was agreeable to go back to rehab. See below for discussion with family and patient
Chronic Discharge diagnosis :
Acute kidney injury likely prerenal etiology.-On presentation to the ED, patient's creatinine level was 1.2 with a baseline creatinine typically 0.9�1.0. Throughout the course of hospital stay, her creatinine level improved and returned back to
baseline with IV fluids. Acute kidney injury was likely prerenal etiology.
Depression: On presentation to the hospital, patient was initially on Lexapro and mirtazapine. She was seen by psychiatry and was determined she had capacity to make decisions. Mirtazapine and Lexapro were discontinued and she was started on
Risperdal instead by psychiatry. But a decision was made to restart her Lexapro after she had episodes of tearfulness in the morning. Her mood symptoms improved after starting on Lexapro. She will be discharged on as needed Risperdal and
continued on home Lexapro.
Seizure disorder: She was continued on Keppra while in the hospital. Attending physician Dr. Kwong 'suspects that patient fell out of bed, sustained subdural hematoma, and had seizure afterwards which prompted visit to [facility]
and EEG diagnosis of seizure which required Keppra. Although neurology continued to recommend continuing the Keppra, She would not be opposed to stopping the medication and observing as repeat CAT scans of her head and MRI of the brain do not show
any residual blood'.
On the day of discharge, patient was afebrile with vital signs stable. She was well-developed, in no apparent distress. Heart regular rate and rhythm, S1-S2 present. Lungs are clear to auscultation. Abdomen soft nontender nondistended with
positive bowel sounds. No evidence of cyanosis, clubbing or edema. Neurologically grossly intact.
Attending physicians Dr. Kwong's update note after discussion with patient and family on 12/25/2023
On 12/25/23, had long conversation (approximately 50 minutes or so) with patient, daughter Deana, and also present Dr. Oliver. Patient tells me that she does not feel heard. She feels that she is not included in any of the decisions regarding
her moving forward. Daughter Deana concerned about patient's confusion in the evenings and feels unable to take care of her mom the way that she feels she should be taking care of. Patient very aggressive and demeaning toward daughter. Both patient
and daughter agreed that the summer was conrad and wonderful but that things changed after the patient fell.
Patient fell out of bed and went to [facility] and was diagnosed with seizures by documented EEG findings as well as subdural hematoma and NSTEMI that was medically managed. Patient then came to our hospital shortly thereafter for
drowsiness, sleepiness, change in mental status. Records from [facility] were reviewed that admission and confirmed the above findings. Patient was continued on Keppra given the documented EEG findings (daughter felt that perhaps her sleepiness
and drowsiness were related to that new medication).
I explained to the patient and her daughter that she likely is still suffering from postconcussive issues stemming from the original fall. In fact, I used a football analogy to try to describe what she is experiencing. Stating that the concussed
football player does not feel that anything is wrong and wants to go back into the game, the assistant golf coach wants him to go back in the game, and a third person neutral observer clears the football player to go back in the game. I explained that while she
likely states that nothing is wrong with her, clearly she has some issues with sundowning and some confusion in the evenings that she likely cannot see happening to her or is in denial.
We spoke about discharge planning. Patient is agreeable to go to rehab but does not wish to go to [facility]. We also talked about the possibility of assisted living, personal care, aides at home, or staying long-term at the correction should she
wish to do so but patient is undecided about any of what she wants to do. She does say that she wishes to return to [facility]; however, she realizes that that will never happen. She does tell me, in no uncertain terms, that she will not go back to
live with her daughter Deana. Her daughter is interested in a 'community' that has multiple levels of care; so that when she comes out of short term rehab that she has an alternative place to go to possibly maintain her independence.
Psychiatry has seen the patient and states that she does have capacity to make her own medical decisions. I have reiterated that to both the patient and her daughter and explained that regardless of what her family wants, she has the ability to
make her own decisions and I am obligated to listen to her. We spoke about meeting with Chey Russell from '[facility] Perhaps she can offer suggestions as to what might be in the patient's best interest as well as satisfactory for her
family.
Patient states that she does not know the nursing homes/retirement facilities in the area and feels that her daughter Deana is pushing her into the facility of the daughter's choice. I did explain to the patient that unfortunately, she is in the
hospital and cannot tour these facilities on her own and that her daughter is not in the hospital and can tour the facilities; in order to make the best decision for what she believes would be acceptable to her Mom. It does not appear that the
patient is accepting of that explanation. I did offer for our family preservation caseworker, Rose López, to meet with them on December 26, 2023 to go over possibilities for discharge. Patient and daughter were amenable to that.
We ended the conversation at that time but patient still feels that no one is taking her wishes into consideration and that everyone is siding against her and 'stabbing her in the back'.
Discharge Plan
-
Patient Disposition: Fdc/SNF
Discharge Diagnosis/Procedures: Change in Mental status likely secondary to medication side effect or Volume depletion
Acute Kidney Injury
Condition: Fair
Diet: Regular
Activity: As tolerated
Referrals:
UNKNOWN - PT DOES,NOT KNOW [Family Provider] -
Prescriptions:
New
levetiracetam 500 mg Tablet
500 mg PO BID Qty: 30 0RF
risperidone 0.25 mg Tablet
0.25 mg PO Q6HPRN PRN (Reason: agitation) Qty: 10 0RF
Continued
pantoprazole 40 mg Tablet,Delayed Release (Dr/Ec)
40 mg PO DAILY
Refresh Optive 0.5-0.9 % Drops
1 drp BOTH EYES BIDPRN PRN (Reason: dryness) Qty: 0
acetaminophen 325 mg tablet
650 mg PO BIDPRN PRN (Reason: mild pain)
ondansetron 4 mg Tablet,Disintegrating
4 mg PO DAILY
aspirin 81 mg Tablet,Delayed Release (Dr/Ec)
81 mg PO DAILY Qty: 0 0RF
metoprolol succinate [Toprol XL] 25 mg Tablet Extended Release 24 Hr
50 mg PO DAILY
sennosides-docusate sodium [Stool Softener-Laxative] 8.6-50 mg tablet
1 tab PO BIDPRN PRN (Reason: constipation)
atorvastatin [Lipitor] 40 mg Tablet
40 mg PO QPM Qty: 0 0RF
polyethylene glycol 3350 [HealthyLax] 17 gram Powder In Packet
17 g PO DAILY Qty: 0 0RF
cyanocobalamin (vitamin B-12) 1,000 mcg Tablet
1,000 mcg PO DAILY Qty: 0 0RF
magnesium hydroxide 1,200 mg Tablet,Chewable
1,200 mg PO DAILY Qty: 0 0RF
escitalopram oxalate 5 mg tablet
5 mg PO DAILY Qty: 0 0RF
furosemide [Lasix] 20 mg Tablet
20 mg PO DAILY
cranberry 450 mg Tablet
450 mg PO DAILY
Discontinued
mirtazapine 7.5 mg Tablet
7.5 mg PO HS Qty: 0 0RF
lorazepam 0.5 mg Tablet
0.25 mg PO HS
naproxen sodium [Aleve] 220 mg Tablet
220 mg PO BIDPRN PRN (Reason: mild pain)
Discharge Orders:
Discharge Patient (As Directed); Ordered 12/29/23
Ordered By: Carmencita Kwong
Discharge Date and Time
Discharge Date/Time: 12/29/23 11:12
Print Language: TURKISH
== END 2023-12-29 11:12 | DRG 682 ==
LOC: 2 NORTH 16:15
PROVIDERS: Student in an Organized Health Care Education/Training Program; ADMITTING PHYSICIAN Internal Medicine; ATTENDING PHYSICIAN Internal Medicine; CONSULT PHYSICIAN Psychiatry & Neurology Neurology; CONSULT PHYSICIAN Psychiatry & Neurology Psychiatry; EMERGENCY PHYSICIAN Emergency Medicine
DX: N17.9 Acute kidney failure, unspecified (principal); G92.8 Other toxic encephalopathy; E87.20 Acidosis, unspecified; Z11.52 Encounter for screening for COVID-19; Z66 Do not resuscitate; G21.4 Vascular parkinsonism; E87.5 Hyperkalemia; I10 Essential (primary) hypertension; E78.2 Mixed hyperlipidemia; F32.9 Major depressive disorder, single episode, unspecified; G40.909 Epilepsy, unspecified, not intractable, without status epilepticus; Z87.891 Personal history of nicotine dependence
CPT/HCPCS: 70450; 70551; 71045; 80048; 80053; 81003; 83735; 84443; 85025; 85027; 87502; 87811; 93005; 96361; 96374; 96376; 97116; 97163; 97167; 97530; 97535; 99285

== ENCOUNTER 2024-01-22 17:46 | Emergency (ER) | payer MEDICARE, SELFPAY ==
[2024-01-22 18:03] VITALS: BP 122/62
[2024-01-22 18:06] VITALS: BP 122/62
[2024-01-22 18:10] VITALS: BMI 23.2
--- NOTE | 2024-01-22 18:24 | ED.GENMED ---
History of Present Illness
General
Chief Complaint: Failure to Thrive
Source: patient
Time Seen by Provider: 01/22/24 18:08
History of Present Illness
History of Present Illness:
88-year-old female brought to the emergency room by ambulance due to confusion. Patient has had a couple hospitalizations recently for similar complaints. She has been discharged to rehab. Daughter states that the patient has been requiring
increased needs. They brought her home from an assisted living and were planning on placement in a higher level of care. However while home with one of her daughters the patient was observed to have confused speech and moving her upper extremities
in an unusual way. No tonic-clonic activity. Patient had been on Keppra for a seizure. This was stopped then restarted and stopped again. Does not sound she is on Keppra currently. No known fever. Patient offers no complaints though she is
clearly confused.
Past History
Past History
ED Past Medical History: HTN and Hypercholesterolemia
ED Past Surgical History: Gynecological
Social History
Tobacco: Non-smoker
Alcohol: Occasional
Drug: None
Personal:
Living: with family
Phy Exam
Physical Exam
Physical Exam:
General: Awake, Alert, Oriented to person only.. Appears chronically ill
Vitals: unremarkable
Head: Atraumatic
Eyes: Pupils equal, EOMI
Throat: Airway intact, no exudates, dry mucosa
Neck: Trachea midline
Lungs: Clear and equal b/l
Heart: Regular rate, no murmurs
Abd: Soft, Nontender, No pulsatile mass
Neuro: Cranial nerves intact, muscle strength equal bilaterally, cerebellar exam normal. Patient appears to have some hesitancy in starting her speech as well as some stuttering. She does appear somewhat confused but can answer an occasional
question.
Skin: Warm, dry, no rash
Extremities: pulses equal b/l, no edema
r
Course
Orders/Labs/Results
Orders:
Orders
01/22/24
Electrocardiogram (*1) Stat
Reason for Study: Chest Pain
Comment: DONE
01/22/24 18:24
CT Head W/o Iv Contrast Urgent
Comment:
Reason For Exam: altered mental status
01/22/24 18:28
Straight cath- Treatment ONCE
CR Chest - 2 Views Urgent
Comment:
Reason For Exam: altered mental status
01/22/24 19:16
Comprehensive Metabolic Panel Urgent
Free T4 Urgent
Magnesium Urgent
TSH Reflex To Free T4 Urgent
01/22/24 19:23
Complete Blood Count/With Diff Urgent
01/22/24 20:02
Urinalysis Reflex To Culture Urgent
Date Specimen was Collected: 01/22/24
Time Specimen was Collected: 20:01
Urine Microscopic Reflex Cult Urgent
01/22/24 21:49
Risperidone [Risperdal] 0.25 mg PO Q6HPRN PRN
01/23/24 00:24
Diphenhydramine [Benadryl] 50 mg .ROUTE .STK-MED ONE
01/23/24 00:25
Diphenhydramine [Benadryl] 25 mg IV NOW STA
01/23/24 Breakfast
Regular
At Your Request: Full Participation
01/23/24 08:00
Escitalopram Oxalate [Lexapro] 5 mg PO DAILY
Furosemide [Lasix] 20 mg PO DAILY
Metoprolol Xl [Toprol Xl] 50 mg PO DAILY
01/23/24 09:15
Physical Therapy Consult [Pt Eval And Treat] Urgent
Activity Level: Out of Bed-Early Mobility
Abnormal Lab Results
01/22/24 01/22/24 01/22/24
19:16 19:23 20:02
MCHC 29.8 L g/dL
(33.0-37.0)
Monocytes % 10.6 H %
(1.7-9.3)
Chloride 109 H mmol/L
(98-107)
BUN 30 H mg/dl
(7-17)
Glucose 67 L mg/dl
(70-99)
TSH (Reflex) 0.45 L uIU/ml
(0.47-4.68)
Leukocyte Esterase Rfl Trace A
(Negative)
Urine Bacteria (Reflex) Few A
(Negative)
01/22/24 19:23
01/22/24 19:16
Vital Signs
Initial and Last Documented VS:
Initial Vital Signs
BP
122/62
01/22/24 18:03
Last Documented Vital Signs
Temp Pulse Resp BP Pulse Ox
97.7 F 68 18 94/61 96
01/22/24 18:06 01/23/24 11:22 01/23/24 11:22 01/23/24 11:22 01/23/24 11:22
MDM/Problems Addressed
Differential Diagnosis Includes:
uti, electrolyte agn, dehydration
MDM/Problems Addressed:
Patient brought for increased confusion and agitation. However it does appear that the patient has significant baseline cognitive issues. She has been residing in an assisted living and the family states that they were unable to provide her the
care she needed. Patient was taken back to her daughter's house with the idea of placing her in a facility called [facility]. However they were concerned about her mental status prompting visit to ER. Pt has had several similar admissions with
various diagnoses but the theme is dementia worsened by dehydration or infection. Today's workup does not reveal any significant abnormality. White count and hemoglobin are . BUN is mildly elevated at 30 with a normal creatinine of 1.0. TSH is
mildly low but she has a normal T4. She does not appear to have seizure activity here. She has had EEGs here without any seizure activity noted. Overall I do believe the patient has waxing and waning mental status from dementia. I do not know
there is any benefit of hospitalizing the patient. We will keep the patient here in the emergency room pending case management evaluation tomorrow for appropriate placement
*Critical Care Note
Total Time (30-74mins, 75-104mins- exclusive of procedures): Not Applicable
ED Attending Note
-
Portions of this chart may have been created with voice recognition software.� Occasional wrong word or��sound alike� substitutions may have occurred due to the inherent limitations of voice recognition software.
Discharge Plan
Departure
Patient Disposition: Home (Routine Discharge)
Date of Disposition: 01/22/24
Time of Disposition: 21:49
Patient with high blood pressure during this ER visit?: No
Condition: Fair
Discharge Problem:
Dementia
Prescriptions:
No Action
pantoprazole 40 mg Tablet,Delayed Release (Dr/Ec)
40 mg PO DAILY
Refresh Optive 0.5-0.9 % Drops
1 drp BOTH EYES BIDPRN PRN (Reason: dryness) Qty: 0
acetaminophen 325 mg tablet
650 mg PO BIDPRN PRN (Reason: mild pain)
ondansetron 4 mg Tablet,Disintegrating
4 mg PO DAILYPRN PRN (Reason: NAUSSEA/VOMITING)
metoprolol succinate [Toprol XL] 25 mg Tablet Extended Release 24 Hr
50 mg PO DAILY
sennosides-docusate sodium [Stool Softener-Laxative] 8.6-50 mg tablet
1 tab PO BIDPRN PRN (Reason: constipation)
atorvastatin [Lipitor] 40 mg Tablet
40 mg PO QPM Qty: 0 0RF
polyethylene glycol 3350 [HealthyLax] 17 gram Powder In Packet
17 g PO DAILY Qty: 0 0RF
cyanocobalamin (vitamin B-12) 1,000 mcg Tablet
1,000 mcg PO DAILY Qty: 0 0RF
magnesium hydroxide 1,200 mg Tablet,Chewable
1,200 mg PO DAILY Qty: 0 0RF
escitalopram oxalate 5 mg tablet
5 mg PO DAILY Qty: 0 0RF
furosemide [Lasix] 20 mg Tablet
20 mg PO DAILY
cranberry 450 mg Tablet
450 mg PO DAILY
risperidone 0.25 mg Tablet
0.25 mg PO Q6HPRN PRN (Reason: agitation) Qty: 10 0RF
lorazepam 2 mg/mL concentrate
0 mg PO DAILYPRN PRN (Reason: agitation)
Patient Comments:
01/22/2024: Family does not know dosage of lorazepam
aspirin 81 mg tablet,delayed release (DR/EC)
81 mg PO DAILY
levetiracetam 500 mg tablet
500 mg PO BID
Referrals:
UNKNOWN,NO INTERVIEW [Family Provider] -
Interventions
Interventions:
*Risk Screen - Suicide Last Done: 01/22/24 18:11
*General Assessment Last Done: 01/22/24 18:11
*Neglect/Abuse Screening Last Done: 01/22/24 18:11
ED- Fall Risk Assessment Last Done: 01/23/24 09:00
*ED COVID-19 Vaccine History Last Done: 01/22/24 18:11
*Nursing Disposition Last Done: 01/23/24 12:06
Discharge Date and Time
Discharge Date/Time: 01/23/24 12:06
Print Language: GHANAIAN
[2024-01-22 19:16] VITALS: BP 128/59
[2024-01-22 19:37] LABS: % Basophils 0.5 % (0-2); % Eosinophils 2.5 % (0-6); % Immature Granulocytes 0.2 % (0-0.5); % Lymphocytes 31.5 % (20.5-51.1); % Monocytes 10.6 % (1.7-9.3); % Neutrophils 54.7 % (42.2-75.2); Absolute Eosinophils 0.1 10^3/uL (0-0.7); Absolute Lymphocytes 1.8 10^3/uL (1.2-3.4); Absolute Monocytes 0.6 10^3/uL (0.1-0.6); Absolute Neutrophils 3.1 10^3/uL (1.4-6.5); Hemoglobin 13.1 g/dL (12.0-16.0); Mean Corp Hgb Conc. 29.8 g/dL (33.0-37.0); Mean Corpuscular Hgb 28.7 pg (27.0-31.0); Mean Corpuscular Volume 96.3 fL (81.0-99.0); Mean Platelet Volume 9.3 fL (7.4-10.4); Nucleated Red Blood Cells % 0 %; Platelet Count 277 10^3/uL (130-400); Red Blood Cell Count 4.57 10^6/uL (4.20-5.40); Red Cell Dist. Width 13.2 % (11.5-14.5); White Blood Cell Count 5.6 10^3/uL (4.8-10.8)
[2024-01-22 19:49] LABS: ALT (SGPT) 17 U/L (0-35); AST (SGOT) 29 U/L (14-36); Albumin 3.7 g/dl (3.5-5.0); Alkaline Phosphatase 77 U/L (38-126); Blood Urea Nitrogen 30 mg/dl (7-17); Calcium 9.6 mg/dl (8.4-10.2); Carbon Dioxide 24 mmol/L (22-30); Chloride 109 mmol/L (98-107); Estimated Creatinine Clearance 36 ml/min; Glucose 67 mg/dl (70-99); Magnesium 1.9 mg/dl (1.6-2.3); Potassium 4.5 mmol/L (3.5-5.1); Sodium 143 mmol/L (135-145); Total Bilirubin 0.6 mg/dl (0.2-1.3); Total Protein 6.4 g/dl (6.3-8.2); eGFR 54.53
[2024-01-22 20:16] LABS: Urine Albumin Negative (Neg - Trace); Urine Bilirubin Negative (Negative); Urine Character Clear (Clear); Urine Color Yellow; Urine Glucose Negative (Negative); Urine Ketone Negative (Negative); Urine Leukocyte Trace (Negative); Urine Nitrite Negative (Negative); Urine Occult Blood Negative (Negative); Urine Urobilinogen Negative (Neg - 1+); Urine pH 6.5 (5.0-9.0)
[2024-01-22 20:19] LABS: TSH Reflex To Free T4 0.45 uIU/ml (0.47-4.68)
[2024-01-22 20:26] VITALS: BP 120/54
[2024-01-22 20:42] LABS: Urine Bacteria Few (Negative); Urine Red Blood Cell 0-2 /HPF (0-2); Urine Squamous Cell >30 /LPF (Few)
[2024-01-22 20:49] LABS: Free T4 1.28 ng/dl (0.78-2.19)
[2024-01-22 21:00] VITALS: BP 115/58
[2024-01-22 22:05] VITALS: BP 149/83
[2024-01-22 22:07] LABS: Glucose - Point of Care 71 mg/dl (70-99)
[2024-01-22] MEDS: RISPERDAL 0.25 MG PO (23:05)
[2024-01-23] MEDS: BENADRYL 25 MG IV (00:26)
[2024-01-23] MEDS: LASIX 20 MG PO (08:10)
[2024-01-23] MEDS: TOPROL XL 50 MG PO (08:12)
[2024-01-23] MEDS: LEXAPRO 5 MG PO (08:12)
[2024-01-23] MEDS: RISPERDAL 0.25 MG PO (08:53)
--- NOTE | 2024-01-23 09:21 | CM ---
Addendum entered by Saadia Feliciano RN 01/23/24 10:05:
CM spoke with patient's caregiver at bedside. Caregiver is agreeable to have patient go to [facility]. CM spoke with director cardiovascular at [facility]. CM will send clinical and PT notes to [facility] director cardiovascular for clinical review.
Original Note:
CM reviewed medical records. CM spoke with patient's daughter Deana and her caregiver Anya. Deana and Anya endorse that patient was to be moved into [facility] on Sunday. Daughter erroneously brought patient to [facility] on Sunday.
Patient stayed with patient's daughter but daughter noted a change in patient's mental status. Marc daughter and caregiver are now considering Hospice, but want an update on patient's condition from Emergency Room physician prior to further
discharge planning discussions.
CM updated Dr. Ackerman with patient's questions. CM updated bedside RN. Of note, patient is currently on a med sitter for safety due to confusion.
--- NOTE | 2024-01-23 11:06 | CM ---
As per DON at [facility], they can accept patient. CM updated bedside RN and ED MD. Patient's caregiver and family are in agreement with plan.
[2024-01-23 11:22] VITALS: BP 94/61
== END 2024-01-23 12:06 | disposition home or self-care (01) ==
LOC: EMR 17:46
PROVIDERS: EMERGENCY PHYSICIAN Emergency Medicine
DX: F03.911 Unspecified dementia, unspecified severity, with agitation (principal); E78.00 Pure hypercholesterolemia, unspecified; I10 Essential (primary) hypertension
CPT/HCPCS: 96374; 99284; 70450; 71046; 80053; 81003; 81015; 82962; 83735; 84439; 84443; 85025; 93005